=== PATIENT | male | born 1965 | race Caucasian/White ===

== ENCOUNTER 2022-11-27 09:14 | Inpatient (IN) | payer OTHER ==
[~2022-11-27] VITALS: Ht 185.4 cm; Wt 81.7 kg
--- NOTE | 2022-11-27 11:40 | PM&R Post Admission Assessment ---
PM&R Date of Visit: Nov 27, 2022 Time of Visit: 13:00 History of Present Illness Chief complaint: Critical illness myopathy HPI: This is a 57-year-old male who has a history of colon cancer who presents from [place] following a lengthy course which included ventilator wean and tracheotomy who presents to ARU to help with aggressive therapy to return back to baseline function. 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 He continues with J-tube feeding and drain in the left lower quadrant is in place. He does have a history of PTSD and severe anxiety and depression. Acute respiratory failure with ARDS required intubation and tracheotomy but the trach was decannulated on 11/25/2022 and currently on room air but does require 2 L at times. Speech therapy will work on returning back to oral nutrition While maintaining tube feedings to maintain nutrition. He did have suspected adrenal insufficiency and did require transfusions for severe acute blood loss anemia. His fiance is at the bedside. Past Zfvhjda-[id number]-Qfnyvv Hx Past Med/Social Hx: Reviewed Nursing Past Med/Soc Hx, Reviewed and Corrections made Patient Social History Marrital Status: cohabiting Employed/Student: retired Alcohol Use: Past History Smoking Status: Former Smoker Past Medical History Surgeries: Abdominal Cancer: Stomach, Colon What Type of Treatment Did You: Chemotherapy, Radiation, Surgical Intervention Psychosocial: Sleep Difficulties, Anxiety, PTSD, Depression PM&R Allergy/Meds/Data Review Allergies Coded Allergies: No Allergy Information Available (Unverified , 11/27/22) Home Medications Scheduled Ascorbate Calcium (Vitamin C), 500 MG BID, (Reported) Cetirizine HCl (Cetirizine HCl), 10 MG HS, (Reported) Chlorhexidine Gluconate (Peridex), 10 ML MM BID, (Reported) Enoxaparin Sodium (Enoxaparin Sodium), 40 MG SQ DAILY, (Reported) Ferrous Sulfate (Ferrous Sulfate), 300 MG BID WITH FOOD, (Reported) Folic Acid (Folic Acid), 1 MG DAILY, (Reported) Gabapentin (Neurontin), 300 MG Q12H, (Reported) Heparin Sodium,Porcine/Pf (Heparin Flush 10 Units/ml Syr), UNIT IV BID, (Reported) Lansoprazole (Lansoprazole), 30 MG DAILY, (Reported) Lidocaine (Salonpas), 1 EACH TP DAILY, (Reported) Loperamide HCl (Imodium A-D), 4 MG Q6H, (Reported) Lorazepam (Ativan), 0.5 MG PEG Q8H, (Reported) Magnesium Oxide (Magnesium Oxide), 400 MG BID, (Reported) Melatonin (Melatonin), 5 MG HS, (Reported) Potassium Bicarbonate/Cit AC (Effer-K 20 Meq Tablet Eff), 20 MEQ DAILY, (Reported) Propranolol HCl (Propranolol HCl), 20 MG Q12H, (Reported) Venlafaxine HCl (Venlafaxine HCl ER), 37.5 MG HS, (Reported) Scheduled PRN Acetaminophen (Tylenol Extra Strength), 1,000 MG Q8H PRN for PAIN-MILD (1-4) OR TEMPATURE, (Reported) Hydroxyzine HCl (Hydroxyzine HCl), 25 MG JT Q8H PRN for ANXIETY, (Reported) Ipratropium/Albuterol Sulfate (Iprat-Albut 0.5-3(2.5) mg/3 ml), 3 ML IH Q4H PRN for SHORTNESS OF BREATH, (Reported) Midodrine HCl (Midodrine HCl), 20 MG Q6H PRN for SBP<100, (Reported) Current Medications Current Medications Reviewed Review of Systems Constitutional: see HPI, dizziness, malaise, weakness EENTM: no symptoms reported Respiratory: dyspnea on exertion Cardiovascular: no symptoms reported Gastrointestinal: abdominal pain, loss of appetite Genitourinary: no symptoms reported Musculoskeletal: back pain, joint pain, muscle pain, muscle stiffness, muscle cramps Skin: no symptoms reported Psychiatric/Neurological: Anxiety, Depressed, Emotional Problems All Other Systems Reviewed Negative Unless Noted: Yes Physical Exam Physical Exam Vital Signs Capillary Refill : Height, Weight, BMI Height: '" Weight: lbs. oz. kg; BMI Method: General Appearance: WD/WN, Anxious, Chronically ill, Mild Distress, Thin Eyes: Bilateral Eye Normal Inspection, Bilateral Eye PERRL HEENT: PERRL/EOMI, Normal ENT Inspection, Pharynx Normal Neck: Full Range of Motion, Normal Inspection, Non Tender, Supple, Carotid Bruit Respiratory: Chest Non Tender, Lungs Clear, No Accessory Muscle Use, No Respiratory Distress, Decreased Breath Sounds Cardiovascular: No Edema, No Gallop, No JVD, No Murmur, Normal Peripheral Pulses, Tachycardia Gastrointestinal: Normal Bowel Sounds, No Organomegaly, No Pulsatile Mass, Non Tender, Soft Back: Normal Inspection, No CVA Tenderness, No Vertebral Tenderness Extremity: Normal Capillary Refill, Normal Inspection, Normal Range of Motion, Non Tender, No Calf Tenderness, No Pedal Edema Neurologic/Psychiatric: Alert, Oriented x3, 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 Norm as Tested, Abnormal Gait, Depressed Affect, Motor Weakness (Generalized 3/5) Skin: Normal Color, Warm/Dry Lymphatic: No Adenopathy PM&R Medical Assessment & Plan REHAB/MEDICAL ASSESSMENT AND PLAN: REHAB IMPAIRMENT GROUP: Neuromuscular disorder ETIOLOGIC DIAGNOSIS: Critical illness myopathy The comorbidities that impact the patients function and/or functional outcome by: decannulated trach, tube feedings, dysphagia, adrenal insufficiency, acute blood loss anemia, anxiety, and PTSD REHAB PLAN: The patient is being admitted to our comprehensive inpatient rehabilitation facility and can tolerate the intensity of service consisting of at least: 180 minutes of therapy a day, 5 out of 7 days a week Rehab treatment will consist of: PT and OT will focus on regaining function with use of assistive devices in order to increase stamina and ambulation with use of assistive devices to help increase ADLs independence The patient/family has a good understanding of our discharge process and will benefit from an interdisciplinary inpatient rehabilitation program. The patient has potential to make improvement and is in need of at least two of the following multidisciplinary therapies including but not limited to physical, occupational, speech, and prosthetics and orthotics. Additionally the patient will need services from respiratory, nutritional services, wound care, psychology, etc. (Customize this to each patient). Given the patients complex condition and risk of further medical complications, rehabilitation services cannot be safely or effectively provided at a lower level of care such as a [facility] facility. BARRIERS TO DISCHARGE: severe weakness ESTIMATED LOS: 14 days DISPOSITION: home RELEVANT CHANGES SINCE PREADMISSION SCREENING: I have compared the patients medical and functional status at the time of the preadmission screening and there are: no changes PROGNOSIS: fair REHABILITATION GOALS: 1. PT and OT will focus on regaining function with use of assistive devices in order to increase stamina and ambulation with use of assistive devices to help increase ADLs independence All the above goals were reviewed with the patient and he/she is in agreement. By signing this document, I acknowledge that I have personally performed a full physical examination on this patient within 24 hours of admission to this inpatient rehabilitation facility and have determined the patient to be able to tolerate the above course of treatment at an intensive level for a reasonable period of time. I will be completing a detailed individualized Plan of Care for this patient by day #4 of the patients stay based upon the Preadmission Screen, the Post-Admission Evaluation, and the therapy evaluations. Admission Dx/Comorbidities: (1) Critical illness myopathy ICD Codes: G72.81 - Critical illness myopathy Assessment/Plan Assessment and Plan Assess & Plan/Chief Complaint Assessment: Critical illness myopathy Recent ARDS Recent vent dependent Decannulated trach Former smoker Colon cancer Gastrectomy with J-tube placement Recent adrenal insufficiency Acute blood loss anemia requiring transfusions PTSD Anxiety Depression Hypokalemia Labile blood pressure Tachycardia Plan: Supportive care Monitor closely PT and OT Supportive care LIAM IQBAL DO Nov 27, 2022 11:40
[2022-11-27] MEDS ORDERED: ACETAMINOPHEN 325 MG TABLET PO PRN (11:45)
[2022-11-27] MEDS ORDERED: MELATONIN 3 MG TABLET PO PRN (11:45)
[2022-11-27] MEDS ORDERED: ALPRAZolam 0.25 MG TABLET PO PRN (11:45)
[2022-11-27] MEDS ORDERED: ONDANSETRON 4 MG ORAL DISSOLVE TABLET PO PRN (11:45)
[2022-11-27] MEDS ORDERED: Sodium Phosphate/Sodium Biphosphate ADULT enema PR PRN (11:45)
[2022-11-27] MEDS ORDERED: LACTULOSE SYRUP 10GM/15ML 30ML UDC PO PRN (11:45)
[2022-11-27] MEDS ORDERED: BISACODYL 10 MG SUPPOSITORY PR PRN (11:45)
[2022-11-27] MEDS ORDERED: LOPERAMIDE 2 MG CAPSULE PO PRN (11:45)
[2022-11-27] MEDS ORDERED: CALCIUM CARBONATE 500 MG CHEW TABLET PO PRN (11:45)
[2022-11-27] MEDS ORDERED: DOCUSATE SODIUM 100 MG CAPSULE PO PRN (11:45)
[2022-11-27] MEDS ORDERED: diphenhydrAMINE 25 MG TABLET PO PRN (11:45)
[2022-11-27] MEDS ORDERED: guaiFENesin/CODEINE 10ML UDC PO PRN (11:45)
[2022-11-27] MEDS ORDERED: ENOX40DI8 SQ (12:16)
[2022-11-27] MEDS ORDERED: POTA20TA28 (12:16)
[2022-11-27] MEDS ORDERED: HEPA10DI39 IV (12:16)
[2022-11-27] MEDS ORDERED: LANS30TA9 (12:16)
[2022-11-27] MEDS ORDERED: FOLI1TAB33 (12:16)
[2022-11-27] MEDS ORDERED: FERR220S8 (12:16)
[2022-11-27] MEDS ORDERED: MGX400T (12:16)
[2022-11-27] MEDS ORDERED: GABA300C (12:16)
[2022-11-27] MEDS ORDERED: MIDO10TA (12:16)
[2022-11-27] MEDS ORDERED: IPRA3AMP31 IH (12:16)
[2022-11-27] MEDS ORDERED: MELA5TAB14 (12:16)
[2022-11-27] MEDS ORDERED: CETI10TA17 (12:16)
[2022-11-27] MEDS ORDERED: LOPE-175 (12:16)
[2022-11-27] MEDS ORDERED: VENL37.57 (12:16)
[2022-11-27] MEDS ORDERED: ASCO-262 (12:16)
[2022-11-27] MEDS ORDERED: CHLO473M4 MM (12:16)
[2022-11-27] MEDS ORDERED: LORA-404 PEG (12:16)
[2022-11-27] MEDS ORDERED: HYDR-700 JT (12:16)
[2022-11-27] MEDS ORDERED: LIDO1ADH74 TP (12:16)
[2022-11-27] MEDS ORDERED: PROP20TA5 (12:16)
[2022-11-27] MEDS ORDERED: ACET-2267 (12:16)
--- OUTSIDE RECORDS SUMMARY | 2022-11-27 13:37 | XMS REPORT | Clinical Summary ---
Author Author [facility] Organization [facility] Address Unknown Phone Unavailable Care Team Providers Care Darkroom Technician Name Role Phone No Pcp, Na PCP Unavailable Kendrick Guzman MD [phone] Maryann White MD [phone] Source Comments Some departments are not documenting in the electronic medical record. If you do not see the information that you expected, contact Release of Information in the Health Information Management department at [phone] for further assistance in locating additional records.[facility] Allergies Active Allergy Reactions Criticality Noted Date Comments Atorvastatin MUSCLE PAIN,URTICARIA Medium 01/08/2021 Medications Medication Sig Dispensed Refills Start Date End Date Status lisinopriL (ZESTRIL) 10 mg tablet Take one tablet by mouth daily. 0 12/27/2021 Active cetirizine (ZYRTEC) 10 mg tablet Take one tablet by mouth every morning. 0 01/16/2022 Active gabapentin (NEURONTIN) 300 mg capsule Take two capsules by mouth three times daily. 0 01/21/[address] (PROTONIX) 40 mg tablet Take one tablet by mouth daily. 0 01/24/2022 Active venlafaxine XR (EFFEXOR XR) 150 mg capsule Take one capsule by mouth daily. 0 Active albuterol sulfate (PROAIR HFA) 90 mcg/actuation HFA aerosol inhaler Inhale one puff to two puffs by mouth into the lungs as Needed for Wheezing or Shortness of Breath. 0 Active ARIPiprazole (ABILIFY) 20 mg tablet Take one-half tablet by mouth daily. 0 05/02/2022 Active hydrOXYzine HCL (ATARAX) 25 mg tablet Take one tablet by mouth daily as needed. 0 07/29/2022 Active acetaminophen (TYLENOL EXTRA STRENGTH) 500 mg tablet two tablets by Per J Tube route every 6 hours as needed. Max of 4,000 mg of acetaminophen in 24 hours. 0 10/29/2022 Active artificial tears (PF) single dose ophthalmic solution Apply one drop to both eyes as Needed for Dry Eyes. 30 mL 0 10/29/2022 Active chlorhexidine gluconate (PERIDEX) 0.12 % mouthwash Take 15 mL by mouth twice daily. In mechanically ventilated patient, apply with swab to entire oral cavity and artificial airway. Discontinue when patient is no longer ventilated. 473 mL 0 10/29/2022 Active diphenoxylate-a tropine (LOMOTIL) 2.5-0.025 mg tablet two tablets by Per J Tube route every 6 hours. 0 10/29/2022 Active enoxaparin (LOVENOX) 40 mg injection syringe Inject 0.4 mL under the skin daily. 0 10/29/2022 Active lidocaine (LIDODERM) 5 % topical patch Apply one patch topically to affected area daily. Apply patch for 12 hours, then remove for 12 hours before repeating. 90 patch 0 10/30/2022 Active loperamide (IMODIUM) 1 mg/7.5 mL oral solution 30 mL by Per J Tube route every 6 hours. 240 mL 0 10/29/2022 Active LORazepam (ATIVAN) 0.5 mg tablet one tablet by Per J Tube route twice daily as needed. 0 10/29/2022 Active melatonin 5 mg tablet one tablet by Per J Tube route at bedtime daily. 90 tablet 0 10/29/2022 Active midodrine (PROAMATINE) 5 mg tablet three tablets by Per J Tube route every 8 hours. 270 tablet 0 10/29/2022 Active norepinephrine (LEVOPHED) 4 mg/250 mL (16 mcg/mL) soln IV drip (std conc) Administer 0-0.0522 mg/min through vein Continuous. Drip Parameters: Initial Rate: 0.01-0.05 mcg/kg/min Titrate to keep: MAP >= 65 Titrate by: 0.01-0.05 mcg/kg/min every 1 minute as needed to maintain desired clinical response. Std conc = 16 mcg/mL 0 10/29/2022 Active opium tincture 10 mg/mL (morphine) oral solution 1 mL by Per J Tube route every 6 hours. 0 10/29/2022 Active oxyCODONE (ROXICODONE) 1 mg/mL oral solution 5 mL by Per J Tube route every 3 hours as needed. 0 10/29/2022 Active QUEtiapine (SEROQUEL) 50 mg tablet Take one tablet by mouth twice daily. 180 tablet 0 10/29/2022 Active QUEtiapine (SEROQUEL) 100 mg tablet Take one tablet by mouth at bedtime daily. 180 tablet 0 10/29/2022 Active traZODone (DESYREL) 50 mg tablet Take one-half tablet by mouth three times daily. 90 tablet 0 10/29/2022 Active simethicone (MYLICON) 40 mg/0.6 mL drops 1.2 mL by Per J Tube route four times daily as needed. 0 10/29/2022 Active ondansetron HCL (PF) (ZOFRAN (PF)) 4 mg/2 mL injection solution Administer 2 mL through vein every 6 hours as needed. 2 mL 0 10/29/2022 Active apixaban (ELIQUIS) 5 mg tablet Take one tablet by mouth twice daily. 0 10/30/19 23 Discontinued dexmedeTOMIDine in 0.9 % NaCL (PRECEDEX) 400 mcg/100 mL (4 mcg/mL) IV drip Administer 19.42-29.13 mcg/hr through vein once for 1 dose. Instructions: -Initiate at 0.2 mcg/kg/hr and maintain for 30 minutes -Titrate to keep: RASS of 0 to -2 a.) Titrate infusion in increments of 0.1 mcg/kg/hr at 5 minute intervals until goal sedation level achieved or maintenance exceeds 1.0 mcg/kg/hr b.) If HR < 55 or SBP < 90 mmHg hold for 10 minutes then restart at dose reduced by 0.3 mcg/kg/hr c.) Notify physician for persistent hypotension (SBP < 90 mmHg) or bradycardia (HR < 55) over 15 minutes d.) For breakthrough agitation NOTIFY PHYSICIAN and consider bolus of 1 mcg/kg over 20 min if HR and BP are acceptable. e.) Notify physician if maintenance exceeds 1 mcg/kg/hr -Taper agent continuously to lowest effective dose to achieve desired level of sedation keeping patient calm and able to participate in care. Std conc= 4mcg/ml NOTE: For weight-based dosing, use patient dosing weight. Std conc = 4 mcg/mL 0 10/29/2022 10/30/19 micafungin (MYCAMINE) 100 mg in sodium chloride 0.9% (NS) 100 mL IVPBIndications :intra-abdomina l infection Administer one hundred mg through vein every 24 hours. 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, [address] [place] [address] William Montgomery MD Appointment 10/28/2022 6:35 AM CDT - 10/28/2022 11:59 PM CDT Hospital Encounter Vascular Access Team: [address], [address] [place] [address] William Montgomery MD Discharge Disposition: Home or Self Care 10/09/2022 2:05 PM CDT - 10/09/2022 11:59 PM CDT Hospital Encounter Vascular Access Team: [address], [address] [place] [address] William Montgomery MD Discharge Disposition: Home or Self Care 10/03/2022 1:01 PM CDT - 10/03/2022 11:59 PM CDT Hospital Encounter Imaging: [facility] [address] [facility]. [address] [place] [address] Discharge Disposition: Home or Self Care 10/01/2022 4:27 PM CDT Anesthesia Event Interventional Radiology: [address], [address] [place] [address] Edwin Deluna MD Rogers, Alicia, [facility] 09/30/2022 9:45 AM CDT - 09/30/2022 11:59 PM CDT Hospital Encounter Vascular Access Team: [address] [address], [address] [place] [address] William Montgomery MD Discharge Disposition: Home or Self Care 09/28/2022 12:37 PM CDT - 09/28/2022 11:59 PM CDT Hospital Encounter Vascular Access Team: [address] [address], [address] [place] [address] William Montgomery MD Discharge Disposition: Home or Self Care 09/24/2022 3:30 PM CDT - 09/24/2022 11:59 PM CDT Hospital Encounter Vascular Access Team: [address] [address], [address] [place] [address] William Montgomery MD Discharge Disposition: Home or Self Care 09/23/2022 7:35 PM CDT - 09/23/2022 11:59 PM CDT Hospital Encounter Vascular Access Team: [address] [address], [address] [place] [address] William Montgomery MD Discharge Disposition: Home or Self Care 09/23/2022 12:35 PM CDT - 09/23/2022 7:34 PM CDT Hospital Encounter Vascular Access Team: [address] [address], [address] [place] [address] William Montgomery MD Discharge Disposition: Home or Self Care 09/23/2022 6:30 AM CDT - 09/23/2022 12:34 PM CDT Hospital Encounter Vascular Access Team: [address], [address] [place] [address] William Montgomery MD Discharge Disposition: Home or Self Care 09/20/2022 9:48 AM CDT - 09/20/2022 11:38 AM CDT Surgery Operating Room: [address] [place] [address] Lit Blas MD TRACHEOSTOMY PLANNED 09/20/2022 9:46 AM CDT Anesthesia Event Operating Room: [place] [address] Zohaib Fuentes, Radha Lindquist, PAJovannaC 09/18/2022 6:53 AM CDT Anesthesia Event Intensive Care Unit BH28: [place] [address] Juve Manzo MD 09/16/2022 Telephone Otolaryngology: [facility], [address], [address] [place] [address] Ever Moreira, PETE Scheduling 09/13/2022 Telephone Otolaryngology: [facility], [address] [facility] [address], [address] [place] [address] Ever Moreira, PETE Scheduling 09/12/2022 9:05 PM CDT Anesthesia Event Intensive Care Unit BH28: [address] [address] Nikolay Spring MD 09/08/2022 10:00 PM CDT Anesthesia Event Intensive Care Unit BH28: [address] [address] Jose Roberto Peña MD 09/07/2022 12:00 PM CDT - 09/07/2022 11:59 PM CDT Hospital Encounter Vascular Access Team: [address], [address] [place] [address] William Montgomery MD Discharge Disposition: Home or Self Care 09/07/2022 3:35 AM CDT - 09/07/2022 11:59 AM CDT Hospital Encounter Vascular Access Team: [address] [place] [address], [address] [place] [address] William Montgomery MD Discharge Disposition: Home or Self Care 09/06/2022 8:28 PM CDT - 09/06/2022 11:59 PM CDT Hospital Encounter Vascular Access Team: [address] [place] [address], [address] [place] [phone] William Montgomery MD Discharge Disposition: Home or Self Care 09/02/2022 8:27 AM CDT Anesthesia Event Operating Room: [place] [address] Evelyne Xie MD Turek, Lisa J, PA-C 09/02/2022 8:00 AM CDT - 09/02/2022 12:50 PM CDT Surgery Operating Room: [place] [address] William Montgomery MD TOTAL GASTRECTOMY, TRISTAN-EN-Y GASTROJEJUNOSTOMY; JEJUNOSTOMY TUBE PLACEMENT. SIGMOID COLECTOMY 09/02/2022 7:58 AM CDT - 09/02/2022 11:59 PM CDT Hospital Encounter Vascular Access Team: [place] [address], [address] [place] [phone] William Montgomery MD Discharge Disposition: Home or Self Care 09/02/2022 6:25 AM CDT - 10/30/2022 12:26 PM CDT Hospital Encounter Intensive Care Unit 28: [address] [place] [address] William Montgomery MD Malignant neoplasm of esophagus (HCC) Discharge Disposition: Home or Self Care 08/27/2022 10:00 AM CDT PAC Office Visit Pre-anesthesia: [facility] [address] [facility], [address] [place] [phone] William Montgomery MD Preop examination (Primary Dx) from Last 3 Months Surgical History Surgery Date Site/Laterality Comments UPPER GASTROINTESTINAL ENDOSCOPY 04/24/2022 N/A ESOPHAGOGASTRODUODENOSCO PY WITH ENDOSCOPIC ULTRASOUND EXAMINATION - FLEXIBLE performed by Martin Aguayo MD at [facility] ENDO UPPER GASTROINTESTINAL ENDOSCOPY 04/24/2022 N/A ESOPHAGOGASTRODUODENOSCO PY WITH SPECIMEN COLLECTION BY BRUSHING/ WASHING performed by Martin Aguayo MD at [facility] ENDO COLONOSCOPY HX CHOLECYSTECTOMY ANKLE SURGERY Bilateral Fx Surgery HX JOINT REPLACEMENT 02/17/2015 - 02/17/2016 Right JEJUNOSTOMY 09/02/2022 Abdomen/N/A CATHETER JEJUNOSTOMY FOR ENTERAL ALIMENTATION performed by William Montgomery MD at [facility] OR COLECTOMY 09/02/2022 Abdomen/N/A COLECTOMY WITH ANASTOMOSIS - PARTIAL performed by William Montgomery MD at [facility] OR TRACHEOSTOMY 09/20/2022 Neck/N/A TRACHEOSTOMY PLANNED performed by Lit Blas MD at [facility] OR Medical History Medical History Date Comments PE (pulmonary thromboembolism) (HCC) 02/2022 HTN (hypertension) GERD (gastroesophageal reflux disease) Cancer of colon (HCC) Cancer of esophagus (HCC) Arthritis On supplemental oxygen therapy p rn History of blood transfusion 05/2022 per pt report Family History Medical History Relation Name Comments Stroke Father Arthritis-osteo Mother Arthritis-rheumatoid Mother Depression Mother Stroke Mother Relation Name Status Comments Father Mother Alive Social History Tobacco Use Types Packs/Day Years Used Date Smoking Tobacco: Never Smokeless Tobacco: Former Chew Quit: 06/2022 Alcohol Use Standard Drinks/Week Comments Not Currently 0 (1 standard drink = 0.6 oz pur e alcohol) Alcohol Use Answer Date Recorded Alcohol Use No Male: 9+ ounces (15+ Standard Drinks) per week T hreshold 0 Female: 4.8+ ounces (8+ Standard Drinks) per wee k Threshold Not on file Sex and Gender Information Value Date Recorded Sex Assigned at Male 03/28/2022 2:05 PM MANAGER UI Gender Identity Male 03/28/2022 2:05 PM MANAGER UI Sexual Orientation Not on file Obstetrics History Last Filed Vital Signs Vital Sign Reading Time Taken Comments Blood Pressure 117/82 10/30/2022 12:00 PM CDT Pulse 84 10/30/2022 12:00 PM CDT Temperature 37.1 C (98.7 F) 10/30/2022 8:00 AM CDT Respiratory Rate 16 07/31/2022 10:4 9 AM CDT Oxygen Saturation 98% 10/30/2022 12: 00 PM CDT Inhaled Oxygen Concentration - - Weight 96.6 kg (212 lb 15.4 oz) 023 5:00 AM CDT Height 182.9 cm (6') 10/14/2022 6:00 AM CDT Body Mass Index 28.88 10/14/2022 6:00 AM CDT Plan of Treatment Health Maintenance Due Date Last Done Comments PNEUMOCOCCAL VACCINE 0-64 YR S (1 - PCV) 1970 HIV SCREENING 08/30/1979 HEPATITIS C SCREENING 1982 PHYSICAL (COMPREHENSIVE) EXAM 1982 COLORECTAL CANCER SCREENING 2009 SHINGLES RECOMBINANT VACCINE (1 of 2) 2014 COVID-19 VACCINE (3 - Pfizer series) 02/06/2022 12/12/2021, 11/16/2021 DEPRESSION SCREENING 02/17/2022 INFLUENZA VACCINE (#1) 2022 , 11/12/2019, 01/20/2019, Additional history exists DTAP/TDAP VACCINES (2 - Td o r Tdap) 01/31/2025 01/31/2015 Goals Goal Patient Goal Type Associated Problems Recent Progress Patient-Stated? [facility] On [facility]( 023 10:31 AM CDT) Yes Kacie Aguilar, RN Note: Move around without getting an upset stomach Medical Devices Implanted Type Area Hand Rug Cleaner Device Identifier Shelf Expiration Date Model / Serial / Lot Port Port Left: Chest Procedures Procedure Name Priority Date/Time Associated Diagnosis Comments HC BLOOD GASES;(CALCULATED 02) Routine 10/30/2022 5:59 AM CDT HC BLOOD GASES;(CALCULATED 02) Routine 10/29/2022 3:19 AM CDT CONSULT VASCULAR ACCESS TEAM DAIANA 10/28/2022 6:01 AM CDT HC BASIC METABOLIC PANEL STAT 10/28/2022 3:55 AM CDT HC PHOSPHOROUS, SERUM Routine 10/28/2022 3:55 AM CDT HC MAGNESIUM Routine 10/28/2022 3:55 AM CDT HC CBC,AUTOMATED Routine 10/28/2022 3:5 5 AM CDT HC BLOOD GASES;(CALCULATED 02) Routine 10/28/2022 3:55 AM CDT HC BLOOD GASES;(CALCULATED 02) Routine 10/27/2022 4:00 AM CDT HC BASIC METABOLIC PANEL STAT 10/27/2022 3:58 AM CDT HC PHOSPHOROUS, SERUM Routine 10/27/2022 3:58 AM CDT HC MAGNESIUM Routine 10/27/2022 3:58 AM CDT HC CBC,AUTOMATED Routine 10/27/2022 3:5 8 AM CDT HC BLOOD GASES;(CALCULATED 02) Routine 10/26/2022 2:50 AM CDT HC BASIC METABOLIC PANEL STAT 10/26/2022 2:49 AM CDT HC PHOSPHOROUS, SERUM Routine 10/26/2022 2:49 AM CDT HC MAGNESIUM Routine 10/26/2022 2:49 AM CDT HC CBC,AUTOMATED Routine 10/26/2022 2:4 9 AM CDT HC BLOOD GASES;(CALCULATED 02) STAT 10/25/2022 4:39 PM CDT CHEST SINGLE VIEW STAT 10/25/2022 4: 42 AM CDT TYPE & CROSSMATCH Routine 10/25/2022 3: 19 AM CDT HC PHOSPHOROUS, SERUM Routine 10/25/2022 3:17 AM CDT HC MAGNESIUM Routine 10/25/2022 3:17 AM CDT HC COMPREHENSIVE METABOLIC PANEL Routine 10/25/2022 3:17 AM CDT HC CBC,AUTOMATED Routine 10/25/2022 3:1 7 AM CDT HC BLOOD GASES;(CALCULATED 02) Routine 10/25/2022 3:17 AM CDT HC PHOSPHOROUS, SERUM Routine 10/24/2022 5:05 AM CDT HC MAGNESIUM Routine 10/24/2022 5:05 AM CDT HC COMPREHENSIVE METABOLIC PANEL Routine 10/24/2022 5:05 AM CDT HC CBC,AUTOMATED Routine 10/24/2022 5:0 5 AM CDT HC BLOOD GASES;(CALCULATED 02) Routine 10/24/2022 5:05 AM CDT ECG 12-LEAD Routine 10/23/2022 7:13 PM CDT HC BLOOD GASES;(CALCULATED 02) STAT 10/23/2022 2:35 PM CDT CORTISOL 60 MINUTES POST Routine 10/23/2022 10:17 AM CDT CORTISOL 30 MINUTES POST Routine 10/23/2022 9:40 AM CDT HC ACTH STIM PANEL (CORTISOL X2) Routine 10/23/2022 8:09 AM CDT HC ACTH Routine 10/23/2022 8:09 AM CDT HC PHOSPHOROUS, SERUM Routine 10/23/2022 2:39 AM CDT HC MAGNESIUM Routine 10/23/2022 2:39 AM CDT HC COMPREHENSIVE METABOLIC PANEL Routine 10/23/2022 2:39 AM CDT HC CBC,AUTOMATED Routine 10/23/2022 2:3 9 AM CDT HC BLOOD GASES;(CALCULATED 02) Routine 10/23/2022 2:39 AM CDT HC BLOOD GASES;(CALCULATED 02) STAT 10/22/2022 2:28 PM CDT HC BLOOD GASES;(CALCULATED 02) STAT 10/22/2022 7:47 AM CDT HC BLOOD GASES;(CALCULATED 02) Routine 10/22/2022 2:33 AM CDT HC PHOSPHOROUS, SERUM Routine 10/22/2022 2:32 AM CDT HC MAGNESIUM Routine 10/22/2022 2:32 AM CDT HC COMPREHENSIVE METABOLIC PANEL Routine 10/22/2022 2:32 AM CDT HC CBC,AUTOMATED Routine 10/22/2022 2:3 2 AM CDT HC BLOOD GASES;(CALCULATED 02) STAT 10/21/2022 2:36 PM CDT HC CBC,AUTOMATED STAT 10/21/2022 2:3 2 PM CDT CHEST SINGLE VIEW STAT 10/21/2022 10: 36 AM CDT CHEST SINGLE VIEW Routine 10/21/2022 4: 17 AM CDT HC PHOSPHOROUS, SERUM Routine 10/21/2022 2:31 AM CDT HC MAGNESIUM Routine 10/21/2022 2:31 AM CDT HC COMPREHENSIVE METABOLIC PANEL Routine 10/21/2022 2:31 AM CDT HC CBC,AUTOMATED Routine 10/21/2022 2:3 1 AM CDT HC BLOOD GASES;(CALCULATED 02) Routine 10/21/2022 2:31 AM CDT CHEST SINGLE VIEW STAT 10/20/2022 3: 45 PM CDT HC BLOOD GASES;(CALCULATED 02) STAT 10/20/2022 3:24 PM CDT CULTURE-WOUND/TISSUE/ FLUID(AEROBIC ONLY)W/SENSITIVITY Routine 10/20/2022 1:54 PM CDT CULTURE-ANAEROBIC Routine 10/20/2022 1: 54 PM CDT GRAM STAIN Routine 10/20/2022 1:54 PM CDT CULTURE-FUNGAL,OTHER Routine 10/20/2022 1:[address] GUIDE ABSCESS DRAIN W CATH Routine 10/20/2022 1:[address] GUIDE ABSCESS DRAIN W CATH DAIANA 10/20/2022 1:46 PM CDT TEG WITH KAOLIN STAT 10/20/2022 8:50 AM CDT HC BLOOD GASES;(CALCULATED 02) Routine 10/20/2022 3:11 AM CDT HC PHOSPHOROUS, SERUM Routine 10/20/2022 3:08 AM CDT HC MAGNESIUM Routine 10/20/2022 3:08 AM CDT HC COMPREHENSIVE METABOLIC PANEL Routine 10/20/2022 3:08 AM CDT HC CBC,AUTOMATED Routine 10/20/2022 3:0 8 AM CDT HC BLOOD GASES;(CALCULATED 02) STAT 10/19/2022 8:50 PM CDT HC BLOOD GASES;(CALCULATED 02) STAT 10/19/2022 4:58 PM CDT HC HEMOGLOBIN STAT 10/19/2022 12:49 PM CDT HC BLOOD GASES;(CALCULATED 02) Routine 10/19/2022 12:49 PM CDT HC BLOOD GASES;(CALCULATED 02) STAT 10/19/2022 10:27 AM CDT HC BLOOD GASES;(CALCULATED 02) STAT 10/19/2022 8:45 AM CDT HC BLOOD GASES;(CALCULATED 02) Routine 10/19/2022 3:10 AM CDT HC PHOSPHOROUS, SERUM Routine 10/19/2022 3:03 AM CDT HC MAGNESIUM Routine 10/19/2022 3:03 AM CDT HC COMPREHENSIVE METABOLIC PANEL Routine 10/19/2022 3:03 AM CDT HC CBC,AUTOMATED Routine 10/19/2022 3:[address] CHEST W CONTRAST STAT 10/18/2022 4:[address] ABD/PELV W CONTRAST STAT 10/18/2022 4:37 PM CDT CHEST SINGLE VIEW STAT 10/18/2022 8: 48 AM CDT POC GLUCOSE 10/18/2022 6:21 AM CDT HC TRIGLYCERIDE Routine 10/18/2022 3:21 AM CDT HC PHOSPHOROUS, SERUM Routine 10/18/2022 3:21 AM CDT HC MAGNESIUM Routine 10/18/2022 3:21 AM CDT HC COMPREHENSIVE METABOLIC PANEL Routine 10/18/2022 3:21 AM CDT HC CBC,AUTOMATED Routine 10/18/2022 3:2 1 AM CDT HC BLOOD GASES;(CALCULATED 02) Routine 10/18/2022 3:21 AM CDT POC GLUCOSE 10/17/2022 10:50 PM CDT HC CBC,AUTOMATED STAT 10/17/2022 7:0 5 PM CDT POC GLUCOSE 10/17/2022 5:36 PM CDT CHEST SINGLE VIEW STAT 10/17/2022 3: 34 PM CDT POTASSIUM STAT 10/17/2022 1:17 PM CDT POC GLUCOSE 10/17/2022 12:32 PM CDT US DOPPLER VENOUS LEFT STAT 10/17/2022 12:29 PM CDT ECG 12-LEAD STAT 10/17/2022 8:58 AM CDT POC GLUCOSE 10/17/2022 6:37 AM CDT TRANSFUSE RBC'S Routine 10/17/2022 4:44 AM CDT HC PHOSPHOROUS, SERUM Routine 10/17/2022 3:35 AM CDT HC MAGNESIUM Routine 10/17/2022 3:35 AM CDT HC COMPREHENSIVE METABOLIC PANEL Routine 10/17/2022 3:35 AM CDT HC CBC,AUTOMATED Routine 10/17/2022 3:3 5 AM CDT HC BLOOD GASES;(CALCULATED 02) Routine 10/17/2022 3:30 AM CDT POC GLUCOSE 10/16/2022 9:40 PM CDT POC GLUCOSE 10/16/2022 4:35 PM CDT POTASSIUM STAT 10/16/2022 1:24 PM CDT POC GLUCOSE 10/16/2022 11:59 AM CDT POC GLUCOSE 10/16/2022 6:31 AM CDT HC TRIGLYCERIDE Routine 10/16/2022 3:13 AM CDT HC CBC,AUTOMATED Routine 10/16/2022 3:1 3 AM CDT HC COMPREHENSIVE METABOLIC PANEL Routine 10/16/2022 3:13 AM CDT HC MAGNESIUM Routine 10/16/2022 3:13 AM CDT HC PHOSPHOROUS, SERUM Routine 10/16/2022 3:13 AM CDT HC BLOOD GASES;(CALCULATED 02) Routine 10/16/2022 3:13 AM CDT POC GLUCOSE 10/15/2022 9:07 PM CDT POC GLUCOSE 10/15/2022 5:39 PM CDT HC CBC,AUTOMATED STAT 10/15/2022 1:4 8 PM CDT POC GLUCOSE 10/15/2022 11:04 AM CDT POC GLUCOSE 10/15/2022 6:26 AM CDT HC CBC,AUTOMATED Routine 10/15/2022 3:0 3 AM CDT HC COMPREHENSIVE METABOLIC PANEL Routine 10/15/2022 3:03 AM CDT HC MAGNESIUM Routine 10/15/2022 3:03 AM CDT HC PHOSPHOROUS, SERUM Routine 10/15/2022 3:03 AM CDT HC BLOOD GASES;(CALCULATED 02) Routine 10/15/2022 3:03 AM CDT POC GLUCOSE 10/14/2022 10:18 PM CDT TRANSFUSE RBC'S STAT 10/14/2022 5:39 PM CDT HC BLOOD GASES;(CALCULATED 02) STAT 10/14/2022 5:30 PM CDT POC GLUCOSE 10/14/2022 4:09 PM CDT HC ABO GROUP STAT 10/14/2022 4:05 PM CDT HC HIGH SENSITIVITY TROPONIN I RANDOM 10/14/2022 2:38 PM CDT HC CBC,AUTOMATED 10/14/2022 2:3 8 PM CDT HC CALCIUM IONIZED Add on 10/14/2022 2 :38 PM CDT HC LACTIC ACID(LACTATE) STAT 10/14/2022 2:38 PM CDT HC PHOSPHOROUS, SERUM STAT 10/14/2022 2:38 PM CDT HC MAGNESIUM STAT 10/14/2022 2:38 PM CDT BASIC METABOLIC PANEL STAT 10/14/2022 2:38 PM CDT HC BLOOD GASES;(CALCULATED 02) STAT 10/14/2022 2:38 PM CDT ECG 12-LEAD Routine 10/14/2022 2:28 PM CDT POC GLUCOSE 10/14/2022 12:05 PM CDT CHEST SINGLE VIEW STAT 10/14/2022 11: 35 AM CDT HC CBC,AUTOMATED Routine 10/14/2022 3:3 3 AM CDT HC COMPREHENSIVE METABOLIC PANEL Routine 10/14/2022 3:33 AM CDT HC MAGNESIUM Routine 10/14/2022 3:33 AM CDT HC PHOSPHOROUS, SERUM Routine 10/14/2022 3:33 AM CDT HC BLOOD GASES;(CALCULATED 02) Routine 10/14/2022 3:33 AM CDT POC GLUCOSE 10/13/2022 10:17 PM CDT POC GLUCOSE 10/13/2022 4:06 PM CDT HC BLOOD GASES;(CALCULATED 02) Routine 10/13/2022 4:00 PM CDT HC SODIUM;SERUM STAT 10/13/2022 4:00 PM CDT POC GLUCOSE 10/13/2022 11:07 AM CDT SODIUM STAT 10/13/2022 11:00 AM CDT CHEST SINGLE VIEW STAT 10/13/2022 9: 02 AM CDT POC GLUCOSE 10/13/2022 6:31 AM CDT HC PHOSPHOROUS, SERUM Routine 10/13/2022 3:42 AM CDT HC MAGNESIUM Routine 10/13/2022 3:42 AM CDT HC COMPREHENSIVE METABOLIC PANEL Routine 10/13/2022 3:42 AM CDT HC CBC,AUTOMATED Routine 10/13/2022 3:4 2 AM CDT HC BLOOD GASES;(CALCULATED 02) Routine 10/13/2022 3:42 AM CDT POC GLUCOSE 10/12/2022 9:51 PM CDT HC SODIUM;SERUM STAT 10/12/2022 9:50 PM CDT POC GLUCOSE 10/12/2022 4:10 PM CDT HC SODIUM;SERUM STAT 10/12/2022 4:10 PM CDT HC BLOOD GASES;(CALCULATED 02) Routine 10/12/2022 12:20 PM CDT POC GLUCOSE 10/12/2022 10:13 AM CDT SODIUM STAT 10/12/2022 10:12 AM CDT HC BLOOD GASES;(CALCULATED 02) Routine 10/12/2022 8:00 AM CDT POC GLUCOSE 10/12/2022 6:21 AM CDT POC GLUCOSE 10/12/2022 3:04 AM CDT HC BLOOD GASES;(CALCULATED 02) Routine 10/12/2022 3:03 AM CDT HC PHOSPHOROUS, SERUM Routine 10/12/2022 3:02 AM CDT HC MAGNESIUM Routine 10/12/2022 3:02 AM CDT HC COMPREHENSIVE METABOLIC PANEL Routine 10/12/2022 3:02 AM CDT HC CBC,AUTOMATED Routine 10/12/2022 3:0 2 AM CDT POC GLUCOSE 10/11/2022 9:30 PM CDT HC SODIUM;SERUM STAT 10/11/2022 9:29 PM CDT HC BLOOD GASES;(CALCULATED 02) STAT 10/11/2022 4:27 PM CDT POC GLUCOSE 10/11/2022 4:09 PM CDT HC COMPREHENSIVE METABOLIC PANEL STAT 10/11/2022 3:48 PM CDT POC GLUCOSE 10/11/2022 11:29 AM CDT HC SODIUM;SERUM STAT 10/11/2022 9:33 AM CDT POC GLUCOSE 10/11/2022 6:26 AM CDT POC GLUCOSE 10/11/2022 3:22 AM CDT HC PHOSPHOROUS, SERUM Routine 10/11/2022 3:17 AM CDT HC MAGNESIUM Routine 10/11/2022 3:17 AM CDT COMPREHENSIVE METABOLIC PANEL Routine 10/11/2022 3:17 AM CDT HC CBC,AUTOMATED Routine 10/11/2022 3:1 7 AM CDT HC BLOOD GASES;(CALCULATED 02) Routine 10/11/2022 3:17 AM CDT POC GLUCOSE 10/10/2022 9:58 PM CDT HC SODIUM;SERUM STAT 10/10/2022 9:57 PM CDT HC BLOOD GASES;(CALCULATED 02) Routine 10/10/2022 4:18 PM CDT POC GLUCOSE 10/10/2022 4:15 PM CDT HC SODIUM;SERUM STAT 10/10/2022 4:15 PM CDT HC C DIFFICILE BY PCR Routine 10/10/2022 12:54 PM CDT POC GLUCOSE 10/10/2022 11:22 AM CDT SODIUM STAT 10/10/2022 10:22 AM CDT POC GLUCOSE 10/10/2022 5:44 AM CDT HC PHOSPHOROUS, SERUM Routine 10/10/2022 3:47 AM CDT HC MAGNESIUM Routine 10/10/2022 3:47 AM CDT HC COMPREHENSIVE METABOLIC PANEL Routine 10/10/2022 3:47 AM CDT HC CBC,AUTOMATED Routine 10/10/2022 3:4 7 AM CDT HC BLOOD GASES;(CALCULATED 02) Routine 10/10/2022 3:47 AM CDT HC BASIC METABOLIC PANEL STAT 10/09/2022 10:10 PM CDT POC GLUCOSE 10/09/2022 10:09 PM CDT POC GLUCOSE 10/09/2022 5:44 PM CDT SODIUM STAT 10/09/2022 4:08 PM CDT CULTURE-BLOOD W/SENSITIVITY Routine 10/09/2022 2:47 PM CDT CULTURE-BLOOD W/SENSITIVITY Routine 10/09/2022 2:42 PM CDT CONSULT VASCULAR ACCESS TEAM Routine 10/09/2022 2:00 PM CDT URINALYSIS MICROSCOPIC REFLEX TO CULTURE Routine 10/09/2022 1:50 PM CDT HC URINALYSIS UAR Routine 10/09/2022 1: 50 PM CDT HC PHOSPHOROUS, SERUM STAT 10/09/2022 1:50 PM CDT HC SODIUM;SERUM 59 STAT 10/09/2022 1 :50 PM CDT POC GLUCOSE 10/09/2022 11:09 AM CDT SODIUM STAT 10/09/2022 10:04 AM CDT POC GLUCOSE 10/09/2022 6:03 AM CDT HC PHOSPHOROUS, SERUM Routine 10/09/2022 12:55 AM CDT HC MAGNESIUM Routine 10/09/2022 12:55 AM CDT HC COMPREHENSIVE METABOLIC PANEL Routine 10/09/2022 12:55 AM CDT HC CBC,AUTOMATED Routine 10/09/2022 12:5 5 AM CDT HC BLOOD GASES;(CALCULATED 02) Routine 10/09/2022 12:55 AM CDT POC GLUCOSE 10/08/2022 9:57 PM CDT HC SODIUM;SERUM STAT 10/08/2022 9:57 PM CDT POC GLUCOSE 10/08/2022 5:10 PM CDT HC SODIUM;SERUM STAT 10/08/2022 3:40 PM CDT TRANSFUSE RBC'S STAT 10/08/2022 1:19 PM CDT HC CBC,AUTOMATED STAT 10/08/2022 12:2 8 PM CDT POC GLUCOSE 10/08/2022 11:23 AM CDT HC COMPREHENSIVE METABOLIC PANEL STAT 10/08/2022 10:34 AM CDT POC GLUCOSE 10/08/2022 6:48 AM CDT TEG WITH KAOLIN Routine 10/08/2022 5:45 AM CDT HC ABO GROUP Routine 10/08/2022 2:01 AM CDT HC PHOSPHOROUS, SERUM Routine 10/08/2022 2:01 AM CDT HC MAGNESIUM Routine 10/08/2022 2:01 AM CDT COMPREHENSIVE METABOLIC PANEL Routine 10/08/2022 2:01 AM CDT HC CBC,AUTOMATED Routine 10/08/2022 2:0 1 AM CDT HC TRIGLYCERIDE Routine 10/08/2022 2:01 AM CDT HC BLOOD GASES;(CALCULATED 02) Routine 10/08/2022 2:01 AM CDT HC SODIUM;SERUM STAT 10/07/2022 10:06 PM CDT POC GLUCOSE 10/07/2022 10:05 PM CDT POC GLUCOSE 10/07/2022 5:47 PM CDT HC SODIUM;SERUM STAT 10/07/2022 4:31 PM CDT ECG 12-LEAD Routine 10/07/2022 4:21 PM CDT HC BLOOD GASES;(CALCULATED 02) STAT 10/07/2022 2:38 PM CDT POC GLUCOSE 10/07/2022 11:19 AM CDT SODIUM STAT 10/07/2022 10:48 AM CDT POC GLUCOSE 10/07/2022 6:26 AM CDT HC BLOOD GASES;(CALCULATED 02) Routine 10/07/2022 3:54 AM CDT HC PHOSPHOROUS, SERUM Routine 10/07/2022 3:51 AM CDT HC MAGNESIUM Routine 10/07/2022 3:51 AM CDT HC COMPREHENSIVE METABOLIC PANEL Routine 10/07/2022 3:51 AM CDT HC CBC,AUTOMATED Routine 10/07/2022 3:5 1 AM CDT HC TRIGLYCERIDE Routine 10/07/2022 3:[address] HEAD WO CONTRAST STAT 10/07/2022 3:00 AM CDT POC GLUCOSE 10/06/2022 10:55 PM CDT HC SODIUM;SERUM STAT 10/06/2022 10:54 PM CDT HC LACTIC ACID(LACTATE) STAT 10/06/2022 7:35 PM CDT HC PHOSPHOROUS, SERUM STAT 10/06/2022 7:35 PM CDT HC MAGNESIUM STAT 10/06/2022 7:35 PM CDT BASIC METABOLIC PANEL STAT 10/06/2022 7:35 PM CDT HC CBC,AUTOMATED STAT 10/06/2022 7:3 5 PM CDT HC BLOOD GASES;(CALCULATED 02) Routine 10/06/2022 7:35 PM CDT POC GLUCOSE 10/06/2022 4:10 PM CDT HC SODIUM;SERUM 59 STAT 10/06/2022 4 :07 PM CDT POC GLUCOSE 10/06/2022 10:19 AM CDT SODIUM STAT 10/06/2022 10:13 AM CDT POC GLUCOSE 10/06/2022 6:15 AM CDT HC PHOSPHOROUS, SERUM Routine 10/06/2022 2:56 AM CDT HC MAGNESIUM Routine 10/06/2022 2:56 AM CDT HC COMPREHENSIVE METABOLIC PANEL Routine 10/06/2022 2:56 AM CDT HC CBC,AUTOMATED Routine 10/06/2022 2:5 6 AM CDT HC TRIGLYCERIDE Routine 10/06/2022 2:56 AM CDT HC BLOOD GASES;(CALCULATED 02) Routine 10/06/2022 2:56 AM CDT HC SODIUM;SERUM STAT 10/05/2022 10:09 PM CDT POC GLUCOSE 10/05/2022 9:19 PM CDT CHEST SINGLE VIEW STAT 10/05/2022 8: 23 PM CDT POC GLUCOSE 10/05/2022 5:25 PM CDT CHEM 7 ADD ON Add on 10/05/2022 5:19 PM CDT HC SODIUM;SERUM STAT 10/05/2022 5:19 PM CDT HC BLOOD GASES;(CALCULATED 02) STAT 10/05/2022 1:18 PM CDT SODIUM STAT 10/05/2022 1:18 PM CDT POC GLUCOSE 10/05/2022 11:05 AM CDT POC GLUCOSE 10/05/2022 6:06 AM CDT HC PHOSPHOROUS, SERUM Routine 10/05/2022 3:09 AM CDT HC MAGNESIUM Routine 10/05/2022 3:09 AM CDT HC COMPREHENSIVE METABOLIC PANEL Routine 10/05/2022 3:09 AM CDT HC CBC,AUTOMATED Routine 10/05/2022 3:0 9 AM CDT HC TRIGLYCERIDE Routine 10/05/2022 3:09 AM CDT HC BLOOD GASES;(CALCULATED 02) Routine 10/05/2022 3:09 AM CDT HC SODIUM;SERUM STAT 10/04/2022 10:02 PM CDT POC GLUCOSE 10/04/2022 9:37 PM CDT POC GLUCOSE 10/04/2022 5:22 PM CDT HC BLOOD GASES;(CALCULATED 02) STAT 10/04/2022 4:36 PM CDT HC SODIUM;SERUM STAT 10/04/2022 4:36 PM CDT HC BLOOD GASES;(CALCULATED 02) STAT 10/04/2022 12:53 PM CDT HC COMPREHENSIVE METABOLIC PANEL STAT 10/04/2022 12:53 PM CDT POC GLUCOSE 10/04/2022 11:35 AM CDT POC GLUCOSE 10/04/2022 7:01 AM CDT HC BLOOD GASES;(CALCULATED 02) Routine 10/04/2022 6:07 AM CDT HC BLOOD GASES;(CALCULATED 02) STAT 10/04/2022 4:58 AM CDT CHEST SINGLE VIEW STAT 10/04/2022 3: 57 AM CDT HC PHOSPHOROUS, SERUM Routine 10/04/2022 3:14 AM CDT HC MAGNESIUM Routine 10/04/2022 3:14 AM CDT COMPREHENSIVE METABOLIC PANEL Routine 10/04/2022 3:14 AM CDT HC CBC,AUTOMATED Routine 10/04/2022 3:1 4 AM CDT HC BLOOD GASES;(CALCULATED 02) Routine 10/04/2022 3:08 AM CDT HC BLOOD GASES;(CALCULATED 02) Routine 10/03/2022 11:12 PM CDT HC SODIUM;SERUM STAT 10/03/2022 10:20 PM CDT POC GLUCOSE 10/03/2022 9:15 PM CDT HC BLOOD GASES;(CALCULATED 02) Routine 10/03/2022 9:15 PM CDT POC GLUCOSE 10/03/2022 4:40 PM CDT SODIUM STAT 10/03/2022 3:18 PM CDT HC SODIUM;SERUM 59 STAT 10/03/2022 3 :18 PM CDT HC PHOSPHOROUS, SERUM STAT 10/03/2022 3:18 PM CDT POC SICU US ECHO 2D LTD W/O CONTRAST Routine 10/03/2022 1:46 PM CDT POC GLUCOSE 10/03/2022 12:12 PM CDT SODIUM STAT 10/03/2022 9:19 AM CDT HC BLOOD GASES;(CALCULATED 02) STAT 10/03/2022 6:57 AM CDT POC GLUCOSE 10/03/2022 6:04 AM CDT HC PHOSPHOROUS, SERUM Routine 10/03/2022 4:19 AM CDT HC MAGNESIUM Routine 10/03/2022 4:19 AM CDT HC COMPREHENSIVE METABOLIC PANEL Routine 10/03/2022 4:19 AM CDT HC CBC,AUTOMATED Routine 10/03/2022 4:1 9 AM CDT HC BLOOD GASES;(CALCULATED 02) Routine 10/03/2022 4:19 AM CDT POC GLUCOSE 10/02/2022 10:14 PM CDT HC SODIUM;SERUM STAT 10/02/2022 10:13 PM CDT HC BLOOD GASES;(CALCULATED 02) STAT 10/02/2022 10:06 PM CDT HC BLOOD GASES;(CALCULATED 02) STAT 10/02/2022 4:57 PM CDT POC GLUCOSE 10/02/2022 4:28 PM CDT HC BLOOD GASES;(CALCULATED 02) STAT 10/02/2022 3:01 PM CDT HC SODIUM;SERUM STAT 10/02/2022 2:25 PM CDT POC GLUCOSE 10/02/2022 10:11 AM CDT SODIUM STAT 10/02/2022 10:08 AM CDT POC GLUCOSE 10/02/2022 6:04 AM CDT HC BLOOD GASES;(CALCULATED 02) Routine 10/02/2022 4:31 AM CDT CHEST SINGLE VIEW STAT 10/02/2022 3: 47 AM CDT POC GLUCOSE 10/02/2022 3:04 AM CDT HC PHOSPHOROUS, SERUM Routine 10/02/2022 3:01 AM CDT HC MAGNESIUM Routine 10/02/2022 3:01 AM CDT HC COMPREHENSIVE METABOLIC PANEL Routine 10/02/2022 3:01 AM CDT HC CBC,AUTOMATED Routine 10/02/2022 3:0 1 AM CDT HC BLOOD GASES;(CALCULATED 02) Routine 10/02/2022 3:01 AM CDT POC GLUCOSE 10/01/2022 10:24 PM CDT IR ABDOMINAL DRAIN UPSIZE Routine 10/01/2022 5:07 PM CDT HC ANTIMICROBIAL YEAST VENUS PANEL 10/01/2022 4:54 PM CDT CULTURE-FUNGAL,OTHER Routine 10/01/2022 4:54 PM CDT GRAM STAIN Routine 10/01/2022 4:54 PM CDT CULTURE-ANAEROBIC Routine 10/01/2022 4: 54 PM CDT CULTURE-WOUND/TISSUE/ FLUID(AEROBIC ONLY)W/SENSITIVITY Routine 10/01/2022 4:54 PM CDT POC GLUCOSE 10/01/2022 4:10 PM CDT HC SODIUM;SERUM STAT 10/01/2022 4:07 PM CDT URINALYSIS MICROSCOPIC REFLEX TO CULTURE Routine 10/01/2022 3:06 PM CDT HC URINALYSIS UAR Routine 10/01/2022 3: 06 PM CDT POC GLUCOSE 10/01/2022 11:54 AM CDT HC BLOOD GASES;(CALCULATED 02) STAT 10/01/2022 9:36 AM CDT SODIUM STAT 10/01/2022 9:36 AM CDT ECG 12-LEAD STAT 10/01/2022 7:01 AM CDT POC GLUCOSE 10/01/2022 6:26 AM CDT HC PHOSPHOROUS, SERUM Routine 10/01/2022 3:11 AM CDT HC MAGNESIUM Routine 10/01/2022 3:11 AM CDT HC COMPREHENSIVE METABOLIC PANEL Routine 10/01/2022 3:11 AM CDT HC CBC,AUTOMATED Routine 10/01/2022 3:1 1 AM CDT HC BLOOD GASES;(CALCULATED 02) Routine 10/01/2022 3:11 AM CDT POC GLUCOSE 09/30/2022 9:10 PM CDT HC SODIUM;SERUM STAT 09/30/2022 9:10 PM CDT HC SODIUM;SERUM STAT 09/30/2022 4:00 PM CDT POC GLUCOSE 09/30/2022 3:58 PM CDT GRAM STAIN 09/30/2022 2:44 PM CDT CULTURE-RESP,LOWER W/SENSITIVITY Routine 09/30/2022 2:44 PM CDT POC GLUCOSE 09/30/2022 11:14 AM CDT CONSULT VASCULAR ACCESS TEAM Routine 09/30/2022 9:30 AM CDT SODIUM STAT 09/30/2022 8:54 AM CDT POC GLUCOSE 09/30/2022 8:51 AM CDT POC GLUCOSE 09/30/2022 3:12 AM CDT HC BLOOD GASES;(CALCULATED 02) Routine 09/30/2022 3:12 AM CDT HC PHOSPHOROUS, SERUM Routine 09/30/2022 3:10 AM CDT HC MAGNESIUM Routine 09/30/2022 3:10 AM CDT HC COMPREHENSIVE METABOLIC PANEL Routine 09/30/2022 3:10 AM CDT HC CBC,AUTOMATED Routine 09/30/2022 3:1 0 AM CDT POC GLUCOSE 09/29/2022 11:54 PM CDT POC GLUCOSE 09/29/2022 10:58 PM CDT HC BLOOD GASES;(CALCULATED 02) Routine 09/29/2022 10:18 PM CDT HC SODIUM;SERUM STAT 09/29/2022 10:18 PM CDT POC GLUCOSE 09/29/2022 9:02 PM CDT POC GLUCOSE 09/29/2022 6:40 PM CDT HC BLOOD GASES;(CALCULATED 02) STAT 09/29/2022 6:39 PM CDT POC GLUCOSE 09/29/2022 5:13 PM CDT POC GLUCOSE 09/29/2022 3:03 PM CDT HC BLOOD GASES;(CALCULATED 02) STAT 09/29/2022 2:52 PM CDT HC SODIUM;SERUM STAT 09/29/2022 2:52 PM CDT POC GLUCOSE 09/29/2022 12:51 PM CDT HC BLOOD GASES;(CALCULATED 02) STAT 09/29/2022 12:[address] CHEST W CONTRAST Routine 09/29/2022 1 2:[address] ABD/PELV W CONTRAST Routine 09/29/2022 12:[address] HEAD WO CONTRAST Routine 09/29/2022 1 1:52 AM CDT POC GLUCOSE 09/29/2022 11:12 AM CDT HC SODIUM;SERUM STAT 09/29/2022 9:45 AM CDT POC GLUCOSE 09/29/2022 9:39 AM CDT SODIUM STAT 09/29/2022 6:40 AM CDT POC GLUCOSE 09/29/2022 6:10 AM CDT POC GLUCOSE 09/29/2022 5:21 AM CDT POC GLUCOSE 09/29/2022 4:00 AM CDT HC PHOSPHOROUS, SERUM Routine 09/29/2022 3:54 AM CDT HC MAGNESIUM Routine 09/29/2022 3:54 AM CDT HC COMPREHENSIVE METABOLIC PANEL Routine 09/29/2022 3:54 AM CDT HC CBC,AUTOMATED Routine 09/29/2022 3:5 4 AM CDT HC BLOOD GASES;(CALCULATED 02) Routine 09/29/2022 3:54 AM CDT POC GLUCOSE 09/29/2022 3:02 AM CDT POC GLUCOSE 09/29/2022 2:16 AM CDT POC GLUCOSE 09/29/2022 1:23 AM CDT POC GLUCOSE 09/29/2022 12:05 AM CDT POC GLUCOSE 09/28/2022 11:13 PM CDT HC BLOOD GASES;(CALCULATED 02) STAT 09/28/2022 10:33 PM CDT POC GLUCOSE 09/28/2022 10:16 PM CDT POC GLUCOSE 09/28/2022 8:43 PM CDT POC GLUCOSE 09/28/2022 6:54 PM CDT POC GLUCOSE 09/28/2022 6:13 PM CDT POC GLUCOSE 09/28/2022 5:10 PM CDT POC GLUCOSE 09/28/2022 4:08 PM CDT POC GLUCOSE 09/28/2022 3:05 PM CDT CULTURE-BLOOD W/SENSITIVITY STAT 09/28/2022 1:01 PM CDT POC GLUCOSE 09/28/2022 12:53 PM CDT CHEST SINGLE VIEW STAT 09/28/2022 12: 42 PM CDT CONSULT VASCULAR ACCESS TEAM STAT 09/28/2022 12:35 PM CDT CULTURE-BLOOD W/SENSITIVITY STAT 09/28/2022 12:27 PM CDT POC GLUCOSE 09/28/2022 12:04 PM CDT POC GLUCOSE 09/28/2022 10:56 AM CDT POC GLUCOSE 09/28/2022 10:08 AM CDT POC GLUCOSE 09/28/2022 9:24 AM CDT POC GLUCOSE 09/28/2022 7:57 AM CDT POC GLUCOSE 09/28/2022 7:19 AM CDT POC GLUCOSE 09/28/2022 6:23 AM CDT POC GLUCOSE 09/28/2022 5:12 AM CDT HC BLOOD GASES;(CALCULATED 02) Routine 09/28/2022 3:04 AM CDT POC GLUCOSE 09/28/2022 3:03 AM CDT HC COMPREHENSIVE METABOLIC PANEL Routine 09/28/2022 3:00 AM CDT HC MAGNESIUM Routine 09/28/2022 3:00 AM CDT HC PHOSPHOROUS, SERUM Routine 09/28/2022 3:00 AM CDT HC CBC,AUTOMATED Routine 09/28/2022 3:0 0 AM CDT POC GLUCOSE 09/28/2022 1:05 AM CDT POC GLUCOSE 09/27/2022 11:07 PM CDT POC GLUCOSE 09/27/2022 10:09 PM CDT POC GLUCOSE 09/27/2022 9:06 PM CDT POC GLUCOSE 09/27/2022 8:03 PM CDT POC GLUCOSE 09/27/2022 6:54 PM CDT HC CBC,AUTOMATED STAT 09/27/2022 6:4 7 PM CDT POC GLUCOSE 09/27/2022 6:28 PM CDT POC GLUCOSE 09/27/2022 5:37 PM CDT GUIDANCE INTRO LONG GI TUBE STAT 09/27/2022 5:28 PM CDT POC GLUCOSE 09/27/2022 4:04 PM CDT POC GLUCOSE 09/27/2022 3:04 PM CDT POC GLUCOSE 09/27/2022 3:02 PM CDT TRANSFUSE RBC'S Routine 09/27/2022 2:09 PM CDT POC GLUCOSE 09/27/2022 2:00 PM CDT POC GLUCOSE 09/27/2022 1:06 PM CDT POC GLUCOSE 09/27/2022 12:07 PM CDT HC CBC,AUTOMATED STAT 09/27/2022 12:0 5 PM CDT POC GLUCOSE 09/27/2022 11:12 AM CDT POC GLUCOSE 09/27/2022 10:07 AM CDT 2D + DOPPLER ECHO W/ CONTRAST DAIANA 09/27/2022 9:15 AM CDT POC GLUCOSE 09/27/2022 9:13 AM CDT POC GLUCOSE 09/27/2022 8:15 AM CDT POC GLUCOSE 09/27/2022 8:03 AM CDT TRANSFUSE RBC'S Routine 09/27/2022 7:52 AM CDT POC GLUCOSE 09/27/2022 6:54 AM CDT HC ABO GROUP Specimen in Lab 09/27/2022 6:25 AM CDT POC GLUCOSE 09/27/2022 5:07 AM CDT HC TRIGLYCERIDE Routine 09/27/2022 3:10 AM CDT HC MAGNESIUM (MGCT) Routine 09/27/2022 3:10 AM CDT HC PHOSPHOROUS, SERUM (PO4CT) Routine 09/27/2022 3:10 AM CDT HC COMPREHENSIVE METABOLIC PANEL Routine 09/27/2022 3:10 AM CDT HC CBC,AUTOMATED Routine 09/27/2022 3:1 0 AM CDT HC BLOOD GASES;(CALCULATED 02) Routine 09/27/2022 3:10 AM CDT POC GLUCOSE 09/27/2022 3:09 AM CDT POC GLUCOSE 09/27/2022 1:17 AM CDT POC GLUCOSE 09/26/2022 11:03 PM CDT POC GLUCOSE 09/26/2022 10:12 PM CDT POC GLUCOSE 09/26/2022 9:18 PM CDT POC GLUCOSE 09/26/2022 8:20 PM CDT POC GLUCOSE 09/26/2022 6:10 PM CDT HC RVP PANEL NASAL SINGLE RVPN Routine 09/26/2022 5:20 PM CDT POC GLUCOSE 09/26/2022 5:16 PM CDT POC GLUCOSE 09/26/2022 4:08 PM CDT HC BLOOD GASES;(CALCULATED 02) STAT 09/26/2022 3:09 PM CDT POC GLUCOSE 09/26/2022 3:07 PM CDT POC GLUCOSE 09/26/2022 2:02 PM CDT POC GLUCOSE 09/26/2022 1:04 PM CDT HC CELL BLOCK-CYTOLOGY Routine 09/26/2022 12:31 PM CDT HC C DIFFICILE BY PCR Routine 09/26/2022 12:30 PM CDT POC GLUCOSE 09/26/2022 12:11 PM CDT CYTOLOGY SPECIMEN LABEL Routine 09/26/2022 12:[address] ABD/PELV WO CONTRAST STAT 09/26/2022 11:17 AM CDT CHEST SINGLE VIEW STAT 09/26/2022 10: 44 AM CDT POC GLUCOSE 09/26/2022 10:05 AM CDT HC BLOOD GASES;(CALCULATED 02) STAT 09/26/2022 10:00 AM CDT POC GLUCOSE 09/26/2022 8:09 AM CDT POC GLUCOSE 09/26/2022 6:55 AM CDT POC GLUCOSE 09/26/2022 5:54 AM CDT POC GLUCOSE 09/26/2022 5:08 AM CDT HC COMPREHENSIVE METABOLIC PANEL Routine 09/26/2022 4:45 AM CDT HC MAGNESIUM Routine 09/26/2022 4:45 AM CDT HC PHOSPHOROUS, SERUM Routine 09/26/2022 4:45 AM CDT HC CBC,AUTOMATED Routine 09/26/2022 4:4 5 AM CDT POC GLUCOSE 09/26/2022 4:13 AM CDT POC GLUCOSE 09/26/2022 3:01 AM CDT POC GLUCOSE 09/26/2022 2:06 AM CDT POC GLUCOSE 09/26/2022 12:01 AM CDT HC BLOOD GASES;(CALCULATED 02) Routine 09/25/2022 11:58 PM CDT POC GLUCOSE 09/25/2022 10:58 PM CDT POC GLUCOSE 09/25/2022 8:58 PM CDT POC GLUCOSE 09/25/2022 7:56 PM CDT POC GLUCOSE 09/25/2022 6:56 PM CDT HC BLOOD GASES;(CALCULATED 02) STAT 09/25/2022 6:55 PM CDT POC GLUCOSE 09/25/2022 6:03 PM CDT POC GLUCOSE 09/25/2022 4:08 PM CDT POC GLUCOSE 09/25/2022 2:06 PM CDT POC GLUCOSE 09/25/2022 12:06 PM CDT POC GLUCOSE 09/25/2022 11:02 AM CDT POC GLUCOSE 09/25/2022 10:04 AM CDT HC HIGH SENSITIVITY TROPONIN I RANDOM STAT 09/25/2022 10:02 AM CDT POC GLUCOSE 09/25/2022 9:04 AM CDT HC BLOOD GASES;(CALCULATED 02) STAT 09/25/2022 8:42 AM CDT HC VANCOMYCIN 2HR POST DOSE Routine 09/25/2022 8:42 AM CDT POC GLUCOSE 09/25/2022 8:02 AM CDT CHEST SINGLE VIEW STAT 09/25/2022 7: 51 AM CDT POC GLUCOSE 09/25/2022 6:55 AM CDT POC GLUCOSE 09/25/2022 6:09 AM CDT HC HIGH SENSITIVITY TROPONIN I RANDOM STAT 09/25/2022 6:08 AM CDT HC BLOOD GASES;(CALCULATED 02) STAT 09/25/2022 4:58 AM CDT POC GLUCOSE 09/25/2022 4:57 AM CDT POC GLUCOSE 09/25/2022 4:02 AM CDT HC HIGH SENSITIVITY TROPONIN I RANDOM STAT 09/25/2022 2:49 AM CDT HC VANCOMYCIN-TROUGH Routine 09/25/2022 2:49 AM CDT HC BASIC METABOLIC PANEL Routine 09/25/2022 2:49 AM CDT HC PHOSPHOROUS, SERUM Routine 09/25/2022 2:49 AM CDT HC MAGNESIUM Routine 09/25/2022 2:49 AM CDT HC CBC,AUTOMATED Routine 09/25/2022 2:4 9 AM CDT HC BLOOD GASES;(CALCULATED 02) Routine 09/25/2022 2:49 AM CDT POC GLUCOSE 09/25/2022 1:56 AM CDT HC HIGH SENSITIVITY TROPONIN I RANDOM STAT 09/25/2022 12:47 AM CDT ECG 12-LEAD STAT 09/25/2022 12:14 AM CDT POC GLUCOSE 09/24/2022 11:58 PM CDT POC GLUCOSE 09/24/2022 10:05 PM CDT POC GLUCOSE 09/24/2022 8:04 PM CDT POC GLUCOSE 09/24/2022 7:28 PM CDT POC GLUCOSE 09/24/2022 6:12 PM CDT HC LIPASE-FLUID STAT 09/24/2022 4:50 PM CDT HC AMYLASE-FLUID STAT 09/24/2022 4:5 0 PM CDT HC TRIGLYCERIDE-FLUID STAT 09/24/2022 4:50 PM CDT HC BLOOD GASES;(CALCULATED 02) STAT 09/24/2022 4:49 PM CDT POC GLUCOSE 09/24/2022 4:45 PM CDT CONSULT VASCULAR ACCESS TEAM STAT 09/24/2022 3:21 PM CDT HC CBC,AUTOMATED STAT 09/24/2022 2:4 2 PM CDT POC GLUCOSE 09/24/2022 2:02 PM CDT POC GLUCOSE 09/24/2022 12:05 PM CDT IR ABDOMINAL DRAIN PLACEMENT Routine 09/24/2022 11:50 AM CDT HC ANTIMICROBIAL YEAST VENUS PANEL 09/24/2022 11:34 AM CDT CULTURE-FUNGAL,OTHER Add on 09/24/2022 11:34 AM CDT CULTURE-WOUND/TISSUE/ FLUID(AEROBIC ONLY)W/SENSITIVITY STAT 09/24/2022 11:34 AM CDT CULTURE-ANAEROBIC STAT 09/24/2022 11: 34 AM CDT GRAM STAIN STAT 09/24/2022 11:34 AM CDT POC GLUCOSE 09/24/2022 10:56 AM CDT POC GLUCOSE 09/24/2022 10:13 AM CDT POC GLUCOSE 09/24/2022 9:06 AM CDT POC GLUCOSE 09/24/2022 8:16 AM CDT POC GLUCOSE 09/24/2022 6:47 AM CDT POC GLUCOSE 09/24/2022 5:58 AM CDT POC GLUCOSE 09/24/2022 5:00 AM CDT HC BLOOD GASES;(CALCULATED 02) Routine 09/24/2022 3:57 AM CDT POC GLUCOSE 09/24/2022 3:56 AM CDT HC BASIC METABOLIC PANEL Routine 09/24/2022 3:00 AM CDT HC PHOSPHOROUS, SERUM Routine 09/24/2022 3:00 AM CDT HC MAGNESIUM Routine 09/24/2022 3:00 AM CDT HC CBC,AUTOMATED Routine 09/24/2022 3:0 0 AM CDT HC BLOOD GASES;(CALCULATED 02) Routine 09/24/2022 2:59 AM CDT POC GLUCOSE 09/24/2022 2:58 AM CDT POC GLUCOSE 09/24/2022 1:55 AM CDT POC GLUCOSE 09/24/2022 1:00 AM CDT POC GLUCOSE 09/24/2022 12:01 AM CDT POC GLUCOSE 09/23/2022 10:58 PM CDT POC GLUCOSE 09/23/2022 9:44 PM CDT POC GLUCOSE 09/23/2022 8:52 PM CDT POC GLUCOSE 09/23/2022 7:54 PM CDT TRANSFUSE RBC'S STAT 09/23/2022 7:40 PM CDT CONSULT VASCULAR ACCESS TEAM STAT 09/23/2022 7:27 PM CDT POC GLUCOSE 09/23/2022 6:54 PM CDT HC LACTIC ACID(LACTATE) STAT 09/23/2022 6:08 PM CDT HC ABO GROUP STAT 09/23/2022 6:06 PM CDT POC GLUCOSE 09/23/2022 5:31 PM CDT HC LIPASE STAT 09/23/2022 5:21 PM CDT COMPREHENSIVE METABOLIC PANEL STAT 09/23/2022 5:21 PM CDT HC BLOOD GASES;(CALCULATED 02) STAT 09/23/2022 5:21 PM CDT HC CBC,AUTOMATED STAT 09/23/2022 5:2 1 PM CDT POC GLUCOSE 09/23/2022 4:01 PM CDT POC GLUCOSE 09/23/2022 1:51 PM CDT GRAM STAIN 09/23/2022 1:45 PM CDT GRAM STAIN Routine 09/23/2022 1:45 PM CDT CULTURE-RESP,LOWER W/SENSITIVITY Routine 09/23/2022 1:45 PM CDT CULTURE-RESP,LOWER W/SENSITIVITY Routine 09/23/2022 1:[address] ABD/PELV W CONTRAST STAT 09/23/2022 1:[address] CHEST W CONTRAST STAT 09/23/2022 1:30 PM CDT CULTURE-BLOOD W/SENSITIVITY STAT 09/23/2022 12:56 PM CDT CULTURE-BLOOD W/SENSITIVITY STAT 09/23/2022 12:51 PM CDT CONSULT VASCULAR ACCESS TEAM Routine 09/23/2022 12:31 PM CDT POC GLUCOSE 09/23/2022 12:04 PM CDT POC GLUCOSE 09/23/2022 10:19 AM CDT POC GLUCOSE 09/23/2022 9:05 AM CDT POC GLUCOSE 09/23/2022 6:01 AM CDT CHEST SINGLE VIEW STAT 09/23/2022 5: 59 AM CDT POC GLUCOSE 09/23/2022 3:50 AM CDT HC PHOSPHOROUS, SERUM Routine 09/23/2022 3:02 AM CDT HC MAGNESIUM Routine 09/23/2022 3:02 AM CDT HC CBC,AUTOMATED Routine 09/23/2022 3:0 2 AM CDT HC COMPREHENSIVE METABOLIC PANEL Routine 09/23/2022 3:02 AM CDT HC BLOOD GASES;(CALCULATED 02) Routine 09/23/2022 3:02 AM CDT POC GLUCOSE 09/23/2022 3:01 AM CDT POC GLUCOSE 09/23/2022 2:06 AM CDT CONSULT VASCULAR ACCESS TEAM Routine 09/23/2022 1:16 AM CDT POC GLUCOSE 09/23/2022 12:43 AM CDT POC GLUCOSE 09/23/2022 12:01 AM CDT POC GLUCOSE 09/22/2022 10:48 PM CDT POC GLUCOSE 09/22/2022 10:01 PM CDT POC GLUCOSE 09/22/2022 8:48 PM CDT POC GLUCOSE 09/22/2022 8:03 PM CDT POC GLUCOSE 09/22/2022 7:19 PM CDT ABDOMEN 1 VIEW STAT 09/22/2022 7:11 PM CDT POC GLUCOSE 09/22/2022 4:56 PM CDT POC GLUCOSE 09/22/2022 4:01 PM CDT POC GLUCOSE 09/22/2022 3:17 PM CDT POC GLUCOSE 09/22/2022 1:06 PM CDT POC GLUCOSE 09/22/2022 12:22 PM CDT POC GLUCOSE 09/22/2022 10:27 AM CDT POC GLUCOSE 09/22/2022 6:49 AM CDT POC GLUCOSE 09/22/2022 4:56 AM CDT HC BASIC METABOLIC PANEL Routine 09/22/2022 3:01 AM CDT HC PHOSPHOROUS, SERUM Routine 09/22/2022 3:01 AM CDT HC MAGNESIUM Routine 09/22/2022 3:01 AM CDT HC CBC,AUTOMATED Routine 09/22/2022 3:0 1 AM CDT POC GLUCOSE 09/22/2022 3:00 AM CDT HC BLOOD GASES;(CALCULATED 02) Routine 09/22/2022 2:59 AM CDT POC GLUCOSE 09/22/2022 12:53 AM CDT POC GLUCOSE 09/21/2022 10:53 PM CDT POC GLUCOSE 09/21/2022 9:50 PM CDT POC GLUCOSE 09/21/2022 8:56 PM CDT POC GLUCOSE 09/21/2022 7:54 PM CDT POC GLUCOSE 09/21/2022 5:58 PM CDT POC GLUCOSE 09/21/2022 4:59 PM CDT POC GLUCOSE 09/21/2022 3:59 PM CDT POC GLUCOSE 09/21/2022 2:53 PM CDT POC GLUCOSE 09/21/2022 1:56 PM CDT POC GLUCOSE 09/21/2022 12:11 PM CDT POC GLUCOSE 09/21/2022 10:04 AM CDT POC GLUCOSE 09/21/2022 9:05 AM CDT POC GLUCOSE 09/21/2022 8:02 AM CDT POC GLUCOSE 09/21/2022 6:55 AM CDT POC GLUCOSE 09/21/2022 5:56 AM CDT POC GLUCOSE 09/21/2022 4:58 AM CDT POC GLUCOSE 09/21/2022 4:01 AM CDT HC BLOOD GASES;(CALCULATED 02) Routine 09/21/2022 2:54 AM CDT POC GLUCOSE 09/21/2022 2:52 AM CDT HC BASIC METABOLIC PANEL Routine 09/21/2022 2:51 AM CDT HC PHOSPHOROUS, SERUM Routine 09/21/2022 2:51 AM CDT HC MAGNESIUM Routine 09/21/2022 2:51 AM CDT HC CBC,AUTOMATED Routine 09/21/2022 2:5 1 AM CDT POC GLUCOSE 09/21/2022 1:58 AM CDT POC GLUCOSE 09/21/2022 12:47 AM CDT POC GLUCOSE 09/20/2022 11:51 PM CDT POC GLUCOSE 09/20/2022 10:50 PM CDT POC GLUCOSE 09/20/2022 9:46 PM CDT POC GLUCOSE 09/20/2022 8:58 PM CDT POC GLUCOSE 09/20/2022 7:49 PM CDT POC GLUCOSE 09/20/2022 7:21 PM CDT POC GLUCOSE 09/20/2022 4:10 PM CDT POC GLUCOSE 09/20/2022 3:03 PM CDT POC GLUCOSE 09/20/2022 2:10 PM CDT POC GLUCOSE 09/20/2022 1:12 PM CDT POC GLUCOSE 09/20/2022 11:20 AM CDT TRACHEOSTOMY PLANNED 09/20/2022 9:45 AM CDT Aspiration pneumonia due to gastric secretions, unspecified laterality, unspecified part of lung (HCC) Acute respiratory failure with hypoxia (HCC) POC GLUCOSE 09/20/2022 9:08 AM CDT POC GLUCOSE 09/20/2022 8:02 AM CDT POC GLUCOSE 09/20/2022 6:53 AM CDT POC GLUCOSE 09/20/2022 6:14 AM CDT POC GLUCOSE 09/20/2022 5:01 AM CDT HC PHOSPHOROUS, SERUM Routine 09/20/2022 4:02 AM CDT HC MAGNESIUM Routine 09/20/2022 4:02 AM CDT HC CBC,AUTOMATED Routine 09/20/2022 4:0 2 AM CDT HC BASIC METABOLIC PANEL Routine 09/20/2022 4:02 AM CDT HC BLOOD GASES;(CALCULATED 02) Routine 09/20/2022 4:02 AM CDT POC GLUCOSE 09/20/2022 4:00 AM CDT POC GLUCOSE 09/20/2022 2:09 AM CDT HC LMW HEPARIN ASSAY Routine 09/20/2022 1:06 AM CDT POC GLUCOSE 09/20/2022 12:03 AM CDT POC GLUCOSE 09/19/2022 9:57 PM CDT POC GLUCOSE 09/19/2022 8:00 PM CDT POC GLUCOSE 09/19/2022 6:52 PM CDT POC GLUCOSE 09/19/2022 6:05 PM CDT POC GLUCOSE 09/19/2022 4:53 PM CDT POC GLUCOSE 09/19/2022 3:59 PM CDT POC GLUCOSE 09/19/2022 3:01 PM CDT POC GLUCOSE 09/19/2022 12:58 PM CDT POC GLUCOSE 09/19/2022 11:59 AM CDT POC GLUCOSE 09/19/2022 11:00 AM CDT POC GLUCOSE 09/19/2022 10:02 AM CDT POC GLUCOSE 09/19/2022 8:07 AM CDT POC GLUCOSE 09/19/2022 6:07 AM CDT POC GLUCOSE 09/19/2022 4:00 AM CDT POC GLUCOSE 09/19/2022 3:04 AM CDT HC BASIC METABOLIC PANEL Routine 09/19/2022 3:00 AM CDT HC PHOSPHOROUS, SERUM Routine 09/19/2022 3:00 AM CDT HC MAGNESIUM Routine 09/19/2022 3:00 AM CDT HC CBC,AUTOMATED Routine 09/19/2022 3:0 0 AM CDT HC BLOOD GASES;(CALCULATED 02) Routine 09/19/2022 3:00 AM CDT POC GLUCOSE 09/19/2022 2:06 AM CDT POC GLUCOSE 09/19/2022 12:57 AM CDT POC GLUCOSE 09/19/2022 12:05 AM CDT POC GLUCOSE 09/18/2022 11:04 PM CDT POC GLUCOSE 09/18/2022 10:03 PM CDT POC GLUCOSE 09/18/2022 8:04 PM CDT POC GLUCOSE 09/18/2022 6:52 PM CDT POC GLUCOSE 09/18/2022 6:04 PM CDT POC GLUCOSE 09/18/2022 5:07 PM CDT POC GLUCOSE 09/18/2022 4:01 PM CDT POC GLUCOSE 09/18/2022 1:59 PM CDT POC GLUCOSE 09/18/2022 12:20 PM CDT POC GLUCOSE 09/18/2022 11:03 AM CDT CHEST SINGLE VIEW STAT 09/18/2022 10: 37 AM CDT POC GLUCOSE 09/18/2022 10:08 AM CDT HC BLOOD GASES;(CALCULATED 02) STAT 09/18/2022 10:01 AM CDT POC GLUCOSE 09/18/2022 9:00 AM CDT HC BLOOD GASES;(CALCULATED 02) STAT 09/18/2022 8:15 AM CDT POC GLUCOSE 09/18/2022 8:14 AM CDT POC GLUCOSE 09/18/2022 7:01 AM CDT HC BLOOD GASES;(CALCULATED 02) STAT 09/18/2022 6:34 AM CDT CHEST SINGLE VIEW STAT 09/18/2022 6: 06 AM CDT POC GLUCOSE 09/18/2022 6:05 AM CDT CHEST SINGLE VIEW STAT 09/18/2022 5: 51 AM CDT ANESTHESIA AIRWAY INSERTION Routine 09/18/2022 5:40 AM CDT HC BLOOD GASES;(CALCULATED 02) STAT 09/18/2022 5:01 AM CDT POC GLUCOSE 09/18/2022 4:01 AM CDT HC BASIC METABOLIC PANEL Routine 09/18/2022 2:49 AM CDT HC PHOSPHOROUS, SERUM Routine 09/18/2022 2:49 AM CDT HC MAGNESIUM Routine 09/18/2022 2:49 AM CDT HC CBC,AUTOMATED Routine 09/18/2022 2:4 9 AM CDT HC BLOOD GASES;(CALCULATED 02) Routine 09/18/2022 2:49 AM CDT POC GLUCOSE 09/18/2022 2:08 AM CDT POC GLUCOSE 09/18/2022 12:14 AM CDT POC GLUCOSE 09/17/2022 9:49 PM CDT POC GLUCOSE 09/17/2022 8:07 PM CDT HC BLOOD GASES;(CALCULATED 02) Routine 09/17/2022 7:42 PM CDT POC GLUCOSE 09/17/2022 6:22 PM CDT POC GLUCOSE 09/17/2022 4:06 PM CDT POC GLUCOSE 09/17/2022 2:10 PM CDT POC GLUCOSE 09/17/2022 1:06 PM CDT POC GLUCOSE 09/17/2022 12:03 PM CDT POC GLUCOSE 09/17/2022 10:01 AM CDT POC GLUCOSE 09/17/2022 8:02 AM CDT POC GLUCOSE 09/17/2022 6:57 AM CDT POC GLUCOSE 09/17/2022 6:02 AM CDT POC GLUCOSE 09/17/2022 5:02 AM CDT POC GLUCOSE 09/17/2022 4:06 AM CDT POC GLUCOSE 09/17/2022 2:59 AM CDT HC TRIGLYCERIDE Routine 09/17/2022 2:19 AM CDT HC COMPREHENSIVE METABOLIC PANEL Routine 09/17/2022 2:19 AM CDT HC PHOSPHOROUS, SERUM Routine 09/17/2022 2:19 AM CDT HC MAGNESIUM Routine 09/17/2022 2:19 AM CDT HC CBC,AUTOMATED Routine 09/17/2022 2:1 9 AM CDT HC BLOOD GASES;(CALCULATED 02) Routine 09/17/2022 2:18 AM CDT POC GLUCOSE 09/17/2022 1:58 AM CDT POC GLUCOSE 09/17/2022 1:02 AM CDT POC GLUCOSE 09/16/2022 11:57 PM CDT POC GLUCOSE 09/16/2022 10:49 PM CDT POC GLUCOSE 09/16/2022 9:58 PM CDT POC GLUCOSE 09/16/2022 8:52 PM CDT POC GLUCOSE 09/16/2022 8:23 PM CDT POC GLUCOSE 09/16/2022 5:57 PM CDT POC GLUCOSE 09/16/2022 4:14 PM CDT POC GLUCOSE 09/16/2022 2:07 PM CDT POC GLUCOSE 09/16/2022 12:52 PM CDT POC GLUCOSE 09/16/2022 11:28 AM CDT POC GLUCOSE 09/16/2022 10:11 AM CDT POC GLUCOSE 09/16/2022 8:29 AM CDT POC GLUCOSE 09/16/2022 6:01 AM CDT POC GLUCOSE 09/16/2022 4:17 AM CDT HC PHOSPHOROUS, SERUM Routine 09/16/2022 3:29 AM CDT HC MAGNESIUM Routine 09/16/2022 3:29 AM CDT HC CBC,AUTOMATED Routine 09/16/2022 3:2 9 AM CDT HC BASIC METABOLIC PANEL Routine 09/16/2022 3:29 AM CDT HC BLOOD GASES;(CALCULATED 02) Routine 09/16/2022 3:29 AM CDT POC GLUCOSE 09/16/2022 2:16 AM CDT POC GLUCOSE 09/16/2022 12:01 AM CDT POC GLUCOSE 09/15/2022 10:27 PM CDT HC BLOOD GASES;(CALCULATED 02) Routine 09/15/2022 9:26 PM CDT POC GLUCOSE 09/15/2022 8:37 PM CDT POC GLUCOSE 09/15/2022 6:01 PM CDT POC GLUCOSE 09/15/2022 4:32 PM CDT POC GLUCOSE 09/15/2022 3:09 PM CDT POC GLUCOSE 09/15/2022 1:16 PM CDT POC GLUCOSE 09/15/2022 11:39 AM CDT POC GLUCOSE 09/15/2022 10:43 AM CDT POC GLUCOSE 09/15/2022 9:17 AM CDT POC GLUCOSE 09/15/2022 8:46 AM CDT POC GLUCOSE 09/15/2022 6:36 AM CDT POC GLUCOSE 09/15/2022 4:03 AM CDT HC PHOSPHOROUS, SERUM Routine 09/15/2022 3:15 AM CDT HC MAGNESIUM Routine 09/15/2022 3:15 AM CDT HC CBC,AUTOMATED Routine 09/15/2022 3:1 5 AM CDT HC BASIC METABOLIC PANEL Routine 09/15/2022 3:15 AM CDT HC BLOOD GASES;(CALCULATED 02) Routine 09/15/2022 3:15 AM CDT POC GLUCOSE 09/15/2022 1:50 AM CDT POC GLUCOSE 09/15/2022 12:43 AM CDT POC GLUCOSE 09/14/2022 11:45 PM CDT CHEST SINGLE VIEW STAT 09/14/2022 11: 30 PM CDT HC SODIUM, POC 09/14/2022 10:44 PM CDT HC POTASSIUM, POC 09/14/2022 10: 44 PM CDT HC HEMATOCRIT POC 09/14/2022 10: 44 PM CDT HC BLOOD GAS, POC 09/14/2022 10: 44 PM CDT POC GLUCOSE 09/14/2022 10:33 PM CDT POC GLUCOSE 09/14/2022 9:25 PM CDT POC GLUCOSE 09/14/2022 8:38 PM CDT POC GLUCOSE 09/14/2022 7:17 PM CDT POC GLUCOSE 09/14/2022 6:15 PM CDT POC GLUCOSE 09/14/2022 4:52 PM CDT POC GLUCOSE 09/14/2022 3:59 PM CDT POC GLUCOSE 09/14/2022 3:02 PM CDT ECG 12-LEAD STAT 09/14/2022 2:24 PM CDT POC GLUCOSE 09/14/2022 2:18 PM CDT POC GLUCOSE 09/14/2022 12:55 PM CDT HC PHOSPHOROUS, SERUM STAT 09/14/2022 12:55 PM CDT POC GLUCOSE 09/14/2022 11:56 AM CDT POC GLUCOSE 09/14/2022 11:12 AM CDT POC GLUCOSE 09/14/2022 10:24 AM CDT POC GLUCOSE 09/14/2022 6:16 AM CDT HC PHOSPHOROUS, SERUM Routine 09/14/2022 4:38 AM CDT HC MAGNESIUM Routine 09/14/2022 4:38 AM CDT HC CBC,AUTOMATED Routine 09/14/2022 4:3 8 AM CDT HC BASIC METABOLIC PANEL Routine 09/14/2022 4:38 AM CDT HC BLOOD GASES;(CALCULATED 02) Routine 09/14/2022 4:38 AM CDT POC GLUCOSE 09/13/2022 10:09 PM CDT CHEST SINGLE VIEW STAT 09/13/2022 9: 59 PM CDT GRAM STAIN Routine 09/13/2022 2:27 PM CDT GRAM STAIN 09/13/2022 2:27 PM CDT CULTURE-RESP,LOWER W/SENSITIVITY Routine 09/13/2022 2:27 PM CDT CULTURE-RESP,LOWER W/SENSITIVITY Routine 09/13/2022 2:27 PM CDT LINE PLCMT 1V CXR STAT 09/13/2022 8: 38 AM CDT HC PHOSPHOROUS, SERUM Routine 09/13/2022 3:15 AM CDT HC MAGNESIUM Routine 09/13/2022 3:15 AM CDT HC CBC,AUTOMATED Routine 09/13/2022 3:1 5 AM CDT HC BASIC METABOLIC PANEL Routine 09/13/2022 3:15 AM CDT HC BLOOD GASES;(CALCULATED 02) Routine 09/13/2022 3:15 AM CDT CULTURE-BLOOD W/SENSITIVITY STAT 09/13/2022 2:39 AM CDT CULTURE-BLOOD W/SENSITIVITY STAT 09/13/2022 2:26 AM CDT HC BLOOD GASES;(CALCULATED 02) STAT 09/12/2022 10:06 PM CDT HC BASIC METABOLIC PANEL STAT 09/12/2022 10:04 PM CDT HC CBC,AUTOMATED STAT 09/12/2022 10:[address] HEAD WO CONTRAST STAT 09/12/2022 9:30 PM CDT CHEST SINGLE VIEW STAT 09/12/2022 9: 04 PM CDT ANESTHESIA AIRWAY INSERTION Routine 09/12/2022 8:49 PM CDT HC BLOOD GASES;(CALCULATED 02) Routine 09/12/2022 7:36 PM CDT HC BLOOD GASES;(CALCULATED 02) Routine 09/12/2022 4:47 PM CDT HC BLOOD GASES;(CALCULATED 02) Routine 09/12/2022 3:32 PM CDT HC BLOOD GASES;(CALCULATED 02) Routine 09/12/2022 11:10 AM CDT HC PHOSPHOROUS, SERUM Specimen in Lab 09/12/2022 3:01 AM CDT HC MAGNESIUM Specimen in Lab 09/12/2022 3:01 AM CDT HC BLOOD GASES;(CALCULATED 02) Routine 09/12/2022 3:01 AM CDT HC TRIGLYCERIDE Routine 09/12/2022 3:01 AM CDT HC COMPREHENSIVE METABOLIC PANEL (CH12CT) Routine 09/12/2022 3:01 AM CDT HC CBC,AUTOMATED Routine 09/12/2022 3:0 1 AM CDT HC BLOOD GASES;(CALCULATED 02) STAT 09/11/2022 12:56 PM CDT CHEST SINGLE VIEW STAT 09/11/2022 11: 12 AM CDT HC PHOSPHOROUS, SERUM Routine 09/11/2022 3:07 AM CDT HC MAGNESIUM Routine 09/11/2022 3:07 AM CDT HC CBC,AUTOMATED Routine 09/11/2022 3:0 7 AM CDT HC BASIC METABOLIC PANEL Routine 09/11/2022 3:07 AM CDT HC BLOOD GASES;(CALCULATED 02) STAT 09/11/2022 3:06 AM CDT HC TRIGLYCERIDE Routine 09/11/2022 12:24 AM CDT CHEST SINGLE VIEW STAT 09/10/2022 9: 10 AM CDT HC BLOOD GASES;(CALCULATED 02) STAT 09/10/2022 3:01 AM CDT HC TRIGLYCERIDE Routine 09/10/2022 3:00 AM CDT HC PHOSPHOROUS, SERUM Routine 09/10/2022 3:00 AM CDT HC MAGNESIUM Routine 09/10/2022 3:00 AM CDT HC CBC,AUTOMATED Routine 09/10/2022 3:0 0 AM CDT HC BASIC METABOLIC PANEL Routine 09/10/2022 3:00 AM CDT FEEDING TUBE CHECK (ABD/CHEST LMTD) STAT 09/09/2022 2:[address] ABD/PELV W CONTRAST Routine 09/09/2022 1:[address] CHEST W CONTRAST Routine 09/09/2022 1:48 PM CDT FEEDING TUBE PLCMNT (ABD/CHEST LMTD) STAT 09/09/2022 12:57 PM CDT HC BASIC METABOLIC PANEL Routine 09/09/2022 3:09 AM CDT HC CBC,AUTOMATED Routine 09/09/2022 3:0 9 AM CDT HC MAGNESIUM Routine 09/09/2022 3:09 AM CDT HC PHOSPHOROUS, SERUM Routine 09/09/2022 3:09 AM CDT HC BLOOD GASES;(CALCULATED 02) STAT 09/09/2022 3:08 AM CDT HC BLOOD GASES;(CALCULATED 02) STAT 09/08/2022 3:03 AM CDT HC BASIC METABOLIC PANEL Routine 09/08/2022 3:03 AM CDT HC CBC,AUTOMATED Routine 09/08/2022 3:0 3 AM CDT HC MAGNESIUM Routine 09/08/2022 3:03 AM CDT HC PHOSPHOROUS, SERUM Routine 09/08/2022 3:03 AM CDT HC MRSA PNEUMONIA SCREEN STAT 09/07/2022 10:32 PM CDT CULTURE-BLOOD W/SENSITIVITY STAT 09/07/2022 10:25 PM CDT TRANSFUSE RBC'S STAT 09/07/2022 9:10 PM CDT HC ABO GROUP STAT 09/07/2022 8:14 PM CDT HC LACTIC ACID(LACTATE) STAT 09/07/2022 7:25 PM CDT HC BASIC METABOLIC PANEL STAT 09/07/2022 7:25 PM CDT HC CBC,AUTOMATED STAT 09/07/2022 7:2 5 PM CDT HC BLOOD GASES;(CALCULATED 02) STAT 09/07/2022 7:23 PM CDT CULTURE-BLOOD W/SENSITIVITY STAT 09/07/2022 7:23 PM CDT FEEDING TUBE PLCMNT (ABD/CHEST LMTD) STAT 09/07/2022 5:[address] ABD/PELV W CONTRAST STAT 09/07/2022 2:45 PM CDT CTA CHEST PULM EMBOLISM W/CONT STAT 09/07/2022 2:45 PM CDT HC BLOOD GASES;(CALCULATED 02) STAT 09/07/2022 1:53 PM CDT GRAM STAIN 09/07/2022 1:32 PM CDT GRAM STAIN 09/07/2022 1:32 PM CDT CULTURE-RESP,LOWER W/SENSITIVITY Routine 09/07/2022 1:32 PM CDT CULTURE-RESP,LOWER W/SENSITIVITY Routine 09/07/2022 1:32 PM CDT CHEST SINGLE VIEW STAT 09/07/2022 11: 55 AM CDT CONSULT VASCULAR ACCESS TEAM Routine 09/07/2022 11:54 AM CDT ANESTHESIA AIRWAY INSERTION Routine 09/07/2022 11:30 AM CDT HC LACTIC ACID(LACTATE) STAT 09/07/2022 8:40 AM CDT HC BLOOD GASES;(CALCULATED 02) STAT 09/07/2022 6:48 AM CDT ECG 12-LEAD STAT 09/07/2022 3:40 AM CDT CONSULT VASCULAR ACCESS TEAM Routine 09/07/2022 3:21 AM CDT HC SODIUM, POC 09/07/2022 2:56 AM CDT HC POTASSIUM, POC 09/07/2022 2: 56 AM CDT HC HEMATOCRIT POC 09/07/2022 2: 56 AM CDT HC BLOOD GAS, POC 09/07/2022 2: 56 AM CDT HC BASIC METABOLIC PANEL Routine 09/07/2022 2:40 AM CDT HC CBC,AUTOMATED Routine 09/07/2022 2:4 0 AM CDT HC MAGNESIUM Routine 09/07/2022 2:40 AM CDT HC PHOSPHOROUS, SERUM Routine 09/07/2022 2:40 AM CDT ABDOMEN 1 VIEW STAT 09/06/2022 8:41 PM CDT CHEST SINGLE VIEW STAT 09/06/2022 8: 40 PM CDT HC CALCIUM IONIZED STAT 09/06/2022 8 :20 PM CDT HC BLOOD GASES;(CALCULATED 02) STAT 09/06/2022 8:20 PM CDT HC PHOSPHOROUS, SERUM STAT 09/06/2022 8:15 PM CDT HC MAGNESIUM STAT 09/06/2022 8:15 PM CDT HC CBC,AUTOMATED STAT 09/06/2022 8:1 5 PM CDT COMPREHENSIVE METABOLIC PANEL STAT 09/06/2022 8:15 PM CDT HC LACTIC ACID(LACTATE) STAT 09/06/2022 8:15 PM CDT ECG 12-LEAD STAT 09/06/2022 8:10 PM CDT CONSULT VASCULAR ACCESS TEAM STAT 09/06/2022 7:59 PM CDT HC PHOSPHOROUS, SERUM Routine 09/06/2022 2:51 AM CDT HC MAGNESIUM Routine 09/06/2022 2:51 AM CDT HC COMPREHENSIVE METABOLIC PANEL Routine 09/06/2022 2:51 AM CDT HC CBC,AUTOMATED Routine 09/06/2022 2:5 1 AM CDT CHEST SINGLE VIEW STAT 09/05/2022 6: 06 PM CDT HC HIGH SENSITIVITY TROPONIN I RANDOM STAT 09/05/2022 5:56 PM CDT HC LACTIC ACID(LACTATE) STAT 09/05/2022 5:51 PM CDT HC PHOSPHOROUS, SERUM STAT 09/05/2022 5:51 PM CDT HC MAGNESIUM STAT 09/05/2022 5:51 PM CDT HC CBC,AUTOMATED STAT 09/05/2022 5:5 1 PM CDT COMPREHENSIVE METABOLIC PANEL STAT 09/05/2022 5:51 PM CDT ECG 12-LEAD STAT 09/05/2022 5:50 PM CDT POC GLUCOSE 09/05/2022 4:22 PM CDT HC PHOSPHOROUS, SERUM Routine 09/05/2022 3:54 AM CDT HC MAGNESIUM Routine 09/05/2022 3:54 AM CDT HC COMPREHENSIVE METABOLIC PANEL Routine 09/05/2022 3:54 AM CDT HC CBC,AUTOMATED Routine 09/05/2022 3:5 4 AM CDT HC CBC,AUTOMATED STAT 09/04/2022 8:0 0 PM CDT TRANSFUSE RBC'S Routine 09/04/2022 5:35 PM CDT HC CBC,AUTOMATED STAT 09/04/2022 3:3 6 PM CDT HC PHOSPHOROUS, SERUM Routine 09/04/2022 4:00 AM CDT HC MAGNESIUM Routine 09/04/2022 4:00 AM CDT HC BASIC METABOLIC PANEL Routine 09/04/2022 4:00 AM CDT HC CBC,AUTOMATED Routine 09/04/2022 4:0 0 AM CDT CHEST SINGLE VIEW STAT 09/03/2022 5: 47 PM CDT HC CBC,AUTOMATED Routine 09/03/2022 3:3 6 AM CDT HC BASIC METABOLIC PANEL Routine 09/03/2022 3:36 AM CDT HC HEMOGLOBIN (BG) Add on 09/02/2022 8 :25 PM CDT HC CALCIUM IONIZED STAT 09/02/2022 8 :25 PM CDT HC BLOOD GASES;(CALCULATED 02) STAT 09/02/2022 8:25 PM CDT POC GLUCOSE 09/02/2022 7:21 PM CDT POC GLUCOSE 09/02/2022 5:16 PM CDT HC POTASSIUM, BG STAT 09/02/2022 4:0 0 PM CDT HC SODIUM,BG STAT 09/02/2022 4:00 PM CDT HC CALCIUM IONIZED STAT 09/02/2022 4 :00 PM CDT HC GLUCOSE,BG STAT 09/02/2022 4:00 PM CDT HC BLOOD GASES;(CALCULATED 02) STAT 09/02/2022 4:00 PM CDT HC HEMOGLOBIN (BG) STAT 09/02/2022 4 :00 PM CDT HC POTASSIUM, BG STAT 09/02/2022 3:0 0 PM CDT HC SODIUM,BG STAT 09/02/2022 3:00 PM CDT HC CALCIUM IONIZED STAT 09/02/2022 3 :00 PM CDT HC GLUCOSE,BG STAT 09/02/2022 3:00 PM CDT HC BLOOD GASES;(CALCULATED 02) STAT 09/02/2022 3:00 PM CDT HC HEMOGLOBIN (BG) STAT 09/02/2022 3 :00 PM CDT HC SODIUM,BG Routine 09/02/2022 2:00 PM CDT HC POTASSIUM, BG Routine 09/02/2022 2:0 0 PM CDT HC LACTIC ACID - BG SYRINGE Routine 09/02/2022 2:00 PM CDT HC CALCIUM IONIZED Routine 09/02/2022 2 :00 PM CDT HC HEMOGLOBIN (BG) Routine 09/02/2022 2 :00 PM CDT HC GLUCOSE,BG Routine 09/02/2022 2:00 PM CDT HC BLOOD GASES;(CALCULATED 02) STAT 09/02/2022 2:00 PM CDT HC POTASSIUM, BG STAT 09/02/2022 1:0 0 PM CDT HC SODIUM,BG STAT 09/02/2022 1:00 PM CDT HC CALCIUM IONIZED STAT 09/02/2022 1 :00 PM CDT HC GLUCOSE,BG STAT 09/02/2022 1:00 PM CDT HC BLOOD GASES;(CALCULATED 02) STAT 09/02/2022 1:00 PM CDT HC HEMOGLOBIN (BG) STAT 09/02/2022 1 :00 PM CDT HC HEMOGLOBIN (BG) STAT 09/02/2022 12 :08 PM CDT HC BLOOD GASES;(CALCULATED 02) STAT 09/02/2022 12:08 PM CDT TRANSFUSE RBC'S Routine 09/02/2022 11:14 AM CDT HC MICROSATELLITE INSTABILITY PCR 09/02/2022 11:12 AM CDT NOTES 09/02/2022 11:12 AM CDT HC POTASSIUM, BG STAT 09/02/2022 11:0 5 AM CDT HC SODIUM,BG STAT 09/02/2022 11:05 AM CDT HC CALCIUM IONIZED STAT 09/02/2022 11 :05 AM CDT HC GLUCOSE,BG STAT 09/02/2022 11:05 AM CDT HC HEMOGLOBIN (BG) STAT 09/02/2022 11 :05 AM CDT HC BLOOD GASES;(CALCULATED 02) Routine 09/02/2022 11:05 AM CDT HC FROZEN SECTION #1 Routine 09/02/2022 9:43 AM CDT Malignant neoplasm of esophagus, unspecified location (HCC) Malignant neoplasm of colon, unspecified part of colon (HCC) TRANSFUSE RBC'S Routine 09/02/2022 9:41 AM CDT ANESTHESIA ARTERIAL LINE INSERTION Routine 09/02/2022 9:35 AM CDT HC POTASSIUM, BG STAT 09/02/2022 9:0 0 AM CDT HC SODIUM,BG STAT 09/02/2022 9:00 AM CDT HC CALCIUM IONIZED STAT 09/02/2022 9 :00 AM CDT HC GLUCOSE,BG STAT 09/02/2022 9:00 AM CDT HC BLOOD GASES;(CALCULATED 02) STAT 09/02/2022 9:00 AM CDT HC HEMOGLOBIN (BG) STAT 09/02/2022 9 :00 AM CDT COLECTOMY WITH ANASTOMOSIS - PARTIAL 09/02/2022 8:25 AM CDT Malignant neoplasm of esophagus, unspecified location (HCC) Malignant neoplasm of colon, unspecified part of colon (HCC) Special Needs 7/6 PER CASE MSG- Please move case to 09/02/2022. - 1005 TUBE/ NEEDLE CATHETER JEJUNOSTOMY FOR ENTERAL ALIMENTATION 09/02/2022 8:25 AM CDT Malignant neoplasm of esophagus, unspecified location (HCC) Malignant neoplasm of colon, unspecified part of colon (HCC) Special Needs 7/6 PER CASE MSG- Please move case to 09/02/2022. - 1005 GASTRECTOMY TOTAL WITH TRISTAN-EN-Y RECONSTRUCTION 09/02/2022 8:25 AM CDT Malignant neoplasm of esophagus, unspecified location (HCC) Malignant neoplasm of colon, unspecified part of colon (HCC) Special Needs 7/ PER CASE MSG- Please move case to 09/02/2022. - 1005 ANESTHESIA EPIDURAL BLOCK Routine 09/02/2022 8:15 AM CDT HC BLOOD TYPING, ABO CONFIRM 91 STAT 09/02/2022 8:08 AM CDT HC ABO GROUP STAT 09/02/2022 7:54 AM CDT Preop examination CONSULT VASCULAR ACCESS TEAM Routine 09/02/2022 7:10 AM CDT TELEMETRY STRIPS-SCAN 09/02/2022 12:00 AM CDT TELEMETRY STRIPS-SCAN 09/02/2022 12:00 AM CDT TELEMETRY STRIPS-SCAN 09/02/2022 12:00 AM CDT TELEMETRY STRIPS-SCAN 09/02/2022 12:00 AM CDT TELEMETRY STRIPS-SCAN 09/02/2022 12:00 AM CDT TELEMETRY STRIPS-SCAN 09/02/2022 12:00 AM CDT TELEMETRY STRIPS-SCAN 09/02/2022 12:00 AM CDT TELEMETRY STRIPS-SCAN 09/02/2022 12:00 AM CDT TELEMETRY STRIPS-SCAN 09/02/2022 12:00 AM CDT TELEMETRY STRIPS-SCAN 09/02/2022 12:00 AM CDT TELEMETRY STRIPS-SCAN 09/02/2022 12:00 AM CDT TELEMETRY STRIPS-SCAN 09/02/2022 12:00 AM CDT TELEMETRY STRIPS-SCAN 09/02/2022 12:00 AM CDT from Last 3 Months Results * (ABNORMAL) BLOOD GASES, ARTERIAL (10/30/2022 5:59 AM CDT) Only the most recent of123 resultswithin the time period is included. pH-Arterial 7.41 7.35 - 7.45 10/30/2022 6:06 AM CDT [facility] pCO2-Arterial 60(H) 35 - 45 MMHG 10/30/2022 6:06 AM CDT [facility] pO2-Arterial 93 80 - 100 MMHG 10/30/2022 6:06 AM CDT [facility] Base Excess-Arteria l 11.4 MMOL/L 10/30/2022 6:06 AM CDT [facility] O2 Sat-Arterial 97.8 95 - 99 % 10/30/2022 6:06 AM CDT [facility] Bicarbonate-AR T-Miguel 35.2(H) 21 - 28 MMOL/L 10/30/2022 6:06 AM CDT [facility] BLOOD / Unknown 10/30/2022 5:59 AM CDT 10/30/2022 6:01 AM CDT William Montgomery MD OTHER LABORATOR Y [facility] [address] [place] [address], * (ABNORMAL) CBC (10/28/2022 3:55 AM CDT) Only the most recent of72 resultswithin the time period is included. White Blood Cells 11.6(H) 4.5 - 11.0 K/UL 10/28/2022 4:16 AM CDT [facility] RBC 2.90(L) 4.4 - 5.5 M/UL 10/28/2022 4:16 AM CDT [facility] Hemoglobin 8.2(L) 13.5 - 16.5 GM/DL 10/28/2022 4:16 AM CDT [facility] Hematocrit 25.3(L) 40 - 50 % 10/28/2022 4:16 AM CDT [facility] MCV 87.1 80 - 100 FL 10/28/2022 4:16 AM CDT [facility] MCH 28.2 26 - 34 PG 10/28/2022 4:16 AM CDT [facility] MCHC 32.4 32.0 - 36.0 G/DL 10/28/2022 4:16 AM CDT [facility] RDW 19.0(H) 11 - 15 % 10/28/2022 4:16 AM CDT [facility] Platelet Count 320 150 - 400 K/UL 10/28/2022 4:16 AM CDT [facility] MPV 6.5(L) 7 - 11 FL 10/28/2022 4:16 AM CDT [facility] BLOOD / Unknown 10/28/2022 3:55 AM CDT 10/28/2022 4:02 AM CDT Adriana Vela ELECTRIC POWER LINE EXAMINER-EHS MANAGER LABORATORY ORDER DARCY [facility] AND LAB MEDICINE [address] [place] [address], * (ABNORMAL) PHOSPHORUS (10/28/2022 3:55 AM CDT) Only the most recent of61 resultswithin the time period is included. Phosphorus 5.3(H) 2.0 - 4.5 MG/DL 10/28/2022 4:39 AM CDT [facility] BLOOD / Unknown 10/28/2022 3:55 AM CDT 10/28/2022 4:02 AM CDT Adriana M Dane ELECTRIC POWER LINE EXAMINER-EHS MANAGER LABORATORY ORDER DARCY Performing Organization Address City/[facility]/ZIP Co de Phone Number [facility] DE[facility] PATH AND LAB MEDICINE [address] [place] [address], * (ABNORMAL) MAGNESIUM (10/28/2022 3:55 AM CDT) Only the most recent of58 resultswithin the time period is included. Magnesium 1.5(L) 1.6 - 2.6 mg/dL 10/28/2022 4:39 AM CDT [facility] DEPT PATH AND LAB MEDICINE BLOOD / Unknown 10/28/2022 3:55 AM CDT 10/28/2022 4:02 AM CDT Adriana Vela ELECTRIC POWER LINE EXAMINER-EHS MANAGER LABORATORY ORDER DARCY Performing Organization Address [facility] Co de Phone Number [facility] DEPT PATH AND LAB MEDICINE [address] [place] [address], * (ABNORMAL) BASIC METABOLIC PANEL (10/28/2022 3:55 AM CDT) Only the most recent of31 resultswithin the time period is included. Sodium 141 137 - 147 MMOL/L 10/28/2022 4:39 AM CDT [facility] DEPT PATH AND LAB MEDICINE Potassium 3.8 3.5 - 5.1 MMOL/L 10/28/2022 4:39 AM CDT [facility] DEPT PATH AND LAB MEDICINE Chloride 99 98 - 110 MMOL/L 10/28/2022 4:39 AM CDT [facility] DEPT PATH AND LAB MEDICINE CO2 33(H) 21 - 30 MMOL/L 10/28/2022 4:39 AM CDT [facility] DE[facility] PATH AND LAB MEDICINE Anion Gap 9 3 - 12 10/28/2022 4:39 AM CDT [facility] DE[facility] PATH AND LAB MEDICINE Glucose 132(H) 70 - 100 MG/DL 10/28/2022 4:39 AM CDT [facility] DE[facility] PATH AND LAB MEDICINE Blood Urea Nitrogen 18 7 - 25 MG/DL 10/28/2022 4:39 AM CDT [facility] DEPT PATH AND LAB MEDICINE Creatinine 0.35(L) 0.4 - 1.24 MG/DL 10/28/2022 4:39 AM CDT [facility] DEPT PATH AND LAB MEDICINE Calcium 8.4(L) 8.5 - 10.6 MG/DL 10/28/2022 4:39 AM CDT [facility] DEPT PATH AND LAB MEDICINE eGFR >60 >60 mL/min 10/28/2022 4:39 AM CDT [facility] DEPT PATH AND LAB MEDICINE Comment:eGFR calculated usin g the CKD-EPIcr_R equation BLOOD / Unknown 10/28/2022 3:55 AM CDT 10/28/2022 4:02 AM CDT Adriana Vela ELECTRIC POWER LINE EXAMINER-EHS MANAGER LABORATORY ORDER DARCY [facility] PATH AND LAB MEDICINE [address] [place] [address], [place] * CHEST SINGLE VIEW (10/25/2022 4:42 AM CDT) Only the most recent of27 resultswithin the time period is included. Anatomical Region Laterality Modality CHEST Computed Radiogr aphy 10/25/2022 8:0 9 AM CDT Impressions 10/25/2022 9:30 AM CDT Similar basal predominant lung opacities. Stable bilateral pleural effusions. Removed left pleural drain with no pneumothorax. By my electronic signature, I attest that I have personally reviewed the images for this examination and formulated the interpretations and opinions expressed in this report Finalized by Kandy Hearn M.D. on 10/25/2022 9:30 AM. Dictated by Sai Schaefer MD on 10/25/2022 8:09 AM. Narrative 10/25/2022 9:30 AM CDT CHEST SINGLE VIEW INDICATION: Severe hypoxia. COMPARISON STUDY: Chest radiograph 10/21/2022. FINDINGS: Support Devices: Tracheostomy tube, left subclavian chest port and left IJ central venous catheter in stable position. Removal of left pigtail pleural drainage catheter. Left upper quadrant drain is either removed or not included in the [id number]. Heart and Mediastinum: Cardiomediastinal silhouette is stable. Lungs and Pleura: Similar basal predominant heterogeneous pulmonary opacities. Stable bilateral pleural effusions. No pneumothorax. Procedure Note Kandy Hearn MD - 10/25/2022 CHEST SINGLE VIEW INDICATION: Severe hypoxia. COMPARISON STUDY: Chest radiograph 10/21/2022. FINDINGS: Support Devices: Tracheostomy tube, left subclavian chest port and left IJcentral venous catheter in stable position. Removal of left pigtailpleural drainage catheter. Left upper quadrant drain is either removed ornot included in the [id number]. Heart and Mediastinum: Cardiomediastinal silhouette is stable. Lungs and Pleura: Similar basal predominant heterogeneous pulmonaryopacities. Stable bilateral pleural effusions. No pneumothorax. IMPRESSION Similar basal predominant lung opacities. Stable bilateral pleuraleffusions. Removed left pleural drain with no pneumothorax. By my electronic signature, I attest that I have personally reviewed theimages for this examination and formulated the interpretations andopinions expressed in this report Finalized by Kandy Hearn M.D. on 10/25/2022 9:30 AM. Dictated bySai Schaefer MD on 10/25/2022 8:09 AM. William Montgomery MD DIAGNOSTIC IMAG ING ORDERABLES * TYPE & CROSSMATCH (10/25/2022 3:19 AM CDT) Only the most recent of7 resultswithin the time period is included. Units Ordered 0 10/25/2022 3:28 AM CDT [facility] DEPT PATH AND LAB MEDICINE Crossmatch Expires 10/28/2022 ,2359 10/25/2022 4:11 AM CDT [facility] DE[facility] PATH AND LAB MEDIC[facility] Record Check FOUND 10/25/2022 3:28 AM CDT [facility] PATH [facility] LAB MEDIC[facility] ABO/RH(D) B NEG 10/25/2022 4:11 AM CDT [facility] PATH [facility] LAB MEDIC[facility] Antibody Screen NEG 4:11 AM CDT [facility] PATH [facility] LAB MEDIC[facility] BLOOD / Unknown 10/25/2022 3:19 AM CDT 10/25/2022 3:28 AM CDT Kendrick Casillas MD BLOOD BANK ORDERA BLES [facility] Organization Address City/State/ZIP Co de Phone Number [facility] DEPT PATH AND LAB MEDICINE [address] [place] [address], * (ABNORMAL) COMPREHENSIVE METABOLIC PANEL (10/25/2022 3:17 AM CDT) Only the most recent of34 resultswithin the time period is included. Sodium 144 137 - 147 MMOL/L 10/25/2022 4:02 AM CDT [facility] PATH [facility] LAB MEDIC[facility] Potassium 3.2(L) 3.5 - 5.1 MMOL/L 10/25/2022 4:02 AM CDT [facility] DEPT PATH AND LAB MEDICINE Chloride 99 98 - 110 MMOL/L 10/25/2022 4:02 AM CDT [facility] DEPT PATH AND LAB MEDICINE Glucose 120(H) 70 - 100 MG/DL 10/25/2022 4:02 AM CDT [facility] DEPT PATH AND LAB MEDICINE Blood Urea Nitrogen 12 7 - 25 MG/DL 10/25/2022 4:02 AM CDT [facility] DEPT PATH AND LAB MEDICINE Creatinine 0.40 0.4 - 1.24 MG/DL 10/25/2022 4:02 AM CDT [facility] DEPT PATH AND LAB MEDICINE Calcium 8.5 8.5 - 10.6 MG/DL 10/25/2022 4:02 AM CDT [facility] PATH AND LAB MEDICINE Total Protein 7.3 6.0 - 8.0 G/DL 10/25/2022 4:02 AM CDT [facility] LAB [facility]IC[facility] Total Bilirubin 0.4 0.3 - 1.2 MG/DL 10/25/2022 4:02 AM CDT [facility] PATH [facility] LAB MEDIC[facility] Albumin 2.7(L) 3.5 - 5.0 G/DL 10/25/2022 4:02 AM CDT [facility] Alk Phosphatase 108 25 - 110 U/L 10/25/2022 4:02 AM CDT [facility] PATH [facility] LAB MEDIC[facility] AST (SGOT) 17 7 - 40 U/L 10/25/2022 4:02 AM CDT [facility] DEPT PATH AND LAB MEDICINE CO2 36(H) 21 - 30 MMOL/L 10/25/2022 4:02 AM CDT [facility] DEPT PATH AND LAB MEDICINE ALT (SGPT) 11 7 - 56 U/L 10/25/2022 4:02 AM CDT [facility] LAB MEDIC[facility] Anion Gap 9 3 - 12 10/25/2022 4:02 AM CDT [facility]IC[facility] eGFR >60 >60 mL/min 10/25/2022 4:02 AM CDT [facility] MEDIC[facility] Comment:eGFR calculated liam patel the CKD-EPIcr_R equation BLOOD / Unknown 10/25/2022 3:17 AM CDT 10/25/2022 3:24 AM CDT William Montgomery MD LABORATORY ORDE GIORGIO [facility] Organization Address City/State/ZIP Co de Phone Number [facility] PATH AND LAB MEDICINE [address] [place] [address], * ECG 12-LEAD (10/23/2022 7:13 PM CDT) VENTRICULAR RATE 87 BPM GE MUSE P-R INTERVAL 152 ms GE MUSE QRS DURATION 94 ms GE MUSE Q-T INTERVAL 378 ms GE MUSE QTC CALCULATION (BAZETT) 454 ms GE MUSE P AXIS 34 degrees GE MUSE R AXIS 53 degrees GE MUSE T AXIS 21 degrees GE MUSE 10/23/2022 7:1 3 PM CDT 10/23/2022 7:18 PM CDT Impressions GE MUSE - 10/23/2022 7:18 PM CDT Normal sinus rhythm Normal ECG When compared with ECG of 17-OCT-2022 08:58, No significant change was found Confirmed by Sai Rodriguez ([id number]) on 10/23/2022 7:18:53 PM Narrative Procedure Note Sai Rodriguez, DO - 10/23/2022 IMPRESSION Normal sinus rhythm Normal ECG When compared with ECG of 17-OCT-2022 08:58, No significant change was found Confirmed by Sai Rodriguez ([id number]) on 10/23/2022 7:18:53 PM Elijah Covington MD ECG ORDERABLES Performing Organization Address [facility] Co de Phone Number MUSE * CORTISOL 60 MINUTES POST (10/23/2022 10:17 AM CDT) Cortisol 60 Min 24.4 ug/dL 3 12:40 PM CDT [facility] BLOOD / Unknown 10/23/2022 1 0:17 AM CDT 10/23/2022 10:32 AM CDT William Montgomery MD OTHER LABORATOR Y Performing Organization Address [facility] de Phone Number [facility] PATH [facility] LAB MEDICINE [address] [place] [address], * CORTISOL 30 MINUTES POST (10/23/2022 9:40 AM CDT) Cortisol 30 Min 20.4 ug/dL 3 12:24 PM CDT [facility] DE[facility] PATH AND LAB MEDICINE BLOOD / Unknown 10/23/2022 9:40 AM CDT 10/23/2022 9:45 AM CDT William Montgomery MD OTHER LABORATOR Y Performing Organization Address [facility] de Phone Number [facility] PATH [facility] LAB MEDICINE [address] [place] [address], [place] * CORTISOL BASELINE (10/23/2022 8:09 AM CDT) Cortisol Baseline 6.6 ug/dL 10/23/2022 9:23 AM CDT [facility] PATH AND LAB MEDICINE BLOOD / Unknown 10/23/2022 8:09 AM CDT 10/23/2022 8:22 AM CDT William Montgomery MD OTHER LABORATOR Y Performing Organization Address City/[facility]/ZIP Co de Phone Number [facility] PATH AND LAB MEDICINE [address] [place] [address], [place] * (ABNORMAL) ACTH (10/23/2022 8:09 AM CDT) Adrenocorticotropic Hormone 3(L) 7 - 63 pg/mL 10/23/2022 9:57 AM CDT [facility] MEDIC[facility] BLOOD / Unknown 10/23/2022 8:09 AM CDT 10/23/2022 8:15 AM CDT William Montgomery MD LABORATORY ORDE RABLES Performing Organization Address City/[facility]/ZIP Co de Phone Number [facility] PATH AND LAB MEDICINE [address] [place] [address], [place] * (ABNORMAL) CULTURE-FUNGAL,OTHER (10/20/2022 1:54 PM CDT) Only the most recent of3 resultswithin the time period is included. Battery Name [facility]US [facility] Report Status FINAL 11/20/2022 [facility] Specimen Description FLUID ABDOMEN DRAIN [facility] MED[facility] Special Requests No special requests 10/20/2022 12:35 PM CDT [facility] MEDIC[facility] Culture Four colonies JESSIE DUBLINIENSIS (A) 11/20/2022 3:28 PM CDT [facility] Fluid ABDOMEN / Unknown 10/20/2022 1:54 PM CDT 10/20/2022 2:45 PM CDT Comment:DRAIN William Montgomery MD MICROBIOLOGY OR DERABLES [facility] MED[facility] [address] [place] [address], [place] * GRAM STAIN (10/20/2022 1:54 PM CDT) Only the most recent of10 resultswithin the time period is included. Battery Name GRAM STAIN [facility] Report Status FINAL 10/20/2022 [facility] DEPT PATH AND LAB MEDICINE Specimen Description FLUID ABDOMEN DRAIN [facility] LAB MEDICINE Special Requests No special requests 10/20/2022 12:35 PM CDT [facility] MEDIC[facility] Gram Stain NO NEUTROPHILS SEEN 10/20/2022 7:51 PM CDT [facility] PATH AND LAB MEDICINE Gram Stain NO ORGANISMS SEEN 10/20/2022 7:51 PM CDT [facility] PATH [facility] LAB MEDICINE Fluid ABDOMEN / Unknown 10/20/2022 1:54 PM CDT 10/20/2022 2:45 PM CDT Comment:DRAIN William Montgomery MD MICROBIOLOGY OR DERABLES [facility] MED[facility] [address] [place] [address], * (ABNORMAL) CULTURE-WOUND/TISSUE/FLUID(AEROBIC ONLY)W/SENSITIVITY (10/20/2022 1:54 PM CDT) Only the most recent of3 resultswithin the time period is included. Battery Name ROUTINE CULTURE T [facility] DEPT PATH AND LAB MEDICINE Report Status FINAL 10/24/2022 [facility] MEDIC[facility] Specimen Description FLUID ABDOMEN DRAIN [facility] MEDICINE Special Requests No special requests 10/20/2022 12:35 PM CDT [facility] MEDIC[facility] Direct Gram Stain NO NEUTROPHILS SEEN 10/20/2022 7:51 PM CDT [facility] PATH [facility] LAB MEDIC[facility] Direct Gram Stain NO ORGANISMS SEEN 10/20/2022 7:51 PM CDT [facility] PATH [facility] LAB MEDICINE Culture Four colonies JESSIE DUBLINIENSIS (A) 10/24/2022 12:46 PM CDT [facility] Fluid ABDOMEN / Unknown 10/20/2022 1:54 PM CDT 10/20/2022 2:45 PM CDT Comment:DRAIN William Montgomery MD MICROBIOLOGY OR DERABLES Performing Organization Address [facility] Co de Phone Number [facility] PATH AND LAB MEDICINE [address] [place] [address], * CULTURE-ANAEROBIC (10/20/2022 1:54 PM CDT) Only the most recent of3 resultswithin the time period is included. Battery Name ANAEROBE CULTURE [facility] DEPT PATH AND LAB MEDICINE Report Status FINAL 10/25/2022 [facility] Specimen Description FLUID ABDOMEN DRAIN [facility] PATH AND LAB MEDICINE Special Requests No special requests 10/20/2022 12:35 PM CDT [facility] Culture NO ANAEROBES ISOLATED 10/25/2022 10:57 AM CDT [facility] PATH [facility] LAB MEDICINE Fluid ABDOMEN / Unknown 10/20/2022 1:54 PM CDT 10/20/2022 2:45 PM CDT Comment:DRAIN William Montgomery MD MICROBIOLOGY OR DERABLES Performing Organization Address [facility] Co de Phone Number [facility] PATH [facility] LAB MEDICINE [address] [place] [address], [place] * CT GUIDE ABSCESS DRAIN W CATH (10/20/2022 1:46 PM CDT) Only the most recent of2 resultswithin the time period is included. Anatomical Region Laterality Modality CHEST/AB/PEL Computed Tomogra phy 10/20/2022 5:4 9 PM CDT Impressions 10/21/2022 6:[address]-guided 10-Micronesian Pigtail drain placement into left upper abdominal abscess. Approved by Jose Zuluaga M.D. on 10/20/2022 5:50 PM IGareth M.D., the attending radiologist, was present for the procedure, personally reviewed the images, and formulated the interpretations and opinions expressed in this report. @TT By my electronic signature, I attest that I have personally reviewed the images for this examination and formulated the interpretations and opinions expressed in this report Finalized by Gareth Spring M.D. on 10/21/2022 6:53 PM. Dictated by Jose Zuluaga M.D. on 10/20/2022 5:49 PM. Narrative 10/21/2022 6:[address]-GUIDED ABSCESS DRAIN PLACEMENT CLINICAL HISTORY: Left upper quadrant abdominal abscess. SEDATION: Gareth Spring M.D. was personally responsible for the administration of moderate sedation services during the procedure performed and I confirm requirements described in CPT section on moderate sedation were followed, including the use of an independent trained observer who had no other duties during the procedure. Medications used for sedation are noted above. The total sedation time was 30 minutes. MARKETING INSTRUCTOR: Blanca Austin MD TECHNIQUE AND FINDINGS: The procedures and interpretation described herein were directly supervised and/or personally performed by Gareth Spring M.D.. A brief history and physical was obtained, and appropriate imaging was reviewed. An explanation of the procedure including risks, benefits, and alternatives was provided, and informed written consent was obtained. The patient was placed on the CT table in the supine position, and the left upper abdomen was prepped and draped in the usual sterile fashion. Limited scans through the upper abdomen were done to identify the left upper abdominal fluid collection. The skin and subcutaneous tissues were then infiltrated with 2% lidocaine for local anesthesia. Position of the lesion was confirmed by CT measurements. Under direct CT guidance, an 18-gauge needle guide was advanced into the fluid collection and purulent fluid was aspirated. A 0.035 Amplatz wire was advanced into the fluid collection and the needle was removed. A 10-Micronesian pigtail catheter was then advanced into the fluid collection and connected to a J-VAC system. Hemostasis was achieved with manual compression, the pigtail drain was sutured into place and an occlusive, sterile bandage was applied. A limited post-procedure CT scan demonstrated no immediate complications. The patient tolerated the procedure well and left the department in stable condition. Procedure Note Gareth Spring MD - 10/22/2022 CT-GUIDED ABSCESS DRAIN PLACEMENT CLINICAL HISTORY: Left upper quadrant abdominal abscess. SEDATION: Gareth Spring M.D. was personally responsible for the administration ofmoderate sedation services during the procedure performed and I confirmrequirements described in CPT section on moderate sedation were followed,including the use of an independent trained observer who had no otherduties during the procedure. Medications used for sedation are notedabove. The total sedation time was 30 minutes. MARKETING INSTRUCTOR: Blanca Austin MD TECHNIQUE AND FINDINGS: The procedures and interpretation described herein were directlysupervised and/or personally performed by Gareth Spring M.D.. A brief history and physical was obtained, and appropriate imaging wasreviewed. An explanation of the procedure including risks, benefits, andalternatives was provided, and informed written consent was obtained. Thepatient was placed on the CT table in the supine position, and the leftupper abdomen was prepped and draped in the usual sterile fashion. Limitedscans through the upper abdomen were done to identify the left upperabdominal fluid collection. The skin and subcutaneous tissues were theninfiltrated with 2% lidocaine for local anesthesia. Position of the lesion was confirmed by CT measurements. Under direct CTguidance, an 18-gauge needle guide was advanced into the fluid collectionand purulent fluid was aspirated. A 0.035 Amplatz wire was advanced intothe fluid collection and the needle was removed. A 10-Micronesian pigtailcatheter was then advanced into the fluid collection and connected to aJ-VAC system. Hemostasis was achieved with manual compression, the pigtaildrain was sutured into place and an occlusive, sterile bandage wasapplied. A limited post-procedure CT scan demonstrated no immediatecomplications. The patient tolerated the procedure well and left thedepartment in stable condition. IMPRESSION Successful CT-guided 10-Micronesian Pigtail drain placement into left upperabdominal abscess. Approved by Jose Zuluaga M.D. on 10/20/2022 5:50 PM IGareth M.D., the attending radiologist, was present for theprocedure, personally reviewed the images, and formulated theinterpretations and opinions expressed in this report. @TT By my electronic signature, I attest that I have personally reviewed theimages for this examination and formulated the interpretations andopinions expressed in this report Finalized by Gareth Spring M.D. on 10/21/2022 6:53 PM. Dictated byJose Zuluaga M.D. on 10/20/2022 5:49 PM. William Montgomery MD CT ORDERABLES * TEG WITH KAOLIN (10/20/2022 8:50 AM CDT) Only the most recent of2 resultswithin the time period is included. MA Kaolin 78.6 >49.9 MM 10/20/2022 10:15 AM CDT [facility] LAB MEDIC[facility] R Kaolin 5.1 <9.1 MIN 10/20/2022 10:15 AM CDT [facility] LAB MEDIC[facility] RK Kaolin 6.1 <12.1 MIN 10/20/2022 10:15 AM CDT [facility] MEDIC[facility] K Kaolin 1.0 <3.1 MIN 10/20/2022 10:15 AM CDT [facility] MEDIC[facility] Angle Kaolin 76.6 >54.9 DEG 10/20/2022 10:15 AM CDT [facility] MEDIC[facility] Lysis30 0.0 <8.1 % 10/20/2022 10:15 AM CDT [facility] PATH [facility] LAB MEDIC[facility] BLOOD / Unknown 10/20/2022 8:50 AM CDT 10/20/2022 9:01 AM CDT William Montgomery MD OTHER LABORATOR Y [facility] DEPT PATH AND LAB MEDICINE [address] [place] [address], * (ABNORMAL) HEMOGLOBIN & HEMATOCRIT (10/19/2022 12:49 PM CDT) Hemoglobin 7.8(L) 13.5 - 16.5 GM/DL 10/19/2022 1:03 PM CDT [facility] Hematocrit 24.4(L) 40 - 50 % 10/19/2022 1:03 PM CDT [facility] DE[facility] PATH [facility] LAB MEDIC[facility] BLOOD / Unknown 10/19/2022 1 2:49 PM CDT 10/19/2022 12:53 PM CDT William Montgomery MD LABORATORY ORDE GIORGIO [facility] DE[facility] PATH AND LAB MEDICINE [address] [place] [address], * CT ABD/PELV W CONTRAST (10/18/2022 4:37 PM CDT) Only the most recent of5 resultswithin the time period is included. Anatomical Region Laterality Modality CHEST/AB/PEL Computed Tomogra phy 10/18/2022 4:3 8 PM CDT Impressions 10/18/2022 5:00 PM CDT CHEST: 1. Status post gastrectomy and esophagojejunostomy without anastomotic site leak. 2. Progression of the bilateral pulmonary opacities most suggestive of pneumonia. ABDOMEN AND PELVIS: Persistent findings of peritonitis with development of organized abscesses within the left upper quadrant and right paracolic gutter. Finalized by Sancho Smith D.O. on 10/18/2022 5:00 PM. Dictated by Sancho Smith D.O. on 10/18/2022 4:38 PM. Narrative 10/18/2022 5:[address] scan of the chest, abdomen, pelvis CLINICAL HISTORY: Evaluate for esophageal-jejunal leak TECHNIQUE: Multiple contiguous axial images were obtained through the chest, abdomen, and pelvis after the IV administration of Omnipaque 350 contrast material. Image postprocessing coronal and sagittal reconstructions were obtained from the source axial data. COMPARISON: Prior CT scan of the chest, abdomen, and pelvis September 29, 2022 FINDINGS: CHEST: Partial withdrawal of the gastric tube with its tip terminating in the lower esophagus. Otherwise, the Indwelling medical devices remain in similar position. Heart size normal. The mildly patulous esophagus is partially distended with the administered oral contrast material. No contrast extravasation. Mild mediastinal lymphadenopathy which is likely reactive in nature. There has been progression of diffuse bilateral predominantly groundglass pulmonary opacities. There has been increase in size of the now moderate left and mild right pleural effusion. Dependent atelectasis within both lower lobes. There is no pneumothorax. ABDOMEN AND PELVIS: Stable, small hypodensity within segment 7 of the liver. Small infarct/contusion redemonstrated along the posterior margin of the spleen. The pancreas is atrophic. Adrenal glands and kidneys unremarkable. Indwelling percutaneous jejunostomy tube and Martinez catheter. Interval removal of the percutaneous drainage catheter from the right hemiabdomen and placement of a new percutaneous drainage catheter in the left lower quadrant of the abdomen. There is no bowel obstruction or pneumoperitoneum. Persistent findings of peritonitis with development of organized abscesses within the left upper quadrant, as demonstrated in image 7/41, and right paracolic gutter, as demonstrated in image 7/88. The larger abscess in the left upper quadrant measures 7.0 x 10.7 cm. Prior gastrectomy with esophagojejunostomy. Contrast material opacifies the distal esophagus, esophagojejunostomy site, and proximal small bowel loops without contrast extravasation. Moderate body wall edema. No destructive osseous lesion. Procedure Note Sancho Smith, DO - 10/18/2022 CT scan of the chest, abdomen, pelvis CLINICAL HISTORY: Evaluate for esophageal-jejunal leak TECHNIQUE: Multiple contiguous axial images were obtained through thechest, abdomen, and pelvis after the IV administration of Omnipaque 350contrast material. Image postprocessing coronal and sagittalreconstructions were obtained from the source axial data. COMPARISON: Prior CT scan of the chest, abdomen, and pelvis September FINDINGS: CHEST: Partial withdrawal of the gastric tube with its tip terminating in thelower esophagus. Otherwise, the Indwelling medical devices remain insimilar position. Heart size normal. The mildly patulous esophagus ispartially distended with the administered oral contrast material. Nocontrast extravasation. Mild mediastinal lymphadenopathy which is likelyreactive in nature. There has been progression of diffuse bilateral predominantly groundglasspulmonary opacities. There has been increase in size of the now moderateleft and mild right pleural effusion. Dependent atelectasis within bothlower lobes. There is no pneumothorax. ABDOMEN AND PELVIS: Stable, small hypodensity within segment 7 of the liver. Smallinfarct/contusion redemonstrated along the posterior margin of the spleen.The pancreas is atrophic. Adrenal glands and kidneys unremarkable.Indwelling percutaneous jejunostomy tube and Martinez catheter. Intervalremoval of the percutaneous drainage catheter from the right hemiabdomenand placement of a new percutaneous drainage catheter in the left lowerquadrant of the abdomen. There is no bowel obstruction orpneumoperitoneum. Persistent findings of peritonitis with development oforganized abscesses within the left upper quadrant, as demonstrated inimage 7/41, and right paracolic gutter, as demonstrated in image 7/88. Thelarger abscess in the left upper quadrant measures 7.0 x 10.7 cm. Priorgastrectomy with esophagojejunostomy. Contrast material opacifies thedistal esophagus, esophagojejunostomy site, and proximal small bowel loopswithout contrast extravasation. Moderate body wall edema. No destructiveosseous lesion. IMPRESSION CHEST: 1. Status post gastrectomy and esophagojejunostomy without anastomoticsite leak. 2. Progression of the bilateral pulmonary opacities most suggestive ofpneumonia. ABDOMEN AND PELVIS: Persistent findings of peritonitis with development of organized abscesseswithin the left upper quadrant and right paracolic gutter. Finalized by Sancho Smith D.O. on 10/18/2022 5:00 PM. Dictated by Sonja Reeves on 10/18/2022 4:38 PM. William Montgomery MD CT ORDERABLES * CT CHEST W CONTRAST (10/18/2022 4:37 PM CDT) Only the most recent of4 resultswithin the time period is included. Anatomical Region Laterality Modality CHEST Computed Tomogra phy 10/18/2022 4:3 8 PM CDT Impressions 10/18/2022 5:00 PM CDT CHEST: 1. Status post gastrectomy and esophagojejunostomy without anastomotic site leak. 2. Progression of the bilateral pulmonary opacities most suggestive of pneumonia. ABDOMEN AND PELVIS: Persistent findings of peritonitis with development of organized abscesses within the left upper quadrant and right paracolic gutter. Finalized by Sancho Smith D.O. on 10/18/2022 5:00 PM. Dictated by Sancho Smith D.O. on 10/18/2022 4:38 PM. Narrative 10/18/2022 5:[address] scan of the chest, abdomen, pelvis CLINICAL HISTORY: Evaluate for esophageal-jejunal leak TECHNIQUE: Multiple contiguous axial images were obtained through the chest, abdomen, and pelvis after the IV administration of Omnipaque 350 contrast material. Image postprocessing coronal and sagittal reconstructions were obtained from the source axial data. COMPARISON: Prior CT scan of the chest, abdomen, and pelvis September 29, 2022 FINDINGS: CHEST: Partial withdrawal of the gastric tube with its tip terminating in the lower esophagus. Otherwise, the Indwelling medical devices remain in similar position. Heart size normal. The mildly patulous esophagus is partially distended with the administered oral contrast material. No contrast extravasation. Mild mediastinal lymphadenopathy which is likely reactive in nature. There has been progression of diffuse bilateral predominantly groundglass pulmonary opacities. There has been increase in size of the now moderate left and mild right pleural effusion. Dependent atelectasis within both lower lobes. There is no pneumothorax. ABDOMEN AND PELVIS: Stable, small hypodensity within segment 7 of the liver. Small infarct/contusion redemonstrated along the posterior margin of the spleen. The pancreas is atrophic. Adrenal glands and kidneys unremarkable. Indwelling percutaneous jejunostomy tube and Martinez catheter. Interval removal of the percutaneous drainage catheter from the right hemiabdomen and placement of a new percutaneous drainage catheter in the left lower quadrant of the abdomen. There is no bowel obstruction or pneumoperitoneum. Persistent findings of peritonitis with development of organized abscesses within the left upper quadrant, as demonstrated in image 7/41, and right paracolic gutter, as demonstrated in image 7/88. The larger abscess in the left upper quadrant measures 7.0 x 10.7 cm. Prior gastrectomy with esophagojejunostomy. Contrast material opacifies the distal esophagus, esophagojejunostomy site, and proximal small bowel loops without contrast extravasation. Moderate body wall edema. No destructive osseous lesion. Procedure Note Sancho Smith, DO - 10/18/2022 CT scan of the chest, abdomen, pelvis CLINICAL HISTORY: Evaluate for esophageal-jejunal leak TECHNIQUE: Multiple contiguous axial images were obtained through thechest, abdomen, and pelvis after the IV administration of Omnipaque 350contrast material. Image postprocessing coronal and sagittalreconstructions were obtained from the source axial data. COMPARISON: Prior CT scan of the chest, abdomen, and pelvis September FINDINGS: CHEST: Partial withdrawal of the gastric tube with its tip terminating in thelower esophagus. Otherwise, the Indwelling medical devices remain insimilar position. Heart size normal. The mildly patulous esophagus ispartially distended with the administered oral contrast material. Nocontrast extravasation. Mild mediastinal lymphadenopathy which is likelyreactive in nature. There has been progression of diffuse bilateral predominantly groundglasspulmonary opacities. There has been increase in size of the now moderateleft and mild right pleural effusion. Dependent atelectasis within bothlower lobes. There is no pneumothorax. ABDOMEN AND PELVIS: Stable, small hypodensity within segment 7 of the liver. Smallinfarct/contusion redemonstrated along the posterior margin of the spleen.The pancreas is atrophic. Adrenal glands and kidneys unremarkable.Indwelling percutaneous jejunostomy tube and Martinez catheter. Intervalremoval of the percutaneous drainage catheter from the right hemiabdomenand placement of a new percutaneous drainage catheter in the left lowerquadrant of the abdomen. There is no bowel obstruction orpneumoperitoneum. Persistent findings of peritonitis with development oforganized abscesses within the left upper quadrant, as demonstrated inimage 7/41, and right paracolic gutter, as demonstrated in image /88. Thelarger abscess in the left upper quadrant measures 7.0 x 10.7 cm. Priorgastrectomy with esophagojejunostomy. Contrast material opacifies thedistal esophagus, esophagojejunostomy site, and proximal small bowel loopswithout contrast extravasation. Moderate body wall edema. No destructiveosseous lesion. IMPRESSION CHEST: 1. Status post gastrectomy and esophagojejunostomy without anastomoticsite leak. 2. Progression of the bilateral pulmonary opacities most suggestive ofpneumonia. ABDOMEN AND PELVIS: Persistent findings of peritonitis with development of organized abscesseswithin the left upper quadrant and right paracolic gutter. Finalized by Sancho Smith D.O. on 10/18/2022 5:00 PM. Dictated by Sonja Reeves on 10/18/2022 4:38 PM. William Montgomery MD CT ORDERABLES * (ABNORMAL) POC GLUCOSE (10/18/2022 6:21 AM CDT) Only the most recent of362 resultswithin the time period is included. Glucose, POC 133(H) 70 - 100 MG/DL 10/18/2022 6:22 AM CDT [facility] DEPT PATH AND LAB MEDICINE POC 10/18/2022 6:2 1 AM CDT 10/18/2022 6:22 AM CDT William Montgomery MD OTHER LABORATOR Y Performing Organization Address [facility] Co de Phone Number [facility] PATH AND LAB MEDICINE POC [address] [place] [address] * TRIGLYCERIDE (10/18/2022 3:21 AM CDT) Only the most recent of11 resultswithin the time period is included. Triglycerides 135 <150 MG/DL 10/18/2022 4:08 AM CDT [facility] PATH AND LAB MEDICINE BLOOD / Unknown 10/18/2022 3:21 AM CDT 10/18/2022 3:35 AM CDT Maureen Koenig MD LABORATORY ORDERABLE S Performing Organization Address [facility] Co de Phone Number [facility] PATH AND LAB MEDICINE [address] [place] [address], [place] * POTASSIUM (10/17/2022 1:17 PM CDT) Only the most recent of2 resultswithin the time period is included. Potassium 3.7 3.5 - 5.1 MMOL/L 10/17/2022 2:10 PM CDT [facility] PATH AND LAB MEDICINE BLOOD / Unknown 10/17/2022 1:17 PM CDT 10/17/2022 1:22 PM CDT William Montgomery MD LABORATORY ORDE RABLES Performing Organization Address [facility] Co de Phone Number [facility] PATH AND LAB MEDICINE [address] [place] [address], [place] * US DOPPLER VENOUS LEFT (10/17/2022 12:29 PM CDT) Anatomical Region Laterality Modality VASCULAR Left Ultrasound Left 10/17/2022 12:3 7 PM CDT Impressions 10/17/2022 12:38 PM CDT No femoral/popliteal deep venous thrombosis in the left lower extremity. Visualized portions of the deep calf veins are patent. Finalized by Mikaela Villafuerte M.D. on 10/17/2022 12:38 PM. Dictated by Mikaela Villafuerte M.D. on 10/17/2022 12:37 PM. Narrative 10/17/2022 12:38 PM CDT LEFT LOWER EXTREMITY VENOUS DOPPLER ULTRASOUND CLINICAL INDICATION: Male, 57 years old. Left lower extremity swelling. TECHNIQUE: Multiple grayscale, color Doppler and spectral Doppler ultrasound images were obtained of the left lower extremity for evaluation of the peripheral veins. COMPARISON: None FINDINGS: The left common femoral, upper saphenous, deep femoral, femoral, and popliteal veins are patent and fully compressible without focal narrowing. Visualized portions of the posterior tibial and peroneal veins are patent. No soft tissue mass or fluid collection is identified within visualized portions of the leg. Procedure Note Mikaela Villafuerte MD - 10/17/2022 LEFT LOWER EXTREMITY VENOUS DOPPLER ULTRASOUND CLINICAL INDICATION: Male, 57 years old. Left lower extremity swelling. TECHNIQUE: Multiple grayscale, color Doppler and spectral Dopplerultrasound images were obtained of the left lower extremity for evaluationof the peripheral veins. COMPARISON: None FINDINGS: The left common femoral, upper saphenous, deep femoral, femoral, andpopliteal veins are patent and fully compressible without focal narrowing.Visualized portions of the posterior tibial and peroneal veins arepatent. No soft tissue mass or fluid collection is identified within visualizedportions of the leg. IMPRESSION No femoral/popliteal deep venous thrombosis in the left lower extremity.Visualized portions of the deep calf veins are patent. Finalized by Mikaela Villafuerte M.D. on 10/17/2022 12:38 PM. Dictated byMikaela Villafuerte M.D. on 10/17/2022 12:37 PM. William Montgomery MD ORDERABLES * ECG 12-LEAD (10/17/2022 8:58 AM CDT) VENTRICULAR RATE 100 BPM GE MUSE P-R INTERVAL 148 ms GE MUSE QRS DURATION 84 ms GE MUSE Q-T INTERVAL 372 ms GE MUSE QTC CALCULATION (BAZETT) 479 ms GE MUSE P AXIS 32 degrees GE MUSE R AXIS 59 degrees GE MUSE T AXIS 24 degrees GE MUSE 10/17/2022 8:5 8 AM CDT 10/17/2022 8:30 PM CDT Impressions GE MUSE - 10/17/2022 8:30 PM CDT Normal sinus rhythm Possible Left atrial enlargement Borderline ECG Confirmed by Elisabet Richey ([id number]) on 10/17/2022 8:30:17 PM Narrative Procedure Note Elisabet Richey MD - 10/17/2022 IMPRESSION Normal sinus rhythm Possible Left atrial enlargement Borderline ECG Confirmed by Elisabet Richey ([id number]) on 10/17/2022 8:30:17 PM Jasiel Chu ELECTRIC POWER LINE EXAMINER-EHS MANAGER ECG ORDERABLES Performing Organization Address City/[facility]/ZIP Co de Phone Number GE MUSE * TRANSFUSE RBC'S (10/17/2022 7:26 AM CDT) Only the most recent of10 resultswithin the time period is included. BLOOD / Unknown William Montgomery MD BLOOD BANK STEVEN ALVARES Performing Organization Address City/[facility]/ZIP Co de Phone Number [facility] DEPT PATH AND LAB MEDICINE [address] [place] [address], * HIGH SENSITIVITY TROPONIN I, RANDOM (10/14/2022 2:38 PM CDT) Only the most recent of6 resultswithin the time period is included. hs Troponin I, Random 13 <20 ng/L 10/14/2022 3:56 PM CDT [facility] DEPT PATH AND LAB MEDICINE 10/14/2022 2:3 8 PM CDT 10/14/2022 2:44 PM CDT Adriana Vela ELECTRIC POWER LINE EXAMINER-EHS MANAGER LABORATORY ORDER DARCY Performing Organization Address City/[facility] Co de Phone Number [facility] [address] [place] [address], * LACTIC ACID(LACTATE) (10/14/2022 2:38 PM CDT) Only the most recent of7 resultswithin the time period is included. Lactic Acid 1.1 0.5 - 2.0 MMOL/L 10/14/2022 3:53 PM CDT [facility] PATH AND LAB MEDICINE BLOOD / Unknown 10/14/2022 2:38 PM CDT 10/14/2022 2:44 PM CDT Adriana SALDANAEHS MANAGER LABORATORY ORDER DARCY Performing Organization Address [facility] Co de Phone Number [facility] PATH AND LAB MEDICINE [address] [place] [address], * IONIZED CALCIUM (10/14/2022 2:38 PM CDT) Only the most recent of2 resultswithin the time period is included. Ionized Calcium 1.16 1.0 - 1.3 MMOL/L 10/14/2022 2:56 PM CDT [facility] PATH AND LAB MEDICINE 10/14/2022 2:3 8 PM CDT 10/14/2022 2:46 PM CDT Adriana Vela APRN-EHS MANAGER LABORATORY ORDER DARCY Performing Organization Address [facility] Co de Phone Number [facility] PATH AND LAB MEDICINE [address] [place] [address], * ECG 12-LEAD (10/14/2022 2:28 PM CDT) VENTRICULAR RATE 146 BPM GE MUSE P-R INTERVAL 118 ms GE MUSE QRS DURATION 70 ms GE MUSE Q-T INTERVAL 278 ms GE MUSE QTC CALCULATION (BAZETT) 433 ms GE MUSE P AXIS 22 degrees GE MUSE R AXIS 45 degrees GE MUSE T AXIS 6 degrees GE MUSE 10/14/2022 2:2 8 PM CDT 10/14/2022 6:44 PM CDT Impressions GE MUSE - 10/14/2022 6:44 PM CDT Sinus tachycardia Nonspecific ST and T wave abnormality Abnormal ECG Confirmed by Elisabet Richey ([id number]) on 10/14/2022 6:44:52 PM Narrative Procedure Note Elisabet Richey MD - 10/14/2022 IMPRESSION Sinus tachycardia Nonspecific ST and T wave abnormality Abnormal ECG Confirmed by Elisabet Richey ([id number]) on 10/14/2022 6:44:52 PM William Montgomery MD ECG ORDERABLES Performing Organization Address [facility]/ZIP Co de Phone Number GE MUSE * SODIUM (10/13/2022 4:00 PM CDT) Only the most recent of43 resultswithin the time period is included. Sodium 144 137 - 147 MMOL/L 10/13/2022 4:57 PM CDT [facility] DEPT PATH AND LAB MEDICINE BLOOD / Unknown 10/13/2022 4:00 PM CDT 10/13/2022 4:13 PM CDT Lit Blas MD LABORATORY ORDERABL ES Performing Organization Address [facility] Co de Phone Number [facility] DEPT PATH AND LAB MEDICINE [address] [place] [address], * C DIFFICILE BY PCR (10/10/2022 12:54 PM CDT) Only the most recent of2 resultswithin the time period is included. C. difficile Toxin B PCR Negative: Repeat testing within 7 days of a negative result will not be performed. Testing after 7 days may be performed if clinically indicated. 10/10/2022 4:51 PM CDT [facility] DEPT PATH AND LAB MEDICINE Feces FECES / Unknown 10/10/2022 1 2:54 PM CDT 10/10/2022 2:29 PM CDT William Montgomery MD MICROBIOLOGY OR DERABLES Performing Organization Address [facility] Co de Phone Number [facility] DEPT PATH AND LAB MEDICINE [address] [place] [address], [place] * CULTURE-BLOOD W/SENSITIVITY (10/09/2022 2:47 PM CDT) Only the most recent of10 resultswithin the time period is included. Battery Name BLOOD CULTURE [facility] DEPT PATH AND LAB MEDICINE Report Status FINAL 10/15/2022 [facility] PATH AND LAB MEDICINE Specimen Description BLOOD ARM, LEFT ANTECUBITAL [facility] DEPT PATH AND LAB MEDICINE Special Requests No special requests 10/09/2022 12:17 PM CDT [facility] DEPT PATH AND LAB MEDICINE Culture NO GROWTH 5 DAYS 10/15/2022 6:32 AM CDT [facility] DEPT PATH AND LAB MEDICINE Blood LEFT UPPER ARM STRUCTURE / Unknown 10/09/2022 2:47 PM CDT 10/09/2022 3:46 PM CDT Comment:ANTECUBITAL William Montgomery MD MICROBIOLOGY OR DERABLES Performing Organization Address City/State/[facility] Co de Phone Number [facility] PATH AND LAB MEDICINE [address] [place] [address], * (ABNORMAL) URINALYSIS MICROSCOPIC REFLEX TO CULTURE (10/09/2022 1:50 PM CDT) Only the most recent of2 resultswithin the time period is included. WBCs,UA 0-2 0 - 2 /HPF 10/09/2022 2:38 PM CDT [facility] DEPT PATH AND LAB MEDICINE RBCs,UA 0-2 0 - 3 /HPF 10/09/2022 2:38 PM CDT [facility] DEPT PATH AND LAB MEDICINE Comment,UA Criteria for reflex to culture are WBC>10, Positive Nitrite, and/or >=+1 leukocytes. If quantity is not sufficient, an addendum will follow. 10/09/2022 2:38 PM CDT [facility] DEPT PATH AND LAB MEDICINE MucousUA TRACE 10/09/2022 2:38 PM CDT [facility] DEPT PATH AND LAB MEDICINE Bacteria,UA FEW(A) NEG-NEG 10/09/2022 2:38 PM CDT [facility] DEPT PATH AND LAB MEDICINE Squamous Epithelial Cells 0-2 0 - 5 10/09/2022 2:38 PM CDT [facility] DEPT PATH AND LAB MEDICINE Hyaline Cast 2-5 10/09/2022 2:38 PM CDT [facility] DEPT PATH AND LAB MEDICINE URINE SPECIMEN / Unknown 10/09/2022 1:50 PM CDT 10/09/2022 1:57 PM CDT William Montgomery MD URINE ORDERABLE S [facility] DEPT PATH AND LAB MEDICINE [address] [place] [address], [place] * (ABNORMAL) URINALYSIS DIPSTICK REFLEX TO CULTURE (10/09/2022 1:50 PM CDT) Only the most recent of2 resultswithin the time period is included. Color,UA YELLOW 10/09/2022 2:38 PM CDT [facility] DEPT PATH AND LAB MEDICINE Turbidity,UA CLEAR CLEAR-AMALIA R 10/09/2022 2:38 PM CDT [facility] DEPT PATH AND LAB MEDICINE Specific Brohard-Urine 1.020 1.005 - 1.030 10/09/2022 2:38 PM CDT [facility] DEPT PATH AND LAB MEDICINE Comment:NOTE NEW REFERENCE R MCKINLEY pH,UA 6.0 5.0 - 8.0 10/09/2022 2:38 PM CDT [facility] DEPT PATH AND LAB MEDICINE Protein,UA 2+(A) NEG-NEG 10/09/2022 2:38 PM CDT [facility] DEPT PATH AND LAB MEDICINE Glucose,UA NEG NEG-NEG 10/09/2022 2:38 PM CDT [facility] DEPT PATH AND LAB MEDICINE Ketones,UA NEG NEG-NEG 10/09/2022 2:38 PM CDT [facility] DEPT PATH AND LAB MEDICINE Bilirubin,UA NEG NEG-NEG 10/09/2022 2:38 PM CDT [facility] DEPT PATH AND LAB MEDICINE Blood,UA NEG NEG-NEG 10/09/2022 2:38 PM CDT [facility] DEPT PATH AND LAB MEDICINE Urobilinogen,U A NORMAL NORM-CHUCK L 10/09/2022 2:38 PM CDT [facility] DEPT PATH AND LAB MEDICINE Nitrite,UA NEG NEG-NEG 10/09/2022 2:38 PM CDT [facility] PATH AND LAB MEDICINE Leukocytes,UA NEG NEG-NEG 10/09/2022 2:38 PM CDT [facility] PATH AND LAB MEDICINE Urine Ascorbic Acid, UA NEG NEG-NEG 10/09/2022 2:38 PM CDT [facility] PATH AND LAB MEDICINE URINE SPECIMEN / Unknown 10/09/2022 1:50 PM CDT 10/09/2022 1:57 PM CDT William Montgomery MD URINE ORDERABLE S Performing Organization Address City/[facility]/ZIP Co de Phone Number [facility] PATH AND LAB MEDICINE [address] [place] [address], * ECG 12-LEAD (10/07/2022 4:21 PM CDT) VENTRICULAR RATE 99 BPM GE MUSE P-R INTERVAL 130 ms GE MUSE QRS DURATION 80 ms GE MUSE Q-T INTERVAL 306 ms GE MUSE QTC CALCULATION (BAZETT) 392 ms GE MUSE P AXIS 22 degrees GE MUSE R AXIS 37 degrees GE MUSE T AXIS 57 degrees GE MUSE 10/07/2022 4:2 1 PM CDT 10/17/2022 8:30 PM CDT Impressions GE MUSE - 10/17/2022 8:30 PM CDT Normal sinus rhythm with sinus arrhythmia Nonspecific T wave abnormality Abnormal ECG Confirmed by Elisabet Richey ([id number]) on 10/17/2022 8:30:07 PM Narrative Procedure Note Elisabet Richey MD - 10/17/2022 IMPRESSION Normal sinus rhythm with sinus arrhythmia Nonspecific T wave abnormality Abnormal ECG Confirmed by Elisabet Richey ([id number]) on 10/17/2022 8:30:07 PM William Montgomery MD ECG ORDERABLES GE MUSE * CT HEAD WO CONTRAST (10/07/2022 3:00 AM CDT) Only the most recent of3 resultswithin the time period is included. Anatomical Region Laterality Modality Head Computed Tomogra phy 10/07/2022 3:1 1 AM CDT Impressions 10/07/2022 3:15 AM CDT 1. No acute intracranial hemorrhage or mass effect. 2. Persistent right middle ear and mastoid effusions. Previously described mild asymmetric soft tissue prominence of the right nasopharynx is poorly evaluated on this exam. 3. Improved opacification of the left sphenoid sinus with scattered mild polypoid mucosal thickening. Finalized by Marko Agarwal M.D. on 10/07/2022 3:15 AM. Dictated by Marko Agarwal M.D. on 10/07/2022 3:11 AM. Narrative 10/07/2022 3:15 AM CDT EXAM: CT HEAD HISTORY: 57-year-old male. Decreased neuro exam. TECHNIQUE: Multiple contiguous axial images were obtained of the brain without intravenous contrast. COMPARISON: 09/29/2022. FINDINGS: Examination is mildly degraded by motion The ventricles and subarachnoid spaces are normal in size and configuration. There is no midline shift or mass effect. The aparicio white matter interfaces are maintained. The basal cisterns are patent. There is no evidence of acute intracranial hemorrhage or extra-axial fluid collection. Indwelling nasoenteric tube with nasopharyngeal secretions and motion artifact, which obscures and limits evaluation of previously described asymmetric right nasopharyngeal soft tissue thickening. Persistent fluid opacification of the right mastoid air cells and middle ear cavity. Small left mastoid effusion. Improved opacification of the left sphenoid sinus. Mild additional scattered polypoid paranasal sinus mucosal thickening. The calvarium is intact. Procedure Note Marko Agarwal MD - 10/07/2022 EXAM: CT HEAD HISTORY: 57-year-old male. Decreased neuro exam. TECHNIQUE: Multiple contiguous axial images were obtained of the brainwithout intravenous contrast. COMPARISON: 09/29/2022. FINDINGS: Examination is mildly degraded by motion The ventricles and subarachnoidspaces are normal in size and configuration. There is no midline shift ormass effect. The aparicio white matter interfaces are maintained. The basalcisterns are patent. There is no evidence of acute intracranial hemorrhageor extra-axial fluid collection. Indwelling nasoenteric tube with nasopharyngeal secretions and motionartifact, which obscures and limits evaluation of previously describedasymmetric right nasopharyngeal soft tissue thickening. Persistent fluidopacification of the right mastoid air cells and middle ear cavity. Smallleft mastoid effusion. Improved opacification of the left sphenoid sinus.Mild additional scattered polypoid paranasal sinus mucosal thickening. Thecalvarium is intact. IMPRESSION 1. No acute intracranial hemorrhage or mass effect. 2. Persistent right middle ear and mastoid effusions. Previouslydescribed mild asymmetric soft tissue prominence of the right nasopharynxis poorly evaluated on this exam. 3. Improved opacification of the left sphenoid sinus with scattered mildpolypoid mucosal thickening. Finalized by Marko Agarwal M.D. on 10/07/2022 3:15 AM. Dictated byMarko Agarwal M.D. on 10/07/2022 3:11 AM. William Montgomery MD CT ORDERABLES * (ABNORMAL) CHEM 7 ADD ON (10/05/2022 5:19 PM CDT) Total Protein 6.2 6.0 - 8.0 G/DL 10/05/2022 10:24 PM CDT [facility] DEPT PATH AND LAB MEDICINE Total Bilirubin 0.5 0.3 - 1.2 MG/DL 10/05/2022 10:24 PM CDT [facility] DEPT PATH AND LAB MEDICINE Albumin 2.4(L) 3.5 - 5.0 G/DL 10/05/2022 10:24 PM CDT [facility] DEPT PATH AND LAB MEDICINE Alk Phosphatase 128(H) 25 - 110 U/L 10/05/2022 10:24 PM CDT [facility] DEPT PATH AND LAB MEDICINE AST (SGOT) 17 7 - 40 U/L 10/05/2022 10:24 PM CDT [facility] DEPT PATH AND LAB MEDICINE ALT (SGPT) 16 7 - 56 U/L 10/05/2022 10:24 PM CDT [facility] DEPT PATH AND LAB MEDICINE 10/05/2022 5:1 9 PM CDT 10/05/2022 5:28 PM CDT Kamilah Sanchez MD [facility] Organization Address City/State/ZIP Co de Phone Number [facility] DEPT PATH AND LAB MEDICINE [address] [place] [address], [place] * POC SICU US ECHO 2D LTD W/O CONTRAST (10/03/2022 1:46 PM CDT) Anatomical Region Laterality Modality CHEST/VASC Ultrasound 10/03/2022 1:3 9 PM CDT Impressions 10/05/2022 6:03 PM CDT Surgical Clinical Reviewer: Kendrick Casillas Attending: Kendrick Casillas ED-Cardiac Clinical Indication(s) for Exam: Shock Views: Parasternal Long [place]: Adequate Apical Four-Chamber: Adequate Subxiphoid IVC: Adequate Findings: Global Left Ventricular Function: Normal Pericardial Effusion: None Evidence of tamponade: None Right Ventricular Size: Normal IVC: <50% Collapse Interpretation: Global Left Ventricular Function: Normal Pericardial Effusion: No sonographic evidence of significant pericardial effusion IVC: Distended IVC with LESS than 50% collpase with respiration (Estimated CVP 10-15) Physician Approval: I personally obtained and interpreted the ultrasound images AND/OR I reviewed the images and edited the resident's interpretation:: Radha Casillas Electronically signed by Kendrick Casillas on Friday, October 05, 2022 at 6:03 PM Narrative Procedure Note Kendrick Casillas MD - 10/05/2022 IMPRESSION Surgical Clinical Reviewer: Kendrick Casillas Attending: Kendrick Casillas ED-Cardiac Clinical Indication(s) for Exam: Shock Views: Parasternal Long [place]: Adequate Apical Four-Chamber: Adequate Subxiphoid IVC: Adequate Findings: Global Left Ventricular Function: Normal Pericardial Effusion: None Evidence of tamponade: None Right Ventricular Size: Normal IVC: <50% Collapse Interpretation: Global Left Ventricular Function: Normal Pericardial Effusion: No sonographic evidence of significantpericardial effusion IVC: Distended IVC with LESS than 50% collpase with respiration(Estimated CVP 10-15) Physician Approval: I personally obtained and interpreted the ultrasound images AND/SUSANA reviewed the images and edited the resident's interpretation:: Berhane Casillas Electronically signed by Kendrick Casillas on October 05t 6:03 PM Kendrick Casillas MD RADIOLOGY [facility] * IR ABDOMINAL DRAIN UPSIZE (10/01/2022 5:07 PM CDT) Anatomical Region Laterality Modality X-Ray Angiograph y 10/02/2022 6:4 8 AM CDT Impressions 10/02/2022 8:06 AM CDT 1. Uneventful image-guided exchange and reposition with upsize of 14 Micronesian right upper quadrant percutaneous drainage catheter. 2. Successful ultrasound-guided drain placement in left lower quadrant fluid collection. Approved by Bossman Wood MD on 10/02/2022 6:50 AM I, Gareth Spring M.D., the attending radiologist, was present for the procedure, personally reviewed the images, and formulated the interpretations and opinions expressed in this report. @TT By my electronic signature, I attest that I have personally reviewed the images for this examination and formulated the interpretations and opinions expressed in this report Finalized by Gareth Spring M.D. on 10/02/2022 8:06 AM. Dictated by Bossman Wood MD on 10/02/2022 6:48 AM. Narrative 10/02/2022 8:06 AM CDT 1. ABSCESSOGRAM THROUGH EXISTING DRAINAGE CATHETER 2. IMAGE GUIDED PERCUTANEOUS DRAIN EXCHANGE AND REPOSITION WITH UPSIZE 3. ULTRASOUND-GUIDED DRAIN PLACEMENT INDICATION: Multiple abdominal fluid collections with concern for peritonitis. MARKETING INSTRUCTOR: Bossman Wood M.D., Gareth Spring M.D. MEDICATIONS: Subcutaneous lidocaine, IV fentanyl and Versed CATHETER: 14 Micronesian right upper quadrant All purpose drainage catheter. 12 Micronesian left lower quadrant all-purpose catheter. CONTRAST: 10 mL nonionic TECHNIQUE: The risks, benefits and alternatives to the procedure and sedation were explained, and written informed consent obtained. The right upper quadrant and left lower quadrant was prepped and draped in the usual sterile fashion. 2% Lidocaine was injected in the subcutaneous and deep soft tissues around the existing drain. Injection of contrast into the existing right upper quadrant drain was performed with multiple spot fluoroscopic images obtained. The existing drain was cut, the string was captured, and an Amplatz superstiff wire was advanced through the drainage catheter. The drain was repositioned and exchanged for a new 14 Micronesian all purpose drainage catheter which was advanced over the wire and positioned under fluoroscopic guidance. The cope loop was formed and locked. Final contrast injection through the drain demonstrated adequate position. The drain was sutured in place using 2-0 Ethilon, and a sterile dressing was applied. Next, using ultrasound guidance, the left lower quadrant fluid collection was visualized. The subcutaneous tissues and skin was anesthetized with 1% lidocaine. An 18-gauge Seldinger needle was then advanced into the fluid collection. Thin yellow fluid was aspirated. A 035 Amplatz wire was advanced. The needle was removed and a 12 Micronesian pigtail drain was placed over the wire. The wire was removed. Thin yellow fluid was aspirated. Ultrasound image confirmed placement and was sent to PACS. The patient tolerated the procedure well and was discharged from the angiography suite in satisfactory condition. Dr. Wood was personally responsible for the administration of moderate sedation services during the procedure performed and confirmed requirements described in CPT section on moderate sedation were followed, including the use of an independent trained observer who had no other duties during the procedure. The drug(s) utilized were Fentanyl and Versed (see nursing log for details). FINDINGS: 1. After injection of contrast into the existing right upper quadrant percutaneous drain, the abscessogram demonstrates persistent filling of abscess cavity in the right upper quadrant, greatest along the liver. 2. After drainage catheter exchange, upsizing, and repositioning, the drain is appropriately positioned in the central portion of the fluid collection with cope loop formed and locked. 3. Left lower quadrant fluid collection. 4. Successful ultrasound-guided drain placement in left lower quadrant fluid collection. Procedure Note Gareth Spring MD - 10/02/2022 1. ABSCESSOGRAM THROUGH EXISTING DRAINAGE CATHETER 2. IMAGE GUIDED PERCUTANEOUS DRAIN EXCHANGE AND REPOSITION WITH UPSIZE 3. ULTRASOUND-GUIDED DRAIN PLACEMENT INDICATION: Multiple abdominal fluid collections with concern forperitonitis. MARKETING INSTRUCTOR: Bossman Wood M.D., Gareth Spring M.D. MEDICATIONS: Subcutaneous lidocaine, IV fentanyl and Versed CATHETER: 14 Micronesian right upper quadrant All purpose drainage catheter. 12French left lower quadrant all-purpose catheter. CONTRAST: 10 mL nonionic TECHNIQUE: The risks, benefits and alternatives to the procedure and sedation wereexplained, and written informed consent obtained. The right upper quadrant and left lower quadrant was prepped and draped inthe usual sterile fashion. 2% Lidocaine was injected in the subcutaneousand deep soft tissues around the existing drain. Injection of contrast into the existing right upper quadrant drain wasperformed with multiple spot fluoroscopic images obtained. The existingdrain was cut, the string was captured, and an Amplatz superstiff wire wasadvanced through the drainage catheter. The drain was repositioned andexchanged for a new 14 Micronesian all purpose drainage catheter which wasadvanced over the wire and positioned under fluoroscopic guidance. Thecope loop was formed and locked. Final contrast injection through thedrain demonstrated adequate position. The drain was sutured in place using2-0 Ethilon, and a sterile dressing was applied. Next, using ultrasound guidance, the left lower quadrant fluid collectionwas visualized. The subcutaneous tissues and skin was anesthetized with 1%lidocaine. An 18-gauge Seldinger needle was then advanced into the fluidcollection. Thin yellow fluid was aspirated. A 035 Amplatz wire wasadvanced. The needle was removed and a 12 Micronesian pigtail drain was placedover the wire. The wire was removed. Thin yellow fluid was aspirated.Ultrasound image confirmed placement and was sent to PACS. The patient tolerated the procedure well and was discharged from theangiography suite in satisfactory condition. Dr. Wood was personally responsible for the administration ofmoderate sedation services during the procedure performed and confirmedrequirements described in CPT section on moderate sedation were followed,including the use of an independent trained observer who had no otherduties during the procedure. The drug(s) utilized were Fentanyl andVersed (see nursing log for details). FINDINGS: 1. After injection of contrast into the existing right upper quadrantpercutaneous drain, the abscessogram demonstrates persistent filling ofabscess cavity in the right upper quadrant, greatest along the liver. 2. After drainage catheter exchange, upsizing, and repositioning, thedrain is appropriately positioned in the central portion of the fluidcollection with cope loop formed and locked. 3. Left lower quadrant fluid collection. 4. Successful ultrasound-guided drain placement in left lower quadrantfluid collection. IMPRESSION 1. Uneventful image-guided exchange and reposition with upsize of 14French right upper quadrant percutaneous drainage catheter. 2. Successful ultrasound-guided drain placement in left lower quadrantfluid collection. Approved by Bossman Wood MD on 10/02/2022 6:50 AM I, Gareth Spring M.D., the attending radiologist, was present for theprocedure, personally reviewed the images, and formulated theinterpretations and opinions expressed in this report. @TT By my electronic signature, I attest that I have personally reviewed theimages for this examination and formulated the interpretations andopinions expressed in this report Finalized by Gareth Spring M.D. on 10/02/2022 8:06 AM. Dictated by MD Jeffrey on 10/02/2022 6:48 AM. William Montgomery MD IR ORDERABLES * ANTIMICROBIAL YEAST VENUS PANEL (10/01/2022 4:54 PM CDT) Only the most recent of2 resultswithin the time period is included. Antimicrobial Yeast Venus Panel FINAL 10/14/2022 1220 SOURCE: ABDOMEN, Fluid abdomen, left, Jessie dubliniensis SUSCEPTIBILITY PANEL, YEAST FINAL JESSIE DUBLINIENSIS Organism identified by client. There are no established interpretive guidelines for agents reported without interpretations. ---- Organism JESSIE DUBLINIENSIS Antibiotic NESTOR (mcg/mL) Interpretation ---- Anidulafungin 0.12 Amphotericin B 0.25 Caspofungin 0.12 Fluconazole 0.25 5-flucytosine 0.12 Itraconazole 0.06 Micafungin 0.03 Posaconazole 0.03 Voriconazole 0.015 Anidulafungin: This NESTOR is consistent with the Epidemiological Cutoff Value (ECV) observed in isolates WITHOUT acquired resistance; however, correlation with treatment outcome is unknown. Amphotericin B: This NESTOR is consistent with the Epidemiological Cutoff Value (ECV) observed in isolates WITHOUT acquired resistance; however, correlation with treatment outcome is unknown. Fluconazole: This NESTOR is consistent with the Epidemiological Cutoff Value (ECV) observed in isolates WITHOUT acquired resistance; however, correlation with treatment outcome is unknown. 5-flucytosine: Flucytosine should not be used as monotherapy due to the potential of existing or emerging resistance. Itraconazole: This NESTOR is consistent with the Epidemiological Cutoff Value (ECV) observed in isolates WITHOUT acquired resistance; however, correlation with treatment outcome is unknown. Micafungin: This NESTOR is consistent with the Epidemiological Cutoff Value (ECV) observed in isolates WITHOUT acquired resistance; however, correlation with treatment outcome is unknown. Posaconazole: This NESTOR is consistent with the Epidemiological Cutoff Value (ECV) observed in isolates WITHOUT acquired resistance; however, correlation with treatment outcome is unknown. ------ S=SUSCEPTIBLE I=INTERMEDIATE R=RESISTANT NS=NONSUSCEPTIBLE SDD=SUSCEPTIBLE DOSE DEPENDENT ------ [facility], [facility], [address] [place] [address] 10/14/2022 12:23 PM CDT [facility] DEPT PATH AND LAB MEDICINE 10/01/2022 4:5 4 PM CDT 10/11/2022 1:36 PM CDT William Montgomery MD MICROBIOLOGY OR DERABLES [facility] DEPT PATH AND LAB MEDICINE [address] [place] [address], * ECG 12-LEAD (10/01/2022 7:01 AM CDT) VENTRICULAR RATE 79 BPM GE MUSE P-R INTERVAL 116 ms GE MUSE QRS DURATION 76 ms GE MUSE Q-T INTERVAL 336 ms GE MUSE QTC CALCULATION (BAZETT) 385 ms GE MUSE P AXIS 31 degrees GE MUSE R AXIS 61 degrees GE MUSE T AXIS 43 degrees GE MUSE 10/01/2022 7:0 1 AM CDT 10/01/2022 8:48 AM CDT Impressions GE MUSE - 10/01/2022 8:48 AM CDT Sinus rhythm with premature supraventricular complexes Otherwise normal ECG When compared with ECG of 25-SEP-2022 00:14, premature supraventricular complexes are now present Vent. rate has decreased BY [address] no longer depressed in Anterolateral leads Nonspecific T wave abnormality, improved in Inferior leads Nonspecific T wave abnormality no longer evident in Lateral leads Confirmed by Analia Zhao ([id number]) on 10/01/2022 8:48:08 AM Narrative Procedure Note Analia Zhao MD - 10/01/2022 IMPRESSION Sinus rhythm with premature supraventricular complexes Otherwise normal ECG When compared with ECG of 25-SEP-2022 00:14, premature supraventricular complexes are now present Vent. rate has decreased BY [address] no longer depressed in Anterolateral leads Nonspecific T wave abnormality, improved in Inferior leads Nonspecific T wave abnormality no longer evident in Lateral leads Confirmed by Analia Zhao ([id number]) on 10/01/2022 8:48:08 AM William Montgomery MD ECG ORDERABLES GE MUSE * (ABNORMAL) CULTURE-RESP,LOWER W/SENSITIVITY (09/30/2022 2:44 PM CDT) Only the most recent of7 resultswithin the time period is included. Battery Name LOWER RESP CULTURE [facility] DEPT PATH AND LAB MEDICINE Report Status FINAL 10/07/2022 [facility] DEPT PATH AND LAB MEDICINE Specimen Description TRACHEAL ASPIRATE LUNG [facility] DEPT PATH AND LAB MEDICINE Special Requests No special requests 09/30/2022 3:52 PM CDT [facility] PATH AND LAB MEDICINE Direct Gram Stain 10-25/LPF NEUTROPHILS 09/30/2022 5:29 PM CDT [facility] DEPT PATH AND LAB MEDICINE Direct Gram Stain LESS THAN 10/LPF SQUAMOUS EPITHELIAL CELLS 09/30/2022 5:29 PM CDT [facility] PATH AND LAB MEDICINE Direct Gram Stain NO ORGANISMS SEEN 09/30/2022 5:29 PM CDT [facility] DEPT PATH AND LAB MEDICINE Culture Light growth KLEBSIELLA (formerly Enterobacter) AEROGENES, CARBAPENEM RESISTANT (A) 10/07/2022 12:23 PM CDT [facility] DEPT PATH AND LAB MEDICINE Comment:Notified Claudia Ross RN at 0618 on 10.04.22 by RR Tracheal aspirate LUNG STRUCTURE / Unknown 09/30/2022 2:44 PM CDT 09/30/2022 3:52 PM CDT Narrative Organism Antibiotic Method Susceptibility Klebsiella (formerly enterobacter) aerogenes, carbapenem resistant Amikacin NESTOR (MCG/ML), INTERPRETATION, PHX <=8: Susceptible Klebsiella (formerly enterobacter) aerogenes, carbapenem resistant Ampicillin/Sulbactam NESTOR (MCG/ML), INTERPRETATION, PHX >16/8: Resistant Klebsiella (formerly enterobacter) aerogenes, carbapenem resistant Ampicillin NESTOR (MCG/ML), INTERPRETATION, PHX >16: Resistant Klebsiella (formerly enterobacter) aerogenes, carbapenem resistant Cefepime NESTOR (MCG/ML), INTERPRETATION, PHX 8: Susceptible, Dose Dependent Klebsiella (formerly enterobacter) aerogenes, carbapenem resistant Ceftriaxone NESTOR (MCG/ML), INTERPRETATION, PHX >32: Resistant Klebsiella (formerly enterobacter) aerogenes, carbapenem resistant Gentamicin NESTOR (MCG/ML), INTERPRETATION, PHX <=2: Susceptible Klebsiella (formerly enterobacter) aerogenes, carbapenem resistant Levofloxacin NESTOR (MCG/ML), INTERPRETATION, PHX <=0.5: Susceptible Klebsiella (formerly enterobacter) aerogenes, carbapenem resistant Piperacil/Tazobactam NESTOR (MCG/ML), INTERPRETATION, PHX >64/4: Resistant Klebsiella (formerly enterobacter) aerogenes, carbapenem resistant Trimethsulfa NESTOR (MCG/ML), INTERPRETATION, PHX <=0.5/9.5: Susceptible Klebsiella (formerly enterobacter) aerogenes, carbapenem resistant Ertapenem NESTOR (MCG/ML), INTERPRETATION, PHX >1: Resistant Klebsiella (formerly enterobacter) aerogenes, carbapenem resistant Meropenem NESTOR (MCG/ML), INTERPRETATION, PHX 4: Resistant Klebsiella (formerly enterobacter) aerogenes, carbapenem resistant Ceftazidime/Avibactam (Avycaz) INTERPRETATION, HEREDIA KIRAN Susceptible Nikko Rodas MD MICROBIOLOGY ORDERAB LES [facility] DEPT PATH AND LAB MEDICINE [address] [place] [address], * GUIDANCE INTRO LONG GI TUBE (09/27/2022 5:28 PM CDT) Anatomical Region Laterality Modality Abdomen Radio Fluoroscop y 09/30/2022 4:5 9 PM CDT Narrative 09/30/2022 5:04 PM CDT GUIDANCE INTRO LONG GI TUBE CLINICAL HISTORY: High suspicion for EJ leak. No leak seen on CT with PO contrast however pt growing yeast in abdomen, please place nasogastric tube. An attempt was made to place a nasogastric tube. Upon placing the tube in the nasopharynx the patient began to decompensate. Examination was terminated due to patient safety concern. Approved by Lilian Garcia M.D. on 09/30/2022 5:01 PM By my electronic signature, I attest that I have personally reviewed the images for this examination and formulated the interpretations and opinions expressed in this report Finalized by Omar Pillai MD on 09/30/2022 5:04 PM. Dictated by Lilian Garcia M.D. on 09/30/2022 4:59 PM. Procedure Note Omar Pillai MD - 09/30/2022 GUIDANCE INTRO LONG GI TUBE CLINICAL HISTORY: High suspicion for EJ leak. No leak seen on CT with POcontrast however pt growing yeast in abdomen, please place nasogastrictube. An attempt was made to place a nasogastric tube. Upon placing the tube inthe nasopharynx the patient began to decompensate. Examination wasterminated due to patient safety concern. Approved by Lilian Garcia M.D. on 09/30/2022 5:01 PM By my electronic signature, I attest that I have personally reviewed theimages for this examination and formulated the interpretations andopinions expressed in this report Finalized by Omar Pillai MD on 09/30/2022 5:04 PM. Dictated by Blanca Love on 09/30/2022 4:59 PM. William Montgomery MD FLUOROSCOPY ORD ERABLES * 2D + DOPPLER ECHO W/ CONTRAST (09/27/2022 9:15 AM CDT) Left Ventricle Diastolic Volume 118.00 62 - 150 mL OTHER OUTSIDE LAB Left Ventricle Systolic Volume 34.00 21 - 61 mL OTHER OUTSIDE LAB IVS 1.00 0.6 - 1.0 cm OTHER OUTSIDE LAB LVIDD 4.60 4.2 - 5.8 cm OTHER OUTSIDE LAB LVIDS 2.60 2.5 - 4.0 cm OTHER OUTSIDE LAB LVOT diameter 1.80 cm OTHER OUTSIDE LAB PW 1.10 0.6 - 1.0 cm OTHER OUTSIDE LAB TDI lateral e' 0.19 m/s OTHER OUTSIDE LAB TDI Medial e' 0.17 m/s OTHER OUTSIDE LAB LA volume 47.30 18 - 58 mL OTHER OUTSIDE LAB LA size 3.90 3.0 - 4.0 cm OTHER OUTSIDE LAB AV peak velocity 1.90 m/s OTHER OUTSIDE LAB Sinus 3.40 2.8 - 4.0 cm OTHER OUTSIDE LAB E wave decelartion time 79.00 ms OTHER OUTSIDE LAB MV Peak A David 0.88 m/s OTHER OUTSIDE LAB MV Peak E David PW 0.85 m/s OTHER OUTSIDE LAB Proximal aorta 3.00 2.6 - 3.8 cm OTHER OUTSIDE LAB Right Heart Systolic Mmode TAPSE 2.07 >1.7 cm OTHER OUTSIDE LAB Right Ventricular Mid Diameter 2.50 1.9 - 3.5 cm OTHER OUTSIDE LAB Right Ventricular Basal Diameter 3.40 2.5 - 4.1 cm OTHER OUTSIDE LAB Right Atrial Area 11.20 <18 cm2 OTHER OUTSIDE LAB Right Heart Systolic TDI S' 0.23 m/s OTHER OUTSID E LAB BSA 2.3 m2 OTHER OUTS MIKE LAB FS 43.48 28 - 44 % OTHER OUTS [facility] LAB Teichholtz 73.91 % OTHER OUT SIDE LAB LV mass 170 88 - 224 g OTHER OUTSIDE LAB RWT 0.48 <=0.42 OTHER OUTS [facility] LAB E/A ratio 0.97 OTHER OUTS [facility] LAB LVOT area 2.54 cm2 OTHER OUTS MIKE LAB Lateral E/E' ratio 4.47 OTHER OUTSIDE LAB Left Atrium Index 20.57 16 - 34 mL/m2 OTHER OUTSIDE LAB Cardiology Ultrasound Machine [employer] Epiq OTHER OUTSIDE LAB Left Ventricle Mass Index 74 49 - 115 g/m2 OTHER OUTSIDE LAB Left Ventricle Diastolic Volume Index 51 34 - 74 mL/m2 OTHER OUTSIDE LAB Left Ventricle Systolic Volume Index 15 11 - 31 mL/m2 OTHER OUTSIDE LAB Medial E/E' ratio 5.00 OTHER OUTSIDE LAB SIBLEY'S BIPLANE EF 71 % OTHER OUTSIDE LAB Anatomical Region Laterality Modality Ultrasound Narrative 09/27/2022 9:29 AM CDT Technically challenging study due to tachycardia (patient with heart rate between 125 to 130 bpm during study.) Normal left ventricular size with mildly increased left ventricular wall thickness and concentric remodeling. Hyperdynamic left ventricular systolic function with an estimated ejection fraction of 70-75 %. Normal left ventricular diastolic function. Normal right ventricular size and hyperdynamic right ventricular systolic function. Normal biatrial size. No hemodynamically significant valvular abnormalities. The aortic root and ascending aorta are normal in size. No pericardial effusion. No prior studies available for comparison. Please see full report below. Left Ventricle The left ventricular size is normal. Wall thickness is increased. Concentric remodeling. The left ventricular systolic function is hyperdynamic. The ejection fraction by Sibley's biplane method is 71%. Normal left ventricular diastolic function. Normal left atrial pressure. Right Ventricle The right ventricular size is normal. The right ventricular systolic function is hyperdynamic. The pulmonary artery pressure could not be estimated due to inadequate tricuspid regurgitation signal. Left Atrium Normal size. Right Atrium Normal size. IVC/SVC Mechanically ventilated; right atrial pressure could not be estimated. Mitral Valve Normal valve structure. No stenosis. No regurgitation. Tricuspid Valve Normal valve structure. No stenosis. Trace regurgitation. Aortic Valve Normal valve structure. No stenosis. No regurgitation. Pericardium No pericardial effusion. Pulmonary The pulmonic valve was not seen well but no Doppler evidence of stenosis. No regurgitation. Aorta The aortic root and ascending aorta are normal in size. Wall Scoring Resting Score Index: 1.000 Percent Normal: 0.0% The left ventricular wall motion is globally hyperkinetic. Jasiel Hernandeznkson ELECTRIC POWER LINE EXAMINER-EHS MANAGER ECHO ORDERABLE S * PHOSPHORUS CELLULAR THERAPEUTICS (09/27/2022 3:10 AM CDT) Phosphorus 2.4 2.0 - 4.5 MG/DL 09/27/2022 4:04 AM CDT [facility] BLOOD / Unknown 09/27/2022 3:10 AM CDT 09/27/2022 3:20 AM CDT William Montgomery MD LABORATORY ORDE SUSIECASA [facility] PATH AND LAB MEDICINE [address] [place] [address], * MAGNESIUM CELLULAR THERAPEUTICS (09/27/2022 3:10 AM CDT) Magnesium 2.0 1.6 - 2.6 mg/dL 09/27/2022 4:04 AM CDT [facility] PATH AND LAB MEDICINE BLOOD / Unknown 09/27/2022 3:10 AM CDT 09/27/2022 3:20 AM CDT William Montgomery MD LABORATORY ORDE GIORGIO [facility] PATH AND LAB MEDICINE [address] [place] [address], * RVP VIRAL PANEL PCR (09/26/2022 5:20 PM CDT) Specimen Source Resp Panel FLOCKED SWAB NASAL Use of this test on specimens other than nasopharyngeal swabs has not been cleared by the [place] Food and Drug Administration. The performance characteristics were determined by the [facility]. 09/26/2022 7:02 PM CDT [facility] DEPT PATH AND LAB MEDICINE Adenovirus NOT DETECTED DN-NOT DETECTED 09/26/2022 7:02 PM CDT [facility] PATH AND LAB MEDICINE Coronavirus 229E NOT DETECTED DN-NOT DETECTED 09/26/2022 7:02 PM CDT [facility] DEPT PATH AND LAB MEDICINE Coronavirus HKU1 NOT DETECTED DN-NOT DETECTED 09/26/2022 7:02 PM CDT [facility] PATH AND LAB MEDICINE Coronavirus NL63 NOT DETECTED DN-NOT DETECTED 09/26/2022 7:02 PM CDT [facility] PATH AND LAB MEDICINE Coronavirus OC43 NOT DETECTED DN-NOT DETECTED 09/26/2022 7:02 PM CDT [facility] PATH AND LAB MEDICINE SARS-CoV-2 NOT DETECTED DN-NOT DETECTED 09/26/2022 7:02 PM CDT [facility] PATH AND LAB MEDICINE Human Metapneumovirus NOT DETECTED DN-NOT DETECTED 09/26/2022 7:02 PM CDT [facility] PATH AND LAB MEDICINE Human Rhinovirus/ENTERO VIRUS NOT DETECTED DN-NOT DETECTED 09/26/2022 7:02 PM CDT [facility] PATH AND LAB MEDICINE Influenza A H1N1 2009 NOT DETECTED DN-NOT DETECTED 09/26/2022 7:02 PM CDT [facility] PATH AND LAB MEDICINE Influenza A H1 NOT DETECTED DN-NOT DETECTED 09/26/2022 7:02 PM CDT [facility] PATH [facility] LAB MEDICINE Influenza A H3 NOT DETECTED DN-NOT DETECTED 09/26/2022 7:02 PM CDT [facility] LAB MEDICINE Influenza B NOT DETECTED DN-NOT DETECTED 09/26/2022 7:02 PM CDT [facility] LAB MEDICINE Parainfluenza virus 1 NOT DETECTED DN-NOT DETECTED 09/26/2022 7:02 PM CDT [facility] LAB MEDICINE Parainfluenza virus 2 NOT DETECTED DN-NOT DETECTED 09/26/2022 7:02 PM CDT [facility] PATH [facility] LAB MEDICINE Parainfluenza virus 3 NOT DETECTED DN-NOT DETECTED 09/26/2022 7:02 PM CDT [facility] PATH [facility] LAB MEDICINE Parainfluenza virus 4 NOT DETECTED DN-NOT DETECTED 09/26/2022 7:02 PM CDT [facility] PATH [facility] LAB MEDICINE RSV NOT DETECTED DN-NOT DETECTED 09/26/2022 7:02 PM CDT [facility] PATH [facility] LAB MEDICINE Bordetella parapertussis NOT DETECTED DN-NOT DETECTED 09/26/2022 7:02 PM CDT [facility] DEPT PATH AND LAB MEDICINE Bordetella pertussis NOT DETECTED DN-NOT DETECTED 09/26/2022 7:02 PM CDT [facility] DEPT PATH AND LAB MEDICINE Chlamydia pneumoniae NOT DETECTED DN-NOT DETECTED 09/26/2022 7:02 PM CDT [facility] DEPT PATH AND LAB MEDICINE Mycoplasma pneumoniae NOT DETECTED DN-NOT DETECTED 09/26/2022 7:02 PM CDT [facility] DEPT PATH AND LAB MEDICINE NASOPHARYNGEAL SWAB / Unknown 09/26/2022 5:20 PM CDT 09/26/2022 5:24 PM CDT Jasiel Chu ELECTRIC POWER LINE EXAMINER-EHS MANAGER FLUID ORDERABL ES [facility] PATH AND LAB MEDICINE [address] [place] [address], * CYTOLOGY FLUIDS (09/26/2022 12:31 PM CDT) Cytology [facility] [email or web address] Department of Pathology and Laboratory Medicine [address] [place] [address] Surgical Pathology Office: [phone] CYTOLOGY REPORT NAME: LUISANA VELÁZQUEZ CYTOLOGY #: [id number] MR #: [id number] ALT ID #: BILLING #: [id number] LOCATION: [facility] DATE OF PROCEDURE: 09/26/2022 AGE: 57 SEX: M DATE RECEIVED: 09/26/2022 : 1965 TIME RECEIVED: 13:35 PHYSICIAN: IVAN KEYES DATE OF REPORT: 09/30/2022 COPY TO: WILLIAM MONTGOMERY MD DATE OF PRINTIN09/30/2022 Material Received: A: Abdominal Fluid History: 57-year-old male with a history of adenocarcinoma of the gastroesophageal junction. Gross Description: (1 ThinPrep, 1 DQ direct smear, 1 cell block) 50mls cloudy orange fluid The cell block specimen is removed from the patient at 1231 on 09/26/22, placed in formalin at 1630 on 09/26/22 and not removed from formalin until 23:40 the same day. ###################### ###################### ###################### ###### Final Diagnosis: A. Abdominal Fluid: Marked acute inflammation. Negative for malignant cells. Comment: A cell block is prepared and examined microscopically. Immunohistochemical stains are performed. Calretinin and WT-1 highlight the mesothelial cells. MOC-31 and BerEP4 are negative. Attestation: By this signature, I attest that I have personally formulated the final interpretation expressed in this report and that the above diagnosis is based upon my examination of the slides and/or other material indicated in this report. +++Electronically Signed Out By+++ wl/09/30/2022 Interpreted by: MD ABRAHAM Mensah [facility] 2 If immunohistochemical stains and/or in situ hybridization are cited in this report, the performance characteristics were determined by the Department of Pathology and Laboratory Medicine of the [facility] ([facility]) in compliance with CLIA'88 regulations. Some of these tests rely on the use of "analyte specific reagents" and are subject to specific labeling requirements by the FDA. The stains are performed on formalin-fixed, paraffin-embedded tissue, unless otherwise stated. Known positive and negative control tissues demonstrate appropriate staining. Results should be interpreted with caution given the likelihood of false negativity on decalcified specimens. This testing was developed by the Department of Pathology and Laboratory Medicine of the [facility]. It has not been cleared or approved by the FDA. The FDA has determined that such clearance or approval is not necessary. Technical component performed by the [facility] at [address] [place] [address]. CLIA # [id number]. Professional component performed by [facility] ([facility]) at [address] [place] [address]. CLIA # [id number]. 09/30/2022 12:00 AM T [facility] DEPT PATH AND LAB MEDICINE ASCITIC FLUID / Unknown 09/26/2022 12:31 PM CDT 09/26/2022 1:35 PM CDT William Montgomery MD PATHOLOGY/CYTOL OGY ORDERABLES [facility] DE[facility] PATH AND LAB MEDICINE [address] [place] [address], [place] * CYTOLOGY SPECIMEN LABEL (09/26/2022 12:00 PM CDT) Other (Specify) 09/26/2022 1 2:00 PM CDT 09/26/2022 12:34 PM CDT William Montgomery MD PATHOLOGY/CYTOL OGY ORDERABLES [facility] LAB RESULTS * CT ABD/PELV WO CONTRAST (09/26/2022 11:17 AM CDT) Anatomical Region Laterality Modality CHEST/AB/PEL Computed Tomogra phy 09/26/2022 11:2 5 AM CDT Impressions 09/26/2022 11:42 AM CDT 1. No definite extraluminal bowel contrast to suggest a bowel leak. 2. Persistent loculated and partially loculated peritoneal fluid that has decreased in the right abdomen following placement of the pigtail drain. Areas of layering high density persist that again most likely represents hemoperitoneum. 3. Further increase in pulmonary opacities in the visualized lung bases that likely represents pneumonia. Finalized by Yahir Watts M.D. on 09/26/2022 11:42 AM. Dictated by Yahir Watts M.D. on 09/26/2022 11:25 AM. Narrative 09/26/2022 11:[address] ABDOMEN AND PELVIS Clinical Indication: Workup for anastomotic leak. Technique: Multiple contiguous axial CT images were obtained through the abdomen and pelvis without IV contrast. Post processing coronal and sagittal reconstruction images were made from the axial images. IV contrast: None. Bowel contrast: Yes, via NG tube and rectal tube Comparison: Several prior exams, including the most recent CT September 23, 2022 FINDINGS: Limited evaluation without the use of IV contrast which includes the viscera and vasculature. Lower Thorax: Severe heterogeneous groundglass and alveolar opacities in the visualized lung bases have overall increased, most notably in the right lower lobe. Small left pleural effusion has mildly increased in size. Minimal right pleural effusion is unchanged. Liver and Biliary system: Unchanged small hypodense lesion medially within hepatic segment 7 that again likely represents a hemangioma. Prior cholecystectomy. Spleen: Unchanged size of the spleen. Areas of splenic infarct are poorly visualized, though grossly unchanged. Adrenal Glands and Kidneys: Normal adrenal glands. No hydronephrosis. Pancreas and Retroperitoneum: Moderate diffuse atrophy and fatty infiltration of the pancreas. Few pancreatic parenchymal calcifications are present related to prior inflammation. No retroperitoneal lymphadenopathy Aorta and Major Vessels: Normal caliber abdominal aorta. Mild calcific atherosclerosis. Right femoral artery catheter remains in place. Bowel, Mesentery, and Peritoneal space: Prior total gastrectomy with an esophagoenterostomy. Tip of the nasogastric tube terminates proximally within the anastomosed small bowel. Percutaneous jejunostomy tube remains in place. Small bowel anastomosis in the left mid abdomen. Rectal tube now in place. Prior mid rectal anastomosis. There is hypodensity bowel contrast now present throughout the near entirety of the large and small bowel with no definite extraluminal contrast is visualized. Redemonstration of a moderate amount of loculated and partially loculated peritoneal fluid that has not significantly changed except in the lateral right abdomen where there has been placement of a percutaneous drain. There also continues to be some layering areas of higher density fluid dependently, such as within the left lower quadrant that has not significantly changed (series 2 image 159). Diffuse mesenteric edema is unchanged. No pneumoperitoneum. Pelvis: Urinary bladder is nondistended about a Martinez catheter. Abdominal Wall and Osseous Structures: Moderate body wall edema is unchanged. Anterior abdominal wall laparotomy felipe. Mild thoracolumbar spondylosis. Procedure Note Yahir Watts MD - 09/26/2022 CT ABDOMEN AND PELVIS Clinical Indication: Workup for anastomotic leak. Technique: Multiple contiguous axial CT images were obtained through theabdomen and pelvis without IV contrast. Post processing coronal andsagittal reconstruction images were made from the axial images. IV contrast: None. Bowel contrast: Yes, via NG tube and rectal tube Comparison: Several prior exams, including the most recent CT September FINDINGS: Limited evaluation without the use of IV contrast which includes theviscera and vasculature. Lower Thorax: Severe heterogeneous groundglass and alveolar opacities inthe visualized lung bases have overall increased, most notably in theright lower lobe. Small left pleural effusion has mildly increased insize. Minimal right pleural effusion is unchanged. Liver and Biliary system: Unchanged small hypodense lesion medially withinhepatic segment 7 that again likely represents a hemangioma. Priorcholecystectomy. Spleen: Unchanged size of the spleen. Areas of splenic infarct are poorlyvisualized, though grossly unchanged. Adrenal Glands and Kidneys: Normal adrenal glands. No hydronephrosis. Pancreas and Retroperitoneum: Moderate diffuse atrophy and fattyinfiltration of the pancreas. Few pancreatic parenchymal calcificationsare present related to prior inflammation. No retroperitoneallymphadenopathy Aorta and Major Vessels: Normal caliber abdominal aorta. Mild calcificatherosclerosis. Right femoral artery catheter remains in place. Bowel, Mesentery, and Peritoneal space: Prior total gastrectomy with anesophagoenterostomy. Tip of the nasogastric tube terminates proximallywithin the anastomosed small bowel. Percutaneous jejunostomy tube remainsin place. Small bowel anastomosis in the left mid abdomen. Rectal tube nowin place. Prior mid rectal anastomosis. There is hypodensity bowelcontrast now present throughout the near entirety of the large and smallbowel with no definite extraluminal contrast is visualized.Redemonstration of a moderate amount of loculated and partially loculatedperitoneal fluid that has not significantly changed except in the lateralright abdomen where there has been placement of a percutaneous drain.There also continues to be some layering areas of higher density fluiddependently, such as within the left lower quadrant that has notsignificantly changed (series 2 image 159). Diffuse mesenteric edema isunchanged. No pneumoperitoneum. Pelvis: Urinary bladder is nondistended about a Martinez catheter. Abdominal Wall and Osseous Structures: Moderate body wall edema isunchanged. Anterior abdominal wall laparotomy felipe. Mild thoracolumbarspondylosis. IMPRESSION 1. No definite extraluminal bowel contrast to suggest a bowel leak. 2. Persistent loculated and partially loculated peritoneal fluid that hasdecreased in the right abdomen following placement of the pigtail drain.Areas of layering high density persist that again most likely representshemoperitoneum. 3. Further increase in pulmonary opacities in the visualized lung basesthat likely represents pneumonia. Finalized by Yahir Watts M.D. on 09/26/2022 11:42 AM. Dictated by Yahir Watts M.D. on 09/26/2022 11:25 AM. William Montgomery MD CT ORDERABLES * VANCOMYCIN 2HR POST DOSE (09/25/2022 8:42 AM CDT) Vancomycin 2HR POST Dose 19.6 ug/mL 09/25/2022 9:34 AM CDT [facility] DEPT PATH AND LAB MEDICINE BLOOD / Unknown 09/25/2022 8:42 AM CDT 09/25/2022 8:56 AM CDT Pharmacy Provider OTHER LABORATORY Performing Organization Address City/[facility] Co de Phone Number [facility] PATH AND LAB MEDICINE [address] * VANCOMYCIN TROUGH (09/25/2022 2:49 AM CDT) Vancomycin Trough 15.7 10.0 - 20.0 MCG/ML 09/25/2022 3:33 AM CDT [facility]OD / Unknown 09/25/2022 2:49 AM CDT 09/25/2022 3:06 AM CDT Pharmacy Provider OTHER LABORATORY Performing Organization Address City/[facility] Co de Phone Number [facility] PATH [facility] LAB MEDICINE [address] * ECG 12-LEAD (09/25/2022 12:14 AM CDT) VENTRICULAR RATE 142 BPM GE MUSE P-R INTERVAL 132 ms GE MUSE QRS DURATION 74 ms GE MUSE Q-T INTERVAL 264 ms GE MUSE QTC CALCULATION (BAZETT) 406 ms GE MUSE P AXIS 23 degrees GE MUSE R AXIS 70 degrees GE MUSE T AXIS 236 degrees GE MUSE 09/25/2022 12:1 4 AM CDT 09/27/2022 10:31 AM CDT Impressions GE MUSE - 09/27/2022 10:31 AM CDT Sinus tachycardia Nonspecific ST and T wave abnormality Abnormal ECG When compared with ECG of 14-SEP-2022 14:24, Vent. rate has increased BY [address] now depressed in Lateral leads Nonspecific T wave abnormality now evident in Lateral leads Confirmed by Bismark Wilder ([id number]) on 09/27/2022 10:31:33 AM Narrative Procedure Note Bismark Wilder MD - 09/27/2022 IMPRESSION Sinus tachycardia Nonspecific ST and T wave abnormality Abnormal ECG When compared with ECG of 14-SEP-2022 14:24, Vent. rate has increased BY [address] now depressed in Lateral leads Nonspecific T wave abnormality now evident in Lateral leads Confirmed by Bismark Wilder ([id number]) on 09/27/2022 10:31:33 AM Jeaneth Daily MD ECG ORDERABLES GE MUSE * DRAIN FLUID LIPASE (09/24/2022 4:50 PM CDT) Drain Fluid Lipase <3 U/L 09/24/2022 6:53 PM CDT [facility] DEPT PATH AND LAB MEDICINE Comment:Pancreatic lipase >2 times the serum lipase value suggest pancreatic origin DRAINAGE FLUID SPECIMEN / Unknown 09/24/2022 4:50 PM CDT 09/24/2022 6:09 PM CDT William Montgomery MD FLUID ORDERABLE S [facility] DEPT PATH AND LAB MEDICINE [address] [place] [address], * DRAIN FLUID TRIGLYCERIDES (09/24/2022 4:50 PM CDT) Drain Fluid Triglycerides 27 mg/dL 09/24/2022 6:53 PM CDT [facility] DEPT PATH AND LAB MEDICINE Comment:Chyle leakage sugges adelaida by triglycerides >110 mg/dL BODY FLUID SPECIMEN / Unknown 09/24/2022 4:50 PM CDT 09/24/2022 6:09 PM CDT William Montgomery MD FLUID ORDERABLE S Performing Organization Address [facility] Co de Phone Number [facility] PATH AND LAB MEDICINE [address] [place] [address], [place] * DRAIN FLUID AMYLASE (09/24/2022 4:50 PM CDT) Drain Fluid Amylase 23 U/L 09/24/2022 6:53 PM CDT [facility] PATH AND LAB MEDICINE Comment:Pancreatic fistula d efinition includes amylase 3 times higher than plasma BODY FLUID SPECIMEN / Unknown 09/24/2022 4:50 PM CDT 09/24/2022 6:09 PM CDT William Montgomery MD FLUID ORDERABLE S Performing Organization Address [facility] de Phone Number [facility] PATH AND LAB MEDICINE [address] [place] [address], [place] * IR ABDOMINAL DRAIN PLACEMENT (09/24/2022 11:50 AM CDT) Anatomical Region Laterality Modality Ultrasound 09/26/2022 7:5 3 AM CDT Impressions 09/26/2022 7:54 AM CDT Successful ultrasound-guided abdominal fluid drain placement as detailed above. IRalf M.D., the attending radiologist, was present for the procedure, personally reviewed the images, and formulated the interpretations and opinions expressed in this report. @TT Finalized by RALF SAMAYOA on 09/26/2022 7:54 AM. Dictated by RALF SAMAYOA on 09/26/2022 7:53 AM. Narrative 09/26/2022 7:54 AM CDT Procedures: 1. Ultrasound-guided abdominal drain placement HISTORY: Abdominal fluid collection TECHNIQUE: After explaining the procedure, risks, benefits and alternatives informed consent was obtained. The patient was prepped and draped usual sterile fashion. Maximum sterile techniques were taken. Ultrasound image of the abdominal fluid was obtained and documented in PACS. Local anesthesia was achieved using 1% lidocaine solution. A small dermatotomy was made for sonographic guidance and 18-gauge Seldinger needle was advanced in the abdominal fluid. Over an Amplatz wire a 12 Micronesian drain was successfully deployed. The patient tolerated the procedure and left department stable condition. FINDINGS: Large amount of abdominal fluid and serous yellow aspirate. Procedure Note Ralf Samayoa MD - 09/26/2022 Procedures: 1. Ultrasound-guided abdominal drain placement HISTORY: Abdominal fluid collection TECHNIQUE: After explaining the procedure, risks, benefits and alternatives informedconsent was obtained. The patient was prepped and draped usual sterilefashion. Maximum sterile techniques were taken. Ultrasound image of theabdominal fluid was obtained and documented in PACS. Local anesthesia wasachieved using 1% lidocaine solution. A small dermatotomy was made forsonographic guidance and 18-gauge Seldinger needle was advanced in theabdominal fluid. Over an Amplatz wire a 12 Micronesian drain was successfullydeployed. The patient tolerated the procedure and left department stablecondition. FINDINGS: Large amount of abdominal fluid and serous yellow aspirate. IMPRESSION Successful ultrasound-guided abdominal fluid drain placement as detailedabove. IRalf M.D., the attending radiologist, was present for theprocedure, personally reviewed the images, and formulated theinterpretations and opinions expressed in this report. @TT Finalized by RALF SAMAYOA on 09/26/2022 7:54 AM. Dictated by RALF SAMAYOA on09/26/2022 7:53 AM. William Montgomery MD IR ORDERABLES * (ABNORMAL) LIPASE (09/23/2022 5:21 PM CDT) Lipase 7(L) 11 - 82 U/L 09/23/2022 6:03 PM CDT [facility] DEPT PATH AND LAB MEDICINE BLOOD / Unknown 09/23/2022 5:21 PM CDT 09/23/2022 5:27 PM CDT William Montgomery MD LABORATORY FRESNOJose Angel [facility] [address] [place] [address], [place] * ABDOMEN 1 VIEW (09/22/2022 7:11 PM CDT) Only the most recent of2 resultswithin the time period is included. Anatomical Region Laterality Modality ABD/PELVIS Computed Radiogr aphy 09/23/2022 8:4 3 AM CDT Impressions 09/23/2022 8:48 AM CDT Findings/impression: Indwelling gastric tube with its tip overlying the gastroesophageal junction. There has been development of moderate, diffuse gaseous distention of the bowel loops most suggestive of an ileus. Lower midline skin felipe overlying the pelvis. Indwelling enterostomy catheter overlying the left lower quadrant. Finalized by Sancho Smith D.O. on 09/23/2022 8:48 AM. Dictated by Sancho Smith D.O. on 09/23/2022 8:43 AM. Narrative 09/23/2022 8:48 AM CDT Supine abdomen CLINICAL HISTORY: Emesis COMPARISON: Prior abdominal radiograph September 09, 2022 Procedure Note Sancho Smith DO - 09/23/2022 Supine abdomen CLINICAL HISTORY: Emesis COMPARISON: Prior abdominal radiograph September 09, 2022 IMPRESSION Findings/impression: Indwelling gastric tube with its tip overlying the gastroesophagealjunction. There has been development of moderate, diffuse gaseousdistention of the bowel loops most suggestive of an ileus. Lower midlineskin felipe overlying the pelvis. Indwelling enterostomy catheteroverlying the left lower quadrant. Finalized by Sancho Smith D.O. on 09/23/2022 8:48 AM. Dictated by Sonja Reeves on 09/23/2022 8:43 AM. William Montgomery MD DIAGNOSTIC IMAG ING ORDERABLES * HEPARIN, LOW MOLECULAR WEIGHT (09/20/2022 1:06 AM CDT) Heparin-Low Molecular Weight 0.65 IU/mL 09/20/2022 1:37 AM CDT [facility] PATH AND LAB MEDICINE Comment: LMWH REFERENCE RANGES Twice daily dosin.6-1.0 IU/mL (peak level, drawn 4 hours after dose) Once daily dosin.0-2.0 IU/mL (peak level, drawn 4 hours after dose) BLOOD / Unknown 09/20/2022 1:06 AM CDT 09/20/2022 1:09 AM CDT Jasiel Chu ELECTRIC POWER LINE EXAMINER-E[employer] MANAGER LABORATORY ORD ERABLES [facility] DEPT PATH AND LAB MEDICINE [address] [place] [address], [place] * ANESTHESIA ETT (09/18/2022 5:40 AM CDT) Narrative Zohaib Fuentes DO - 09/18/2022 5:40 AM CDT Zohaib Fuentes DO 09/18/2022 7:07 AM Procedure: Airway Placement AIRWAY INSERTION Date/Time: 09/18/2022 5:40 AM Patient location: ICU Urgency: emergent Difficult Airway: No The procedure was performed in an emergent situation. Verbal consent obtained. Written consent not obtained. Consent given by patient. Risks and benefits discussed: no Patient identity confirmation: verbally with patient, arm band, provided demographic data and hospital-assigned identification number Timeout performed Airway Procedure Indication(s) for airway management: hypoxemia and respiratory distress rapid sequence induction Level of sedation achieved:slightly aware of self/surroundings, usually somnolent, arouses easily with stimuli Preoxygenated: yes Patient position: supine. Neck stabilization: no in-line stabilization Mask difficulty assessment: 0 - not attempted Procedure Medications Airway Anesthesia: propofol (DIPRIVAN) 10 mg/mL injection - Intravenous 100 mg - 09/18/2022 5:40:00 AM Muscle Relaxants: rocuronium injection - Intravenous 70 mg - 09/18/2022 5:40:00 AM Procedure Outcome Final airway type: endotracheal airway Endotracheal airway: ETT ETT size (mm): 7.5; Technique used for successful ETT placement: video laryngoscopy Laryngoscope/Videolaryngoscope blade size: 3 Number of attempts at approach: 1 Complications Cardiovascular: Pulmonary: Procedure:airway not difficult,,,, Medication: Additional notes: ATTESTATION I was present during the entire procedure performed by a resident. Staff name: Zohaib Fuentes DO Date: 09/18/2022 Performed by: Juve Manzo MD Authorized by: Zohaib Fuentes DO Refer to nursing documentation for vitals/monitoring data Zohaib Fuentes DO ANESTHESIA ORDERABLE S * (ABNORMAL) POC BLOOD GAS ARTERIAL (09/14/2022 10:44 PM CDT) Only the most recent of2 resultswithin the time period is included. PH-ART-POC 7.38 7.35 - 7.45 09/14/2022 10:50 PM CDT [facility] DE[facility] PATH AND LAB MEDICINE POC NTZ3-ODH-QFQ 49(H) 35 - 45 MMHG 09/14/2022 10:50 PM CDT [facility] DE[facility] PATH AND LAB MEDICINE POC PO2-ART-POC 57(L) 80 - 100 MMHG 09/14/2022 10:50 PM CDT [facility] DE[facility] PATH AND LAB MEDICINE POC Base Ex-ART-POC 3.0 MMOL/L 09/14/2022 10:50 PM CDT [facility] DE[facility] PATH AND LAB MEDICINE POC O2 Sat-ART-POC 88.0(L) 95 - 99 % 09/14/2022 10:50 PM CDT [facility] DE[facility] PATH AND LAB MEDICINE POC Bicarbonate-AR T-POC 28.5(H) 21 - 28 MMOL/L 09/14/2022 10:50 PM CDT [facility] DE[facility] PATH AND LAB MEDICINE POC 09/14/2022 10:4 4 PM CDT 09/14/2022 10:50 PM CDT William Montgomery MD OTHER LABORATOR Y [facility] DEPT PATH AND LAB MEDICINE POC [address] [place] [address] * POC SODIUM (09/14/2022 10:44 PM CDT) Only the most recent of2 resultswithin the time period is included. Sodium-POC 144 137 - 147 MMOL/L 09/14/2022 10:50 PM CDT [facility] DE[facility] PATH AND LAB MEDICINE POC 09/14/2022 10:4 4 PM CDT 09/14/2022 10:50 PM CDT William Montgomery MD OTHER LABORATOR Y Performing Organization Address City/[facility]/ZIP Co de Phone Number [facility] PATH AND LAB MEDICINE POC [address] [place] [address] * POC POTASSIUM (09/14/2022 10:44 PM CDT) Only the most recent of2 resultswithin the time period is included. Potassium-POC 3.6 3.5 - 5.1 MMOL/L 09/14/2022 10:50 PM CDT [facility] PATH AND LAB MEDICINE POC 09/14/2022 10:4 4 PM CDT 09/14/2022 10:50 PM CDT William Montgomery MD OTHER LABORATOR Y Performing Organization Address [facility] de Phone Number [facility] PATH AND LAB MEDICINE POC [address] [place] [address] * (ABNORMAL) POC HEMATOCRIT (09/14/2022 10:44 PM CDT) Only the most recent of2 resultswithin the time period is included. Hemoglobin POC 8.2(L) 13.5 - 16.5 GM/DL 09/14/2022 10:50 PM CDT [facility] PATH AND LAB MEDICINE POC Hematocrit POC 24.0(L) 40 - 50 % 09/14/2022 10:50 PM CDT [facility] PATH AND LAB MEDICINE POC 09/14/2022 10:4 4 PM CDT 09/14/2022 10:50 PM CDT William Montgomery MD OTHER LABORATOR Y Performing Organization Address [facility] Co de Phone Number [facility] PATH AND LAB MEDICINE POC [address] [place] [address] * ECG 12-LEAD (09/14/2022 2:24 PM CDT) VENTRICULAR RATE 69 BPM GE MUSE P-R INTERVAL 140 ms GE MUSE QRS DURATION 86 ms GE MUSE Q-T INTERVAL 410 ms GE MUSE QTC CALCULATION (BAZETT) 439 ms GE MUSE P AXIS 27 degrees GE MUSE R AXIS 52 degrees GE MUSE T AXIS 26 degrees GE MUSE 09/14/2022 2:2 4 PM CDT 09/14/2022 5:12 PM CDT Impressions GE MUSE - 09/14/2022 5:12 PM CDT Normal sinus rhythm Normal ECG When compared with ECG of 07-SEP-2022 03:40, Vent. rate has decreased BY 49 BPM Confirmed by Rasta White ([id number]) on 09/14/2022 5:12:26 PM Narrative Procedure Note Rasta White MD - 09/14/2022 IMPRESSION Normal sinus rhythm Normal ECG When compared with ECG of 07-SEP-2022 03:40, Vent. rate has decreased BY 49 BPM Confirmed by Rasta White ([id number]) on 09/14/2022 5:12:26 PM Jeaneth Daily MD ECG ORDERABLES GE MUSE * LINE PLCWA 1V CXR (09/13/2022 8:38 AM CDT) Anatomical Region Laterality Modality CHEST Computed Radiogr aphy 09/13/2022 8:4 1 AM CDT Impressions 09/13/2022 8:43 AM CDT 1. Support devices as above. No pneumothorax. 2. Increasing diffuse bilateral heterogeneous opacities probably diffuse alveolar damage, multifocal pneumonia and/or edema. Finalized by Kendrick Staley M.D. on 09/13/2022 8:43 AM. Dictated by Kendrick Staley M.D. on 09/13/2022 8:41 AM. Narrative 09/13/2022 8:43 AM CDT LINE PLCMT 1V CXR INDICATION: central line COMPARISON STUDY: September 12, 2022. FINDINGS: Support Devices: Left internal jugular central venous catheter tip projects over the upper SVC. Gastric tube just enters the stomach with proximal sidehole in the region of the distal esophagus. Remaining support devices are stable. Lungs/Pleura: Decreased lung volume. Increasing diffuse bilateral opacities. Stable pleural spaces without pneumothorax. Heart and Mediastinum: The cardiomediastinal silhouette is stable. Procedure Note Kendrick Staley MD - 09/13/2022 LINE PLCMT 1V CXR INDICATION: central line COMPARISON STUDY: September 12, 2022. FINDINGS: Support Devices: Left internal jugular central venous catheter tipprojects over the upper SVC. Gastric tube just enters the stomach withproximal sidehole in the region of the distal esophagus. Remaining supportdevices are stable. Lungs/Pleura: Decreased lung volume. Increasing diffuse bilateralopacities. Stable pleural spaces without pneumothorax. Heart and Mediastinum: The cardiomediastinal silhouette is stable. IMPRESSION 1. Support devices as above. No pneumothorax. 2. Increasing diffuse bilateral heterogeneous opacities probably diffusealveolar damage, multifocal pneumonia and/or edema. Finalized by Kendrick Staley M.D. on 09/13/2022 8:43 AM. Dictated byKendrick Staley M.D. on 09/13/2022 8:41 AM. William Montgomery MD DIAGNOSTIC IMAG ING ORDERABLES * ANESTHESIA ETT (09/12/2022 8:49 PM CDT) Narrative Leatha Pierson DO - 09/12/2022 8:49 PM CDT Leatha Pierson DO 09/12/2022 9:30 PM Procedure: Airway Placement AIRWAY INSERTION Date/Time: 09/12/2022 8:49 PM Patient location: ICU Urgency: urgent Difficult Airway: No no emergent situation. Verbal consent obtained. Consent given by: relative - obtained by SICU team. Patient identity confirmation: provided demographic data and hospital-assigned identification number Timeout performed Airway Procedure Indication(s) for airway management: VACUUM DRIER TENDER depression rapid sequence induction Level of sedation achieved: Unconscious, no arousal with painful stimuli Preoxygenated: yes Patient position: sniffing Neck stabilization: no in-line stabilization Mask difficulty assessment: 0 - not attempted Procedure Medications Airway Anesthesia: propofol (DIPRIVAN) 10 mg/mL injection - Intravenous 50 mg - 09/12/2022 8:49:00 PM Muscle Relaxants: rocuronium injection - Intravenous 100 mg - 09/12/2022 8:49:00 PM Procedure Outcome Final airway type: endotracheal airway Endotracheal airway: ETT ETT size (mm): 8.0; Technique used for successful ETT placement: video laryngoscopy Devices/methods used in placement: intubating stylet Insertion site: oral Blade type: Abercrombie Scope; Laryngoscope/Videolaryngoscope blade size: 3 Cormack-Lehane classification: grade I - full view of glottis Number of attempts at approach: 1 Placement verified by auscultation and capnometry Complications Cardiovascular: Pulmonary: Procedure:airway not difficult, Medication: Additional notes: ATTESTATION I was present during the entire procedure performed by a resident. Staff name: Leatha Pierson DO Date: 09/12/2022 Patient had b/l wheezes on anterior lung euceda with auscultation. Given recruitment breaths with ambu bag after intubation with improvement in SpO2. Increased PEEP on ventilator and ordered a breathing treatment. Given 400 mcg total of phenylephrine to treat hypotension with induction medications. Performed by: Nikolay Spring MD Authorized by: Leatha Pierson DO Refer to nursing documentation for vitals/monitoring data Leatha Pierson DO ANESTHESIA ORDERABL ES * (ABNORMAL) COMPREHENSIVE METABOLIC PANEL CELLULAR Chevia (09/12/2022 3:01 AM CDT) Sodium 142 137 - 147 MMOL/L 09/12/2022 3:44 AM CDT [facility] PATH [facility] LAB MEDIC[facility] Potassium 3.6 3.5 - 5.1 MMOL/L 09/12/2022 3:44 AM CDT [facility] Chloride 107 98 - 110 MMOL/L 09/12/2022 3:44 AM CDT [facility] Glucose 167(H) 70 - 100 MG/DL 09/12/2022 3:44 AM CDT [facility] DE[facility] PATH [facility] LAB MEDIC[facility] Blood Urea Nitrogen 13 7 - 25 MG/DL 09/12/2022 3:44 AM CDT [facility] Creatinine 1.18 0.4 - 1.24 MG/DL 09/12/2022 3:44 AM CDT [facility] DEPT PATH AND LAB MEDICINE Calcium 7.3(L) 8.5 - 10.6 MG/DL 09/12/2022 3:44 AM CDT [facility] Total Protein 5.1(L) 6.0 - 8.0 G/DL 09/12/2022 3:44 AM CDT [facility] DE[facility] PATH AND LAB MEDICINE Total Bilirubin 2.5(H) 0.3 - 1.2 MG/DL 09/12/2022 3:44 AM CDT [facility] DE[facility] PATH AND LAB MEDICINE Albumin 2.2(L) 3.5 - 5.0 G/DL 09/12/2022 3:44 AM CDT [facility] DE[facility] PATH AND LAB MEDICINE Alk Phosphatase 88 25 - 110 U/L 09/12/2022 3:44 AM CDT [facility] DE[facility] PATH AND LAB MEDICINE AST (SGOT) 30 7 - 40 U/L 09/12/2022 3:44 AM CDT [facility] DE[facility] PATH AND LAB MEDICINE CO2 24 21 - 30 MMOL/L 09/12/2022 3:44 AM CDT [facility] DE[facility] PATH AND LAB MEDICINE ALT (SGPT) 23 7 - 56 U/L 09/12/2022 3:44 AM CDT [facility] Anion Gap 11 3 - 12 09/12/2022 3:44 AM CDT [facility] eGFR >60 >60 mL/min 09/12/2022 3:44 AM CDT [facility] Comment:eGFR calculated liam patel the CKD-EPIcr_R equation BLOOD / Unknown 09/12/2022 3:01 AM CDT 09/12/2022 3:06 AM CDT William Montgomery MD LABORATORY ORDE GIORGIO [facility] Organization Address City/State/ZIP Co de Phone Number [facility] [address] [place] [address], [place] * FEEDING TUBE CHECK (ABD/CHEST LMTD) (09/09/2022 2:30 PM CDT) Anatomical Region Laterality Modality CHEST, Abdomen Computed Radiogr aphy 09/09/2022 2:4 0 PM CDT Impressions 09/09/2022 3:11 PM CDT FINDINGS/IMPRESSION: A single portable AP semierect radiograph of the lower thorax and upper abdomen was obtained. There has been interval advancement of the indwelling gastric tube. The distal tip projects in the region of the esophagojejunostomy junction with sidehole projecting in the region of the distal esophagus. Nonobstructive bowel gas pattern. Bilateral patchy opacities within the visualized lower thorax. By my electronic signature, I attest that I have personally reviewed the images for this examination and formulated the interpretations and opinions expressed in this report Finalized by Sancho Smith D.O. on 09/09/2022 3:11 PM. Dictated by Tamara Rod MD on 09/09/2022 2:40 PM. Narrative 09/09/2022 3:11 PM CDT EXAM: FEEDING TUBE CHECK (ABD/CHEST LMTD) CLINICAL INDICATION: 57 years old. replacing NG. COMPARISON: Same day abdominal x-ray. Procedure Note Sancho Smith DO - 09/09/2022 EXAM: FEEDING TUBE CHECK (ABD/CHEST LMTD) CLINICAL INDICATION: 57 years old. replacing NG. COMPARISON: Same day abdominal x-ray. IMPRESSION FINDINGS/IMPRESSION: A single portable AP semierect radiograph of the lower thorax and upperabdomen was obtained. There has been interval advancement of the indwelling gastric tube. Thedistal tip projects in the region of the esophagojejunostomy junction withsidehole projecting in the region of the distal esophagus. Nonobstructive bowel gas pattern. Bilateral patchy opacities within the visualized lower thorax. By my electronic signature, I attest that I have personally reviewed theimages for this examination and formulated the interpretations andopinions expressed in this report Finalized by Sancho Smith D.O. on 09/09/2022 3:11 PM. Dictated by MD Danna on 09/09/2022 2:40 PM. William Montgomery MD DIAGNOSTIC IMAG ING ORDERABLES * FEEDING TUBE PLCMNT (ABD/CHEST LMTD) (09/09/2022 12:57 PM CDT) Only the most recent of2 resultswithin the time period is included. Anatomical Region Laterality Modality CHEST, Abdomen Computed Radiogr aphy 09/09/2022 1:0 0 PM CDT Impressions 09/09/2022 3:12 PM CDT FINDINGS/IMPRESSION: A single portable upright frontal radiograph of the chest and upper abdomen was obtained. Indwelling nasogastric tube with tip projecting above the sera. Recommend advancing for more optimal positioning. Scattered bowel gas within the visualized loops of bowel. The visualized upper abdomen demonstrates surgical drain and overlying felipe. Bilateral patchy opacities of the lungs. Left-sided chest port in stable position. Findings were discussed with Dr. Grady by Tamara Rod MD via Voalte at 2:05 PM on 09/09/2022. By my electronic signature, I attest that I have personally reviewed the images for this examination and formulated the interpretations and opinions expressed in this report Finalized by Sancho Smith D.O. on 09/09/2022 3:12 PM. Dictated by Tamara Rod MD on 09/09/2022 1:00 PM. Narrative 09/09/2022 3:12 PM CDT EXAM: FEEDING TUBE PLCMNT (ABD/CHEST LMTD) CLINICAL INDICATION: 57 years old. NG placement. Status post total gastrectomy with esophagojejunostomy. COMPARISON: CT chest, abdomen, and pelvis on 09/07/2021.. Procedure Note Sancho Smith, - 09/09/2022 EXAM: FEEDING TUBE PLCMNT (ABD/CHEST LMTD) CLINICAL INDICATION: 57 years old. NG placement. Status post totalgastrectomy with esophagojejunostomy. COMPARISON: CT chest, abdomen, and pelvis on 09/07/2021.. IMPRESSION FINDINGS/IMPRESSION: A single portable upright frontal radiograph of the chest and upperabdomen was obtained. Indwelling nasogastric tube with tip projecting above the sera.Recommend advancing for more optimal positioning. Scattered bowel gaswithin the visualized loops of bowel. The visualized upper abdomendemonstrates surgical drain and overlying felipe. Bilateral patchy opacities of the lungs. Left-sided chest port in stableposition. Findings were discussed with Dr. Grady by Tamara Rod MD via Voalteat 2:05 PM on 09/09/2022. By my electronic signature, I attest that I have personally reviewed theimages for this examination and formulated the interpretations andopinions expressed in this report Finalized by Sancho Smith D.O. on 09/09/2022 3:12 PM. Dictated by MD Danna on 09/09/2022 1:00 PM. William Montgomery MD DIAGNOSTIC IMAG ING ORDERABLES * MRSA PNEUMONIA SCREEN (09/07/2022 10:32 PM CDT) MRSA Pneumonia PCR NOT DETECTED The negative predictive value of this assay for MRSA pneumonia is high. Discontinuation of anti-MRSA pneumonia therapy is recommended in patients without additional clinical features that warrant MRSA therapy. Contact infectious Diseases or Antimicrobial Stewardship with questions. 09/08/2022 1:37 AM CDT [facility] PATH [facility] LAB MEDIC[facility] [employer] SWAB OF INTERNAL NOSE / Unknown 09/07/2022 10:32 PM CDT 09/07/2022 11:24 PM CDT William Montgomery MD MICROBIOLOGY OR DERABLES Performing Organization Address City/State/[facility] Co de Phone Number [facility]IC[facility] [address] [place] [address], * CTA CHEST PULM EMBOLISM W/CONT (09/07/2022 2:45 PM CDT) Anatomical Region Laterality Modality CHEST Computed Tomogra phy 09/07/2022 2:4 5 PM CDT Impressions 09/07/2022 2:58 PM CDT CHEST: 1. No evidence of acute pulmonary embolism or right heart failure. Linear web in a right lower lobe segmental pulmonary artery, which may represent sequelae of chronic thromboembolic disease. 2. Patchy consolidation and nodular opacities throughout both lungs, which may represent multifocal aspiration or infectious pneumonia. 3. Moderate left pleural effusion with adjacent compressive atelectasis. 4. Interval distal esophagectomy with esophagojejunostomy. Distended fluid- filled upstream esophagus, which places the patient risk of aspiration. ABDOMEN AND PELVIS: 1. Interval total gastrectomy with Tristan-en-Y esophagojejunostomy and low anterior resection. 2. Indwelling jejunostomy tube with mildly dilated loops of small and large bowel with air-fluid levels, likely ileus. 3. Small volume ascites with indwelling pelvic surgical drain. No free air or drainable fluid collection to suggest leak. However, evaluation is slightly limited in the absence of oral contrast. 4. Development of multiple small splenic infarcts. Finalized by Eneida Dale M.D. on 09/07/2022 2:58 PM. Dictated by Eneida Dale M.D. on 09/07/2022 2:45 PM. 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 Known pulmonary emboli. Technique: Multiple contiguous axial images were obtained through the chest, abdomen and pelvis following the administration of IV contrast material. CTA chest performed using a pulmonary embolism protocol. Portal venous phase images of the abdomen and pelvis obtained. Post processing coronal and sagittal reconstruction images were made from the axial images. IV contrast: Yes Bowel contrast: None Comparison: Outside CT chest 08/05/2022, outside CT abdomen pelvis 07/04/2022. CHEST FINDINGS: Lower Neck: Unremarkable Axilla, Mediastinum and Kenisha: No thoracic lymphadenopathy. Interval distal esophagectomy with esophagojejunostomy. Fluid-filled dilatation of the thoracic esophagus. A mediastinal drain overlies the right lung base. Heart and Great Vessels: Heart size is normal without pericardial effusion. A left chest port terminates at the cavoatrial junction. Unchanged linear web in a right lower lobe segmental pulmonary artery. No new pulmonary arterial filling defect. The main pulmonary artery is normal in caliber. The RV to LV ratio is less than 1. Airway, Lungs and Pleura: Indwelling endotracheal tube, which terminates above the sera. Patchy consolidation and nodular opacities throughout both lungs, greatest in the right lower lobe. Moderate left pleural effusion with adjacent compressive atelectasis. Chest Wall and Osseous Structures: Healed left anterior second rib fracture. Mild thoracic spondylosis. ABDOMEN AND PELVIS FINDINGS: Liver and Biliary system: Normal sized liver with mild hepatic steatosis. Small low-density right hepatic lesion, too small to characterize (series 2 image 150). The major portal veins are patent. Cholecystectomy. Spleen: Normal size spleen. Development of wedge-shaped areas of hypoenhancement. Adrenal Glands and Kidneys: Unremarkable adrenal glands. No hydronephrosis. Pancreas and Retroperitoneum: Diffuse fatty atrophy of the pancreas. No retroperitoneal lymphadenopathy. Aorta and Major Vessels: Normal caliber abdominal aorta and iliac arteries with moderate calcific atherosclerotic plaque. Bowel, Mesentery and Peritoneal space: Interval total gastrectomy with Tristan-en-Y esophagojejunostomy. Small bowel anastomosis in the midabdomen. Interval low anterior resection. Indwelling jejunostomy tube in the left hemiabdomen. Mild dilatation of loops of small large bowel with air-fluid levels. There is stasis of contents in loops of small bowel adjacent to the jejunostomy tube. Trace ascites. No pneumoperitoneum. A right percutaneous surgical drain terminates in the pelvis. Pelvis: The bladder is decompressed by Martinez catheter. Mild prostatomegaly. Mild presacral edema. No pelvic lymphadenopathy. Abdominal wall and Osseous Structures: Mild body wall edema. Midline skin felipe. Small fat-containing inguinal hernias. Lumbar spondylosis. Procedure Note Eneida Dale MD - 09/07/2022 CT CHEST, ABDOMEN AND PELVIS Clinical Indication: Esophageal and sigmoid cancer post totalgastrectomy, Tristan-en-Y esophagojejunostomy, and low anterior resection.Known pulmonary emboli. Technique: Multiple contiguous axial images were obtained through thechest, abdomen and pelvis following the administration of IV contrastmaterial. CTA chest performed using a pulmonary embolism protocol. Portalvenous phase images of the abdomen and pelvis obtained. Post processingcoronal and sagittal reconstruction images were made from the axialimages. IV contrast: Yes Bowel contrast: None Comparison: Outside CT chest 08/05/2022, outside CT abdomen pelvis07/04/2022. CHEST FINDINGS: Lower Neck: Unremarkable Axilla, Mediastinum and Kenisha: No thoracic lymphadenopathy. Interval distalesophagectomy with esophagojejunostomy. Fluid-filled dilatation of thethoracic esophagus. A mediastinal drain overlies the right lung base. Heart and Great Vessels: Heart size is normal without pericardialeffusion. A left chest port terminates at the cavoatrial junction.Unchanged linear web in a right lower lobe segmental pulmonary artery. Nonew pulmonary arterial filling defect. The main pulmonary artery is normalin caliber. The RV to LV ratio is less than 1. Airway, Lungs and Pleura: Indwelling endotracheal tube, which terminatesabove the sera. Patchy consolidation and nodular opacities throughoutboth lungs, greatest in the right lower lobe. Moderate left pleuraleffusion with adjacent compressive atelectasis. Chest Wall and Osseous Structures: Healed left anterior second ribfracture. Mild thoracic spondylosis. ABDOMEN AND PELVIS FINDINGS: Liver and Biliary system: Normal sized liver with mild hepatic steatosis.Small low-density right hepatic lesion, too small to characterize (series2 image 150). The major portal veins are patent. Cholecystectomy. Spleen: Normal size spleen. Development of wedge-shaped areas ofhypoenhancement. Adrenal Glands and Kidneys: Unremarkable adrenal glands. Nohydronephrosis. Pancreas and Retroperitoneum: Diffuse fatty atrophy of the pancreas. Noretroperitoneal lymphadenopathy. Aorta and Major Vessels: Normal caliber abdominal aorta and iliac arterieswith moderate calcific atherosclerotic plaque. Bowel, Mesentery and Peritoneal space: Interval total gastrectomy [id number] esophagojejunostomy. Small bowel anastomosis in the midabdomen.Interval low anterior resection. Indwelling jejunostomy tube in the lefthemiabdomen. Mild dilatation of loops of small large bowel with air-fluidlevels. There is stasis of contents in loops of small bowel adjacent tothe jejunostomy tube. Trace ascites. No pneumoperitoneum. A rightpercutaneous surgical drain terminates in the pelvis. Pelvis: The bladder is decompressed by Martinez catheter. Mildprostatomegaly. Mild presacral edema. No pelvic lymphadenopathy. Abdominal wall and Osseous Structures: Mild body wall edema. Midline skinstaples. Small fat-containing inguinal hernias. Lumbar spondylosis. IMPRESSION CHEST: 1. No evidence of acute pulmonary embolism or right heart failure. Linearweb in a right lower lobe segmental pulmonary artery, which may representsequelae of chronic thromboembolic disease. 2. Patchy consolidation and nodular opacities throughout both lungs,which may represent multifocal aspiration or infectious pneumonia. 3. Moderate left pleural effusion with adjacent compressiveatelectasis. 4. Interval distal esophagectomy with esophagojejunostomy. Distendedfluid- filled upstream esophagus, which places the patient risk ofaspiration. ABDOMEN AND PELVIS: 1. Interval total gastrectomy with Tristan-en-Y esophagojejunostomy and lowanterior resection. 2. Indwelling jejunostomy tube with mildly dilated loops of small andlarge bowel with air-fluid levels, likely ileus. 3. Small volume ascites with indwelling pelvic surgical drain. No freeair or drainable fluid collection to suggest leak. However, evaluation isslightly limited in the absence of oral contrast. 4. Development of multiple small splenic infarcts. Finalized by Eneida Dale M.D. on 09/07/2022 2:58 PM. Dictated byEneida Dale M.D. on 09/07/2022 2:45 PM. William Montgomery MD CT ORDERABLES * ANESTHESIA ETT (09/07/2022 11:30 AM CDT) Narrative Isaak Garcia MD - 09/07/2022 11:30 AM CDT Jose Roberto Peña MD 09/07/2022 1:03 PM Procedure: Airway Placement AIRWAY INSERTION Date/Time: 09/07/2022 11:30 AM Patient location: ICU Urgency: urgent Difficult Airway: No Pre-Intubation Evaluation Neck ROM: full Mouth opening: good The procedure was performed in an emergent situation. Verbal consent obtained. Written consent not obtained. Consent given by patient. Risks and benefits discussed: no Patient identity confirmation: verbally with patient Airway Procedure Indication(s) for airway management: respiratory distress rapid sequence induction Level of sedation achieved: Unconscious, no arousal with painful stimuli Preoxygenated: yes Patient position: sniffing Mask difficulty assessment: 0 - not attempted Procedure Medications Airway Anesthesia: propofol (DIPRIVAN) 10 mg/mL injection, 130 mg Muscle Relaxants: succinylcholine (ANECTINE) injection, 80 mg Procedure Outcome Final airway type: endotracheal airway Endotracheal airway: ETT ETT size (mm): 8.5; Technique used for successful ETT placement: direct laryngoscopy Devices/methods used in placement: intubating stylet Insertion site: oral Blade type: Oxana; Laryngoscope/Videolaryngoscope blade size: 4 Cormack-Lehane classification: grade I - full view of glottis Measured from: gums (23cm) Number of attempts at approach: 1 Placement verified by auscultation and capnometry Complications Cardiovascular: Pulmonary: Procedure:airway not difficult, Medication: Performed by: Jose Roberto Peña MD Authorized by: Isaak Garcia MD Refer to nursing documentation for vitals/monitoring data Isaak Garcia MD ANESTHESIA ORDERABLE S * ECG 12-LEAD (09/07/2022 3:40 AM CDT) VENTRICULAR RATE 118 BPM GE MUSE P-R INTERVAL 130 ms GE MUSE QRS DURATION 82 ms GE MUSE Q-T INTERVAL 336 ms GE MUSE QTC CALCULATION (BAZETT) 470 ms GE MUSE P AXIS 25 degrees GE MUSE R AXIS 44 degrees GE MUSE T AXIS 4 degrees GE MUSE 09/07/2022 3:4 0 AM CDT 09/07/2022 7:08 PM CDT Impressions GE MUSE - 09/07/2022 7:08 PM CDT Sinus tachycardia Otherwise normal ECG When compared with ECG of 06-SEP-2022 20:10, (Unconfirmed) Nonspecific T wave abnormality, improved in Lateral leads Confirmed by Alexandro Hightower ([id number]) on 09/07/2022 7:08:07 PM Narrative Procedure Note Alexandro Hightower MD - 09/07/2022 IMPRESSION Sinus tachycardia Otherwise normal ECG When compared with ECG of 06-SEP-2022 20:10, (Unconfirmed) Nonspecific T wave abnormality, improved in Lateral leads Confirmed by Alexandro Hightower ([id number]) on 09/07/2022 7:08:07 PM Jeaneth Daily MD ECG ORDERABLES GE MUSE * ECG 12-LEAD (09/06/2022 8:10 PM CDT) VENTRICULAR RATE 145 BPM GE MUSE P-R INTERVAL 140 ms GE MUSE QRS DURATION 78 ms GE MUSE Q-T INTERVAL 270 ms GE MUSE QTC CALCULATION (BAZETT) 419 ms GE MUSE P AXIS 19 degrees GE MUSE R AXIS 22 degrees GE MUSE T AXIS 267 degrees GE MUSE 09/06/2022 8:1 0 PM CDT 09/07/2022 7:13 PM CDT Impressions GE MUSE - 09/07/2022 7:14 PM CDT Sinus tachycardia Possible Left atrial enlargement T wave abnormality, consider inferior ischemia Abnormal ECG When compared with ECG of 05-SEP-2022 17:50, Questionable change in QRS axis Nonspecific T wave abnormality, worse in Lateral leads Confirmed by Alexandro Hightower ([id number]) on 09/07/2022 7:13:56 PM Narrative Procedure Note Alexandro Hightower MD - 09/07/2022 IMPRESSION Sinus tachycardia Possible Left atrial enlargement T wave abnormality, consider inferior ischemia Abnormal ECG When compared with ECG of 05-SEP-2022 17:50, Questionable change in QRS axis Nonspecific T wave abnormality, worse in Lateral leads Confirmed by Alexandro Hightower ([id number]) on 09/07/2022 7:13:56 PM William Montgomery MD ECG ORDERABLES GE MUSE * ECG 12-LEAD (09/05/2022 5:50 PM CDT) VENTRICULAR RATE 135 BPM GE MUSE P-R INTERVAL 138 ms GE MUSE QRS DURATION 78 ms GE MUSE Q-T INTERVAL 282 ms GE MUSE QTC CALCULATION (BAZETT) 423 ms GE MUSE P AXIS 49 degrees GE MUSE R AXIS 94 degrees GE MUSE T AXIS -33 degrees GE MUSE 09/05/2022 5:5 0 PM CDT 09/05/2022 6:25 PM CDT Impressions GE MUSE - 09/05/2022 6:25 PM CDT Sinus tachycardia Rightward axis ST & T wave abnormality, consider inferior ischemia Abnormal ECG Confirmed by Doc Cohn ([id number]) on 09/05/2022 6:25:05 PM Narrative Procedure Note Doc Cohn MD - 09/05/2022 IMPRESSION Sinus tachycardia Rightward axis ST & T wave abnormality, consider inferior ischemia Abnormal ECG Confirmed by Doc Cohn ([id number]) on 09/05/2022 6:25:05 PM William Montgomery MD ECG ORDERABLES Performing Organization Address [facility] Co de Phone Number MUSE * IONIZED CALCIUM,BG (09/02/2022 8:25 PM CDT) Only the most recent of7 resultswithin the time period is included. Ionized Calcium 1.13 1.0 - 1.3 MMOL/L 09/02/2022 8:49 PM CDT [facility] BLOOD / Unknown 09/02/2022 8:25 PM CDT 09/02/2022 8:30 PM CDT Ezekiel Dickerson MD OTHER LABORATORY Performing Organization Address [facility] Co de Phone Number [facility] [address] [place] [address], * (ABNORMAL) HEMOGLOBIN & HEMATOCRIT, BG (09/02/2022 8:25 PM CDT) Only the most recent of8 resultswithin the time period is included. Hemoglobin BG 9.4(L) 13.5 - 16.5 GM/DL 09/02/2022 8:49 PM CDT [facility] Hematocrit BG 29.0(L) 40 - 50 % 09/02/2022 8:49 PM CDT [facility] DE[facility] PATH AND LAB MEDICINE 09/02/2022 8:2 5 PM CDT 09/02/2022 8:30 PM CDT Ezekiel Dickerson MD OTHER LABORATORY Performing Organization Address City/[facility] Co de Phone Number [facility] [address] [place] [address], * (ABNORMAL) GLUCOSE,BG (09/02/2022 4:00 PM CDT) Only the most recent of6 resultswithin the time period is included. Glucose 266(H) 70 - 100 MG/DL 09/02/2022 4:22 PM CDT [facility] BLOOD / Unknown 09/02/2022 4:00 PM CDT 09/02/2022 4:14 PM CDT Claudia Cervantes MD OTHER LABORATORY Performing Organization Address City/[facility]/ZIP Co de Phone Number [facility] PATH [facility] MEDIC[facility] [address] [place] [address], [place] * (ABNORMAL) SODIUM,BG (09/02/2022 4:00 PM CDT) Only the most recent of6 resultswithin the time period is included. Sodium 135(L) 137 - 147 MMOL/L 09/02/2022 4:22 PM CDT [facility] BLOOD / Unknown 09/02/2022 4:00 PM CDT 09/02/2022 4:14 PM CDT Claudia Cervantes MD OTHER LABORATORY Performing Organization Address [facility] de Phone Number [facility] [address] [place] [address], [place] * POTASSIUM, BG (09/02/2022 4:00 PM CDT) Only the most recent of6 resultswithin the time period is included. Potassium 4.2 3.5 - 5.1 MMOL/L 09/02/2022 4:22 PM CDT [facility] BLOOD / Unknown 09/02/2022 4:00 PM CDT 09/02/2022 4:14 PM CDT Claudia Cervantes MD OTHER LABORATORY Performing Organization Address [facility]/ZIP Co de Phone Number [facility] [address] [place] [address], [place] * LACTIC ACID (BG - RAPID LACTATE) (09/02/2022 2:00 PM CDT) Lactic Acid,BG 1.5 0.5 - 2.0 MMOL/L 09/02/2022 2:15 PM CDT [facility] MEDIC[facility] BLOOD / Unknown 09/02/2022 2:00 PM CDT 09/02/2022 2:12 PM CDT Simón Garcia CRNA OTHER LABORATORY [facility] PATH [facility] MEDIC[facility] [address] [place] [address], * MICROSATELLITE INSTABILITY BY PCR (09/02/2022 11:12 AM CDT) Pathologist [facility] MICROSATELLITE INSTABILITY BY PCR Report Available in Epic 09/13/2022 3:43 PM CDT REFERENCE LAB 09/02/2022 11:1 2 AM CDT 09/09/2022 3:14 PM CDT Hattie Vides MD MOLECULAR ORDERABLES REFERENCE LAB See results for address. * NOTES (09/02/2022 11:12 AM CDT) Specimen Notes [id number] slides sent to [facility] for testing 09 09 2209/09/2022 3:15 PM CDT REFERENCE LAB 09/02/2022 11:1 2 AM CDT 09/09/2022 3:14 PM CDT Hattie Vides MD OTHER LABORATORY REFERENCE LAB See results for address. * SURGICAL PATHOLOGY (09/02/2022 9:43 AM CDT) PATHOLOGY REPORT [facility] [email or web address] Department of Pathology and Laboratory Medicine [address] [place] [address] Surgical Pathology Office: [phone] SURGICAL PATHOLOGY REPORT NAME: LUISANA VELÁZQUEZ SURG PATH #: [id number] MR #: [id number] SPECIMEN CLASS: [facility] BILLING #: [id number] ALT ID #: LOCATION: [facility] DATE OF PROCEDURE: 09/02/2022 AGE: 57 SEX: M DATE RECEIVED: 09/02/2022 : 1965 TIME RECEIVED: 11:12 PHYSICIAN: WILLIAM MONTGOMERY MD DATE OF REPORT: 09/06/2022 COPY TO: WILLIAM MONTGOMERY MD DATE OF PRINTIN09/17/2022 Procedures/Addenda Addendum Date Ordered: 09/13/2022 Status: Signed Out Date Complete: 09/13/2022 By: Hattie Vides MD Date Reported: 09/17/2022 Addendum Diagnosis The diagnosis remains unchanged Addendum Comment At the request of Dr. Hattie Vides, the specimen is evaluated for testing of MSI mutation. Tissue sections from block G5 were submitted to [facility] for analysis, and the results are listed below. (Please refer to O2 for a scanned image of the original report). Test Performed MSI Analysis Specimen Type FFPE (70% tumor cellularity) Analytical Results The specimen tested SONIDO (no alterations in microsatellite markers). Interpretation MSI (Microsatellite instability) was not detected with this assay. Our validation results indicate a detectable level of 16.7% tumor tissue DNA in a normal tissue DNA background. A negative result does not rule out the presence of mutated markers not detectable by this technology. The result should be interpreted only in the context of total clinical information. Therapeutic action should not be taken based solely on this result. Testing Performed By: [facility], Department of Pathology and Laboratory Medicine, [facility]; [address] [facility], [address]; [address] [facility]; [place] [address] ; File Keeper: Elijah Mckeon, PhD Vice President Quality: Qamar Rinaldi, PhD Hattie Vides MD ####################### ####################### ####################### ### Final Diagnosis: A. 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 See checklist #1. Lymph nodes (27): Metastatic adenocarcinoma involving one of twenty-seven lymph nodes (1/27) One lymph node with acellular mucin pools but no viable tumor cells. B. Esophagus, "additional proximal margin", excision: Positive for adenocarcinoma. C. Soft tissue, "preperitoneal fat and falciform ligament", excision: There is no evidence of malignancy. D. Lymph node (1), "GE junction lymph nodes", resection: There is no evidence of malignancy in one lymph node. (0/1) E. Soft tissue, "distal para-esophageal lymph nodes", resection: Soft tissue involved by poorly differentiated adenocarcinoma. No lymph node tissue present. F. Small bowel, "additional segment small intestine", excision: Unremarkable small bowel tissue. There is no evidence of malignancy. G. Colon and lymph nodes (12), sigmoid colon and rectum, sigmoid colectomy: Colon: Invasive moderately differentiated colonic adenocarcinoma. See checklist #2. Lymph nodes (12): There is no evidence of malignancy. (0/12) H. Colon, "distal donut", excision: Unremarkable colonic tissue. There is no evidence of malignancy. I. Esophagus, "final proximal esophageal margins", excision: Focal acellular mucin. No viable tumor cells present. Comment: On block A11 immunostains show the tumor cells are negative for p40 and synaptophysin, and mucicarmine is positive for intracellular mucin; these findings support the diagnosis of poorly differentiated adenocarcinoma. On block A6 immunostain pancytokeratin highlights tumor cells involving the adventitia. On block A39 and I1 immunostain pancytokeratin is negative in the areas of mucin pools. On block A33 immunostain pancytokeratin is positive in the tumor cells. A. Checklist #1: Gastroesophageal junction adenocarcinoma CASE SUMMARY: (ESOPHAGUS) Standard(s): AJCC-UICC 8 CAP Version: Esophagus 4.2.0.1 SPECIMEN Procedure ___ Esophagogastrectomy with partial duodenum and omentum resection TUMOR Tumor Site(select all that apply) ___ Esophagogastric junction (EGJ): Relationship of Tumor to Esophagogastric Junction ___ Tumor midpoint is 2 cm or less into the proximal stomach or cardia and tumor involves the esophagogastric junction# Distance of Tumor Center from Esophagogastric Junction ___ Specify in Centimeters (cm): 0.7 cm Histologic Type ___ Adenocarcinoma Histologic Grade# ___ G3, poorly differentiated, undifferentiated Tumor Size ___ Greatest dimension in Centimeters (cm): scattered residual tumor foci and acellular mucin present in a 5.4 cm tumor bed Tumor Extent ___ Invades adventitia Treatment Effect ___ Present, with residual cancer showing evident tumor regression, but more than single cells or rare small groups of cancer cells (partial response, score 2) Lymphovascular Invasion ___ Not identified +Perineural Invasion ___ Not identified MARGINS Margin Status for Invasive Carcinoma ___ All margins negative for invasive carcinoma +Closest Margin(s) to Invasive Carcinoma(select all that apply) ___ Proximal: Final proximal margin (part I) has acellular mucin but no viable tumor cells Margin Status for Dysplasia and Intestinal Metaplasia(select all that apply) ___ All margins negative for dysplasia REGIONAL LYMPH NODES Regional Lymph Node Status ___ Regional lymph nodes present ___ Tumor present in regional lymph node(s) Number of Lymph Nodes with Tumor ___ Exact number (specify): 1 Number of Lymph Nodes Examined ___ Exact number (specify): 28 DISTANT METASTASIS Distant Site(s) Involved, if applicable(select all that apply) ___ Not applicable PATHOLOGIC STAGE CLASSIFICATION (pTNM, AJCC 8th Edition) Reporting of pT, pN, and (when applicable) pM categories is based on information available to the pathologist at the time the report is issued. As per the AJCC (Chapter 1, 8th Ed.) it is the managing physician's responsibility to establish the final pathologic stage based upon all pertinent information, including but potentially not limited to this pathology report. TNM Descriptors(select all that apply) ___ y (post-treatment) pT Category ___ pT3: Tumor invades adventitia pN Category ___ pN1: Metastasis in one or two regional lymph nodes pM Category (required only if confirmed pathologically) ___ Not applicable - pM cannot be determined from the submitted specimen(s) COMMENTS Block for biomarker testing: GE junction tumor: A11 Part G-Checklist #2 CASE SUMMARY: (COLON AND RECTUM: Resection, Including Transanal Disk Excision of Rectal Neoplasms) CAP Version: Colon and Rectum Resection 4.2.0.2 Standard(s): AJCC-UICC 8 SPECIMEN Procedure ___ Sigmoid colectomy Macroscopic Evaluation of Mesorectum (required for rectal cancers) ___ Complete TUMOR Tumor Site (select all that apply) ___ Sigmoid colon: Histologic Type ___ Adenocarcinoma Histologic Grade ___ G2, moderately differentiated Tumor Size ___ Greatest dimension in Centimeters (cm): 3.6 cm +Additional Dimension in Centimeters (cm): 3.5 x 1.1 cm Multiple Primary Sites (e.g., hepatic flexure and transverse colon) ___ Not applicable (no additional primary site(s) present) Tumor Extent ___ Invades into muscularis propria Macroscopic Tumor Perforation ___ Not identified Lymphovascular Invasion(select all that apply) ___ Not identified Perineural Invasion ___ Not identified Treatment Effect ___ No known presurgical therapy MARGINS Margin Status for Invasive Carcinoma ___ All margins negative for invasive carcinoma +Closest Margin(s) to Invasive Carcinoma(select all that apply) ___ Radial (circumferential) or mesenteric: 1.9cm Margin Status for Non-Invasive Tumor(select all that apply) ___ All margins negative for high-grade dysplasia / intramucosal carcinoma and low-grade dysplasia REGIONAL LYMPH NODES Regional Lymph Node Status ___ Regional lymph nodes present ___ All regional lymph nodes negative for tumor Number of Lymph Nodes with Tumor ___ Exact number (specify): 0 Number of Lymph Nodes Examined ___ Exact number (specify): 12 Tumor Deposits ___ Not identified DISTANT METASTASIS Distant Site(s) Involved, if applicable(select all that apply) ___ Not applicable PATHOLOGIC STAGE CLASSIFICATION (pTNM, AJCC 8th Edition) Reporting of pT, pN, and (when applicable) pM categories is based on information available to the pathologist at the time the report is issued. As per the AJCC (Chapter 1, 8th Ed.) it is the managing physician's responsibility to establish the final pathologic stage based upon all pertinent information, including but potentially not limited to this pathology report. TNM Descriptors(select all that apply) ___ Not applicable: pT Category ___ pT2: Tumor invades the muscularis propria pN Category ___ pN0: No regional lymph node metastasis pM Category (required only if confirmed pathologically) ___ Not applicable - pM cannot be determined from the submitted specimen(s) ADDITIONAL FINDINGS +Additional Findings(select all that apply) ___ None identified SPECIAL STUDIES For reporting molecular testing and immunohistochemistry for mismatch repair proteins, and for other cancer biomarker testing results, the [facility] Colorectal Biomarker Template should be used. Pending biomarker studies should be listed in the Comments section of this report. Block tested: G5 i. Immunohistochemistry (IHC) Testing for Mismatch Repair (MMR) Proteins MLH1 Intact nuclear expression MSH2 Intact nuclear expression MSH6 Intact nuclear expression PMS2 Intact nuclear expression Background nonneoplastic tissue/internal control with intact nuclear expression: yes IHC Interpretation No loss of nuclear expression of MMR proteins: low probability of microsatellite instability-high (MSI-H)# #There are exceptions to the above IHC interpretations. These results should not be considered in isolation, and clinical correlation with genetic counseling is recommended to assess the need for germline testing. Microsatellite Instability Testing by PCR has also been ordered and will be reported separately in O2. Block for Biomarker Testing: Colon tumor: G5 Pursuant to the Edge Setter Program at the [facility] Pathology Department, selected slides from this case have been concurrently reviewed by the following pathologist: Dr. Lela Thakkar, who agrees with the final diagnosis. Attestation: By this signature, I attest that I have personally formulated the final interpretation expressed in this report and that the above diagnosis is based upon my examination of the slides and/or other material indicated in this report. 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 Fixative: Fresh Labeled: "Stomach, greater omentum, D1, partial D2 lymph nodes, distal esophagus and partial duodenum" Specimen received: Esophagogastrectomy with partial duodenum and omentum Esophagus measurements: 2.8 cm in length with a diameter ranging from 1.8 cm to 2.0 cm Stomach measurement: Greater curvature: 27.9 cm Lesser curvature: 14.8 cm Tumor bed measurement: 5.4 cm from proximal to distal x 3.1 cm in other dimension x 0.7 cm from mucosa to deep Tumor bed appearance: Ill-defined ulceration, hemorrhagic Tumor bed maximum longitudinal dimension: 5.4 cm Tumor bed measurement at its maximum depth: 0.7 cm Tumor bed from proximal resection margin: 1.6 cm Tumor bed from distal resection margin: 12.7 cm Distance of tumor bed center from esophagogastric junction: 0.7 cm distal to junction Tumor bed from omental radial resection margin: 1.8 cm Tumor bed invasion: Grossly the tumor extends to the esophageal adventitia. Rugal folds: Grossly unremarkable Thickness of the gastric wall: from 0.3-0.4 cm Uninvolved esophageal mucosa: White-marsh thickened Uninvolved gastric mucosa: Marsh-pink with normal gastric folding Lymph nodes: 26 lymph node candidates ranging from 0.1 x 0.1 x 0.1 cm to 1.2 x 0.7 x 0.5 cm. There is an irregular area of yellow chalky discoloration adjacent to proximal esophagus margin. The adventitial surface of the specimen is inked blue. The omental radial resection margin is inked black. The omentum is serially sectioned to reveal diffuse areas of hemorrhage. Tissue submitted to Biospecimen Repository Core Facility: No Gross photographs of the specimen are taken on Macropath CA #1 and a mapping diagram corresponding to the cassette summary is available. Lure Maker sections of the specimen are submitted as follows: [id number] esophageal resection margin, en face A2 gastric resection margin A3-A7 first row of tumor bed submitted from lesser curvature/greater curvature and proximal/distal (mass to adjacent esophageal mucosa) A8-A14 next consecutive row of tumor bed submitted from lesser curvature/greater curvature and proximal/distal ( (mass at deepest point of gross invasion in A10-A13) A15-A21 next consecutive row of tumor bed submitted from lesser curvature/greater curvature and proximal/distal ( (mass to adjacent gastric mucosa) A22-A25 last consecutive row of tumor bed submitted from lesser curvature/greater curvature and proximal/distal ( (mass to adjacent gastric mucosa) A26-A27 bisected omental radial resection margin, en face A28 quality control representative uninvolved gastric mucosa A29 quality control representative uninvolved duodenal mucosa A30 irregular area of yellow chalky discoloration adjacent to proximal esophagus margin and entirely A31-A32 quality control representative sections of omentum to include areas of hemorrhage A33 one lymph node serially sectioned A34 Four intact lymph nodes A35 six intact lymph nodes A36 five intact lymph nodes A37 two intact lymph nodes A38 three bisected lymph nodes, one inked green, one inked blue, one inked black A39 three bisected lymph nodes, one inked green, one inked blue, one inked black A40 bisected lymph nodes, one inked green, one inked black A41 one lymph node bisected A42 one lymph node serially sections (ccw) B. Received fresh labeled "additional proximal margin" is a 4.1 x 1.2 x 0.8 cm specimen consisting of pink-marsh soft tissue and containing a staple line with black suture designated additional proximal margin. On the opposing end of the specimen is a 2.6 cm staple line. The orientation of the specimen was confirmed verbally with the surgeon. The staple lines are removed. . The specimen is submitted entirely as follows: B1FS additional proximal margin, en face B2 remainder of specimen (ccw) C. Received in formalin labeled with the patient's name and "preperitoneal fat and falciform ligament" is a 12.1 x 7.5 x 1.1 cm piece of marsh-pink to yellow soft tissue. The specimen is serially sectioned to reveal homogenous marsh-yellow cut surfaces and adipose tissue. Lure Maker sections of the specimen are submitted in C1-C4. (mdl) D. Received in formalin labeled with the patient's name and "GE junction lymph nodes" is a 3.5 x 1.6 x 0.7 cm aggregate of yellow-marsh tissue palpated to reveal zero possible lymph nodes. The specimen is submitted entirely in cassette D1. (md) E. Received in formalin labeled with the patient's name and "distal paraesophageal lymph nodes" is a 4.5 x 2.1 x 0.7 cm aggregate of yellow-marsh tissue palpated to reveal one possible lymph node. Lure Maker sections are submitted as follows: E1 one possible lymph node, bisected E2-E3 remainder of soft tissue with possible lymph nodes (mdl) F. Received: In formalin Labeled: "Additional segment small intestine" Measurements: 8.5 x 4.6 x 3.1 cm Serosa: Marsh-pink and smooth with two staple lines, staple one measures 4.2 cm in length, staple two measures 3.7 cm in length Mucosa: Marsh-pink and rugated Tissue submitted to Biospecimen Repository Core Facility: No Lure Maker sections are submitted as follows: F1-F2 staple line one margin F3-F4 staple line two margin F5 quality control representative sections of small bowel (gurmeet) G. Fixative: Formalin Labeled: "Sigmoid colon and rectum" Measurements: 16.1 x 7.5 x 3.1 cm Serosa: Marsh-pink and smooth Tumor: 3.6 x 3.5 x 1.1 cm Tumor location: Sigmoid; 10.1 cm distal margin 3.2 cm from proximal margin Tumor appearance: Exophytic Tumor from proximal margin: 3.2 cm Tumor from distal margin: 10.1 cm Tumor invasion: Superficial Tumor from serosa: 0.2 cm Tumor from circumferential/mesente ela margin: 1.9 cm Gross perforation of colon by tumor (probe patent defect): No Mesorectal envelope: complete Uninvolved mucosa: Marsh-pink and rugated Lymph nodes: ranging from 0.1 cm to 0.2 cm The serosal surface is inked blue, the circumferential/mesente ela margin is inked black. Tissue submitted to Biospecimen Repository Core Facility: no Lure Maker sections of the specimen are submitted as follows: G1 distal margin G2 proximal margin G3 tumor to adjacent mucosa G4 tumor at area of deepest invasion G5 circumferential/mesente ela margin to tumor G6-G14 possible lymph nodes (mdl/eef) H. Received in formalin Labeled: "Distal donut" Specimen received: unoriented annular portion of bowel Measurements: 0.8 cm in length, 1.5 cm in diameter External surface: Marsh-pink and ragged Mucosa: Marsh-brown and unremarkable. No lesions or abnormalities are grossly appreciated. The specimen is sectioned and submitted entirely in H1-H3. (gurmeet) I. Received in formalin Labeled: "Final proximal esophageal margins" Specimen received: unoriented annular portion of bowel Measurements: 0.7 cm in length, 1.3 cm in diameter External surface: Marsh-pink and ragged Mucosa: Marsh-brown and unremarkable. No lesions or abnormalities are grossly appreciated. The specimen is sectioned and submitted entirely in I1 and I2. (gurmeet) 09/02/2022 Intraoperative Consultation: [id number], proximal margin, "stomach, greater omentum, D1 and partial D2 lymph nodes, distal esophagus and partial duodenum", resection: Proximal/esophageal margin positive for adenocarcinoma. B1FS, proximal margin, "additional proximal margins, stitch romero new proximal margin", biopsy: Positive for adenocarcinoma. Judi Dye MD If immunohistochemical stains and/or in situ hybridization are cited in this report, the performance characteristics were determined by the Department of Pathology and Laboratory Medicine of the [facility] ([facility]) in compliance with CLIA'88 regulations. Some of these tests rely on the use of "analyte specific reagents" and are subject to specific labeling requirements by the FDA. The stains are performed on formalin-fixed, paraffin-embedded tissue, unless otherwise stated. Known positive and negative control tissues demonstrate appropriate staining. Results should be interpreted with caution given the likelihood of false negativity on decalcified specimens. This testing was developed by the Department of Pathology and Laboratory Medicine of the [facility]. It has not been cleared or approved by the FDA. The FDA has determined that such clearance or approval is not necessary. 09/17/2022 12:00 AM CDT [facility] DEPT PATH AND LAB MEDICINE Tissue ABDOMEN / Unknown 09/02/2022 9:43 AM CDT Tissue specimen (specimen) ABDOMEN / Unknown 09/02/2022 10:34 AM CDT Tissue specimen (specimen) ABDOMEN / Unknown 09/02/2022 10:48 AM CDT Tissue specimen (specimen) ABDOMEN / Unknown 09/02/2022 10:53 AM CDT Tissue specimen (specimen) ABDOMEN / Unknown 09/02/2022 11:02 AM CDT Tissue specimen (specimen) ABDOMEN / Unknown 09/02/2022 12:00 PM CDT Tissue specimen (specimen) ABDOMEN / Unknown 09/02/2022 12:06 PM CDT Tissue specimen (specimen) ABDOMEN / Unknown 09/02/2022 2:00 PM CDT Tissue specimen (specimen) RECTUM STRUCTURE / Unknown 09/02/2022 3:06 PM CDT Tissue specimen (specimen) ABDOMEN / Unknown 09/02/2022 3:06 PM CDT William Montgomery MD PATHOLOGY/CYTOL OGY ORDERABLES [facility] DEPT PATH AND LAB MEDICINE [address] [place] [address], * ANESTHESIA ARTERIAL LINE INSERTION (09/02/2022 9:35 AM CDT) Narrative Evelyne Xie MD - 09/02/2022 9:35 AM CDT Evelyne Xie MD 09/02/2022 9:42 AM Anesthesia Procedure: Arterial Line Placement A-LINE INSERTION Date/Time: 09/02/2022 9:35 AM Patient location: OR Indications: hemodynamic monitoring Preprocedure checklist performed: 2 patient identifiers, risks & benefits discussed, patient evaluated, timeout performed, consent obtained, patient being monitored and sterile drape Sterile technique: - Proper hand washing - Cap, mask - Sterile gloves - Skin prep for antisepsis Arterial Line Procedure Patient sedated: yes (see MAR) Sedation type: general; Artery prepped with chlorhexidine; skin prep agent completely dried prior to procedure. Location: radial artery Laterality: left Technique: palpation Needle gauge: 20 G Number of attempts: 2 Procedure Outcome Catheter secured with adhesive dressing applied Events: no complications noted during insertion and skin intact, warm, and dry Observation: pt tolerated well Additional notes: 2nd arterial line started 2/2 1st art line very positional. ATTESTATION I personally performed the procedure myself on 09/02/2022 Staff name: Evelyne Xie MD Date: 09/02/2022 Performed by: Evelyne Xie MD Authorized by: Evelyne Xie MD Evelyne Xie MD ANESTHESIA ORDERABLE S * ANESTHESIA EPIDURAL BLOCK (09/02/2022 8:15 AM CDT) Narrative Laura Desai MD - 09/02/2022 8:15 AM CDT Sammie Mon MD 09/02/2022 8:25 AM Anesthesia Procedure: Epidural Block EPIDURAL BLOCK Date/Time: 09/02/2022 8:15 AM Patient location: pre-op Reason for block: post-op pain management Preprocedure checklist performed: 2 patient identifiers, risks & benefits discussed, patient evaluated, timeout performed, consent obtained, patient being monitored, existing labs reviewed, no anticoagulant within risk period and sterile drape Sterile technique: - Proper hand washing - Cap, mask - Sterile gloves - Skin prep for antisepsis Epidural Procedure Patient position: sitting Prep: ChloraPrep Monitoring: BP, EKG and continuous pulse ox Approach: right paramedian Location: thoracic Level/Interspace: T7-8 Injection technique: ZAKIYA saline Procedures: landmark technique Number of attempts: 1 Needle/epidural catheter: Needle type: Tuohy Needle gauge: 17 G Needle length: 3.5 in Needle insertion depth: 8 cm Catheter type: wire reinforced and multi orifice Catheter size: 19 G Catheter at skin depth: 13 cm Procedure Outcome Events: negative test dose, no paresthesia and negative aspiration test Patient tolerance of procedure: patient tolerated the procedure well with no immediate complications} Procedure Medications Sedation: midazolam (VERSED) 1 mg/mL injection - Intravenous 2 mg - 09/02/2022 8:15:00 AM Local Anesthesia: lidocaine PF 1% (10 mg/mL) injection - Injection 3 mL - 09/02/2022 8:15:00 AM Test Dose: lidocaine 1.5% /EPINEPHrine 1:200,000 epidural test dose (5 mL amp) - SEE ADMIN INSTRUCTIONS 3 mL - 09/02/2022 8:15:00 AM Refer to nursing documentation for vitals and monitoring data during procedure. Performed by: Sammie Mon MD Authorized by: Laura Desai MD Laura Desai MD ANESTHESIA ORDERABLE S * BLOOD TYPE CONFIRMATION - ORDER ONLY IF REQUESTED BY LAB (09/02/2022 8:08 AM CDT) ABO/RH(D) B NEG 09/02/2022 8:30 AM CDT [facility] DEPT PATH AND LAB MEDICINE BLOOD / Unknown 09/02/2022 8:08 AM CDT 09/02/2022 8:16 AM CDT William Montgomery MD BLOOD BANK [facility] PATH AND LAB MEDICINE [address] [place] [address], * TELEMETRY STRIPS-SCAN (09/02/2022 12:00 AM CDT) Narrative 09/02/2022 12:00 AM CDT Ordered by an unspecified provider. Scanned Document PROCEDURE DUMMY ORDE RS * TELEMETRY STRIPS-SCAN (09/02/2022 12:00 AM CDT) Narrative 09/02/2022 12:00 AM CDT Ordered by an unspecified provider. Scanned Document PROCEDURE DUMMY ORDE RS * TELEMETRY STRIPS-SCAN (09/02/2022 12:00 AM CDT) Narrative 09/02/2022 12:00 AM CDT Ordered by an unspecified provider. Scanned Document PROCEDURE DUMMY ORDE RS * TELEMETRY STRIPS-SCAN (09/02/2022 12:00 AM CDT) Narrative 09/02/2022 12:00 AM CDT Ordered by an unspecified provider. Scanned Document PROCEDURE DUMMY ORDE RS * TELEMETRY STRIPS-SCAN (09/02/2022 12:00 AM CDT) Narrative 09/02/2022 12:00 AM CDT Ordered by an unspecified provider. Scanned Document PROCEDURE DUMMY ORDE RS * TELEMETRY STRIPS-SCAN (09/02/2022 12:00 AM CDT) Narrative 09/02/2022 12:00 AM CDT Ordered by an unspecified provider. Scanned Document PROCEDURE DUMMY ORDE RS * TELEMETRY STRIPS-SCAN (09/02/2022 12:00 AM CDT) Narrative 09/02/2022 12:00 AM CDT Ordered by an unspecified provider. Scanned Document PROCEDURE DUMMY ORDE RS * TELEMETRY STRIPS-SCAN (09/02/2022 12:00 AM CDT) Narrative 09/02/2022 12:00 AM CDT Ordered by an unspecified provider. Scanned Document PROCEDURE DUMMY ORDE RS * TELEMETRY STRIPS-SCAN (09/02/2022 12:00 AM CDT) Narrative 09/02/2022 12:00 AM CDT Ordered by an unspecified provider. Scanned Document PROCEDURE DUMMY ORDE RS * TELEMETRY STRIPS-SCAN (09/02/2022 12:00 AM CDT) Narrative 09/02/2022 12:00 AM CDT Ordered by an unspecified provider. Scanned Document PROCEDURE DUMMY ORDE RS * TELEMETRY STRIPS-SCAN (09/02/2022 12:00 AM CDT) Narrative 09/02/2022 12:00 AM CDT Ordered by an unspecified provider. Scanned Document PROCEDURE DUMMY ORDE RS * TELEMETRY STRIPS-SCAN (09/02/2022 12:00 AM CDT) Narrative 09/02/2022 12:00 AM CDT Ordered by an unspecified provider. Scanned Document PROCEDURE DUMMY ORDE RS * TELEMETRY STRIPS-SCAN (09/02/2022 12:00 AM CDT) Narrative 09/02/2022 12:00 AM CDT Ordered by an unspecified provider. Scanned Document PROCEDURE DUMMY ORDE RS from Last 3 Months Additional Health Concerns Infection Onset Date Last Indicated CRE 09/30/2022 09/30/2022 Advance Directives Latest Code Status on File Code Status Date Activated Date Inactivated Comments Full Code 10/14/2022 2:43 PM 10/30/2022 2:32 PM Question Answer Comments Provider has discussed Code Status w/Patient or Family? Yes Code Status History Code Status Date Activated Date Inactivated Comments DNAR-Full Intervention 10/04/2022 6:24 PM 10/14/2022 2 :43 PM Continue current level of support with pressors and ventilator. If patient has cardiac arrest will not perform CPR or shocks. Discussed with patient's significant other - Antonia, by telephone. Question Answer Comments Provider has discussed Code Status w/Patient or Family? Yes Does the patient want any intervention for a pre-arrest emergency which would necessitate transfer to an ICU setting? Yes Respiratory emergency: does the patient want to have intubation with mechanical ventilation? Yes Symptomatic/hypotensive dysrhythmia with a pulse: does the patient want cardioversion? No Hypotension: does the patient want the use of vasopressors if needed for blood pressure? Yes Respiratory emergency: does the patient want to have a trial of non-invasive positive pressure ventilation (NIPPV/BiPAP)? Not discussed DNAR-Full Intervention 10/04/2022 6:14 PM 10/04/2022 6 :24 PM Continue current level of support with pressors and ventilator. If patient has cardiac arrest will not perform CPR or shocks. Discussed with patient's significant other - Antonia, by telephone. Question Answer Comments Provider has discussed Code Status w/Patient or Family? Yes Does the patient want any intervention for a pre-arrest emergency which would necessitate transfer to an ICU setting? No Full Code 09/02/2022 9:53 PM 10/04/2022 6:14 PM Question Answer Comments Provider has discussed Code Status w/Patient or Family? No, more discussion needed Care Teams Darkroom Technician Relationship Specialty Start Date End Date No Pcp, Na PCP - General 03/28/22 Kendrick Guzman MD [address] [facility] [place] [address] PCP - Oncology Radiation Oncology 05/13/22 Maryann White MD [address] [place] [address] REFERRING Hematology, Internal Medicine 04/11/22
--- OUTSIDE RECORDS SUMMARY | 2022-11-27 13:38 | XMS REPORT | Encounter Summary ---
Author Author [facility] Organization [facility] Address Unknown Phone Unavailable Care Team Providers Care Road Design Engineer Name Role Phone No Pcp, Na PCP Unavailable Kendrick Guzman MD [phone] Maryann White MD [phone] Reason for Visit * Auth/Cert (Routine) Specialty Diagnoses / Procedures Referred By Contac t Referred To Contact Diagnoses Malignant neoplasm of esophagus, unspecified location (HCC) Malignant neoplasm of colon, unspecified part of colon (HCC) Esophageal cancer (HCC) Malignant neoplasm of esophagus, unspecified location (HCC) [C15.9] Malignant neoplasm of colon, unspecified part of colon (HCC) [C18.9] Procedures VT GSTRCT TOT W/TRISTAN-EN-Y RCNSTJ VT TUBE/NEEDLE CATH JEJUNOSTOMY ANY METHOD VT COLECTOMY PARTIAL W/ANASTOMOSIS VT COLOSTOMY/SKIN LEVEL CECOSTOMY TOTAL GASTRECTOMY, TRISTAN-EN-Y GASTROJEJUNOSTOMY; JEJUNOSTOMY TUBE PLACEMENT. SIGMOID COLECTOMY; POSSIBLE OSTOMY; TUBE/ NEEDLE CATHETER JEJUNOSTOMY FOR ENTERAL ALIMENTATION COLECTOMY WITH ANASTOMOSIS - PARTIAL COLOSTOMY/ SKIN LEVEL CECOSTOMY Referral ID Status Reason Start Date Expiration Date Visits Re quested Visits Authorized [id number] 1 1 Encounter Details Date Type Department Care Team Description 10/09/2022 2:05 PM CDT - 10/09/2022 11:59 PM CDT Hospital Encounter Vascular Access Team: [facility] [address] [facility] [address], [address] [place] [address] Braxton Ferreira MD [address] [place] [address] Discharge Disposition: Home or Self Care Social History Tobacco Use Types Packs/Day Years [...] Sex Assigned at Male 03/28/2022 2:05 PM INJECTION MOLDER Gender Identity Male 03/28/2022 2:05 PM INJECTION MOLDER Sexual Orientation Not on file documented as of this encounter Functional Status Functional Status Response Date of Assess ment Does the patient have a hearing impairment: No 09/03/2022 Does the patient have a visual impairment: Yes 07/31/2022 documented as of this encounter Medications at Time of Discharge Medication Sig Dispensed Refills Start Date End Date acetaminophen (TYLENOL EXTRA STRENGTH) 500 mg tablet two tablets by Per J Tube route every 6 hours as needed. Max of 4,000 mg of acetaminophen in 24 hours. 0 10/29/2022 albuterol sulfate (PROAIR HFA) 90 mcg/actuation HFA aerosol inhaler Inhale one puff to two puffs by mouth into the lungs as Needed for Wheezing or Shortness of Breath. 0 ARIPiprazole (ABILIFY) 20 mg tablet Take one-half tablet by mouth daily. 0 05/02/2022 artificial tears (PF) single dose ophthalmic solution Apply one drop to both eyes as Needed for Dry Eyes. 30 mL 0 10/29/2022 cetirizine (ZYRTEC) 10 mg tablet Take one tablet by mouth every morning. 0 01/16/2022 chlorhexidine gluconate (PERIDEX) 0.12 % mouthwash Take 15 mL by mouth twice daily. In mechanically ventilated patient, apply with swab to entire oral cavity and artificial airway. Discontinue when patient is no longer ventilated. 473 mL 0 10/29/2022 diphenoxylate-atropi ne (LOMOTIL) 2.5-0.025 mg tablet two tablets by Per J Tube route every 6 hours. 0 10/29/2022 enoxaparin (LOVENOX) 40 mg injection syringe Inject 0.4 mL under the skin daily. 0 10/29/2022 gabapentin (NEURONTIN) 300 mg capsule Take two capsules by mouth three times daily. 0 01/21/2022 hydrOXYzine HCL (ATARAX) 25 mg tablet Take one tablet by mouth daily as needed. 0 07/29/2022 lidocaine (LIDODERM) 5 % topical patch Apply one patch topically to affected area daily. Apply patch for 12 hours, then remove for 12 hours before repeating. 90 patch 0 10/30/2022 lisinopriL (ZESTRIL) 10 mg tablet Take one tablet by mouth daily. 0 12/27/2021 loperamide (IMODIUM) 1 mg/7.5 mL oral solution 30 mL by Per J Tube route every 6 hours. 240 mL 0 10/29/2022 LORazepam (ATIVAN) 0.5 mg tablet one tablet by Per J Tube route twice daily as needed. 0 10/29/2022 melatonin 5 mg tablet one tablet by Per J Tube route at bedtime daily. 90 tablet 0 10/29/2022 midodrine (PROAMATINE) 5 mg tablet three tablets by Per J Tube route every 8 hours. 270 tablet 0 10/29/2022 norepinephrine (LEVOPHED) 4 mg/250 mL (16 mcg/mL) soln IV drip (std conc) Administer 0-0.0522 mg/min through vein Continuous. Drip Parameters: Initial Rate: 0.01-0.05 mcg/kg/min Titrate to keep: MAP >= 65 Titrate by: 0.01-0.05 mcg/kg/min every 1 minute as needed to maintain desired clinical response. Std conc = 16 mcg/mL 0 10/29/2022 ondansetron HCL (PF) (ZOFRAN (PF)) 4 mg/2 mL injection solution Administer 2 mL through vein every 6 hours as needed. 2 mL 0 10/29/2022 opium tincture 10 mg/mL (morphine) oral solution 1 mL by Per J Tube route every 6 hours. 0 10/29/2022 oxyCODONE (ROXICODONE) 1 mg/mL oral solution 5 mL by Per J Tube route every 3 hours as needed. 0 10/29/[address] (PROTONIX) 40 mg tablet Take one tablet by mouth daily. 0 01/24/2022 QUEtiapine (SEROQUEL) 100 mg tablet Take one tablet by mouth at bedtime daily. 180 tablet 0 10/29/2022 QUEtiapine (SEROQUEL) 50 mg tablet Take one tablet by mouth twice daily. 180 tablet 0 10/29/2022 simethicone (MYLICON) 40 mg/0.6 mL drops 1.2 mL by Per J Tube route four times daily as needed. 0 10/29/2022 traZODone (DESYREL) 50 mg tablet Take one-half tablet by mouth three times daily. 90 tablet 0 10/29/2022 venlafaxine XR (EFFEXOR XR) 150 mg capsule Take one capsule by mouth daily. 0 apixaban (ELIQUIS) 5 mg tablet Take one tablet by mouth twice daily. 0 10/29/2022 dexmedeTOMIDine in 0.9 % NaCL (PRECEDEX) 400 [...] Std conc = 4 mcg/mL 0 10/29/2022 10/29/2022 micafungin (MYCAMINE) 100 mg in sodium chloride 0.9% (NS) 100 mL IVPBIndications:intr a-abdominal infection Administer one hundred mg through vein every 24 hours. Indications: intra-abdominal infection 0 10/29/2022 10/30/2022 documented as of this encounter Discharge Disposition Disposition Code Departure Means Destination Home or Self Correction documented in this encounter Plan of Treatment Not on file documented as of this encounter Goals Goal Patient Goal Type Associated Problems Recent Progress Patient-Stated? Author [facility] On track( 023 10:31 AM CDT) Yes Kacie Aguilar, PETE Note: Move around without getting an upset stomach documented as of this encounter Procedures Procedure Name Priority Date/Time Associated Diagnosis Comments CONSULT VASCULAR ACCESS TEAM Routine 10/09/2022 2:00 PM CDT documented in this encounter Visit Diagnoses Not on filedocumented in this encounter Orders Procedures Count Last Ordered Date First Orde red Date CONSULT VASCULAR ACCESS TEAM 1 10/09/2022 documented in this encounter Additional Health Concerns Infection Onset Date Last Indicated Resolved Time CRE 09/30/2022 09/30/2022 Assessment Noted Time A fall risk assessment has been complete d for the patient 10/09/2022 8:00 PM CDT documented as of this encounter Care Teams Road Design Engineer Relationship Specialty Start Date End Date No Pcp, Na PCP - General 03/28/22 Kendrick Guzman MD [address] [place] [address] PCP - Oncology Radiation Oncology 05/13/22 Maryann White MD [address] [place] [address] REFERRING MD Hematology, Internal Medicine 04/11/22 documented as of this encounter
--- OUTSIDE RECORDS SUMMARY | 2022-11-27 13:38 | XMS REPORT | Encounter Summary ---
Author Author [facility] Organization [facility] Address Unknown Phone Unavailable Care Team Providers Care Fish Smoker Name Role Phone No Pcp, Na PCP Unavailable Kendrick Guzman MD [phone] Maryann White MD [phone] Reason for Visit * Auth/Cert (Routine) Specialty Diagnoses / Procedures Referred By Contac t Referred To Contact Diagnoses Malignant neoplasm of esophagus, unspecified location (HCC) Malignant neoplasm of colon, unspecified part of colon (HCC) Esophageal cancer (HCC) Malignant neoplasm of esophagus, unspecified location (HCC) [C15.9] Malignant neoplasm of colon, unspecified part of colon (HCC) [C18.9] Procedures OR GSTRCT TOT W/TRISTAN-EN-Y RCNSTJ OR TUBE/NEEDLE CATH JEJUNOSTOMY ANY METHOD OR COLECTOMY PARTIAL W/ANASTOMOSIS OR COLOSTOMY/SKIN LEVEL CECOSTOMY TOTAL GASTRECTOMY, TRISTAN-EN-Y GASTROJEJUNOSTOMY; JEJUNOSTOMY TUBE PLACEMENT. SIGMOID COLECTOMY; POSSIBLE OSTOMY; TUBE/ NEEDLE CATHETER JEJUNOSTOMY FOR ENTERAL ALIMENTATION COLECTOMY WITH ANASTOMOSIS - PARTIAL COLOSTOMY/ SKIN LEVEL CECOSTOMY Referral ID Status Reason Start Date Expiration Date Visits Re quested Visits Authorized [id number] 1 1 Encounter Details Date Type Department Care Team Description 09/28/2022 12:37 PM CDT - 09/28/2022 11:59 PM CDT Hospital Encounter Vascular Access Team: [facility] [address] [facility] [address], [address] [place] [address] Braxton Ferreira MD [address] [place] [address] Discharge Disposition: Home or Self Care Social [...] Sex Assigned at Male 03/28/2022 2:05 PM BUILDING SERVICES ENGINEER Gender Identity Male 03/28/2022 2:05 PM BUILDING SERVICES ENGINEER Sexual Orientation Not on file documented as [...] Code Departure Means Destination Home or Self Alf documented in this encounter Plan of Treatment Not on file documented as of this encounter Goals Goal Patient Goal Type Associated Problems Recent Progress Patient-Stated? Author [facility] On track( 023 10:31 AM CDT) Yes Kacie Aguilar, PETE Note: Move around without getting an upset stomach documented as of this encounter Procedures Procedure Name Priority Date/Time Associated Diagnosis Comments CONSULT VASCULAR ACCESS TEAM STAT 09/28/2022 12:35 PM CDT documented in this encounter Visit Diagnoses Not on filedocumented in this encounter Orders Procedures Count Last Ordered Date First Orde red Date CONSULT VASCULAR ACCESS TEAM 1 09/28/2022 documented in this encounter Additional Health Concerns Assessment Noted Time A fall risk assessment has been complete d for the patient 09/28/2022 8:00 PM CDT documented as of this encounter Care Teams Fish Smoker Relationship Specialty Start Date End Date No Pcp, Na PCP - General 03/28/22 Kendrick Guzman MD [address] [facility] [place] [address] PCP - Oncology Radiation Oncology 05/13/22 Maryann White MD [address] [place] [address] REFERRING Hematology, Internal Medicine 04/11/22 documented as of this encounter
--- OUTSIDE RECORDS SUMMARY | 2022-11-27 13:38 | XMS REPORT | Encounter Summary ---
Author Author [facility] Organization [facility] Address Unknown Phone Unavailable Care Team Providers Care Hand Buffing Wheel Former Name Role Phone No Pcp, Na PCP Unavailable Kendrick Guzman MD [phone] Maryann White MD [phone] Reason for Visit * Auth/Cert (Routine) Specialty Diagnoses / Procedures Referred By Contac t Referred To Contact Diagnoses Malignant neoplasm of esophagus, unspecified location (HCC) Malignant neoplasm of colon, unspecified part of colon (HCC) Esophageal cancer (HCC) Malignant neoplasm of esophagus, unspecified location (HCC) [C15.9] Malignant neoplasm of colon, unspecified part of colon (HCC) [C18.9] Procedures IN GSTRCT TOT W/TRISTAN-EN-Y RCNSTJ IN TUBE/NEEDLE CATH JEJUNOSTOMY ANY METHOD IN COLECTOMY PARTIAL W/ANASTOMOSIS IN COLOSTOMY/SKIN LEVEL CECOSTOMY TOTAL GASTRECTOMY, TRISTAN-EN-Y GASTROJEJUNOSTOMY; JEJUNOSTOMY TUBE PLACEMENT. SIGMOID COLECTOMY; POSSIBLE OSTOMY; TUBE/ NEEDLE CATHETER JEJUNOSTOMY FOR ENTERAL ALIMENTATION COLECTOMY WITH ANASTOMOSIS - PARTIAL COLOSTOMY/ SKIN LEVEL CECOSTOMY Referral ID Status Reason Start Date Expiration Date Visits Re quested Visits Authorized [id number] 1 1 Encounter Details Date Type Department Care Team Description 09/23/2022 7:35 PM CDT - 09/23/2022 11:59 PM CDT Hospital Encounter Vascular Access Team: [facility] [address] [facility] [address], [address] [place] [address] Braxton Ferreira MD [address] [place] [address] Discharge Disposition: Home or Self Care Social [...] Sex Assigned at Male 03/28/2022 2:05 PM COTTON PICKING MACHINE OPERATOR Gender Identity Male 03/28/2022 2:05 PM COTTON PICKING MACHINE OPERATOR Sexual Orientation Not on file documented as [...] Code Departure Means Destination Home or Self Residential documented in this encounter Plan of Treatment Not on file documented as of this encounter Goals Goal Patient Goal Type Associated Problems Recent Progress Patient-Stated? Author [facility] On track( 023 10:31 AM CDT) Yes Kacie Aguilar, PETE Note: Move around without getting an upset stomach documented as of this encounter Procedures Procedure Name Priority Date/Time Associated Diagnosis Comments CONSULT VASCULAR ACCESS TEAM STAT 09/23/2022 7:27 PM CDT documented in this encounter Visit Diagnoses Not on filedocumented in this encounter Orders Procedures Count Last Ordered Date First Orde red Date CONSULT VASCULAR ACCESS TEAM 1 09/23/2022 documented in this encounter Additional Health Concerns Assessment Noted Time A fall risk assessment has been complete d for the patient 09/23/2022 8:00 PM CDT documented as of this encounter Care Teams Hand Buffing Wheel Former Relationship Specialty Start Date End Date No Pcp, Na PCP - General 03/28/22 Kendrick Guzman MD [address] [facility] [place] [address] PCP - Oncology Radiation Oncology 05/13/22 Maryann White MD [address] [place] [address] REFERRING Hematology, Internal Medicine 04/11/22 documented as of this encounter
--- OUTSIDE RECORDS SUMMARY | 2022-11-27 13:38 | XMS REPORT | Encounter Summary ---
Author Author [facility] Organization [facility] Address Unknown Phone Unavailable Care Team Providers Care Design Inserter Name Role Phone No Pcp, Na PCP Unavailable Kendrick Guzman MD [phone] Maryann White MD [phone] Reason for Visit * Auth/Cert (Routine) Specialty Diagnoses / Procedures Referred By Contac t Referred To Contact Diagnoses Malignant neoplasm of esophagus, unspecified location (HCC) Malignant neoplasm of colon, unspecified part of colon (HCC) Esophageal cancer (HCC) Malignant neoplasm of esophagus, unspecified location (HCC) [C15.9] Malignant neoplasm of colon, unspecified part of colon (HCC) [C18.9] Procedures SC GSTRCT TOT W/TRISTAN-EN-Y RCNSTJ SC TUBE/NEEDLE CATH JEJUNOSTOMY ANY METHOD SC COLECTOMY PARTIAL W/ANASTOMOSIS SC COLOSTOMY/SKIN LEVEL CECOSTOMY TOTAL GASTRECTOMY, TRISTAN-EN-Y GASTROJEJUNOSTOMY; JEJUNOSTOMY TUBE PLACEMENT. SIGMOID COLECTOMY; POSSIBLE OSTOMY; TUBE/ NEEDLE CATHETER JEJUNOSTOMY FOR ENTERAL ALIMENTATION COLECTOMY WITH ANASTOMOSIS - PARTIAL COLOSTOMY/ SKIN LEVEL CECOSTOMY Referral ID Status Reason Start Date Expiration Date Visits Re quested Visits Authorized [id number] 1 1 Encounter Details Date Type Department Care Team Description 10/28/2022 6:35 AM CDT - 10/28/2022 11:59 PM CDT Hospital Encounter Vascular Access Team: [facility] [address] [facility] [address], [address] [place] [phone] Braxton Ferreira MD [address] [place] [address] Discharge Disposition: Home or Self Care Social [...] Sex Assigned at Male 03/28/2022 2:05 PM RIGGING ENGINEER Gender Identity Male 03/28/2022 2:05 PM RIGGING ENGINEER Sexual Orientation Not on file documented [...] Code Departure Means Destination Home or Self Snf documented in this encounter Plan of Treatment Not on file documented as of this encounter Goals Goal Patient Goal Type Associated Problems Recent Progress Patient-Stated? Author [facility] On track( 023 10:31 AM CDT) Yes Kacie Aguilar, PETE Note: Move around without getting an upset stomach documented as of this encounter Procedures Procedure Name Priority Date/Time Associated Diagnosis Comments CONSULT VASCULAR ACCESS TEAM DAIANA 10/28/2022 6:01 AM CDT documented in this encounter Visit Diagnoses Not on filedocumented in this encounter Orders Procedures Count Last Ordered Date First Orde red Date CONSULT VASCULAR ACCESS TEAM 1 10/28/2022 documented in this encounter Additional Health Concerns Infection Onset Date Last Indicated Resolved Time CRE 09/30/2022 09/30/2022 Assessment Noted Time A fall risk assessment has been complete d for the patient 10/28/2022 8:00 PM CDT documented as of this encounter Care Teams Design Inserter Relationship Specialty Start Date End Date No Pcp, Na PCP - General 03/28/22 Kendrick Guzman MD [address] [facility] [place] [address] PCP - Oncology Radiation Oncology 05/13/22 Maryann White MD [address] [place] [address] REFERRING MD Hematology, Internal Medicine 04/11/22 documented as of this encounter
--- OUTSIDE RECORDS SUMMARY | 2022-11-27 13:38 | XMS REPORT | Encounter Summary ---
Author Author [facility] Organization [facility] Address Unknown Phone Unavailable Care Team Providers Care Manager Customer Name Role Phone No Pcp, Na PCP Unavailable Kendrick Guzman MD [phone] Maryann White MD [phone] Reason for Visit * Reason Onset Date Comments Appointment 11/08/2022 Encounter Details Date Type Department Care Team Description 11/08/2022 Telephone Oncology: [facility] [address] [facility] [place], [place] [phone] Braxton Ferreira MD [address] [place] [address] Appointment Social History Tobacco Use Types Packs/Day Years [...] Sex Assigned at Male 03/28/2022 2:05 PM ENTERPRISE PROJECT MANAGER Gender Identity Male 03/28/2022 2:05 PM ENTERPRISE PROJECT MANAGER Sexual Orientation Not on file documented as of this encounter Functional Status Functional Status Response Date of Assess ment Does the patient have a hearing impairment: No 09/03/2022 Does the patient have a visual impairment: Yes 07/31/2022 documented as of this encounter Miscellaneous Notes * Telephone Encounter - Richelle Bautista - 11/08/2022 10:32 AM CDT I was unable to leave a VM about his appt on 11/13, sent a [employer] message. documented in this encounter Plan of Treatment Not on file documented as of this encounter Goals Goal Patient Goal Type Associated Problems Recent Progress Patient-Stated? Author [facility] On track( 023 10:31 AM CDT) Yes Kacie Aguilar, PETE Note: Move around without getting an upset stomach documented as of this encounter Visit Diagnoses Not on filedocumented in this encounter Additional Health Concerns Infection Onset Date Last Indicated Resolved Time CRE 09/30/2022 09/30/2022 Assessment Noted Time A fall risk assessment has been complete d for the patient 10/30/2022 8:00 AM CDT documented as of this encounter Care Teams Manager Customer Relationship Specialty Start Date End Date No Pcp, Na PCP - General 03/28/22 Kendrick Guzman MD [address] [facility] [place] [address] PCP - Oncology Radiation Oncology 05/13/22 Maryann White MD [address] [employer] [place], [place] [id number] REFERRING MD Hematology, Internal Medicine 04/11/22 documented as of this encounter
--- OUTSIDE RECORDS SUMMARY | 2022-11-27 13:38 | XMS REPORT | Encounter Summary ---
Author Author [facility] Organization [facility] Address Unknown Phone Unavailable Care Team Providers Care Electric Blanket Packer Name Role Phone No Pcp, Na PCP Unavailable Kendrick Guzman MD [phone] Maryann White MD [phone] Reason for Visit * Auth/Cert (Routine) Specialty Diagnoses / Procedures Referred By Contac t Referred To Contact Diagnoses Malignant neoplasm of esophagus, unspecified location (HCC) Malignant neoplasm of colon, unspecified part of colon (HCC) Esophageal cancer (HCC) Malignant neoplasm of esophagus, unspecified location (HCC) [C15.9] Malignant neoplasm of colon, unspecified part of colon (HCC) [C18.9] Procedures NE GSTRCT TOT W/TRISTAN-EN-Y RCNSTJ NE TUBE/NEEDLE CATH JEJUNOSTOMY ANY METHOD NE COLECTOMY PARTIAL W/ANASTOMOSIS NE COLOSTOMY/SKIN LEVEL CECOSTOMY TOTAL GASTRECTOMY, TRISTAN-EN-Y GASTROJEJUNOSTOMY; JEJUNOSTOMY TUBE PLACEMENT. SIGMOID COLECTOMY; POSSIBLE OSTOMY; TUBE/ NEEDLE CATHETER JEJUNOSTOMY FOR ENTERAL ALIMENTATION COLECTOMY WITH ANASTOMOSIS - PARTIAL COLOSTOMY/ SKIN LEVEL CECOSTOMY Referral ID Status Reason Start Date Expiration Date Visits Re quested Visits Authorized [id number] 1 1 Encounter Details Date Type Department Care Team Description 09/24/2022 3:30 PM CDT - 09/24/2022 11:59 PM CDT Hospital Encounter Vascular Access Team: [facility] [address] [facility] [address], [address] [place] [address] Braxton Ferreira MD [address] [place] [address] Discharge Disposition: Home or Self Care Social [...] Sex Assigned at Male 03/28/2022 2:05 PM INDEPENDENT SALES REPRESENTATIVE Gender Identity Male 03/28/2022 2:05 PM INDEPENDENT SALES REPRESENTATIVE Sexual Orientation Not on file documented as [...] Code Departure Means Destination Home or Self Skilled Nursing documented in this encounter Plan of Treatment Not on file documented as of this encounter Goals Goal Patient Goal Type Associated Problems Recent Progress Patient-Stated? Author [facility] On track( 023 10:31 AM CDT) Yes Kacie Aguilar, PETE Note: Move around without getting an upset stomach documented as of this encounter Procedures Procedure Name Priority Date/Time Associated Diagnosis Comments CONSULT VASCULAR ACCESS TEAM STAT 09/24/2022 3:21 PM CDT documented in this encounter Visit Diagnoses Not on filedocumented in this encounter Orders Procedures Count Last Ordered Date First Orde red Date CONSULT VASCULAR ACCESS TEAM 1 09/24/2022 documented in this encounter Additional Health Concerns Assessment Noted Time A fall risk assessment has been complete d for the patient 09/24/2022 8:00 PM CDT documented as of this encounter Care Teams Electric Blanket Packer Relationship Specialty Start Date End Date No Pcp, Na PCP - General 03/28/22 Kendrick Gumzan MD [address] [facility] [place] [address] PCP - Oncology Radiation Oncology 05/13/22 Maryann White MD [address] [place] [address] REFERRING Hematology, Internal Medicine 04/11/22 documented as of this encounter
--- OUTSIDE RECORDS SUMMARY | 2022-11-27 13:38 | XMS REPORT | Encounter Summary ---
Author Author [facility] Organization [facility] Address Unknown Phone Unavailable Care Team Providers Care Shoe Coverer Name Role Phone No Pcp, Na PCP Unavailable Kendrick Guzman MD [phone] Maryann White MD [phone] Encounter Details Date Type Department Care Team Description 10/03/2022 1:01 PM CDT - 10/03/2022 11:59 PM CDT Hospital Encounter Imaging: [facility] [address] [facility] [place] [phone] Discharge Disposition: Home or Self Care Social [...] Sex Assigned at Male 03/28/2022 2:05 PM TABLE TOP TILE SETTER Gender Identity Male 03/28/2022 2:05 PM TABLE TOP TILE SETTER Sexual Orientation Not on file documented as [...] Code Departure Means Destination Home or Self Senior Care documented in this encounter Plan of Treatment Not on file documented as of this encounter Goals Goal Patient Goal Type Associated Problems Recent Progress Patient-Stated? Author [facility] On track( 023 10:31 AM CDT) Yes Kacie Aguilar, RN Note: Move around without getting an upset stomach documented as of this encounter Procedures Procedure Name Priority Date/Time Associated Diagnosis Comments POC SICU US ECHO 2D LTD W/O CONTRAST Routine 10/03/2022 1:46 PM CDT documented in this encounter Results * POC SICU US ECHO 2D LTD W/O CONTRAST (10/03/2022 1:46 PM CDT) Anatomical Region Laterality Modality CHEST/VASC Ultrasound 10/03/2022 1:3 9 PM CDT Impressions 10/05/2022 6:03 PM CDT Director Digital Analytics: Kendrick Casillas Attending: Kendrick Casillas ED-Cardiac Clinical Indication(s) for Exam: Shock Views: Parasternal [place]: Adequate Apical Four-Chamber: Adequate Subxiphoid IVC: Adequate [...] Casillas Electronically signed by Kendrick Casillas on Wednesday, October 05, 2022 at 6:03 PM Narrative Procedure Note Kendrick Casillas MD - 10/05/2022 IMPRESSION Director Digital Analytics: Kendrick Casillas Attending: Kendrick Casillas ED-Cardiac Clinical Indication(s) for Exam: Shock Views: Parasternal [place]: Adequate Apical Four-Chamber: Adequate Subxiphoid IVC: Adequate [...] Casillas MD [facility] documented in this encounter Visit Diagnoses Not on filedocumented in this encounter Additional Health Concerns Assessment Noted Time A fall risk assessment has been complete d for the patient 10/03/2022 8:00 PM CDT documented as of this encounter Care Teams Shoe Coverer Relationship Specialty Start Date End Date No Pcp, Na PCP - General 03/28/22 Kendrick Guzman MD [address] [place] [address] PCP - Oncology Radiation Oncology 05/13/22 Maryann White MD [address] [place] [address] REFERRING Hematology, Internal Medicine 04/11/22 documented as of this encounter
--- OUTSIDE RECORDS SUMMARY | 2022-11-27 13:38 | XMS REPORT | Encounter Summary ---
Author Author [facility] Organization [facility] Address Unknown Phone Unavailable Care Team Providers Care Welder Fitter Apprentice Name Role Phone No Pcp, Na PCP Unavailable Kendrick Guzman MD [phone] Maryann White MD [phone] Reason for Visit * Auth/Cert (Routine) Specialty Diagnoses / Procedures Referred By Contac t Referred To Contact Diagnoses Malignant neoplasm of esophagus, unspecified location (HCC) Malignant neoplasm of colon, unspecified part of colon (HCC) Esophageal cancer (HCC) Malignant neoplasm of esophagus, unspecified location (HCC) [C15.9] Malignant neoplasm of colon, unspecified part of colon (HCC) [C18.9] Procedures FL GSTRCT TOT W/TRISTAN-EN-Y RCNSTJ FL TUBE/NEEDLE CATH JEJUNOSTOMY ANY METHOD FL COLECTOMY PARTIAL W/ANASTOMOSIS FL COLOSTOMY/SKIN LEVEL CECOSTOMY TOTAL GASTRECTOMY, TRISTAN-EN-Y GASTROJEJUNOSTOMY; JEJUNOSTOMY TUBE PLACEMENT. SIGMOID COLECTOMY; POSSIBLE OSTOMY; TUBE/ NEEDLE CATHETER JEJUNOSTOMY FOR ENTERAL ALIMENTATION COLECTOMY WITH ANASTOMOSIS - PARTIAL COLOSTOMY/ SKIN LEVEL CECOSTOMY Referral ID Status Reason Start Date Expiration Date Visits Re quested Visits Authorized [id number] 1 1 Encounter Details Date Type Department Care Team Description 09/30/2022 9:45 AM CDT - 09/30/2022 11:59 PM CDT Hospital Encounter Vascular Access Team: [facility] [address] [facility] [address], [address] [place] [address] Braxton Ferreira MD [address] [place] [address] Discharge Disposition: Home or Self Care Social [...] Sex Assigned at Male 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 Author [facility] On track( 023 10:31 AM CDT) Yes Kacie Aguilar, PETE Note: Move around without getting an upset stomach documented as of this encounter Procedures Procedure Name Priority Date/Time Associated Diagnosis Comments CONSULT VASCULAR ACCESS TEAM Routine 09/30/2022 9:30 AM CDT documented in this encounter Visit Diagnoses Not on filedocumented in this encounter Orders Procedures Count Last Ordered Date First Orde red Date CONSULT VASCULAR ACCESS TEAM 1 09/30/2022 documented in this encounter Additional Health Concerns Assessment Noted Time A fall risk assessment has been complete d for the patient 09/30/2022 8:00 PM CDT documented as of this encounter Care Teams Welder Fitter Apprentice Relationship Specialty Start Date End Date No Pcp, Na PCP - General 03/28/22 Kendrick Guzman MD [address] [facility] [place] [address] PCP - Oncology Radiation Oncology 05/13/22 Maryann White MD [address] [place] [address] REFERRING Hematology, Internal Medicine 04/11/22 documented as of this encounter
--- OUTSIDE RECORDS SUMMARY | 2022-11-27 13:38 | XMS REPORT | Encounter Summary ---
Author Author [facility] Organization [facility] Address Unknown Phone Unavailable Care Team Providers Care Retail Parts Professional Name Role Phone No Pcp, Na PCP Unavailable Kendrick Guzman MD [phone] Maryann White MD [phone] Reason for Visit * Auth/Cert (Routine) Specialty Diagnoses / Procedures Referred By Contjada t Referred To Contact Diagnoses Malignant neoplasm of esophagus, unspecified location (HCC) Malignant neoplasm of colon, unspecified part of colon (HCC) Esophageal cancer (HCC) Malignant neoplasm of esophagus, unspecified location (HCC) [C15.9] Malignant neoplasm of colon, unspecified part of colon (HCC) [C18.9] Procedures RI GSTRCT TOT W/TRISTAN-EN-Y RCNSTJ RI TUBE/NEEDLE CATH JEJUNOSTOMY ANY METHOD RI COLECTOMY PARTIAL W/ANASTOMOSIS RI COLOSTOMY/SKIN LEVEL CECOSTOMY TOTAL GASTRECTOMY, TRISTAN-EN-Y GASTROJEJUNOSTOMY; JEJUNOSTOMY TUBE PLACEMENT. SIGMOID COLECTOMY; POSSIBLE OSTOMY; TUBE/ NEEDLE CATHETER JEJUNOSTOMY FOR ENTERAL ALIMENTATION COLECTOMY WITH ANASTOMOSIS - PARTIAL COLOSTOMY/ SKIN LEVEL CECOSTOMY Referral ID Status Reason Start Date Expiration Date Visits Re quested Visits Authorized [id number] 1 1 Encounter Details Date Type Department Care Team Description 09/23/2022 6:30 AM CDT - 09/23/2022 12:34 PM CDT Hospital Encounter Vascular Access Team: [facility] [address] [facility] [address], [address] [place] [phone] Braxton Ferreira MD [address] [place] [address] Discharge Disposition: Home or Self Care Social [...] Sex Assigned at Male 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 Author [facility] On track( 023 10:31 AM CDT) Yes Kacie Aguilar, PETE Note: Move around without getting an upset stomach documented as of this encounter Procedures Procedure Name Priority Date/Time Associated Diagnosis Comments CONSULT VASCULAR ACCESS TEAM Routine 09/23/2022 1:16 AM CDT documented in this encounter Visit Diagnoses Not on filedocumented in this encounter Orders Procedures Count Last Ordered Date First Orde red Date CONSULT VASCULAR ACCESS TEAM 1 09/23/2022 documented in this encounter Additional Health Concerns Assessment Noted Time A fall risk assessment has been complete d for the patient 09/23/2022 8:00 PM CDT documented as of this encounter Care Teams Retail Parts Professional Relationship Specialty Start Date End Date No Pcp, Na PCP - General 03/28/22 Kendrick Guzman MD [address] [facility] [place] [address] PCP - Oncology Radiation Oncology 05/13/22 Maryann White MD [address] [place] [address] REFERRING Hematology, Internal Medicine 04/11/22 documented as of this encounter
--- OUTSIDE RECORDS SUMMARY | 2022-11-27 13:38 | XMS REPORT | Encounter Summary ---
Author Author [facility] Organization [facility] Address Unknown Phone Unavailable Care Team Providers Care Application Analyst Name Role Phone No Pcp, Na PCP Unavailable Kendrick Guzman MD [phone] Maryann White MD [phone] Reason for Visit * Auth/Cert (Routine) Specialty Diagnoses / Procedures Referred By Contac t Referred To Contact Diagnoses Malignant neoplasm of esophagus, unspecified location (HCC) Malignant neoplasm of colon, unspecified part of colon (HCC) Esophageal cancer (HCC) Malignant neoplasm of esophagus, unspecified location (HCC) [C15.9] Malignant neoplasm of colon, unspecified part of colon (HCC) [C18.9] Procedures ID GSTRCT TOT W/TRISTAN-EN-Y RCNSTJ ID TUBE/NEEDLE CATH JEJUNOSTOMY ANY METHOD ID COLECTOMY PARTIAL W/ANASTOMOSIS ID COLOSTOMY/SKIN LEVEL CECOSTOMY TOTAL GASTRECTOMY, TRISTAN-EN-Y GASTROJEJUNOSTOMY; JEJUNOSTOMY TUBE PLACEMENT. SIGMOID COLECTOMY; POSSIBLE OSTOMY; TUBE/ NEEDLE CATHETER JEJUNOSTOMY FOR ENTERAL ALIMENTATION COLECTOMY WITH ANASTOMOSIS - PARTIAL COLOSTOMY/ SKIN LEVEL CECOSTOMY Referral ID Status Reason Start Date Expiration Date Visits Re quested Visits Authorized [id number] 1 1 Encounter Details Date Type Department Care Team Description 10/01/2022 4:27 PM CDT Anesthesia Event Interventional Radiology: [facility] [address] [facility] [address], [id number] [place] [phone] Edwin Deluna MD [address] [place] [address] Jelly Rizvi SRNA Anesthesia Record Procedure Summary Procedure Name Responsible Anesthesiologist Anesthesia Start Time Anesthesia Stop Time IR ABDOMINAL DRAIN BRIGETTEIZE Edwin Deluna MD 10/01/22 1627 10/01/22 1717 Events Date Time Event Comment 10/01/2022 1023 1606 AN Equip Check 1627 Anes Start Patient transpo rted to IR from 2805. On monitors, VSS (see emar for gtts). RT at bedside throughout transport, managing ventilator. 1630 An Start Data 1630 In Room 1631 Start Supplemental O2 Patien t placed on Anesthesia ventilator at this time (see airway note) 1635 Anesthesia Ready 1648 Proc Start 1707 Transport Patient transpo rted to 2805. On monitors, VSS (gtts titrated). RT at bedside, managing ventilator. 1715 an stop data 1717 An Stop I completed my SBAR handoff to the receiving nurse. Meds * Agents Name O2 N2O Inspired N2O Sevoflurane Inspired Sevoflurane * Blood No blood administrations on file. Lines, Drains, and Airways Type Details Placement Removal Jejunostomy Tube 09/02/22; 1558; Abdomen, Left Lower Lateral; 16FR (16 Fr red rubber catheter) 09/02/22 1558 by Nnamdi Noel, PEET CVC Triple Lumen 09/13/22; 0800; ICU; Correct Patient, Correct Patient Position, Correct Procedure, Correct Equipment / Implants Available; Hand Hygiene, Cap , Mask, Eye Protection, Sterile Gown, Sterile Gloves, Full Body Sterile Drape; Internal Jugular, Left; Sutured, Chlorhexadine (CHG) impregnated sponge; X-ray 09/13/22 0800 by Jocelyne Nettles, project geophysicist Drain 10/01/22; 1659; Clos ed suction (e.g. JOSETTE, Hemovac, Accordion); Left, Lower; Abdomen; 12 FR; #1 10/01/22 1659 by Shivani Skaggs RN Wounds (Read Only) 09/02/22; 0934; Surgical incision; Medial, Lower; Abdomen; 10/13/22; 0737 09/02/22 0934 by Nnamdi Noel, PETE 10/13/22 0737 by Keaton Wright, PETE Nasogastric Tube 09/07/22; 1722; Righ t nostril; 16 FR; X-ray; 44 cm (Inserted by ); 10/18/22; 1800 09/07/22 1722 by Nupur Matos RN 10/18/22 1800 by Clinton Childs RN Arterial Line 09/18/22; 1030; Femoral, Right; No; Malfunction/replacement ; Yes; 10/17/22; 1930 09/18/22 1030 by Florence Copeland RN 10/17/22 1930 by Racquel Pepper RN Tracheostomy Tube (Read Only) 09/20/22; 1045; 8.0; Cuffed, Shiley; 10/18/22; 0745 09/20/22 1045 by Jayla Huertas RN 10/18/22 0745 by Clinton Childs, project geophysicist Drain 09/24/22; 1133; Clos ed suction (e.g. JOSETTE, Hemovac, Accordion); Right; Abdomen; 12 FR; 10/01/22; 1652 09/24/22 1133 by Yudith Horton RN 10/01/22 1652 by Shivani Skaggs, PETE Peripheral IV 09/24/22; 1545; L; Anterior; Forearm; 20 G; Ultrasound, Inserted by Vascular Access Team; One; 1.75 inches; Symptomatic (phlebitis, pain, leaking, swelling, infiltration); 10/09/22; 0916 09/24/22 1545 by Sharri Tafoya RN 10/09/22 0916 by Calli Rabago Indwelling Urinary Catheter 10/01/22; 1515; Unit (Comment); Urine cx's ordered by ID.; 16 FR; Regular (Two-way); 10/09/22; 1300 10/01/22 1515 by Carolyn Melendrez RN 10/09/22 1300 by Calli Rabago Surgical Drain 10/01/22; 1651; Clos ed suction (e.g. 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 Sex: male Procedure Information Anesthesia Start Date/Time: 10/01/22 1627 Scheduled providers: Shivani Skaggs RN; Antonia Roberson RT(R)(),LRT; Ralf Rothman MD; Edwin Deluna MD Procedure: IR ABDOMINAL DRAIN UPSIZE Location: Interventional Radiology: [facility] Post-Anesthesia Vitals ABP: 141/71 (10/01 1714) Vitals Value Taken Time BP Temp Pulse Respirations SpO2 O2 Device ABP 141/71 10/01/22 1715 ART BP Post Anesthesia Evaluation Note Evaluation location: ICU Patient participation: patient intubated, unable to assess; expectation of recovery by ICU physician Level of consciousness: intubated & sedated Ventilator settings Mode: PC FIO2: 100 Tidal Volume: 450 Vent rate: 22 PEEP: 8 Pain score: Pain scale: GORDO. Pain management: Pain control: GORDO. Hydration: normovolemia Temperature: 36.0C - 38.4C Airway patency: adequate Perioperative Events Post-op nausea and vomiting: PONV status: GORDO. Postoperative Status Cardiovascular status: hemodynamically stable Respiratory status: supplemental oxygen (via trach) Follow-up needed: none ICU Information VasoactiveDrips:norepinephrine infusion and vasopressin Blood Products Given-no Staff involved in transport include: resp therapy, ASSEMBLY LINE MACHINE OPERATOR, SRNA and OR nurse Perioperative Events There were no known notable events for this encounter. Associated attestation - Edwin Deluna MD - 10/01/2022 5:51 PM CDT ATTESTATION Post-Anesthesia Evaluation and ICU Transfer Note Attestation: I evaluated the patient and the indicated post-anesthesia care is discharge and transfer to the ICU physician-lead team. Staff name: Edwin Deluna MD Date: 10/01/2022 * Anesthesia Preprocedure Evaluation - Nnamdi Oliver MD - 10/01/2022 9:46 AM CDT Anesthesia Pre-Procedure Evaluation Name: Abe Kilgore : 1965 Age: 57 y.o. Sex: male Procedure Info: Procedure Information Date/Time: 10/01/22 1030 Scheduled providers: Nnamdi Oliver MD; William Patel RT(Chandra)(CV),LRT; Chepe Franklin MD; Laurence Mckeon RN Procedure: IR ABDOMINAL DRAIN UPSIZE Location: Interventional Radiology: [facility] Physical Assessment Vital Signs (last filed in past 24 hours): ABP: 176/80 (10/01 904) Temp: 37.4 C (99.3 F) (10/02 799) Pulse: 87 (10/01 899) Respirations: 23 PER MINUTE (10/01 899) SpO2: 88 % (10/01 899) O2 Percent: 60 % (10/01 699) O2 Device: Other (Comment) (10/01 699) Weight: 102.7 kg (226 lb 6.6 oz) (10/02 399) There were no vitals filed for this visit. Patient History Allergies Allergen Reactions Atorvastatin MUSCLE PAIN and URTICARIA Current Medications Medication Directions albuterol sulfate (PROAIR HFA) 90 mcg/actuation HFA aerosol inhaler Inhale one puff to two puffs bymouth into the lungs as Needed for Wheezing or Shortness of Breath. apixaban (ELIQUIS) 5 mg tablet Take one tablet by mouth twice daily. ARIPiprazole (ABILIFY) 20 mg tablet Take one-half tablet by mouth daily. cetirizine (ZYRTEC) 10 mg tablet Take one tablet by mouth every morning. gabapentin (NEURONTIN) 300 mg capsule Take two capsules by mouth three times daily. hydrOXYzine HCL (ATARAX) 25 mg tablet Take one tablet by mouth daily as needed. lisinopriL (ZESTRIL) 10 mg tablet Take one tablet by mouth daily. pantoprazole DR (PROTONIX) 40 mg tablet Take one tablet by mouth daily. venlafaxine XR (EFFEXOR XR) 150 mg capsule Take one capsule by mouth daily. Review of Systems/Medical History Patient summary reviewed Nursing notes reviewed Pertinent labs reviewed PONV Screening: Non-smoker No history of anesthetic complications No family history of anesthetic complications Airway - negative No history of head/neck radiation Pulmonary Not a current smoker marijuana Asthma (infrequent use of albuterol inhaler) well controlled Hx pulmonary embolus (02/2022- on eliquis) Shortness of breath ( with oxygen desaturation, improves with oxygen use) Home oxygen use ( 4-5 L prn for oxygen desaturation at 78-79%, wears 1-2 times a day typically withexertion, at rest oxygen is typically 85-90%) Patient hospitalized about 3 week ago for SOB and oxygen desaturation patient reports was started on antibiotics for cellulitis and prescribed oxygen PRN. Patient reports that he was told that his esophageal cancer and stomach cancer restricting his lungs. - Previously been extubated but reports dyspnea. Recently re-intubated 2/2 hypoxic respiratory failure. Cardiovascular Recent diagnostic studies: ECG and echocardiogram Exercise tolerance: >4 METS Beta Rosalind therapy: No Beta blockers within 24 hours: n/a Hypertension (well controlled per patient), well controlled Dysrhythmias (Frequent Episodes of Bradycardia, Cardiology consulted believe to be vasovagal tone causing the arrythmias) DVT (02/2022) Hyperlipidemia Dyspnea on exertion No syncope ( lgithheaded with chemotx intermittently, controlled with moving slow with position changes) #Vasovagal heart block - Several captured events of heart block on telemetry with no atrial activity during intense coughing/tracheal suction. Responded to atropine. -EKG shows normal conduction/intervals 09/27/2022 TTE ? Technically challenging study due to tachycardia (patient with heart rate between 125 to 130 bpm during study.) ? Normal left ventricular size with mildly increased left ventricular wall thickness and concentricremodeling. Hyperdynamic left ventricular systolic function with an estimated ejection fraction of70-75 %. Normal left ventricular diastolic function. ? Normal right ventricular size and hyperdynamic right ventricular systolic function. ? Normal biatrial size. ? No hemodynamically significant valvular abnormalities. ? The aortic root and ascending aorta are normal in size. ? No pericardial effusion. ? No prior studies available for comparison. Please see full report below. Levo gtt for persistent hypotension for septic shock GI/Hepatic/Renal GERD, well controlled No liver disease: No renal disease: Electrolyte problem (Hypernatremia, 150s) Esophageal/gastric ca, s/p gastrectomy Neuro/Psych Substance use ( edible medical marijuana for pain, hx of methamphetamine use- none recent, hx of alcohol abuse- sober since 2017), alcohol, marijuana and methamphetamines Neuropathy (bilateral LE) Psychiatric history Depression Bipolar disorder Musculoskeletal Back pain ( low back pain) Arthritis: osteo Endocrine/Other Anemia ( Hgb 10.4) History of blood transfusion (05/2022, no reaction) 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 Neurological Findings: Sedated Constitutional findings: No acute distress Well-developed Well-nourished Diagnostic Tests Hematology: Lab Results Component Value Date HGB 7.4 10/01/2022 HCT 23.6 10/01/2022 PLTCT 389 10/01/2022 WBC 18.8 10/01/2022 MCV 89.8 10/01/2022 MCH 28.1 10/01/2022 MCHC 31.3 10/01/2022 MPV 7.3 10/01/2022 RDW 19.3 10/01/2022 General Chemistry: Lab Results Component Value Date NA 153 10/01/2022 K 3.5 10/01/2022 CL 110 10/01/2022 CO2 36 10/01/2022 GAP 7 10/01/2022 BUN 51 10/01/2022 CR 0.88 10/01/2022 GLU 151 10/01/2022 CA 7.7 10/01/2022 ALBUMIN 2.5 10/01/2022 LACTIC 0.8 09/23/2022 OBSCA 1.07 09/06/2022 MG 2.2 10/01/2022 TOTBILI 0.6 10/01/2022 PO4 2.8 10/01/2022 Coagulation: No results found for: PT, PTT, INR PAC RISK ASSESSMENTS: *Bains Activity Status Index (DASI): 50.2 , Calculated METS: 8.91 (score < 25 correlates with increased risk for , CT, and moderate to severe complications, max score 57) *STOP-BANG Score: 4 (total 5-8 high risk for CRIS, 3-4 with HCO3 >28 also high risk. CRIS associated with greater thantwice the odds for respiratory failure, cardiac events, ICU admission, and difficult intubation) Addendum (LT): Discharge Summary from 08/08/22 at [facility]- Patient presenting with SOB, mechanical compression related to constipation, cancer and progression of large hiatal hernia deemed cause of SOB and oxygen desaturation. Symptoms improved with bowel regimen and HFNC. Stable on 3-4 L nasal cannula upon discharge. Anesthesia Plan ASA score: 4 Plan: MAC Induction method: intravenous NPO status: acceptable Informed Consent Anesthetic plan and risks discussed with spouse and patient. Use of blood products discussed with spouse and patient Blood Consent: consented Plan discussed with: anesthesiologist, ASSEMBLY LINE MACHINE OPERATOR and SRNA. Comments: (Abe Kilgore is a 57 y.o. male with 57M PE on Eliquis (4L) w/ GEJ adenocarcinoma and sigmoid adenocarcinoma s/p total gastrectomy, RNY with EJ, D1/2 lymphadenectomy LAR, J tube (09/02/2022).) PAC Plan Alerts documented in this encounter Plan of Treatment Not on file documented as of this encounter Goals Goal Patient Goal Type Associated Problems Recent Progress Patient-Stated? Author [facility] On track( 023 10:31 AM CDT) Yes Kacie Aguilar RN Note: Move around without getting an upset stomach documented as of this encounter Visit Diagnoses Not on filedocumented in this encounter Administered Medications Inactive Administered Medications Medication Order MAR Action Action Date Dose Rate Site Diet Critical Care Enteral Feeding Volume Based Infusion CONTINUOUS, Starting on Fri09/30/22 at 1015, Until Fri10/09/22 at 1654, Please see DIET CRITICAL CARE TABLE REFERENCE (below DIET section) for 4 hr and 24 hr goal calculations. Volume based feeding is restricted to the ICU. At 0800 daily return the rate to Infusion Goal Rate. Then, every 4hrs readjust rate to achieve the 24hr goal as follows: Step 1: 24 hr. volume goal - volume delivered since 0801 = X volume left to be infused Step 2: X volume left to be infused / remaining hours in day until next 0800= Y Step 3: Y = new hourly rate for next 4 hours (Minimum rate = infusion goal rate, Maximum = 120 ml/hr.) May administer TF to patients on vasopressors as follows: Norepinephrine Vasopressin = 0.3 mcg/kg/min off = 0.2 mcg/kg/min = 2.4 units/hr Contact provider BEFORE stopping enteral nutrition if pressor requirement exceeds the above parameters for re-evaluation of enteral nutrition. If pressors are within that range and increasing please contact provider for instructions. Dose/Rate Change 10/09/2022 4:11 PM CDT 63 mL/hr documented in this encounter Additional Health Concerns Assessment Noted Time A fall risk assessment has been complete d for the patient 10/01/2022 8:00 PM CDT documented as of this encounter Care Teams Application Analyst Relationship Specialty Start Date End Date No Pcp, Na PCP - General 03/28/22 Kendrick Guzman MD [address] [facility] [place] [address] PCP - Oncology Radiation Oncology 05/13/22 Maryann White MD [address] [place] [address] REFERRING Hematology, Internal Medicine 04/11/22 documented as of this encounter
--- OUTSIDE RECORDS SUMMARY | 2022-11-27 13:39 | XMS REPORT | Encounter Summary ---
Author Author [facility] Organization [facility] Address Unknown Phone Unavailable Care Team Providers Care Tier Truck Driver Name Role Phone No Pcp, Na PCP Unavailable Kendrick Guzman MD [phone] Maryann White MD [phone] Reason for Visit * Auth/Cert (Routine) Specialty Diagnoses / Procedures Referred By Carmen shay Referred To Contact Diagnoses Malignant neoplasm of esophagus, unspecified location (HCC) Malignant neoplasm of colon, unspecified part of colon (HCC) Esophageal cancer (HCC) Malignant neoplasm of esophagus, unspecified location (HCC) [C15.9] Malignant neoplasm of colon, unspecified part of colon (HCC) [C18.9] Procedures OH GSTRCT TOT W/TRISTAN-EN-Y RCNSTJ OH TUBE/NEEDLE CATH JEJUNOSTOMY ANY METHOD OH COLECTOMY PARTIAL W/ANASTOMOSIS OH COLOSTOMY/SKIN LEVEL CECOSTOMY TOTAL GASTRECTOMY, TRISTAN-EN-Y GASTROJEJUNOSTOMY; JEJUNOSTOMY TUBE PLACEMENT. SIGMOID COLECTOMY; POSSIBLE OSTOMY; TUBE/ NEEDLE CATHETER JEJUNOSTOMY FOR ENTERAL ALIMENTATION COLECTOMY WITH ANASTOMOSIS - PARTIAL COLOSTOMY/ SKIN LEVEL CECOSTOMY Referral ID Status Reason Start Date Expiration Date Visits Re quested Visits Authorized [id number] 1 1 Encounter Details Date Type Department Care Team Description 09/08/2022 10:00 PM CDT Anesthesia Event Intensive Care Unit 28: [facility] [address] [facility] [address] [place] [phone] Jose Roberto Peña MD [address] [place], [place] [phone] Anesthesia Record Procedure Summary Procedure Name Responsible Anesthesiologist Anesthesia Start Time Anesthesia Stop Time ANESTHESIA AIRWAY INSERTION Events No events on file. Meds * Agents No agents on file. * Blood No blood administrations on file. Lines, Drains, and Airways Type Details Placement Removal Jejunostomy Tube 09/02/22; 1558; Abdo men, Left Lower Lateral; 16FR (16 Fr red rubber catheter) 09/02/22 1558 by Nnamdi Noel, RN CVC Triple Lumen 09/13/22; 0800; ICU; Correct Patient, Correct Patient Position, Correct Procedure, Correct Equipment / Implants Available; Hand Hygiene, Cap , Mask, Eye Protection, Sterile Gown, Sterile Gloves, Full Body Sterile Drape; Internal Jugular, Left; Sutured, Chlorhexadine (CHG) impregnated sponge; X-ray 09/13/22 0800 by Jocelyne Nettles, escort patients Drain 10/01/22; 1659; Clos ed suction (e.g. JOSETTE, Hemovac, Accordion); Left, Lower; Abdomen; 12 FR; #1 10/01/22 1659 by Shivani Skaggs, PETE Tracheostomy Tube (Read Only) 10/18/22; 0745; 7.0 (XLT); Julissa, Cuffed 10/18/22 0745 by Clinton Childs, PETE ETT 09/07/22; 1130 (crea adelaida via procedure documentation); Direct laryngoscopy; Single-Lumen; ETT Size: 8.5mm; Mac; Blade Size: 4; 1-Full view of the glottis; 1 insertion attempt; Auscultation, ETCO2 Detector; 09/17/22; 1640 09/07/22 1130 by Jose Roberto Peña MD 09/17/22 1640 by Calista Simms, RT documented in this encounter Social History Tobacco [...] Sex Assigned at Male 03/28/2022 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 Gender Identity Male 03/28/2022 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 Sexual Orientation Not on file documented as of this encounter Functional Status Functional Status Response Date of Assess ment Does the patient have a hearing impairment: No 09/03/2022 Does the patient have a visual impairment: Yes 07/31/2022 documented as of this encounter OR Notes * Anesthesia Procedure Notes - Joes Roberto Peña MD - 09/07/2022 12:59 PM CDTAssociated Order(s): AIRWAY INSERTION Procedure: Airway Placement AIRWAY INSERTION Date/Time: 09/07/2022 [...] Refer to nursing documentation for vitals/monitoring data Associated attestation - Isaak Garcia MD - 09/07/2022 1:33 PM CDT I was present during the entire procedure performed by a resident. documented in this encounter Plan of Treatment Not on file documented as of this encounter Goals Goal Patient Goal Type Associated Problems Recent Progress Patient-Stated? Author [facility] On track( 023 10:31 AM CDT) Yes Kacie Aguilar, RN Note: Move around without getting an upset stomach documented as of this encounter Procedures Procedure Name Priority Date/Time Associated Diagnosis Comments ANESTHESIA AIRWAY INSERTION Routine 09/07/2022 11:30 AM CDT documented in this encounter Results * ANESTHESIA ETT (09/07/2022 11:30 AM CDT) [...] data Isaak Garcia MD ANESTHESIA ORDERABLE S documented in this encounter Visit Diagnoses Not on filedocumented in this encounter Administered Medications Inactive Administered Medications Medication Order MAR Action Action Date Dose Rate Site propofol (DIPRIVAN) injection Intravenous, Starting on 09/07/22 at 1130, Until 09/07/22 at 1130, Anesthesia Intra-op Given 09/07/2022 11:30 AM CDT 130 mg succinylcholine (ANECTINE) injection Intravenous, Starting on 09/07/22 at 1130, Until 09/07/22 at 1130, Anesthesia Intra-op Given 09/07/2022 11:30 AM CDT 80 mg documented in this encounter Additional Health Concerns Assessment Noted Time A fall risk assessment has been complete d for the patient 09/07/2022 8:00 PM CDT documented as of this encounter Care Teams Tier Truck Driver Relationship Specialty Start Date End Date No Pcp, Na PCP - General 03/28/22 Kendrick Guzman MD [address] [facility] [place] [address] PCP - Oncology Radiation Oncology 05/13/22 Maryann White MD [address] [employer] [employer] [place], [place] [id number] REFERRING Hematology, Internal Medicine 04/11/22 documented as of this encounter
--- OUTSIDE RECORDS SUMMARY | 2022-11-27 13:39 | XMS REPORT | Encounter Summary ---
Author Author [facility] Organization [facility] Address Unknown Phone Unavailable Care Team Providers Care Spot Sprayer Name Role Phone No Pcp, Na PCP Unavailable Kendrick Guzman MD [phone] Maryann White MD [phone] Reason for Visit * Auth/Cert (Routine) Specialty Diagnoses / Procedures Referred By Contac t Referred To Contact Diagnoses Malignant neoplasm of esophagus, unspecified location (HCC) Malignant neoplasm of colon, unspecified part of colon (HCC) Esophageal cancer (HCC) Malignant neoplasm of esophagus, unspecified location (HCC) [C15.9] Malignant neoplasm of colon, unspecified part of colon (HCC) [C18.9] Procedures TN GSTRCT TOT W/TRISTAN-EN-Y RCNSTJ TN TUBE/NEEDLE CATH JEJUNOSTOMY ANY METHOD TN COLECTOMY PARTIAL W/ANASTOMOSIS TN COLOSTOMY/SKIN LEVEL CECOSTOMY TOTAL GASTRECTOMY, TRISTAN-EN-Y GASTROJEJUNOSTOMY; JEJUNOSTOMY TUBE PLACEMENT. SIGMOID COLECTOMY; POSSIBLE OSTOMY; TUBE/ NEEDLE CATHETER JEJUNOSTOMY FOR ENTERAL ALIMENTATION COLECTOMY WITH ANASTOMOSIS - PARTIAL COLOSTOMY/ SKIN LEVEL CECOSTOMY Referral ID Status Reason Start Date Expiration Date Visits Re quested Visits Authorized [id number] 1 1 Encounter Details Date Type Department Care Team Description 09/02/2022 7:58 AM CDT - 09/02/2022 11:59 PM CDT Hospital Encounter Vascular Access Team: 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 Gender Identity Male 03/28/2022 2:05 PM MANAGER DEVELOPMENTAL Sexual Orientation Not on file documented as of this encounter Functional Status Functional Status Response Date of Assess ment Does the patient have a hearing impairment: No 07/31/2022 Does the patient have a visual impairment: [...] Code Departure Means Destination Home or Self Assisted documented in this encounter Plan of Treatment Not on file documented as of this encounter Procedures Procedure Name Priority Date/Time Associated Diagnosis Comments CONSULT VASCULAR ACCESS TEAM Routine 09/02/2022 7:10 AM CDT documented in this encounter Visit Diagnoses Not on filedocumented in this encounter Orders Procedures Count Last Ordered Date First Orde red Date CONSULT VASCULAR ACCESS TEAM 1 09/02/2022 documented in this encounter Additional Health Concerns Assessment Noted Time A fall risk assessment has been complete d for the patient 09/02/2022 9:47 PM CDT documented as of this encounter Care Teams Spot Sprayer Relationship Specialty Start Date End Date No Pcp, Na PCP - General 03/28/22 Kendrick Guzman MD [address] [facility] [place] [address] PCP - Oncology Radiation Oncology 05/13/22 Maryann White MD [address] [place] [address] REFERRING Hematology, Internal Medicine 04/11/22 documented as of this encounter
--- OUTSIDE RECORDS SUMMARY | 2022-11-27 13:39 | XMS REPORT | Encounter Summary ---
Author Author [facility] Organization [facility] Address Unknown Phone Unavailable Care Team Providers Care Customer Service Cashier Name Role Phone No Pcp, Na PCP Unavailable Kendrick Guzman MD [phone] Maryann White MD [phone] Reason for Visit * Reason Onset Date Comments Scheduling 09/13/2022 Encounter Details Date Type Department Care Team Description 09/13/2022 Telephone Otolaryngology: [facility], [id number] [place] [address]. 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 This nurse LVM for patient to call clinic back to schedule. [phone]. Ever Moreira RN documented in this encounter Plan of Treatment Not on file documented as of this encounter Goals Goal Patient Goal Type Associated Problems Recent Progress Patient-Stated? Author [facility] On track( 023 10:31 AM CDT) Yes Kacie Aguilar, PETE Note: Move around without getting an upset stomach documented as of this encounter Visit Diagnoses Not on filedocumented in this encounter Additional Health Concerns Assessment Noted Time A fall risk assessment has been complete d for the patient 09/13/2022 8:00 PM CDT documented as of this encounter Care Teams Customer Service Cashier Relationship Specialty Start Date End Date No Pcp, Na PCP - General 03/28/22 Kendrick Guzman MD [address] [facility] [place] [address] PCP - Oncology Radiation Oncology 05/13/22 Maryann White MD [address] [place], [place] [address] REFERRING MD Hematology, Internal Medicine 04/11/22 documented as of this encounter
--- OUTSIDE RECORDS SUMMARY | 2022-11-27 13:39 | XMS REPORT | Encounter Summary ---
Author Author [facility] Organization [facility] Address Unknown Phone Unavailable Care Team Providers Care Brazer Induction Name Role Phone No Pcp, Na PCP Unavailable Kendrick Guzman MD [phone] Maryann White MD [phone] Reason for Visit * Auth/Cert (Routine) Specialty Diagnoses / Procedures Referred By Contac t Referred To Contact Diagnoses Malignant neoplasm of esophagus, unspecified location (HCC) Malignant neoplasm of colon, unspecified part of colon (HCC) Esophageal cancer (HCC) Malignant neoplasm of esophagus, unspecified location (HCC) [C15.9] Malignant neoplasm of colon, unspecified part of colon (HCC) [C18.9] Procedures NM GSTRCT TOT W/TRISTAN-EN-Y RCNSTJ NM TUBE/NEEDLE CATH JEJUNOSTOMY ANY METHOD NM COLECTOMY PARTIAL W/ANASTOMOSIS NM COLOSTOMY/SKIN LEVEL CECOSTOMY TOTAL GASTRECTOMY, TRISTAN-EN-Y GASTROJEJUNOSTOMY; JEJUNOSTOMY TUBE PLACEMENT. SIGMOID COLECTOMY; POSSIBLE OSTOMY; TUBE/ NEEDLE CATHETER JEJUNOSTOMY FOR ENTERAL ALIMENTATION COLECTOMY WITH ANASTOMOSIS - PARTIAL COLOSTOMY/ SKIN LEVEL CECOSTOMY Referral ID Status Reason Start Date Expiration Date Visits Re quested Visits Authorized [id number] 1 1 Encounter Details Date Type Department Care Team Description 09/20/2022 9:46 AM CDT Anesthesia Event [facility] [address] [facility] [address] [place] [phone] Zohaib Fuentes, [address] [place] [address] Radha Presley PA-C [address] [place] [address] Anesthesia Record Procedure Summary Procedure Name Responsible Anesthesiologist Anesthesia Start Time Anesthesia Stop Time TRACHEOSTOMY PLANNED (Neck) oZhaib Fuentes DO 09/20/22 0946 09/20/22 1102 Events Date Time Event Comment 09/20/2022 0909 In Room 0922 0946 AN Equip Check 0946 Anes Start 0946 An Start Data 0950 An Induction The patient was reevaluated immediately before moderate or deep sedation use and before anesthesia induction. 0954 Anesthesia Ready 1010 Proc Start 1048 An Extubation Replaced the 7 .5 ETT with 8.0 Shiley trach 1100 an stop data 1102 An Stop I completed my SBAR handoff to the receiving nurse. Meds * Agents Name O2 N2O Inspired N2O Sevoflurane Inspired Sevoflurane * Blood No blood administrations on file. Lines, Drains, and Airways Type Details Placement Removal Jejunostomy Tube 09/02/22; 1558; Abdomen, Left Lower Lateral; 16FR (16 Fr red rubber catheter) 09/02/22 1558 by Nnamdi Noel, PETE CVC Triple Lumen 09/13/22; 0800; ICU; Correct Patient, Correct Patient Position, Correct Procedure, Correct Equipment / Implants Available; Hand Hygiene, Cap , Mask, Eye Protection, Sterile Gown, Sterile Gloves, Full Body Sterile Drape; Internal Jugular, Left; Sutured, Chlorhexadine (CHG) impregnated sponge; X-ray 09/13/22 0800 by Jocelyne Nettles, PETE Implantable Port-a-cath Single Lumen 09/02/22 (present on arrival to preop); Subclavian, Left; Yes; Chest X-ray; 09/30/22; 1000 09/02/22 0000 by Kaity Lund RN 09/30/22 1000 by Annette Handy RN Indwelling Urinary Catheter 09/02/22; 0929; Unit (Comment) ([facility] OR); 16 FR; Regular (Two-way); 10/01/22; 1500 09/02/22 0929 by Nnamdi Noel RN 10/01/22 1500 by Carolyn Melendrez RN Wounds (Read Only) 09/02/22; 0934; Surgical incision; Medial, Lower; Abdomen; 10/13/22; 0737 09/02/22 0934 by Nnamdi Noel RN 10/13/22 0737 by Keaton Wright RN Peripheral IV 09/07/22; 1228; R; Upper Arm; 18 G; Inserted by Vascular Access Team, Ultrasound; One; 1.75 inches; Symptomatic (phlebitis, pain, leaking, swelling, infiltration); 09/24/22; 1200 09/07/22 1228 by Krystal Ceja RN 09/24/22 1200 by Fadumo Dover, PETE Nasogastric Tube 09/07/22; 1722; Righ t nostril; 16 FR; X-ray; 44 cm (Inserted by ); 10/18/22; 1800 09/07/22 1722 by Nupur Matos RN 10/18/22 1800 by Clinton Childs RN Wounds (Read Only) 09/12/22; 1800; Skin tear; Anterior, Right; Abdomen; 09/25/22; 0800 09/12/22 1800 by Adriana Espinoza RN 09/25/22 0800 by Lea Fraire, PETE ETT 09/18/22; 0540 (quinn son via procedure documentation); Video laryngoscopy; Single-Lumen; ETT Size: 7.5mm; Blade Size: 3; 1 insertion attempt; ATTESTATION I was present during the entire procedure performed by a resident. Staff name: Zohaib Fuentes DO Date: 09/18/2022 ; 09/20/22; 111109/18/22 0540 by Juve Manzo MD 09/20/22 1112 by Alicia Rabago DO ZZZEndotracheal Tube 09/18/22; 0545; Ora l; 7.5mm; Single-Lumen; Auscultation, ETCO2 Detector, Chest X-Ray; 26 cm; 09/20/22; 1112 09/18/22 0545 by Naty Morales RT 09/20/22 1112 by Alicia Rabago DO Arterial Line 09/18/22; 1030; Femoral, Right; No; Malfunction/replacement ; Yes; 10/17/22; 1930 09/18/22 1030 by Florence Copeland RN 10/17/22 1930 by Racquel Pepper RN Tracheostomy Tube (Read Only) 09/20/22; 1045; 8.0; Julissa Pitts; 10/18/22; 0745 09/20/22 1045 by Jayla Huertas RN 10/18/22 0745 by Clinton Childs RN documented in this encounter Social History [...] Sex Assigned at Male 03/28/2022 2:05 PM 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 Sex: male Procedure Information Anesthesia Start Date/Time: 09/20/22 0946 Procedure: TRACHEOSTOMY PLANNED (Neck) Location: MAIN OR 58 / Main OR/Periop Surgeons: Lit Blas MD Post-Anesthesia Vitals ABP: 110/47 (09/20 1059) Vitals Value Taken Time BP Temp Pulse 102 09/20/22 1112 Respirations SpO2 94 % 09/20/22 1113 O2 Device ABP ART BP Vitals shown include unvalidated device data. Post Anesthesia Evaluation Note Evaluation location: ICU Patient participation: patient intubated, unable to assess; expectation of recovery by ICU physician Level of consciousness: intubated & sedated (trach in place) Pain score: Pain scale: unable to assess secondary to sedation. Pain management: other (unable to assess secondary to sedation) Hydration: normovolemia Temperature: 36.0C - 38.4C Airway patency: adequate (trach in place on vent) Perioperative Events Post-op nausea and vomiting: PONV status: unable to assess. Postoperative Status Cardiovascular status: hemodynamically stable Respiratory status: Respiratory status: on vent for trach. Follow-up needed: none ICU Information VasoactiveDrips:norepinephrine infusion Perioperative Events There were no known notable events for this encounter. Associated attestation - Zohaib Fuentes DO - 09/20/2022 12:04 PM CDT ATTESTATION Post-Anesthesia Evaluation and ICU Transfer Note Attestation: I evaluated the patient and the indicated post-anesthesia care is discharge and transfer to the ICU physician-lead team. Staff name: Zohaib Fuentes DO Date: 09/20/2022 * Anesthesia Preprocedure Evaluation - Zohaib Fuentes DO - 09/20/2022 9:20 AM CDT Anesthesia Pre-Procedure Evaluation Name: Abe Kilgore : 1965 Age: 57 y.o. Sex: male Procedure Info: Procedure Information Date/Time: 09/20/2248 Procedure: TRACHEOSTOMY PLANNED Location: MAIN OR 58 / Main OR/Periop Surgeons: Lit Blas MD Physical Assessment Vital Signs (last filed in past 24 hours): ABP: 83/42 (09/20 857) Temp: 37.7 C (99.8 F) (09/21 399) Pulse: 75 (09/20 699) Respirations: 23 PER MINUTE (09/20 599) SpO2: 94 % (09/20 699) O2 Percent: 40 % (09/20 699) O2 Device: Other (Comment) (09/19 1899) Weight: 99 kg (218 lb 4.1 oz) (09/20 428) Vitals: 09/20/22699 BP: Pulse: 75 Temp: SpO2: 94% O2 Percent: 40 % O2 Device: O2 Liter Flow: Patient History Allergies Allergen Reactions Atorvastatin MUSCLE [...] head/neck radiation Pulmonary Not a current smoker Asthma (infrequent use of albuterol inhaler) well [...] Recently re-intubated 2/2 hypoxic respiratory failure. Cardiovascular Exercise tolerance: >4 METS Beta Rosalind therapy: No Hypertension (well controlled per patient), well controlled DVT (02/2022) No syncope ( lgithheaded with chemotx intermittently, controlled with moving slow with position changes) Currently on Norepi for hypotension GI/Hepatic/Renal GERD, well controlled Esophageal/gastric ca, s/p gastrectomy Neuro/Psych Substance use ( edible medical marijuana for pain, hx of methamphetamine use- none recent, hx of alcohol abuse- sober since 2016), alcohol and methamphetamines Neuropathy (bilateral LE) Chronic benzodiazepine use (gabapentin) Psychiatric history Depression Bipolar disorder Musculoskeletal Back [...] opening: good Airway patency: adequate Pre-existing airway: ETT Dental Findings: Comments: Edentulous - dentures out Cardiovascular Findings: Rhythm: regular Rate: normal Pulmonary Findings: Breath sounds clear to auscultation. Neurological Findings: Alert and oriented x 3 Constitutional findings: No acute distress Well-developed Well-nourished Diagnostic Tests Hematology: Lab Results Component Value Date HGB 7.5 09/20/2022 HCT 23.0 09/20/2022 PLTCT 517 09/20/2022 WBC 18.8 09/20/2022 MCV 92.9 09/20/2022 MCH 30.3 09/20/2022 MCHC 32.5 09/20/2022 MPV 7.5 09/20/2022 RDW 19.0 09/20/2022 General Chemistry: Lab Results Component Value Date NA 137 09/20/2022 K 4.5 09/20/2022 CL 103 09/20/2022 CO2 24 09/20/2022 GAP 10 09/20/2022 BUN 35 09/20/2022 CR 0.79 09/20/2022 GLU 153 09/20/2022 CA 7.4 09/20/2022 ALBUMIN 2.4 09/17/2022 LACTIC 1.5 09/07/2022 OBSCA 1.07 09/06/2022 MG 1.9 09/20/2022 TOTBILI 1.2 09/17/2022 PO4 3.0 09/20/2022 Coagulation: No results found for: PT, PTT, INR PAC RISK ASSESSMENTS: *Bains Activity Status Index (DASI): 50.2 , Calculated METS: 8.91 (score < 25 correlates with increased risk for , RI, and moderate to severe complications, max score 57) *STOP-BANG Score: 4 (total 5-8 high risk for CRIS, 3-4 with HCO3 >28 also high risk. CRIS associated with greater thantwice the odds for respiratory failure, cardiac events, ICU admission, and difficult intubation) Addendum (LT): Discharge Summary from 08/08/[address] [facility]- Patient presenting with SOB, mechanical compression related to constipation, cancer and progression of large hiatal hernia deemed cause of SOB and oxygen desaturation. Symptoms improved with bowel regimen and HFNC. Stable on 3-4 L nasal cannula upon discharge. Anesthesia Plan ASA score: 4 Plan: general and invasive monitoring Special equipment/procedures: Art line Induction method: intravenous NPO status: acceptable Informed Consent Anesthetic plan and risks discussed with spouse and patient. Use of blood products discussed with spouse and patient Blood Consent: consented Plan discussed with: anesthesiologist and resident. PAC Plan Alerts documented in this encounter Plan of Treatment Not on file documented as of this encounter Goals Goal Patient Goal Type Associated Problems Recent Progress Patient-Stated? Author [facility] On track( 023 10:31 AM CDT) Yes Kacie Aguilar, RN Note: Move around without getting an upset stomach documented as of this encounter Visit Diagnoses Not on filedocumented in this encounter Administered Medications Inactive Administered Medications Medication Order MAR Action Action Date Dose Rate Site artificial tears (PF) single dose ophthalmic solution Both Eyes, INTRA-PROCEDURE MED, Starting on Fri09/20/22 at 0951, Until Fri09/20/22 at 1114, Anesthesia Intra-op Given 09/20/2022 9:51 AM CDT 2 drops fentaNYL citrate PF (SUBLIMAZE) injection Intravenous, INTRA-PROCEDURE MED, Starting on Fri09/20/22 at 1020, Until Fri09/20/22 at 1113, Anesthesia Intra-op Given 09/20/2022 10:46 AM CDT 50 mcg documented in this encounter Additional Health Concerns Assessment Noted Time A fall risk assessment has been complete d for the patient 09/20/2022 8:00 PM CDT documented as of this encounter Care Teams Brazer Induction Relationship Specialty Start Date End Date No Pcp, Na PCP - General 03/28/[address] [facility] [place] [address] PCP - Oncology Radiation Oncology 05/13/22 Maryann White MD [address] [place], [place] [phone] REFERRING MD Hematology, Internal Medicine 04/11/22 documented as of this encounter
--- OUTSIDE RECORDS SUMMARY | 2022-11-27 13:39 | XMS REPORT | Encounter Summary ---
Author Author [facility] Organization [facility] Address Unknown Phone Unavailable Care Team Providers Care Burglar Alarm Installer Name Role Phone No Pcp, Na PCP Unavailable Kendrick Guzman MD [phone] Maryann White MD [phone] Reason for Visit * Auth/Cert (Routine) Specialty [...] Expiration Date Visits Re quested Visits Authorized [id number] 1 1 Encounter Details Date Type Department Care Team Description 09/12/2022 9:05 PM CDT Anesthesia Event Intensive Care Unit 28: [facility] [address] [facility] [address] [place] [phone] Nikolay Spring MD [address] [place] [address] Anesthesia Record Procedure Summary Procedure Name Responsible [...] sponge; X-ray 09/13/22 0800 by Jocelyne Nettles, loan documents closer Drain 10/01/22; 165; Clos ed suction (e.g. JOSETTE, Hemovac, Accordion); Left, Lower; Abdomen; 12 FR; #1 10/01/22 165 by Shivani Skaggs, PETE Tracheostomy Tube (Read Only) 10/18/22; 0745; 7.0 (XLT); [place], Cuffed 10/18/22 0745 by Clinton Childs, PETE ETT 09/12/22; 2048 (crea adelaida via procedure documentation); Video laryngoscopy; Single-Lumen; ETT Size: 8mm; GlideScope; Blade Size: 3; 1-Full view of the glottis; 1 insertion attempt; Auscultation, ETCO2 Detector; ATTESTATION I was present during the entire procedure performed by a resident. Staff name: Leatha Pierson DO Date: 09/12/2022 Patient had b/l wheezes on anterior lung euceda with auscultation. Given recruitment breaths with ambu bag after intubation with improvement in SpO2. Increased PEEP on ventilator and ordered a breathing treatment. Given 400 mcg total of phenylephrine to treat hypotension with induction medications.; 09/17/22; 1640 09/12/222048 by Nikolay Spring MD 09/17/221639 by Calista Simms, RT documented in this [...] Sex Assigned at Male 03/28/2022 2:05 PM TECHNICAL AGRONOMIST Gender Identity Male 03/28/2022 2:05 PM TECHNICAL AGRONOMIST Sexual Orientation Not on file documented as of this encounter Functional Status Functional Status Response Date of Assess ment Does the patient have a hearing impairment: No 09/03/2022 Does the patient have a visual impairment: Yes 07/31/2022 documented as of this encounter OR Notes * Anesthesia Procedure Notes - Leatha Pierson DO - 09/12/2022 9:06 PM CDT Associated Order(s): AIRWAY INSERTION Procedure: Airway Placement AIRWAY INSERTION Date/Time: 09/12/2022 8:49 PM Patient location: ICU Urgency: urgent Difficult Airway: No no emergent situation. Verbal consent obtained. Consent given by: relative - obtained by SICU team. Patient identity confirmation: provided demographic data and hospital-assigned identification number Timeout performed Airway Procedure Indication(s) for airway management: CERTIFIED OPHTHALMIC SURGICAL ASSISTANT depression rapid sequence induction Level of sedation [...] intubating stylet Insertion site: oral Blade type: [place] Scope; Laryngoscope/Videolaryngoscope blade size: 3 Cormack-Lehane classification: [...] Refer to nursing documentation for vitals/monitoring data documented in this encounter Plan of Treatment Not on file documented as of this encounter Goals Goal Patient Goal Type Associated Problems Recent Progress Patient-Stated? Author [facility] On track( 023 10:31 AM CDT) Yes Kacie Aguilar, PETE Note: Move around without getting an upset stomach documented as of this encounter Procedures Procedure Name Priority Date/Time Associated Diagnosis Comments ANESTHESIA AIRWAY INSERTION Routine 09/12/2022 8:49 PM CDT documented in this encounter Results * ANESTHESIA ETT (09/12/2022 8:49 PM CDT) [...] performed Airway Procedure Indication(s) for airway management: CERTIFIED OPHTHALMIC SURGICAL ASSISTANT depression rapid sequence induction Level of sedation [...] intubating stylet Insertion site: oral Blade type: [place] Scope; Laryngoscope/Videolaryngoscope blade size: 3 Cormack-Lehane classification: [...] data Leatha Pierson DO ANESTHESIA ORDERABL ES documented in this encounter Visit Diagnoses Not on filedocumented in this encounter Administered Medications Inactive Administered Medications Medication Order MAR Action Action Date Dose Rate Site propofol (DIPRIVAN) injection Intravenous, Starting on Sandra 09/12/22 at 2048, Until Sandra 09/12/22 at 2048, Anesthesia Intra-op Given 09/12/2022 8:49 PM CDT 50 mg rocuronium injection Intravenous, Starting on Sandra 09/12/22 at 2048, Until Sandra 09/12/22 at 2048, Anesthesia Intra-op Given 09/12/2022 8:49 PM CDT 100 mg documented in this encounter Additional Health Concerns Assessment Noted Time A fall risk assessment has been complete d for the patient 09/12/2022 10:00 PM CDT documented as of this encounter Care Teams Burglar Alarm Installer Relationship Specialty Start Date End Date No Pcp, Na PCP - General 03/28/22 Kendrick Guzman MD [address] [facility] [place] [address] PCP - Oncology Radiation Oncology 05/13/22 Maryann White MD [address] [place] [address] REFERRING Hematology, Internal Medicine 04/11/22 documented as of this encounter
--- OUTSIDE RECORDS SUMMARY | 2022-11-27 13:39 | XMS REPORT | Encounter Summary ---
Author Author [facility] Organization [facility] Address Unknown Phone Unavailable Care Team Providers Care Director Of Sustainability Programs Name Role Phone No Pcp, Na PCP Unavailable Kendrick Guzman MD [phone] Maryann White MD [phone] Reason for Visit * Auth/Cert (Routine) Specialty Diagnoses / Procedures Referred By Contjada t Referred To Contact Diagnoses Malignant neoplasm of esophagus, unspecified location (HCC) Malignant neoplasm of colon, unspecified part of colon (HCC) Esophageal cancer (HCC) Malignant neoplasm of esophagus, unspecified location (HCC) [C15.9] Malignant neoplasm of colon, unspecified part of colon (HCC) [C18.9] Procedures IL GSTRCT TOT W/TRISTAN-EN-Y RCNSTJ IL TUBE/NEEDLE CATH JEJUNOSTOMY ANY METHOD IL COLECTOMY PARTIAL W/ANASTOMOSIS IL COLOSTOMY/SKIN LEVEL CECOSTOMY TOTAL GASTRECTOMY, TRISTAN-EN-Y GASTROJEJUNOSTOMY; JEJUNOSTOMY TUBE PLACEMENT. SIGMOID COLECTOMY; POSSIBLE OSTOMY; TUBE/ NEEDLE CATHETER JEJUNOSTOMY FOR ENTERAL ALIMENTATION COLECTOMY WITH ANASTOMOSIS - PARTIAL COLOSTOMY/ SKIN LEVEL CECOSTOMY Referral ID Status Reason Start Date Expiration Date Visits Re quested Visits Authorized [id number] 1 1 Encounter Details Date Type Department Care Team Description 09/18/2022 6:53 AM CDT Anesthesia Event Intensive Care Unit 28: [facility] [address] [facility] [address] [place] [phone] Juve Manzo MD [address] [place], [place] [phone] Anesthesia Record Procedure Summary Procedure Name Responsible [...] sponge; X-ray 09/13/22 0800 by Jocelyne Nettles, blanket winder operator Drain 10/01/22; 1659; Clos ed suction (e.g. JOSETTE, Hemovac, Accordion); Left, Lower; Abdomen; 12 FR; #1 10/01/22 1659 by Shivani Skaggs, PETE Tracheostomy Tube (Read Only) 10/18/22; 0745; 7.0 (XLT); [place], Cuffed 10/18/22 0745 by Clinton Childs, PETE ETT 09/18/22; 0540 (crea adelaida via procedure documentation); Video laryngoscopy; Single-Lumen; ETT Size: 7.5mm; Blade Size: 3; 1 insertion attempt; ATTESTATION I was present during the entire procedure performed by a resident. Staff name: Zohaib Fuentes DO Date: 09/18/2022 ; 09/20/22; 1112 09/18/22 0540 by Juve Manzo MD 09/20/22 111 by Alicia Rabago DO documented in this encounter Social History Tobacco [...] Sex Assigned at Male 03/28/2022 2:05 PM IRONWORKER APPRENTICE SHOP Gender Identity Male 03/28/2022 2:05 PM IRONWORKER APPRENTICE SHOP Sexual Orientation Not on file documented as of this encounter Functional Status Functional Status Response Date of Assess ment Does the patient have a hearing impairment: No 09/03/2022 Does the patient have a visual impairment: Yes 07/31/2022 documented as of this encounter OR Notes * Anesthesia Procedure Notes - Zohaib Fuentes DO - 09/18/2022 6:54 AM CDT Associated Order(s): AIRWAY INSERTION Procedure: Airway Placement AIRWAY INSERTION Date/Time: 09/18/2022 [...] Type Associated Problems Recent Progress Patient-Stated? Author [facility] [place] [facility] On track( 023 10:31 AM CDT) Yes Kacie Aguilar, RN Note: Move around without getting an upset stomach documented as of this encounter Procedures Procedure Name Priority Date/Time Associated Diagnosis Comments ANESTHESIA AIRWAY INSERTION Routine 09/18/2022 5:40 AM CDT documented in this encounter Results * ANESTHESIA ETT (09/18/2022 5:40 AM CDT) [...] data Zohaib Fuentes DO ANESTHESIA ORDERABLE S documented in this encounter Visit Diagnoses * Addendum Note - Zohaib Fuentes DO - 09/18/2022 7:07 AM CDT Addendum created 09/18/22706 by Zohaib Fuentes DO Clinical Note Signed, Diagnosis association updated, Intraprocedure Blocks edited, LDA updated via procedure documentation, SmartForm saved documented in this encounter Administered Medications Inactive Administered Medications Medication Order MAR Action Action Date Dose Rate Site propofol (DIPRIVAN) injection Intravenous, Starting on Fri09/18/22 at 0540, Until Fri09/18/22 at 0540, Anesthesia Intra-op Given 09/18/2022 5:40 AM CDT 100 mg rocuronium injection Intravenous, Starting on Fri09/18/22 at 0540, Until Fri09/18/22 at 0540, Anesthesia Intra-op Given 09/18/2022 5:40 AM CDT 70 mg documented in this encounter Additional Health Concerns Assessment Noted Time A fall risk assessment has been complete d for the patient 09/18/2022 8:00 PM CDT documented as of this encounter Care Teams Director Of Sustainability Programs Relationship Specialty Start Date End Date No Pcp, Na PCP - General 03/28/22 Kendrick Guzman MD [address] [facility] [place] [address] PCP - Oncology Radiation Oncology 05/13/22 Maryann White MD [address] [employer] [place], [place] [address] REFERRING MD Hematology, Internal Medicine 04/11/22 documented as of this encounter
--- OUTSIDE RECORDS SUMMARY | 2022-11-27 13:39 | XMS REPORT | Encounter Summary ---
Author Author [facility] Organization [facility] Address Unknown Phone Unavailable Care Team Providers Care Dramatic Critic Name Role Phone No Pcp, Na PCP Unavailable Kendrick Guzman MD [phone] Maryann White MD [phone] Reason for Visit * Auth/Cert (Routine) Specialty [...] Expiration Date Visits Re quested Visits Authorized [id number] 1 1 Encounter Details Date Type Department Care Team Description 09/07/2022 12:00 PM CDT - 09/07/2022 11:59 PM CDT Hospital Encounter Vascular Access Team: [facility] [address] [facility] [address], [address] [place] [address] Braxton Ferreira MD [address] [place] [address] Discharge Disposition: Home or Self Care Social [...] Sex Assigned at Male 03/28/2022 2:05 PM NEEDLE BAR MOLDER Gender Identity Male 03/28/2022 2:05 PM NEEDLE BAR MOLDER Sexual Orientation Not on file documented [...] Code Departure Means Destination Home or Self Fdc documented in this encounter Plan of Treatment Not on file documented as of this encounter Goals Goal Patient Goal Type Associated Problems Recent Progress Patient-Stated? Author [facility] On track( 023 10:31 AM CDT) Yes Kacie Aguilar, PETE Note: Move around without getting an upset stomach documented as of this encounter Procedures Procedure Name Priority Date/Time Associated Diagnosis Comments CONSULT VASCULAR ACCESS TEAM Routine 09/07/2022 11:54 AM CDT documented in this encounter Visit Diagnoses Not on filedocumented in this encounter Orders Procedures Count Last Ordered Date First Orde red Date CONSULT VASCULAR ACCESS TEAM 1 09/07/2022 documented in this encounter Additional Health Concerns Assessment Noted Time A fall risk assessment has been complete d for the patient 09/07/2022 8:00 PM CDT documented as of this encounter Care Teams Dramatic Critic Relationship Specialty Start Date End Date No Pcp, Na PCP - General 03/28/22 Kendrick Guzman MD [address] [facility] [place] [address] PCP - Oncology Radiation Oncology 05/13/22 Maryann White MD [address] [place] [address] REFERRING Hematology, Internal Medicine 04/11/22 documented as of this encounter
--- OUTSIDE RECORDS SUMMARY | 2022-11-27 13:39 | XMS REPORT | Encounter Summary ---
Author Author [facility] Organization [facility] Address Unknown Phone Unavailable Care Team Providers Care Property Disposal Manager Name Role Phone No Pcp, Na PCP Unavailable Kendrick Guzman MD [phone] Maryann White MD [phone] Reason for Visit * Auth/Cert (Routine) Specialty Diagnoses / Procedures Referred By Contac t Referred To Contact Diagnoses Malignant neoplasm of esophagus, unspecified location (HCC) Malignant neoplasm of colon, unspecified part of colon (HCC) Esophageal cancer (HCC) Malignant neoplasm of esophagus, unspecified location (HCC) [C15.9] Malignant neoplasm of colon, unspecified part of colon (HCC) [C18.9] Procedures MO GSTRCT TOT W/TRISTAN-EN-Y RCNSTJ MO TUBE/NEEDLE CATH JEJUNOSTOMY ANY METHOD MO COLECTOMY PARTIAL W/ANASTOMOSIS MO COLOSTOMY/SKIN LEVEL CECOSTOMY TOTAL GASTRECTOMY, TRISTAN-EN-Y GASTROJEJUNOSTOMY; JEJUNOSTOMY TUBE PLACEMENT. SIGMOID COLECTOMY; POSSIBLE OSTOMY; TUBE/ NEEDLE CATHETER JEJUNOSTOMY FOR ENTERAL ALIMENTATION COLECTOMY WITH ANASTOMOSIS - PARTIAL COLOSTOMY/ SKIN LEVEL CECOSTOMY Referral ID Status Reason Start Date Expiration Date Visits Re quested Visits Authorized [id number] 1 1 Encounter Details Date Type Department Care Team Description 09/06/2022 8:28 PM CDT - 09/06/2022 11:59 PM CDT Hospital Encounter Vascular Access Team: [facility] [address] [facility] [address], [address] [place] [address] Braxton Ferreira MD [address] [place] [address] Discharge Disposition: Home or Self Care Social [...] Sex Assigned at Male 03/28/2022 2:05 PM SENIOR SOFTWARE QA ANALYST Gender Identity Male 03/28/2022 2:05 PM SENIOR SOFTWARE QA ANALYST Sexual Orientation Not on file documented as [...] Code Departure Means Destination Home or Self Retirement documented in this encounter Plan of Treatment Not on file documented as of this encounter Goals Goal Patient Goal Type Associated Problems Recent Progress Patient-Stated? Author [facility] On track( 023 10:31 AM CDT) Yes Kacie Aguilar, PETE Note: Move around without getting an upset stomach documented as of this encounter Procedures Procedure Name Priority Date/Time Associated Diagnosis Comments CONSULT VASCULAR ACCESS TEAM STAT 09/06/2022 7:59 PM CDT documented in this encounter Visit Diagnoses Not on filedocumented in this encounter Orders Procedures Count Last Ordered Date First Orde red Date CONSULT VASCULAR ACCESS TEAM 1 09/06/2022 documented in this encounter Additional Health Concerns Assessment Noted Time A fall risk assessment has been complete d for the patient 09/06/2022 9:00 PM CDT documented as of this encounter Care Teams Property Disposal Manager Relationship Specialty Start Date End Date No Pcp, Na PCP - General 03/28/22 Kendrick Guzman MD [address] [place] [address] PCP - Oncology Radiation Oncology 05/13/22 Maryann White MD [address] [place] [address] REFERRING Hematology, Internal Medicine 04/11/22 documented as of this encounter
--- OUTSIDE RECORDS SUMMARY | 2022-11-27 13:39 | XMS REPORT | Encounter Summary ---
Author Author [facility] Organization [facility] Address Unknown Phone Unavailable Care Team Providers Care Metal Filer Name Role Phone No Pcp, Na PCP Unavailable Kendrick Guzman MD [phone] Maryann White MD [phone] Reason for Visit * Reason Onset Date Comments Scheduling 09/16/2022 Encounter Details Date Type Department Care Team Description 09/16/2022 Telephone Otolaryngology: [facility], [id number] [place] [address]. [address], [address] [place] [address] Ever Moreira RN Scheduling Social [...] Sex Assigned at Male 03/28/2022 2:05 PM GRAPE CUTTER Gender Identity Male 03/28/2022 2:05 PM GRAPE CUTTER Sexual Orientation Not on file documented as of this encounter Functional Status Functional Status Response Date of Assess ment Does the patient have a hearing impairment: No 09/03/2022 Does the patient have a visual impairment: Yes 07/31/2022 documented as of this encounter Miscellaneous Notes * Telephone Encounter - Ever Moreira RN - 09/16/2022 9:13 AM CDT This nurse called and LVM for patient to call clinic back to schedule follow-up appointment. [phone]. Ever Moreira RN documented in this encounter Plan of Treatment Not on file documented as of this encounter Goals Goal Patient Goal Type Associated Problems Recent Progress Patient-Stated? Author [facility] On track( 023 10:31 AM CDT) Yes Kacie Aguilar, PETE Note: Move around without getting an upset stomach documented as of this encounter Visit Diagnoses Not on filedocumented in this encounter Additional Health Concerns Assessment Noted Time A fall risk assessment has been complete d for the patient 09/16/2022 8:00 PM CDT documented as of this encounter Care Teams Metal Filer Relationship Specialty Start Date End Date No Pcp, Na PCP - General 03/28/22 Kendrick Guzman MD [address] [facility] [place] [address] PCP - Oncology Radiation Oncology 05/13/22 Maryann White MD [address] [employer] [place], [place] [id number] REFERRING MD Hematology, Internal Medicine 04/11/22 documented as of this encounter
--- OUTSIDE RECORDS SUMMARY | 2022-11-27 13:39 | XMS REPORT | Encounter Summary ---
Author Author [facility] Organization [facility] Address Unknown Phone Unavailable Care Team Providers Care Search Engine Optimization Consultant Name Role Phone No Pcp, Na PCP Unavailable Kendrick Guzman MD [phone] Maryann White MD [phone] Reason for Visit * Auth/Cert (Routine) Specialty Diagnoses / Procedures Referred By Contjada t Referred To Contact Diagnoses Malignant neoplasm of esophagus, unspecified location (HCC) Malignant neoplasm of colon, unspecified part of colon (HCC) Esophageal cancer (HCC) Malignant neoplasm of esophagus, unspecified location (HCC) [C15.9] Malignant neoplasm of colon, unspecified part of colon (HCC) [C18.9] Procedures DE GSTRCT TOT W/TRISTAN-EN-Y RCNSTJ DE TUBE/NEEDLE CATH JEJUNOSTOMY ANY METHOD DE COLECTOMY PARTIAL W/ANASTOMOSIS DE COLOSTOMY/SKIN LEVEL CECOSTOMY TOTAL GASTRECTOMY, TRISTAN-EN-Y GASTROJEJUNOSTOMY; JEJUNOSTOMY TUBE PLACEMENT. SIGMOID COLECTOMY; POSSIBLE OSTOMY; TUBE/ NEEDLE CATHETER JEJUNOSTOMY FOR ENTERAL ALIMENTATION COLECTOMY WITH ANASTOMOSIS - PARTIAL COLOSTOMY/ SKIN LEVEL CECOSTOMY Referral ID Status Reason Start Date Expiration Date Visits Re quested Visits Authorized [id number] 1 1 Encounter Details Date Type Department Care Team Description 09/07/2022 3:35 AM CDT - 09/07/2022 11:59 AM CDT Hospital Encounter Vascular Access Team: [facility] [address] [facility] [address], [address] [place] [address] Braxton Ferreira MD [address] [place] [address] Discharge Disposition: Home or Self Care Social [...] Sex Assigned at Male 03/28/2022 2:05 PM ROVING TESTER LABORATORY Gender Identity Male 03/28/2022 2:05 PM ROVING TESTER [employer]ORATORY Sexual Orientation Not on file documented as [...] Type Associated Problems Recent Progress Patient-Stated? Author [facility] On track( 023 10:31 AM CDT) Yes Kacie Aguilar, PETE Note: Move around without getting an upset stomach documented as of this encounter Procedures Procedure Name Priority Date/Time Associated Diagnosis Comments CONSULT VASCULAR ACCESS TEAM Routine 09/07/2022 3:21 AM CDT documented in this encounter Visit Diagnoses Not on filedocumented in this encounter Orders Procedures Count Last Ordered Date First Orde red Date CONSULT VASCULAR ACCESS TEAM 1 09/07/2022 documented in this encounter Additional Health Concerns Assessment Noted Time A fall risk assessment has been complete d for the patient 09/07/2022 8:00 PM CDT documented as of this encounter Care Teams Search Engine Optimization Consultant Relationship Specialty Start Date End Date No Pcp, Na PCP - General 03/28/22 Kendrick Guzman MD [address] [facility] [place] [address] PCP - Oncology Radiation Oncology 05/13/22 Maryann White MD [address] [place] [address] REFERRING Hematology, Internal Medicine 04/11/22 documented as of this encounter
--- OUTSIDE RECORDS SUMMARY | 2022-11-27 13:40 | XMS REPORT | Encounter Summary ---
Author Author [facility] Organization [facility] Address Unknown Phone Unavailable Care Team Providers Care Care Director Rn Name Role Phone No Pcp, Na PCP Unavailable Kendrick Guzman MD [phone] Maryann White MD [phone] Encounter Details Date Type Department Care Team Description 08/05/2022 - 08/05/2022 11:59 PM CDT Hospital Encounter Imaging: [facility] [address], [address] [place] [address] Discharge Disposition: Home or Self Care Social History Tobacco Use Types Packs/Day Years Used Date Smoking Tobacco: Never Smokeless Tobacco: Former Chew Quit: 03/2022 Alcohol Use Standard Drinks/Week Comments Not Currently 0 (1 standard drink = 0.6 oz pur e alcohol) Alcohol Use Answer Date Recorded Alcohol Use No Male: 9+ ounces (15+ Standard Drinks) per week T hreshold 0 Female: 4.8+ ounces (8+ Standard Drinks) per wee k Threshold Not on file Sex and Gender Information Value Date Recorded Sex Assigned at Male 03/28/2022 2:05 PM CLIENT APPLICATION SUPPORT ENGINEER Gender Identity Male 03/28/2022 2:05 PM CLIENT APPLICATION SUPPORT ENGINEER Sexual Orientation Not on file COVID-19 Exposure Response Date Recorded In the last 10 days, have yo u been in contact with someone who was confirmed or suspected to have Coronavirus/COVID-19? No / Unsure 07/31/2022 9:32 AM CDT documented as of this encounter Functional Status [...] of acetaminophen in 24 hours. 0 10/29/2022 ARIPiprazole (ABILIFY) 20 mg tablet Take one-half [...] three times daily. 90 tablet 0 10/29/2022 apixaban (ELIQUIS) 5 mg tablet Take one [...] conc = 4 mcg/mL 0 10/29/2022 10/29/2022 metroNIDAZOLE (FLAGYL) 500 mg tabletIndications:ER pre-surgical preparation Please take at the following times: " 1pm: Take 2 tablets of Flagyl (500mg tablets) " 3pm: Take 2 tablets of Flagyl (500mg tablets) " 11pm: Take 2 tablets of Flagyl (500mg tablets) *Please try to take all the antibiotics. Indications: ERAS pre-surgical preparation 6 tablet 0 07/31/2022 08/22/2022 micafungin (MYCAMINE) 100 mg in sodium chloride 0.9% (NS) 100 mL IVPBIndications:intr a-abdominal infection Administer one hundred mg through vein every 24 hours. Indications: intra-abdominal infection 0 10/29/2022 10/30/2022 neomycin (MYCIFRADIN) 500 mg tabletIndications:ER pre-surgical preparation Please take at the following times: " 1pm: Take 2 tablets of Neomycin (500mg tablets) " 3pm: Take 2 tablets of Neomycin (500mg tablets) " 11pm: Take 2 tablets of Neomycin (500mg tablets) *Please try to take all the antibiotics. Indications: ERAS pre-surgical preparation 6 tablet 0 07/31/2022 08/22/2022 PRESURGERY KIT AIndications:ERAS pre-surgical preparation Use as directed. Indications: ERAS pre-surgical preparation 1 kit 0 07/31/2022 08/22/2022 documented as of this encounter Discharge Disposition Disposition Code Departure Means Destination Home or Self Half-Way documented in this encounter Plan of Treatment Not on file documented as of this encounter Procedures Procedure Name Priority Date/Time Associated Diagnosis Comments CT CHEST EXTERNAL IMAGING Routine 08/05/2022 12:00 AM CDT documented in this encounter Results * CT CHEST EXTERNAL IMAGING (08/05/2022 12:00 AM CDT) Narrative Scheduling, Silent - 08/11/2022 8:42 AM CDT This order has been auto finalized and does not contain a result. Radiologist Outpatient RADIOLOGY EXTERNA L ORDERABLES documented in this encounter Visit Diagnoses Not on filedocumented in this encounter Care Teams Care Director Rn Relationship Specialty Start Date End Date No Pcp, Na PCP - General 03/28/22 Kendrick Guzman MD [address] [place] [address] PCP - Oncology Radiation Oncology 05/13/22 Maryann White MD [address] [place], [place] [id number] REFERRING MD Hematology, Internal Medicine 04/11/22 documented as of this encounter
--- OUTSIDE RECORDS SUMMARY | 2022-11-27 13:40 | XMS REPORT | Encounter Summary ---
Author Author [facility] Organization [facility] Address Unknown Phone Unavailable Care Team Providers Care Optician Apprentice Name Role Phone No Pcp, Na PCP Unavailable Kendrick Guzman MD [phone] Maryann White MD [phone] Reason for Visit * Reason Comments New CA Pt * Consult, Test & Treat (Routine) - Closed Specialty Diagnoses / Procedures Referred By Contjada t Referred To Contact Oncology Diagnoses GE junction carcinoma (HCC) Asad Byrd MD [address] [place] [address] Braxton Ferreira MD [address] [place] [address] Referral ID Status Reason Start Date Expiration Date V isits Requested Visits Authorized [id number] Closed Specialty Services Required 04/12/2022 10/27/2022 1 1 Encounter Details Date Type Department Care Team Description 07/31/2022 10:00 AM CDT Office Visit Oncology: [facility] 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) Social History Tobacco Use Types Packs/Day Years Used Date Smoking Tobacco: Never Smokeless Tobacco: Former Chew Quit: 03/2022 Tobacco Cessation:Counseling Given: Not Answered Alcohol Use Standard Drinks/Week Comments Not Currently 0 (1 standard drink = 0.6 oz pur e alcohol) Alcohol Use Answer Date Recorded Alcohol Use No Male: 9+ ounces (15+ Standard Drinks) per week T hreshold 0 Female: 4.8+ ounces (8+ Standard Drinks) per wee k Threshold Not on file Sex and Gender Information Value Date Recorded Sex Assigned at Male 03/28/2022 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 No / Unsure 07/31/2022 9:32 AM CDT documented as of this encounter Last Filed Vital Signs Vital Sign Reading Time Taken Comments Blood Pressure 126/82 07/31/2022 10:49 AM CDT Pulse 61 07/31/2022 10:49 AM CDT Temperature 36.2 C (97.2 F) 07/31/2022 10:49 AM C DT Respiratory Rate 16 07/31/2022 10:49 AM CDT Oxygen Saturation 95% 07/31/2022 10:49 AM CDT Inhaled Oxygen Concentration - - Weight 99.8 kg (220 lb) 07/31/2022 10:49 AM CDT Height 182.9 cm (6') 07/31/2022 10:49 AM CDT Body Mass Index 29.84 07/31/2022 10:49 AM CDT documented in this encounter Functional Status Functional Status Response Date of Assess ment Does the patient have a hearing impairment: No 07/31/2022 Does the patient have a visual impairment: Yes 07/31/2022 documented as of this encounter Progress Notes * Braxton Ferreira MD - 07/31/2022 10:00 AM CDT Images from the original note were not included. Name: Abe Kilgore : 1965 AGE: 56 y.o. DATE OF SERVICE: 07/31/2022 Subjective: Reason for Visit: No chief complaint on file. Abe Kilgore is a 56 y.o. male. Cancer Staging No matching staging information was found for the patient. History of Present Illness Abe Kilgore is a 56 y.o. male with HTN, PE (eliquis) presenting for surgical evaluation of sigmoid colon and GE junction adenocarcinoma. EGD/colonoscopy (01/24/2022) esophageal mass demonstratedjunctional type mucosa with poorly differentiated adenocarcinoma with associated goblet cell/intestinal type metaplasia of the proximal, gastric mass with poorly differentiated adenocarcinoma, Sigmoid colon with moderately differentiated adenocarcinoma. 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 In February, CEA 82.3. 04/24/2022 [facility] EGD showed ulcerated, friable, nodular mass lesion at the distal esophagus extending 35 - 40cm. GE junction was at 40 cm. At least 7 nodes seen around distal esophagus to proximal stomach measuring 7mm to 15mm. EUS stage - T3, N3, Mx. 05/21/2022 started concurrent neoadjuvant carboplatin and paclitaxel with XRT and completed 07/23 neoadjuvant carboplatin and paclitaxel with XRT 06/25/2022. CT 07/04/2022 with partially im proved distal esophageal mucosal mass lesion with partly improved paraesophageal likely metastatic LA. Today, he reports that he is feeling well overall since neoadjuvant chemo/radiation completed. Endorses mild difficulty swallowing but tolerating small meals and protein shakes without difficulty. Maintaining weight. Notes very small volume of blood with BMs when he wipes, attributes this to hemorrh oids. Denies fever, chills, SOA, chest pain, nausea, vomiting, diarrhea, constipation, melena, changes in bowel or bladder. Clinical Course: 01/24/2022 egd and colonoscopy report Path 03/03/2022 CT C 03/25/2022 MRI Brain 03/25/2022 PET [facility] 03/26/2022 EGD with EUS and EUS Flex Sig Dr Hardin Periaortic LN aspirate with evidence of metastatic adenocarcinoma with focal signet ring morphology 03/27/2022 Oncology OV 04/24/2022 [facility] EGD showed ulcerated, friable, nodular mass lesion at the distal esophagus extending 35- 40cm. GE junction was at 40 cm. At least 7 nodes seen around distal esophagus to proximal stomachmeasuring 7mm to 15mm. EUS stage - T3, N3, Mx. 07/04/2022 CT AP with partially improved distal esophageal mucosal mass lesion with partly improved paraesophageal likely metastatic LA. 07/16/2022 oncology follow up Prior Treatment (XRT, Surgery, Chemotherapy): 06/28/2022 Radiation end of tx summary with concurrentcarbo paclitaxel Medical History: Diagnosis Date GERD (gastroesophageal reflux disease) HTN (hypertension) PE (pulmonary thromboembolism) (HCC) 02/2022 Surgical History: Procedure Laterality Date ESOPHAGOGASTRODUODENOSCOPY WITH ENDOSCOPIC ULTRASOUND EXAMINATION - FLEXIBLE N/A 04/24/2022 Performed by Martin Aguayo MD at [facility] ESOPHAGOGASTRODUODENOSCOPY WITH SPECIMEN COLLECTION BY BRUSHING/ WASHING N/A 04/24/2022 Performed by Martin Aguayo MD at [facility] No family history on file. Social History Socioeconomic History Marital status: Tobacco Use Smoking status: Never Smokeless tobacco: Never Substance and Sexual Activity Alcohol use: Not Currently Drug use: Never Review of Systems Constitutional: Negative. Negative for activity change, appetite change, chills, fever and unexpected weight change. HENT: Negative. Eyes: Negative. Respiratory: Negative. Cardiovascular: Negative for chest pain. Gastrointestinal: Positive for blood in stool (on toilet tissue ). Negative for abdominal pain, constipation, diarrhea, nausea and vomiting. Endocrine: Negative. Genitourinary: Negative. Musculoskeletal: Negative. Skin: Negative. Allergic/Immunologic: Negative. Neurological: Negative. Hematological: Negative. Psychiatric/Behavioral: Negative. The remainder of the complete 12-point comprehensive ROS is otherwise entirely negative. Medical History: Diagnosis Date Arthritis Cancer of colon (HCC) Cancer of esophagus (HCC) GERD (gastroesophageal reflux disease) HTN (hypertension) On supplemental oxygen therapy PE (pulmonary thromboembolism) (HCC) 02/2022 Surgical History: Procedure Laterality Date ESOPHAGOGASTRODUODENOSCOPY WITH ENDOSCOPIC ULTRASOUND EXAMINATION - FLEXIBLE N/A 04/24/2022 Performed by Martin Aguayo MD at [facility] ESOPHAGOGASTRODUODENOSCOPY WITH SPECIMEN COLLECTION BY BRUSHING/ WASHING N/A 04/24/2022 Performed by Martin Aguayo MD at [facility] COLONOSCOPY HX CHOLECYSTECTOMY Family History Problem Relation Age of Onset Depression Mother Stroke Mother Arthritis-osteo Mother Arthritis-rheumatoid Mother Stroke Father Social History Socioeconomic History Marital status: Tobacco Use Smoking status: Never Smokeless tobacco: Former Types: Chew Quit date: 03/2022 Substance and Sexual Activity Alcohol use: Not Currently Drug use: Yes Types: Marijuana Objective: apixaban (ELIQUIS) 5 mg tablet Take one tablet by mouth twice daily. cetirizine (ZYRTEC) 10 mg tablet one tablet. gabapentin (NEURONTIN) 300 mg capsule two capsules. lisinopriL (ZESTRIL) 10 mg tablet one tablet. pantoprazole DR (PROTONIX) 40 mg tablet one tablet. There were no vitals filed for this visit. There is no height or weight on file to calculate BMI. Pain Addressed: N/A Patient Evaluated for a Clinical Trial: Patient currently in screening for a treatment clinical trial. Eastern Cooperative Oncology Group performance status is 1, Restricted in physically strenuous activity but ambulatory and able to carry out work of a light or sedentary nature, e.g., light house work, office work. Physical Exam Vitals reviewed. Constitutional: General: He is not in acute distress. Appearance: He is not ill-appearing, toxic-appearing or diaphoretic. HENT: Head: Normocephalic and atraumatic. Nose: Nose normal. Mouth/Throat: Mouth: Mucous membranes are moist. Pharynx: Oropharynx is clear. No oropharyngeal exudate or posterior oropharyngeal erythema. Eyes: General: No scleral icterus. Right eye: No discharge. Left eye: No discharge. Extraocular Movements: Extraocular movements intact. Conjunctiva/sclera: Conjunctivae normal. Pupils: Pupils are equal, round, and reactive to light. Cardiovascular: Rate and Rhythm: Normal rate. Pulses: Normal pulses. Pulmonary: Effort: Pulmonary effort is normal. No respiratory distress. Breath sounds: Normal breath sounds. No stridor. No wheezing. Abdominal: General: Abdomen is flat. Bowel sounds are normal. There is distension (mild). Palpations: Abdomen is soft. There is no mass. Tenderness: There is no abdominal tenderness. There is no guarding or rebound. Hernia: No hernia is present. Comments: Previous lap enedelia port incisions well healed Musculoskeletal: General: No tenderness, deformity or signs of injury. Normal range of motion. Cervical back: Normal range of motion and neck supple. No rigidity. No muscular tenderness. Lymphadenopathy: Cervical: No cervical adenopathy. Skin: General: Skin is warm and dry. Coloration: Skin is not jaundiced or pale. Findings: No erythema or rash. Neurological: General: No focal deficit present. Mental Status: He is alert and oriented to person, place, and time. Mental status is at baseline. Motor: No weakness. Psychiatric: Mood and Affect: Mood normal. Behavior: Behavior normal. Thought Content: Thought content normal. Judgment: Judgment normal. Assessment and Plan: Abe Kilgore is a 56 y.o. male with HTN, PE (eliquis) presenting for surgical evaluation of sigmoid colon and GE junction adenocarcinoma. - Imaging, laps and pathology reviewed and discussed with patient - Tentative plan for exploratory laparotomy with total gastrectomy with viri en y, sigmoidectomy, possible ostomy creation and any other indicated procedures. The RBA discussed including Bleeding, infection, pain, damage to surrounding structures, hernia, anastomotic leak, incomplete resection, recurrence, poor wound healing, need for additional procedures, VT, stroke, - Will discuss at [facility] repeat EGD prior to OR - Patient will need preoperative PAT evaluation, hold eliquis prior to OR if able - RTC postoperatively Discussed with MD Carmelita Pina DO, MPH, NATHANAEL General Surgery Resident, PGY-1 ATTESTATION I personally performed the ashraf portions of the E/M visit, discussed case with resident and concur with resident documentation of history, physical exam, assessment, and treatment plan unless otherwise noted. I had a long discussion with Mr. Porras about the natural history of a gastroesophageal junction adenocarcinoma and its general management, while focusing on surgical intervention. He has a Siewert type II GE junction tumor with extension into the gastric cardia and some extension into the distal es ophagus, that may be amenable to a total gastrectomy, s/p neoadjuvant chemoradiation therapy. He also has a sigmoid colon cancer that needs to be managed via a sigmoid colectomy. I feel it is reasonable to perform both procedures in one operation. The rationale for this approach was discussed with the patient, who seemed to understand the reasoning for the recommendation(s). I answered all questions to the patient's satisfaction. He wishes to proceed with the proposed plan and operation. The risks and benefits of surgery were discussed in detail with the patient. I answered all questions to the patient's satisfaction. A consent form was signed. Staff name: Braxton Ferreira MD Date: 08/04/2022 documented in this encounter Miscellaneous Notes * Patient Instructions - Jayne Addison RN - 07/31/2022 10:00 AM CDT Images from the original note were not included. The [facility] Surgery Instructions Surgery Date: 09/19 (Please be aware that this appointment for your surgery will not be visible in the [email or web address] portal.) Location: Your surgery will be held at [facility] ([address] [place] [address].) Where to park on the day of surgery: Parking Garage (located just north of [address] on [facility]) Where to check in on the day of surgery: In the Admitting office (located on Level 1 of [facility]) Arrival Time: The OR scheduling office must finalize the OR schedule before we can provide a time for your surgery. Please do not call your physicians office about surgery arrival time. Your surgery start time andarrive times will be called out to you the day before your procedure between 2pm-4:30pm. If you have not heard from the hospital regarding your surgery time by 4:30PM the evening before your surgery, please call [phone]. The day of the procedure, if you cannot keep your appointment, or are delayed, please contact the surgery center immediately at [phone]. Illness: If you develop symptoms of illness within 14 days of your procedure, please call [phone]. Ask to be connected to Jayne Addison (Nurse for Dr. Ferreira).. Symptoms of concerns can included: Fever or chills, Cough, Shortness of breath or difficulty breathing, Fatigue, Muscle or body aches, Headache, New loss of taste or smell, Sore throat, Congestion orrunny nose, Nausea or vomiting, Diarrhea. Eating and drinking: You must be on a clear liquid beginning the day before to surgery. Beginning at 11pm the night prior to surgery, please limit your fluid intake to only sips or small amounts (1-2oz) of water and clear liquids. ALL CLEAR LIQUIDS AND WATER must be stopped 2 hours before you need to arrive to the hospital the day of your surgery. (Be aware, you can take a small sip of water with medications the morning of surgery, if necessary.) Bowel Prep: Full bowel prep (Pre-Surgical Kits: A pre-surgical kit will be delivered directly to your home address. There will be instructions along with products you will need to prepare for surgery. Please open this kit, read the instructions upon it's arrival to your home. If you have not received at least 1 .5 week in advance to your surgery, please call the [facility] with [facility] at Phone number [phone] or notify your physician's nurse.) Hygiene: Shower the night before and the morning of your procedure with Hibiclens (wipes will be delivered in your pre-surgical kit). Personal Items: Do not wear makeup, fingernail pashto, lotion, deodorant, or perfume Remove all metal jewelry and piercings. Bring a storage container for your glasses, contacts, hearing aids, dentures, etc. Thing to Bring: Personal identification (ID) Insurance card Medications: You will be given medication instructions by the Pre-Operative Assessment Clinic (PAC). If you haveNOT been scheduled a Pre-Operative Assessment appointment, you will receive a phone call to be triaged by the anesthesia team. Please be sure to speak with the anesthesia team or attend your PAC appointment if setup for you. If you do not, this may result in cancellation or delay of your surge ry. If you did not receive medication instructions, or have questions about any of your current medications, as it relates to the day of your surgery, please call [phone]. Transportation/Visitor Policy: Please be aware of the following: You are to be admitted into the hospital following surgery. A visitor will be allowed to stay the night with you once you have been admitted into a hospital room. When you are ready to be discharged,if no visitor is present, they will call your friend/family to notify them when to pick you up fromthe hospital. For the safety of our patients, the health system has limited visitors due to the recent COVID-19 crisis. A maximum of 2 total visitors are allowed during your hospital admission each day. During the time of your surgery, due to the size of the perioperative waiting room, only 1 visitor is allowed in the designated waiting room. If you have 2 visitors during the time of your surgery, please know your visitors will be asked to find a place to wait in the hospital lobby or cafeteria and will be notified by the nurse liaison team, when you are out of surgery. No visitors are allowed in pre/post patient care areas until a patient is transferred to a patient room. No visitors are allowed for patients with active COVID-19 infections. Any visitors who have a feveror other cold- or flu-like symptoms will not be allowed in The [facility] facilities. We encourage all visitors to wash their hands or use hand teacher of the deaf when entering or exiting patient rooms. Mask wearing, although not required at this time, is still highly encouraged. Thank you for understanding our visitation policies. We will continue to evaluate our recommendations and keep you updated on revisions based on public health guidance. FMLA: If you have any FMLA or Short Term Disability Paperwork needs, you may have these faxed to [phone] to Jayne Addison RN. Be sure your name and birthday are on the forms, along with a return fax number for this office to return them to once completed. Please allow up to 7-10 business days for completion of paperwork. Billing Questions: A member of the business office will verify your medical benefits with your insurance company priorto your surgery. If you have questions about understanding the cost of your care please call the Financial Customer Service at [phone]. ERAS (Enhanced Recovery After Surgery): You have been enrolled in a special program called Enhanced Recover After Surgery. This Program uses interventions that have been shown to reduce complications like blood clots, pneumonia and infection. It also helps to get you home sooner. Ashraf points are to do the presurgical exercises and walking program (which you will ready about below), drink your nutrition shakes before and after surgery asinstructed, get up and walk as much as possible after surgery and follow your hospital nurse's instructions about bathing and gum chewing after surgery. Presurgical Kits: You will be ordered a presurgical kit. This Presurgical Kit will include products designed to prepare you for surgery and assist in your recovery. If pre-operative antibiotics are indicated for your surgery, these will be included within the kit.There is a small fee for antibiotics included in this kit. Your insurance should help cover the cost of these antibiotics, but whatever is not covered by your insurance, will be your responsibility to pay. Payment method for these antibiotics must be on file before the kit will be shipped to your home. If you receive a call from the [facility], it is likely a they need to enter a payment method in your account before they can ship this kit.) If you have not received this kit and it is 1.5 weeks prior to the date of your procedure, please call the [facility] at phone number [phone] to inquire about the status of this kit. PreSurgical Dietary Consultation: You may receive a call from a flight operations coordinator prior to surgery. They may schedule a telephone call with you to discuss pre-surgical nutrition. Be aware, not every patient will receive a call. Before Surgery Walking Program: Your healthcare team would like you to participate in a walking program prior to your upcoming abdominal surgery. This will help to increase your endurance and strength before undergoing surgery. It is recommended that you make time to walk 5 days out of every week. Beginner Program Week 1: Begin with a 15-minute walk 5 minute warm up, 5 minute brisk walk, 5 minute cool down Walk at a light to moderate intensity. You should be able to talk when walking Add an additional 5 minutes or more every week as able to tolerate Week 2: 20 minutes 5 minute warm up, 10 minute walk, 5 minute cool down Week 3: 25 minutes 5 minute warm up, 10 minute walk, 5 minute cool down Week 4:30 minutes 5 minute warm up, 15 minute walk, 5 minute cool down You may break you walks up throughout the day if necessary. Remember to always rest as necessary and you should discontinue walking if you experience increasedpain or dizziness. Where to walk: You can start with your neighborhood, a park, track, mall, living room, or gym. If you have peripheral neuropathy or are unable to walk, a stationary bike may be more appropropriate. Patients undergoing chemotherapy or radiation may have lower tolerance to exercise. A walking program is still recommended however you may want to lower frequency and intensity of the program Your healthcare team would like you to participate in a walking program prior to your upcoming abdominal surgery. This will help to increase your endurance and strength before undergoing surgery. It is recommended that you make time to walk 5 days out of very week. Advanced Program Week 1: Begin with a 30-minute walk 5 minute warm up, 20 minute walk, 5 minute cool down Walk at a brisk or vigorous speed if able Add an additional 10 or more minutes every week as able to tolerate Week 2: 40 minute walk 5 minute warm up, 30 minute walk, 5 minute cool down Week 3: 50 minute walk 5 minute warm up, 40 minute walk, 5 minute cool down Week 4: 60 minute walk 5 minute warm up, 40 minute walk, 5 minute cool down You may break you walks up multiple times throughout the day if needed. Remember to always rest as necessary you should discontinue walking if you experience increased pain or dizziness. Target is 14-17 RPE (rate of perceived exertion) Where to walk: You can start with your neighborhood, a park, track, mall, living room, or gym. Abdominal Surgery Prehab Exercises: Lower Extremity Strengthening Complete each exercise 5 times, then increase your repetitions as tolerated. SIT TO STAND Start seated in a chair. Without using your arms, slowly rise to full standing position. You can use your arms if you are unable to complete this exercise without them. Slowly return to sitting. SIDE KICK Hold onto table, counter or sturdy chair for balance. Keep knee straight, toes pointed forward, move one leg outward. Return to start position. Repeat with other leg. BRIDGING Lie on your back with your knees bent and feet on the bed. Squeeze your buttocks muscles and slowly lift your hips off the bed to create a bridge with your body. Hold for 3 seconds and then lower yourself back to bed. Please refer to the Getting into and out of bed after abdominal surgery handout for furthereducation. Enhanced Recovery After Surgery Education and Ostomy Videos ERAS overview (colorectal only) Click here to be routed to video or visit [email or web address] 2. Home exercises before your surgery: Click here or visit [email or web address] 3. Exercises before your surgery #2: Click here or visit [email or web address] 4. Your epidural catheter after surgery: Click here or visit [email or web address] 5. What is an epidural?: Click here or visit [email or web address] 6. How to get out of bed after your surgery: Click here or visit [email or web address] 7. Activity after your surgery: Click here or visit [email or web address] 8. What is an ostomy: Click here or visit [email or web address] 9. Choosing your ostomy bag: Click Here to be routed to video or visit [email or web address] 10. Emptying your ostomy pouch: Click here or visit [email or web address] 11. Bathing with your stoma: Click here or visit [email or web address] 12. Managing ostomy complications: Click here or visit [email or web address] PLEASE BE AWARE, EVERYTHING AFTER THIS POINT IS EDUCATION FOR AFTER SURGERY CARE: Back Safety: Getting Into and Out of Bed Safety Tip: After you stand up, wait a moment before walking to be sure youre not dizzy. Good posture protects your back when you sit, stand, and walk. It is also important while getting into and out of bed. Follow the steps below to get out of bed. Reverse them to get into bed. Roll Onto Your Side 1. Roll Onto Your Side Bend your knees up and keep them together. Reach your opposite arm across your body towards the direction of the roll. Roll your shoulders and hips at the same time, like a log, to avoid twisting. Raise Your Body 2. Raise Your Body Place hands on the bed in front of you. Bring your legs off the edge of the bed, as you push your upper body up with your arms. Allow the weight of your legs to help you move. Stand Up 3. Stand Up Lean forward from your hip and roll onto the balls of your feet. Flatten your stomach muscles to keep your back from arching. Using your arm and leg muscles, push yourself to a standing position. If you have questions, please call [phone]. Ask to be connected to Jayne Addison (Nurse for ). If your needs are URGENT and its after hours please call [phone] and have the sanitation laborer provider with Surgical Oncology paged. 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
--- OUTSIDE RECORDS SUMMARY | 2022-11-27 13:40 | XMS REPORT | Encounter Summary ---
Author Author [facility] Organization [facility] Address Unknown Phone Unavailable Care Team Providers Care Rubber Flap Cutter Name Role Phone No Pcp, Na PCP Unavailable Kendrick Guzman MD [phone] Maryann White MD [phone] Reason for Visit * Reason Onset Date Comments Hospitalized Patient 08/06/2022 Encounter Details Date Type Department Care Team Description 08/06/2022 Telephone Oncology: [facility] [place] [address] [place] [address] 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 Tavares at [facility]. She requested a call back. I called her back and she explained that patient has been hospitalized at [facility] for increased O2 needs (5L at home and is now on high flow) as well difficulty eating/ passing a BM. She wanted to know if patient could be operated on any sooner.I spoke with Dr. Ortiz regarding situation. We determined that since Dr. Ferreira was currently out of office at this time the best options would be to transfer patient to medicine at and then they can consult surgical oncology when patient arrives. They can manage symptoms and speak with Dr. Ferreira when he is back in office if they feelthis is not an urgent situation. She will speak with the rest of the medical team and patient to det ermine what they would like to do. documented in this encounter Plan of Treatment Not on file documented as of this encounter Visit Diagnoses Not on filedocumented in this encounter Care Teams Rubber Flap Cutter Relationship Specialty Start Date End Date No Pcp, Na PCP - General 03/28/22 Kendrick Guzman MD [address] [facility] [place] [address] PCP - Oncology Radiation Oncology 05/13/22 Maryann White MD [address] [place] [address] REFERRING MD Hematology, Internal Medicine 04/11/22 documented as of this encounter
--- OUTSIDE RECORDS SUMMARY | 2022-11-27 13:40 | XMS REPORT | Encounter Summary ---
Author Author [facility] Organization [facility] Address Unknown Phone Unavailable Care Team Providers Care Supervisor Hand Workers Name Role Phone No Pcp, Na PCP Unavailable Kendrick Guzman MD [phone] Maryann White MD [phone] Encounter Details Date Type Department Care Team Description 07/31/2022 Prep for Case Oncology: [facility] [address] [place] [address]. 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 Indications: ERAS pre-surgical preparation 6 tablet 0 07/31/2022 08/22/2022 metroNIDAZOLE (FLAGYL) 500 mg tabletIndications:ERAS pre-surgical preparation Please take at the following [...] preparation 1 kit 0 07/31/2022 08/22/2022 documented in this encounter Plan of Treatment Not on file documented as of this encounter Visit Diagnoses Diagnosis Malignant neoplasm of esophagus, unspecified location (HCC)- Primary Malignant neoplasm of colon, unspecified part of colon (HCC) documented in this encounter Orders Case Request Count Last Ordered Date First Orde red Date CASE REQUEST FOR ERAS PATIENTS 1 07/31/2022 documented in this encounter Care Teams Supervisor Hand Workers Relationship Specialty Start Date End Date No Pcp, Na PCP - General 03/28/22 Kendrick Guzman MD [address] [place] [address] PCP - Oncology Radiation Oncology 05/13/22 Maryann White MD [address] [place] [address] REFERRING MD Hematology, Internal Medicine 04/11/22 documented as of this encounter
--- OUTSIDE RECORDS SUMMARY | 2022-11-27 13:40 | XMS REPORT | Encounter Summary ---
Author Author [facility] Organization [facility] Address Unknown Phone Unavailable Care Team Providers Care Cooking Teacher Name Role Phone No Pcp, Na PCP Unavailable Kendrick Guzman MD [phone] Maryann White MD [phone] Reason for Visit * Reason Onset Date Comments Appointment Request 08/23/2022 Encounter Details Date Type Department Care Team Description 08/23/2022 Telephone Oncology: [facility] [address] [facility]. 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 * Telephone Encounter - Ian Rodriguez - 08/23/2022 4:17 PM CDT ----- Message from Jayne Addison RN sent at 08/22/2022 10:10 AM CDT ----- Regarding: Srikanth-Clair- post op Please call patient to move post-op appointment to 2-3 weeks after new surgery date of 09/02. Thank you! documented in this encounter Plan of Treatment Not on file documented as of this encounter Visit Diagnoses Not on filedocumented in this encounter Care Teams Cooking Teacher Relationship Specialty Start Date End Date No Pcp, Na PCP - General 03/28/22 Kendrick Guzman MD [address] [facility] [place] [address] PCP - Oncology Radiation Oncology 05/13/22 Maryann White MD [address] [employer] [place] [id number] REFERRING MD Hematology, Internal Medicine 04/11/22 documented as of this encounter
--- OUTSIDE RECORDS SUMMARY | 2022-11-27 13:40 | XMS REPORT | Encounter Summary ---
Author Author [facility] Organization [facility] Address Unknown Phone Unavailable Care Team Providers Care House Sitter Name Role Phone No Pcp, Na PCP Unavailable Kendrick Guzman MD [phone] Maryann White MD [phone] Reason for Visit * Reason Onset Date Comments Care Coordination 08/22/2022 Encounter Details Date Type Department Care Team Description 08/22/2022 Telephone Oncology: [facility] [place] [address] [place] [address] 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 Indications: ERAS pre-surgical preparation 6 tablet 0 08/22/2022 09/02/2022 documented in this encounter Miscellaneous Notes * Telephone Encounter - Jayne Addison RN - 08/22/2022 9:33 AM CDT Called Abe to discuss moving surgery date up as we had a new availability. He does want to moveup to September 02 for his new surgery date. New date confirmed and message sent to surgical scheduling with date change. I also received a message from [facility] that patient would like pre- surgery antibiotics sent to him through the [place]. I confirmed with patient that he would like them sent through [facility]. Order sent. documented in this encounter Plan of Treatment Not on file documented as of this encounter Visit Diagnoses Not on filedocumented in this encounter Discontinued Medications Medication Sig Discontinue Reason Start Date End Da te metroNIDAZOLE (FLAGYL) 500 mg tabletIndications:ERAS pre-surgical preparation Please take at the following times: " 1pm: Take 2 tablets of Flagyl (500mg tablets) " 3pm: Take 2 tablets of Flagyl (500mg tablets) " 11pm: Take 2 tablets of Flagyl (500mg tablets) *Please try to take all the antibiotics. Indications: ERAS pre-surgical preparation Reorder 07/31/2022 08/22/2022 neomycin (MYCIFRADIN) 500 mg tabletIndications:ERAS pre-surgical preparation Please take at the following times: " 1pm: Take 2 tablets of Neomycin (500mg tablets) " 3pm: Take 2 tablets of Neomycin (500mg tablets) " 11pm: Take 2 tablets of Neomycin (500mg tablets) *Please try to take all the antibiotics. Indications: ERAS pre-surgical preparation Reorder 07/31/2022 08/22/2022 documented as of this encounter Care Teams House Sitter Relationship Specialty Start Date End Date No Pcp, Na PCP - General 03/28/22 Kendrick Guzman MD [address] [place] [address] PCP - Oncology Radiation Oncology 05/13/22 Maryann White MD [address] [place] [address] REFERRING Hematology, Internal Medicine 04/11/22 documented as of this encounter
--- OUTSIDE RECORDS SUMMARY | 2022-11-27 13:40 | XMS REPORT | Encounter Summary ---
Author Author [facility] Organization [facility] Address Unknown Phone Unavailable Care Team Providers Care Metal Welder Name Role Phone No Pcp, Na PCP Unavailable Kendrick Guzman MD [phone] Maryann White MD [phone] Encounter Details Date Type Department Care Team Description 09/02/2022 8:27 AM CDT Anest[facility] [address] [facility], [address] [place] [phone] Evelyne Xie MD [id number] [place] [address] Yudith Todd PA-C [address] [place] [address] Anesthesia Record Procedure Summary Procedure Name Responsible Anesthesiologist Anesthesia Start Time Anesthesia Stop Time TOTAL GASTRECTOMY, TRISTAN-EN-Y GASTROJEJUNOSTOMY; JEJUNOSTOMY TUBE PLACEMENT. SIGMOID COLECTOMY (Abdomen) Evelyne Xie MD 09/02/22 0827 09/02/22 1718 Events Date Time Event Comment 09/02/2022 0732 AN Equip Check 0759 0824 Out of Pre Procedure 0825 In Room 0827 Anes Start 0827 An Start Data 0830 An Induction The patient was reevaluated immediately before moderate or deep sedation use and before anesthesia induction. 0834 An Intubation 0835 Anesthesia Ready 0903 Stat Labs Drawn 0928 Proc Start 1100 Stat Labs Drawn 1258 Stat Labs Drawn 1400 Stat Labs Drawn 1508 Stat Labs Drawn 1606 Stat Labs Drawn 1650 An Extubation 1657 Quick Note 1658 an stop data 1718 An Stop I completed my SBAR handoff to the receiving nurse. Meds * Agents Name O2 N2O Inspired Sevoflurane Inspired Sevoflurane * Blood Name Total TRANSFUSE RBC'S 600 mL Lines, Drains, and Airways Type Details Placement Removal Jejunostomy Tube 09/02/22; 1558; Abdomen, Left Lower Lateral; 16FR (16 Fr red rubber catheter) 09/02/22 1558 by Nnamdi Noel RN Implantable Port-a-cath Single Lumen 09/02/22 (present on arrival to preop); Subclavian, Left; Yes; Chest X-ray; 09/30/22; 1000 09/02/22 0000 by Kaity Lund RN 09/30/22 1000 by Annette Handy RN Peripheral IV 09/02/22; 0735; L; Anterior; Hand; 22 G; One; 09/03/22; 0224 09/02/22 0735 by Viky Garcia RN 09/03/22 0224 by Marcella Rodriguez RN Epidural Catheter 09/02/22; 0815 (created via procedure documentation); 09/05/22; 200709/02/22 0815 by Sammie Mon MD 09/05/222007 by Sola Reyes DO ETT 09/02/22; 0834; Ventilated by mask (1); Direct laryngoscopy; Single-Lumen; ETT Size: 7.5mm; Mac; Blade Size: 3; Oral; 1-Full view of the glottis; 1 insertion attempt; Auscultation, ETCO2 Detector; Taped at Gums: 23 centimeters; 09/02/22; 1650 09/02/22 0834 by Elva Esqueda, NAIL EXPERT 09/02/22 1650 by Elva Esqueda CRNA Indwelling Urinary Catheter 09/02/22; 0929; Unit (Comment) ([facility]); 16 FR; Regular (Two-way); 10/01/22; 1500 09/02/22 0929 by Nnamdi Noel RN 10/01/22 1500 by Carolyn Melendrez RN Wounds (Read Only) 09/02/22; 0934; Surgical incision; Medial, Lower; Abdomen; 10/13/22; 0737 09/02/22 0934 by Nnamdi Noel RN 10/13/22 0737 by Keaton Wright RN Arterial Line 09/02/22; 0935 (created via procedure documentation); Radial, Right; 20 G; 09/02/22; 2100 09/02/22 0935 by Evelyne Xie MD 09/02/22 2100 by Petra Edwards RN Drains I/O 09/02/22; 1534; Righ t, Upper; Abdomen; 19 FR; #1; 09/02/22; 1756 09/02/22 1534 by Nnamdi Noel RN 09/02/22 1756 by Petra Edwards RN Drains I/O 09/02/22; 1534; Lowe r, Right; Abdomen; 19 FR; #2; 09/02/22; 1755 09/02/22 1534 by Nnamdi Noel RN 09/02/22 1755 by Petra Edwards RN documented in this encounter Social History [...] Sex Assigned at Male 03/28/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 Sex: male Procedure Information Anesthesia Start Date/Time: 09/02/22826 Procedures: TOTAL GASTRECTOMY, TRISTAN-EN-Y GASTROJEJUNOSTOMY; JEJUNOSTOMY TUBE PLACEMENT. SIGMOID COLECTOMY; POSSIBLE OSTOMY (Abdomen) - 4 hrs CATHETER JEJUNOSTOMY FOR ENTERAL ALIMENTATION (Abdomen) COLECTOMY WITH ANASTOMOSIS - PARTIAL (Abdomen) Location: [facility] / [facility]/Periop Surgeons: Braxton Ferreira MD Post-Anesthesia Vitals BP: 94/79 (09/02 1899) Pulse: 94 (09/02 1899) Respirations: 12 PER MINUTE (09/02 1899) SpO2: 96 % (09/02 1899) SpO2 Pulse: 95 (09/02 1899) O2 Device: Simple mask (09/02 1899) Vitals Value Taken Time BP 94/79 09/02/22 1900 Temp 36.3 C (97.4 F) 09/02/22 1702 Pulse 94 09/02/220 Respirations 12 PER MINUTE 09/02/221899 SpO2 96 % 09/02/221899 O2 Device Simple mask 09/02/221899 ABP ART BP Post Anesthesia Evaluation Note Evaluation location: Pre/Post Patient participation: recovered; patient participated in evaluation Level of consciousness: alert Pain management: adequate Hydration: normovolemia Temperature: 36.0C - 38.4C Airway patency: adequate Regional/Neuraxial: Epidural in place Perioperative Events Post-op nausea and vomiting: no PONV Postoperative Status Cardiovascular status: hemodynamically stable Respiratory status: spontaneous ventilation and supplemental oxygen Follow-up needed: none Additional comments: Post-Anesthesia Evaluation Attestation: I reviewed and agree the indicated post-anesthesia care was provided. I have reviewed lepe portions of the indicated post anesthesia care. I have examined the patient's vitals, physical status, and complications and agree with what is documented. Staff name: Ezekiel Dickerson MD Date: 09/02/2022 Perioperative Events There were no known notable events for this encounter. * Anesthesia Preprocedure Evaluation - Claudia Cervantes MD - 09/02/2022 12:38 PM CDT Anesthesia Pre-Procedure Evaluation Name: Abe Kilgore : 1965 Age: 56 y.o. Sex: male Procedure Info: Procedure Information Date/Time: 09/02/22 0800 Procedures: TOTAL GASTRECTOMY, TIRSTAN-EN-Y GASTROJEJUNOSTOMY; JEJUNOSTOMY TUBE PLACEMENT. SIGMOID COLECTOMY; POSSIBLE OSTOMY - 4 hrs TUBE/ NEEDLE CATHETER JEJUNOSTOMY FOR ENTERAL ALIMENTATION COLECTOMY WITH ANASTOMOSIS - PARTIAL COLOSTOMY/ SKIN LEVEL CECOSTOMY Location: [facility] / [facility]/Periop Surgeons: Braxton Ferreira MD Physical Assessment Vital Signs (last filed in past 24 hours): Vitals: 09/02/22 0820 BP: 96/76 Pulse: 71 Temp: SpO2: (!) 90% O2 Device: High flow nasal cannula O2 Liter Flow: 4 Lpm Patient History Allergies Allergen Reactions Atorvastatin SEE COMMENTS, MUSCLE PAIN and URTICARIA Current Medications Medication Directions apixaban (ELIQUIS) 5 mg tablet Take one tablet by mouth twice daily. cetirizine (ZYRTEC) 10 mg tablet one tablet. gabapentin (NEURONTIN) 300 mg capsule two capsules. lisinopriL (ZESTRIL) 10 mg tablet one tablet. metroNIDAZOLE (FLAGYL) 500 mg tablet Please take at the following times: " 1pm: Take 2 tablets of Flagyl (500mg tablets) " 3pm: Take 2 tablets of Flagyl (500mg tablets) " 11pm: Take 2 tablets of Flagyl (500mg tablets) *Please try to take all the antibiotics. Indications: ERAS pre-surgical preparation neomycin (MYCIFRADIN) 500 mg tablet Please take at the following times: " 1pm: Take 2 tablets of Neomycin (500mg tablets) " 3pm: Take 2 tablets of Neomycin (500mg tablets) " 11pm: Take 2 tablets of Neomycin (500mg tablets) *Please try to take all the antibiotics. Indications: ERAS pre-surgical preparation pantoprazole DR (PROTONIX) 40 mg tablet one tablet. Review of Systems/Medical History Patient summary reviewed [...] cancer and stomach cancer restricting his lungs. Cardiovascular Exercise tolerance: >4 METS Beta Rosalind therapy: No Hypertension (well controlled per patient), well controlled DVT (02/2022) No syncope ( lgithheaded with chemotx intermittently, controlled with moving slow with position changes) On eliquis Patient states that his PCP orders a stress test and echocardiogram every year due to strong familyhistory of heart disease. Patient denies any personal history of heart disease. GI/Hepatic/Renal GERD, well controlled Esophageal/gastric ca Neuro/Psych Substance use ( edible medical marijuana for pain, hx of methamphetamine use- none recent, hx of alcohol abuse- sober since 2017), alcohol, marijuana and methamphetamines Neuropathy (bilateral LE) Chronic benzodiazepine [...] full Mouth opening: good Airway patency: adequate Dental Findings: Upper dentures and lower dentures Comments: Edentulous - dentures out Cardiovascular Findings: Rhythm: regular Rate: normal Pulmonary Findings: Breath sounds clear to auscultation. Neurological Findings: Alert and oriented x 3 Constitutional findings: No acute distress Well-developed Well-nourished Diagnostic Tests Hematology: No results found for: HGB, HCT, PLTCT, WBC, NEUT, ANC, LYMPH, ALC, ABSLYMPHCT, YANIQUE, AMC, EOSA, ABC, BASOPHILS, MCV, MCH, MCHC, MPV, RDW General Chemistry: No results found for: NA, K, CL, CO2, GAP, BUN, CR, GLU, CA, KETONES, ALBUMIN, LACTIC, OBSCA, MG, TOTBILI, TOTBILCB, PO4 Coagulation: No results found for: PT, PTT, INR PAC RISK ASSESSMENTS: *Bains Activity Status Index (DASI): 50.2 , Calculated METS: 8.91 (score < 25 correlates with increased risk for , ND, and moderate to severe complications, max score 57) *STOP-BANG Score: 4 (total 5-8 high risk for CRIS, 3-4 with HCO3 >28 also high risk. CRIS associated with greater thantwice the odds for respiratory failure, cardiac events, ICU admission, and difficult intubation) Addendum (LT): Discharge Summary from 08/08/22 at [facility]- Patient presenting with SOB, mechanical compression related to constipation, cancer and progression of large hiatal hernia deemed cause of SOB and oxygen desaturation. Symptoms improved with bowel regimen and HFNC. Stable on 3-4 L nasal cannula upon discharge. Anesthesia Plan ASA score: 4 Plan: general and epidural for post operative pain Special equipment/procedures: Art line Induction method: intravenous NPO status: acceptable Informed Consent Anesthetic plan and risks discussed with patient. Use of blood products discussed with patient Blood Consent: consented Plan discussed with: anesthesiologist and NAIL EXPERT. Labs: reviewed labs from 07/16/22 (OR)- CBC- Hgb 10.4, CMP-WNL; ordered DOS: T&C MARY: MD in [facility]- echocardiogram and stress; [facility]- discharge summary Consults: none PAC visit completed via telehealth Addendum 09/02/2022 I have seen the patient on the DOS (09/02/2022) and agree with the history, physical and anesthesia plan as above. Risks, benefits and alternatives of general anesthesia including, but not limited to possible awareness of procedure, sore throat, oral/dental injury during airway manipulation, allergic reactions, PONV, aspiration, delayed/prolonged emergence, possible neurologic, cardiac or pulmonary complications, discussed with patient/HCPOA who reports understanding. Patient/HCPOA agrees to proceed with planned anesthetic after risks/benefits/alternatives explained. The anesthetic for this patient will be General , with Epidural for post-operative pain control and with Invasive Monitoringand the ASA score is ASA IV with esophageal/gastric/colon cancer now here for: gastrectomy/RNYGJ. JJ tube placement, poss ostomy, colectomy. All questions have been answered to patient/HCPOA satisfaction. Evelyne Xie MD, MS, CCC/ELL TEACHER 09/02/2022 7:58 AM Surgical Specialist, Department of Anesthesiology [phone] or available by Voalte * Anesthesia Procedure Notes - Evelyne Xie MD - 09/02/2022 9:40 AM CDT Associated Order(s): A-LINE INSERTION Anesthesia Procedure: Arterial Line Placement A-LINE INSERTION [...] Xie MD Authorized by: Evelyne Xie MD * Anesthesia Procedure Notes - Sammie Mon MD - 09/02/2022 8:23 AM CDT Associated Order(s): EPIDURAL BLOCK Anesthesia Procedure: Epidural Block EPIDURAL BLOCK Date/Time: [...] Mon MD Authorized by: Laura Desai MD Associated attestation - Laura Desai MD - 09/02/2022 9:30 AM CDT ATTESTATION I was present during the entire procedure performed by a resident. Staff name: Laura Desai MD Date: 09/02/2022 documented in this encounter Plan of Treatment Not on file documented as of this encounter Procedures Procedure Name Priority Date/Time Associated Diagnosis Comments ANESTHESIA ARTERIAL LINE INSERTION Routine 09/02/2022 9:35 AM CDT ANESTHESIA EPIDURAL BLOCK Routine 09/02/2022 8:15 AM CDT documented in this encounter Results * ANESTHESIA ARTERIAL LINE INSERTION (09/02/2022 9:35 [...] MD Laura Desai MD ANESTHESIA ORDERABLE S documented in this encounter Visit Diagnoses Not on filedocumented in this encounter Administered Medications Inactive Administered Medications Medication Order MAR Action Action Date Dose Rate Site albumin 25% infusion (50 mL) Intravenous, INTRA-PROCEDURE MED(CONT), Starting on Fri09/02/22 at 1214, Until Fri09/02/22 at 1720, Anesthesia Intra-op Given - New Bag 09/02/2022 12:21 PM CDT documented in this encounter Additional Health Concerns Assessment Noted Time A fall risk assessment has been complete d for the patient 09/02/2022 9:47 PM CDT documented as of this encounter Care Teams Metal Welder Relationship Specialty Start Date End Date No Pcp, Na PCP - General 03/28/22 Kendrick Guzman MD [address] [facility] [place] [address] PCP - Oncology Radiation Oncology 05/13/22 Maryann White MD [address] [place] [address] REFERRING Hematology, Internal Medicine 04/11/22 documented as of this encounter
--- OUTSIDE RECORDS SUMMARY | 2022-11-27 13:40 | XMS REPORT | Encounter Summary ---
Author Author [facility] Organization [facility] Address Unknown Phone Unavailable Care Team Providers Care Space Officer Name Role Phone No Pcp, Na PCP Unavailable Kendrick Guzman MD [phone] Maryann White MD [phone] Encounter Details Date Type Department Care Team Description 08/27/2022 10:00 AM CDT PAC Office Visit Pre-anesthesia: [facility] [address], [address] [place] [phone] Braxton Ferreira MD [address] [place] [address] Preop examination (Primary Dx) Anesthesia Record Procedure Summary Procedure Name Responsible [...] to the receiving nurse. Meds * Agents No agents on file. * Blood No blood administrations on file. Lines, Drains, and Airways Type Details Placement Removal Jejunostomy Tube 09/02/22; 1558; Abdomen, Left Lower Lateral; 16FR (16 Fr red rubber catheter) 09/02/22 1558 by Nnamdi Noel, PETE Implantable Port-a-cath Single Lumen 09/02/22 (present on arrival to preop); Subclavian, Left; Yes; Chest X-ray; 09/30/22; 1000 09/02/22 0000 by Kaity Lund RN 09/30/22 1000 by Annette Handy, PETE Peripheral IV 09/02/22; 0735; L; Anterior; Hand; 22 G; One; 09/03/22; 0224 09/02/22 0735 by Viky Garcia RN 09/03/22 0224 by Marcella Rodriguez, PETE Epidural Catheter 09/02/22; 0815 (created via procedure documentation); 09/05/22; 200709/02/22 0815 by Sammie Mon MD 09/05/222007 by Sola Reyes DO ETT 09/02/22; 0834; Ventilated by mask (1); Direct laryngoscopy; Single-Lumen; ETT Size: 7.5mm; Mac; Blade Size: 3; Oral; 1-Full view of the glottis; 1 insertion attempt; Auscultation, ETCO2 Detector; Taped at Gums: 23 centimeters; 09/02/22; 1650 09/02/22 0834 by Elva Esqueda CRNA 09/02/22 1650 by Elva Esqueda CRNA Indwelling Urinary Catheter 09/02/22; 0929; Unit (Comment) ([facility] OR); 16 FR; Regular (Two-way); 10/01/22; 1500 09/02/22 0929 by Nnamdi Noel, PETE 10/01/22 1500 by Carolyn Melendrez RN Wounds [...] Sex Assigned at Male 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 As part of the visit, an accurate medication list was obtained and the patient was given pre-op medication instructions for upcoming surgery on 09/02/[address] Ferreira. Eliquis: Per Dr. Christopher Rogers (Oncologist), approved Eliquis hold for 3 days prior to surgery, with the last dose on 08/29/22 in the evening. The plan above was communicated to the patient who verbalized understanding. Jamie Pena PHARMD documented in this encounter Miscellaneous Notes * Pre-Anesthesia Patient Instructions - Kisha Guajardo RN - 08/27/2022 9:46 AM CDT PREPROCEDURE IN[place] [address] Park in the P5 parking garage located at [address] [place] [address]. If parking in the P5 garage, take the east elevators in the parking garage to the second level and walk to the entrance of the [facility]. Enter through the 1st floor main entrance and check in with Information Desk. If you are a woman between the ages of 10 and 55, and have not had a hysterectomy, you will be asked for a urine sample prior to surgery. Please do not urinate before arriving in the Surgery WaitingRoom. Once there, check in and let the attendant know if you need to provide a sample. You will receive a call with your surgery arrival time between 2:30pm and 4:30pm the last business day before your procedure. If you do not receive a call, please call [phone] before 4:30pm or [phone] after 4:30pm. Eating or drinking before surgery Do not eat or drink anything after 11:00 p.m. the day before your procedure (including gum, mints, candy, or chewing tobacco) OR follow the specific instructions you were given by your Surgeon. You may have WATER ONLY up to 2 hours before arriving at the hospital. Follow the instructions you received in your pre-surgery kit re: nutrition drinks. If you are diabetic, do NOT drink the carbohydrate nutritional drinks that may be included in your kit. Planning transportation for outpatient procedure For your safety, you will need to arrange for a responsible ride/person to accompany you home due to sedation or anesthesia with your procedure. An Uber, taxi or other public contract driver is not considered a responsible person to accompany you home. Bath/Shower Instructions Put on clean clothes after bath or shower. Avoid using lotion and oils. Wash using the antibacterial wipes you received in your pre-surgery kit as directed. Morning of your procedure: [place] your teeth and tongue Do not smoke, vape, chew or user any tobacco products. Do not shave the area where you will have surgery. Remove nail hong konger, makeup and all jewelry (including piercings) before coming to the hospital. Dress in clean, loose, comfortable clothing. Valuables Leave money, credit cards, jewelry, and any other valuables at home. The [facility] is not responsible for the loss or breakage of personal items. What to bring to the hospital ID/Insurance card Fiber Technician card Official documents for legal guardianship Copy of your Living Will, Advanced Directives, and/or Durable Power of Completion Supervisor. If you have these documents, please bring them to the admissions office on the day of your surgery to be scanned into your records. Do not bring medications from home unless instructed by a pharmacist. CPAP/BiPAP machine (including all supplies) Walker, cane, or motorized scooter Cases for glasses/hearing aids/contact lens (bring solutions for contacts) Stimulator remote Notify us at [place]: on the day of your procedure if: You need to cancel your procedure. You are going to be late. Notify your surgeon if: There is a possibility that you are . You become ill with a cough, fever, sore throat, nausea, vomiting or flu-like symptoms. You have any open wounds/sores that are red, painful, draining, or are new since you last saw the doctor. You need to cancel your procedure. Preparing to get your medications at discharge Your surgeon may prescribe you medications to take after your procedure. If you like the convenience of having your medications filled here at , please do the following: Go to pharmacy after your PAC appointment to put a credit card on file. Call pharmacy at [phone] (Friday-Friday 7am-9pm or Friday and Friday 9am-5pm) to put a credit card on file. Bring a credit card or aguirre on the day of your procedure- please leave with a family member rather than bringing it into the preop area. Current Visitor Policy: Visitors must be free of fever and symptoms to be in our facilities. No more than 2 visitors per patient are allowed. Additional guidelines may vary, based on patient care area or patient's condition. Patients in semiprivate rooms may have visitors, but visits should be coordinated so only two totalvisitors are in a room at a time due to space limitations. Children younger than age 12 are allowed to visit inpatients. Thank you for participating in your Preoperative Assessment Clinic visit today. If you have any changes to your health or hospitalizations between now and your surgery, please call us at [phone] for Main instructions. * Pre-Anesthesia Medication Instructions - Jamie Pena, PANCHO - 08/26/2022 9:16 AM CDT YOUR MEDICATION LIST albuterol sulfate (PROAIR HFA) 90 mcg/actuation HFA aerosol inhaler Inhale one puff to two puffs bymouth into the lungs as Needed for Wheezing or Shortness of Breath. apixaban (ELIQUIS) 5 mg tablet Take one tablet by mouth twice daily. cetirizine (ZYRTEC) 10 mg tablet Take one tablet by mouth every morning. gabapentin (NEURONTIN) 300 mg capsule Take two capsules by mouth three times daily. lisinopriL (ZESTRIL) 10 mg tablet Take one tablet by mouth daily. metroNIDAZOLE (FLAGYL) 500 mg tablet Please take [...] preparation pantoprazole DR (PROTONIX) 40 mg tablet Take one tablet by mouth daily. venlafaxine XR (EFFEXOR XR) 150 mg capsule Take one capsule by mouth daily. YOUR MEDICATION INSTRUCTIONS FOR SURGERY Please continue taking your medications as your doctor has told you to UNLESS it is listed to stop below. 14 DAYS BEFORE SURGERY (NOW) Do not start any new vitamins, herbals, or natural supplements before surgery. 7 DAYS BEFORE SURGERY (NOW) DO NOT TAKE the following anti-inflammatory medications such as ibuprofen (Advil, Motrin) and naproxen (Aleve) You may use acetaminophen (Tylenol) BLOOD THINNER instructions: Eliquis - Per Rogers with Dr. White, Eliquis may be held for 3 days prior to surgery. Last dose on 08/29/22 in the evening. - CC DAY BEFORE SURGERY TAKE your medications the day before surgery as usual unless told differently. MORNING OF SURGERY DO NOT take these medications: Ointments/creams/lotions Lisinopril TAKE these medications with a sip (1-2 ounces) of water: Zyrtec Gabapentin Pantoprazole Venlafaxine (Effexor) Use all inhalers, nasal sprays, and eye drops as usual Please contact the clinic pharmacist with any changes to your medication list or medication questions before surgery. E-mail: [email or web address] Before going home from the hospital, please ask your doctor when you should re- start any medicine that was stopped for surgery. documented in this encounter Plan of Treatment Not on file documented as of this encounter Visit Diagnoses Diagnosis Preop examination- Primary Preoperative examination, unspecified documented in this encounter Historical Medications * This list may reflect changes made after this encounter. Medication Sig Dispensed Refills Start Date End Date albuterol sulfate (PROAIR HFA) 90 mcg/actuation HFA aerosol inhaler Inhale one puff to two puffs by mouth into the lungs as Needed for Wheezing or Shortness of Breath. 0 venlafaxine XR (EFFEXOR XR) 150 mg capsule Take one capsule by mouth daily. 0 added in this encounter Additional Health Concerns Assessment Noted Time A fall risk assessment has been complete d for the patient 08/27/2022 10:19 AM CDT documented as of this encounter Care Teams Space Officer Relationship Specialty Start Date End Date No Pcp, Na PCP - General 03/28/22 Kendrick Guzman MD [address] [facility] [place] [address] PCP - Oncology Radiation Oncology 05/13/22 Maryann White MD [address] [place], [place] [address] REFERRING Hematology, Internal Medicine 04/11/22 documented as of this encounter
--- OUTSIDE RECORDS SUMMARY | 2022-11-27 13:40 | XMS REPORT | Encounter Summary ---
Author Author [facility] Organization [facility] Address Unknown Phone Unavailable Care Team Providers Care Stiff Leg Operator Name Role Phone No Pcp, Na PCP Unavailable Kendrick Guzman MD [phone] Maryann White MD [phone] Encounter Details Date Type Department Care Team Description 07/31/2022 Travel Social History Tobacco Use Types Packs/Day Years [...] Sex Assigned at Male 03/28/2022 2:05 PM DOG OR HORSE RACING OFFICIAL Gender Identity Male 03/28/2022 2:05 PM DOG OR HORSE RACING OFFICIAL Sexual Orientation Not on file COVID-19 Exposure [...] Yes 07/31/2022 documented as of this encounter Plan of Treatment Not on file documented as of this encounter Visit Diagnoses Not on filedocumented in this encounter Care Teams Stiff Leg Operator Relationship Specialty Start Date End Date No Pcp, Na PCP - General 2/9/23 Kendrick Guzman MD [address] [facility] [place] [address] PCP - Oncology Radiation Oncology 05/13/22 Maryann White MD [address] [email or web address] [address] REFERRING Hematology, Internal Medicine 04/11/22 documented as of this encounter
--- OUTSIDE RECORDS SUMMARY | 2022-11-27 13:40 | XMS REPORT | Encounter Summary ---
Author Author [facility] Organization [facility] Address Unknown Phone Unavailable Care Team Providers Care Network Security Consultant Name Role Phone No Pcp, Na PCP Unavailable Kendrick Guzman MD [phone] Maryann White MD [phone] Encounter Details Date Type Department Care Team Description 08/04/2022 - 08/04/2022 11:59 PM CDT Hospital Encounter Imaging: [facility] [address] [place] [address] Discharge Disposition: Home or Self [...] Sex Assigned at Male 03/28/2022 2:05 PM ACCESS ASSOC Gender Identity Male 03/28/2022 2:05 PM ACCESS ASSOC Sexual Orientation Not on file COVID-19 Exposure [...] Procedure Name Priority Date/Time Associated Diagnosis Comments GENERAL RAD CHEST EXTERNAL IMAGING Routine 08/04/2022 12:00 AM CDT documented in this encounter Results * GENERAL RAD CHEST EXTERNAL IMAGING (08/04/2022 12:00 AM CDT) Narrative Scheduling, Silent - 08/11/2022 8:42 AM CDT This order has been auto finalized and does not contain a result. Radiologist Outpatient RADIOLOGY EXTERNA L ORDERABLES documented in this encounter Visit Diagnoses Not on filedocumented in this encounter Care Teams Network Security Consultant Relationship Specialty Start Date End Date No Pcp, Na PCP - General 03/28/22 Kendrick Guzman MD [address] [facility] [place] [address] PCP - Oncology Radiation Oncology 05/13/22 Maryann White MD [address] [employer] [place], [place] [address] REFERRING Hematology, Internal Medicine 04/11/22 documented as of this encounter
--- NOTE | 2022-11-27 13:41 | Occupational Therapy Eval ---
OT Evaluation-General/PLF Medical Diagnosis Admission Date Nov 27, 2022 at 12:50 Medical Diagnosis: critical illness myopathy Onset Date: Sep 04, 2022 Therapy Diagnosis Therapy Diagnosis: decreased ADL statuts, weakness Referral Physician: Jose Referral Reason: Evaluation/Treatment Medical History Additional Medical History R foot surgery(1992, 2006, 2016), R knee replacement (2014), HTN, PE Current History 09/02/22 underwent gastrectomy and J tube placement, 09/07 appeared to have aspiration, rapid response called with acute respiratory failure, transferred to ICU and intubated. 09/12 extubated, reintubated. 09/17 extubated, 09/18 reintubated. 09/20 trach placement due to unable to be extubated. 09/24 abdominal drain. 10/01 drain repositioning and additional j-vac placement. 10/20 LLQ fluid collection with JOSETTE drain. 10/21 pigtail drain placed due to pleural effusion. 11/24 trach decannulated. 11/27 transfer to ARU Social History Home: Single Level Current Living Status: Significant Other Entry Into Home: Stairs With Railing Steps Into Home: 3 Steps Inside Home: 0 ADL-Prior Level of Function SCALE: Activities may be completed with or without assistive devices. 5-Jhicoraomu-bwvjenx completes the activity by him/herself with no assistance from a helper. 5-Set-up or Clean-up Assistance-helper sets up or cleans up; patient completes activity. [place] assists only prior to or following the activity. 4-Supervision or Touching Assistance-helper provides verbal cues and/or touching/steadying and/or contact guard assistance as patient completes activity. Assistance may be provided throughout the activity or intermittently. 3-Partial/Moderate Assistance-helper does LESS THAN HALF the effort. [place] lifts, holds or supports trunk or limbs, but provides less than half the effort. 2-Substantial/Maximal Assistance-helper does MORE THAN HALF the effort. [place] lifts or holds trunk or limbs and provides more than half the effort. 6-Vyvvlfnhz-iojryh does ALL the effort. Patient does none of the effort to complete the activity. Or, the assistance of 2 or more helpers is required for the patient to complete the activity. If activity was not attempted, code reason: 7-Patient Refused. 9-Not Applicable-not attempted and the patient did not perform the activity before the current illness, exacerbation or injury. 10-Not Attempted due to Environmental Limitations-(lack of equipment, weather restraints, etc.). 88-Not Attempted due to Medical Conditions or Safety Concerns. ADL PLOF Comments Pt reports IND with ADLs and functional mobility using 4WW, knee scooter, SPC. He has a walk in shower with built in shower chair, hand held shower head, no grab bars. He has a tall toilet. He has an electric scooter that he uses for longer distances and in community. 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 Pt reports slight discomfort with some tasks at feeding tube site (mainly when completing LB ADLS) Mental Status/Objective Patient Orientation: Person, Place, Time, Situation Attachments: Drains, Oxygen (2L), Other-See Comments (J tube) Current Glasses/Contacts: Yes Hearing Aids: No Dentures/Partials: Yes Hand Dominance: Right Upper Extremity ROM WFL, BUE shoulder flexion to approx 160 degrees. Upper Extremity Coordination WFL Upper Extremity Sensation Decreased sensation in "outside" of hands/feet based on position. WFL Upper Extremity Strength BUE shoulder flexion 3+/5, elbow flexion/extension 4/5 ADL-Treatment Eating (QC): 88 Oral Hygiene (QC): 4 Shower/Bathe Self (QC): 3 Upper Body Dressing (QC): 3 (per pt and spouse report) Lower Body Dressing (QC): 3 (per pt and spouse report) On/Off Footwear (QC): 5 Toileting Hygiene (QC): 3 (min A with balance) Other Treatments OT evaluaton complete. OT/PT cotreat due to skill of 2 clinicians required which a power lineman technician could not perform in order to coordinate UE/LEs, decrease fall risk, focus on dynamic standing balance, and due to pt's limitations in strength, activity tolerance, strength, mobility/transfers. OT focused on UE placement, cues for sequencing and safety, ADLs, PT focused on LE placement, gross overall movement, transfers and mobility. Pt completed footwear with set up (boots and R ankle brace), declined dressing as he completed prior to arrival to ARU. Pt completed functional mobility/transfers (please refer to PT evaluatio n for QC scores associated with transfer/mobility). Post tx, ALANIZ present to continue tx, all needs met. Education OT Patient Education: Correct positioning, Energy conservation, Modified ADL techniques, Progress toward Goal/Update tx plan, Purpose of tx/functional activities, Rehab process Teaching Recipient: Patient Teaching Methods: Discussion Response to Teaching: Verbalize Understanding BIMS CAM BIMS Expression of Ideas and Wants: Without Difficulty Understanding Verbal Content: Understands Brief Interview/Mental Status: Yes IRF KENNA BIMS: IRF KENNA BIMS Response (Comments) Value Repitition of Three Words Three 3 Recalls Socks Yes, No Cue Required 2 Recalls Blue Yes, No Cue Required 2 Recalls Bed Yes, No Cue Required 2 Year Correct 3 Month Accurate Within 5 Days 2 Day Correct 1 Total [address] Mental [address] No CAM Mental Status Change/Baseline: 0 Inattention: 0 Disorganized thinkin Altered level of consciousness: 0 OT Molecular Biology Professor Goals Molecular Biology Professor Goals Time Frame: Dec 20, 2022 Eating (QC): 88 Oral Hygiene (QC): 6 Toileting Hygiene (QC): 6 Shower/Bathe Self (QC): 6 Upper Body Dressing (QC): 6 Lower Body Dressing (QC): 6 On/Off Footwear (QC): 6 Additional Goals: 1-Demonstrate ADL Tasks, 2-Verbalize Understanding, 3- ImproveStrength/Victor Manuel 1=Demonstrate adherence to instructed precautions during ADL tasks. 2=Patient will verbalize/demonstrate understanding of assistive devices/modifications for ADL. 3=Patient will improve strength/tolerance for activity to enable patient to perform ADL's. OT Education/Plan Problem List/Assessment Assessment: Decreased Activ Tolerance, Decreased UE Strength, Impaired Funct Balance, Impaired I ADL's, Impaired Self-Care Skills Discharge Recommendations Plan/Recommendations: Continue POC Treatment Plan/Plan of Care Patient would benefit from OT for education, treatment and training to promote independence in ADL's, mobility, safety and/or upper extremity function for ADL's. Plan of Care: ADL Retraining, Functional Mobility, Group Exercise/Act as Ind, UE Funct Exercise/Act Treatment Duration: Dec 20, 2022 Frequency: At least 5 of 7 days/Wk (IRF) Estimated Hrs Per Day: Other (75 mins per day) Agreement: Yes Rehab Potential: Good Time Start Time: 13:30 ([id number] OT eval 15') Stop Time: 14:30 ([id number] Cotreat 30') DATE: Nov 27, 2022 Total Time Billed (hr/min): 45 Billed Treatment Time 1, EVM (15'), FA 2 (30') LETICIA DARNELL OT Nov 27, 2022 13:41
--- OUTSIDE RECORDS SUMMARY | 2022-11-27 13:41 | XMS REPORT | Encounter Summary ---
Author Author [facility] Organization [facility] Address Unknown Phone Unavailable Care Team Providers Care Senior Counsel Name Role Phone No Pcp, Na PCP Unavailable Kendrick Guzman MD [phone] Maryann White MD [phone] Encounter Details Date Type Department Care Team Description 07/04/2022 12:05 AM CDT - 07/04/2022 11:59 PM CDT Hospital Encounter Imaging: [facility] [place] [address] [place] [address] Discharge Disposition: Home or Self Care Social History Tobacco Use Types Packs/Day Years Used Date Smoking Tobacco: Never Smokeless Tobacco: Never Alcohol Use Standard Drinks/Week Comments Not Currently 0 (1 standard drink = 0.6 oz pur e alcohol) Alcohol Use Answer Date Recorded Alcohol Use No Male: 9+ ounces (15+ Standard Drinks) per week T hreshold 0 Female: 4.8+ ounces (8+ Standard Drinks) per wee k Threshold Not on file Sex and Gender Information Value Date Recorded Sex Assigned at Male 03/28/2022 2:05 PM DEMURRAGE CLERK Gender Identity Male 03/28/2022 2:05 PM DEMURRAGE CLERK Sexual Orientation Not on file documented as of this encounter Functional Status Functional Status Response Date of Assess ment Does the patient have a hearing impairment: No 04/11/2022 Does the patient have a visual impairment: Yes 04/11/2022 documented as of this encounter Medications at Time of Discharge Medication Sig Dispensed Refills Start Date End Date ARIPiprazole (ABILIFY) 20 mg tablet Take one-half tablet by mouth daily. 0 05/02/2022 cetirizine (ZYRTEC) 10 mg tablet Take one tablet by mouth every morning. 0 01/16/2022 gabapentin (NEURONTIN) 300 mg capsule Take two capsules by mouth three times daily. 0 01/21/2022 lisinopriL (ZESTRIL) 10 mg tablet Take one tablet by mouth daily. 0 12/27/[address] (PROTONIX) 40 mg tablet Take one tablet by mouth daily. 0 01/24/2022 apixaban (ELIQUIS) 5 mg tablet Take one tablet by mouth twice daily. 0 10/29/2022 documented as of this encounter Discharge Disposition Disposition Code Departure Means Destination Home or Self Mcfp documented in this encounter Plan of Treatment Not on file documented as of this encounter Procedures Procedure Name Priority Date/Time Associated Diagnosis Comments CT ABD/PEL EXTERNAL IMAGING Routine 07/04/2022 12:05 AM CDT documented in this encounter Results * CT ABD/PEL EXTERNAL IMAGING (07/04/2022 12:05 AM CDT) Narrative Scheduling, Silent - 07/17/2022 1:16 PM CDT This order has been auto finalized and does not contain a result. Radiologist Outpatient RADIOLOGY EXTERNA L ORDERABLES documented in this encounter Visit Diagnoses Not on filedocumented in this encounter Additional Health Concerns Assessment Noted Time A fall risk assessment has been complete d for the patient 04/24/2022 9:41 AM DEMURRAGE CLERK documented as of this encounter Care Teams Senior Counsel Relationship Specialty Start Date End Date No Pcp, Na PCP - General 03/28/22 Kendrick Guzman MD [address] [facility] [place] [address] PCP - Oncology Radiation Oncology 05/13/22 Maryann White MD [address] [place] [address] REFERRING MD Hematology, Internal Medicine 04/11/22 documented as of this encounter
--- OUTSIDE RECORDS SUMMARY | 2022-11-27 13:41 | XMS REPORT | Encounter Summary ---
Author Author [facility] Organization [facility] Address Unknown Phone Unavailable Care Team Providers Care Windows Mobile Developer Name Role Phone No Pcp, Na PCP Unavailable Kendrick Guzman MD [phone] Maryann White MD [phone] Reason for Visit * Reason Onset Date Comments Erroneous encounter-disregard 07/26/2022 Encounter Details Date Type Department Care Team Description 06/19/2022 3:40 PM CDT Office Visit Telehealth Oncology: [facility] [address] [place], [place] [phone] Asad Byrd MD [address] [place] [address] ERRONEOUS ENCOUNTER--DISREGAR D (Primary Dx) Social History Tobacco Use Types Packs/Day Years [...] Sex Assigned at Male 03/28/2022 2:05 PM PERSONALIZED LIVING MANAGER NURSE Gender Identity Male 03/28/2022 2:05 PM PERSONALIZED LIVING MANAGER NURSE Sexual Orientation Not on file documented as of this encounter Functional Status Functional Status Response Date of Assess ment Does the patient have a hearing impairment: No 04/11/2022 Does the patient have a visual impairment: Yes 04/11/2022 documented as of this encounter Progress Notes * Asad Byrd MD - 06/19/2022 3:40 PM CDT This encounter was created in error. Please disregard. documented in this encounter Plan of Treatment Not on file documented as of this encounter Visit Diagnoses Diagnosis ERRONEOUS ENCOUNTER--DISREGARD- Primary documented in this encounter Additional Health Concerns Assessment Noted Time A fall risk assessment has been complete d for the patient 04/24/2022 9:41 AM PERSONALIZED LIVING MANAGER NURSE documented as of this encounter Care Teams Windows Mobile Developer Relationship Specialty Start Date End Date No Pcp, Na PCP - General 03/28/22 Kendrick Guzman MD [address] [facility] [place] [address] PCP - Oncology Radiation Oncology 05/13/22 Maryann White MD [address] [place] [address] REFERRING MD Hematology, Internal Medicine 04/11/22 documented as of this encounter
--- OUTSIDE RECORDS SUMMARY | 2022-11-27 13:41 | XMS REPORT | Encounter Summary ---
Author Author [facility] Organization [facility] Address Unknown Phone Unavailable Care Team Providers Care Director Of Archives Name Role Phone No Pcp, Na PCP Unavailable Kendrick Guzman MD [phone] Maryann White MD [phone] Encounter Details Date Type Department Care Team Description 07/04/2022 - 07/04/2022 12:04 AM CDT Hospital Encounter Imaging: [facility] [place] [address] [place] [address] Discharge Disposition: Home or Self [...] Sex Assigned at Male 03/28/2022 2:05 PM DEAF AND HARD OF HEARING TEACHER Gender Identity Male 03/28/2022 2:05 PM DEAF AND HARD OF HEARING TEACHER Sexual Orientation Not on file documented as [...] Code Departure Means Destination Home or Self Prison documented in this encounter Plan of Treatment Not on file documented as of this encounter Procedures Procedure Name Priority Date/Time Associated Diagnosis Comments CT CHEST EXTERNAL IMAGING Routine 07/04/2022 12:00 AM CDT documented in this encounter Results * CT CHEST EXTERNAL IMAGING (07/04/2022 12:00 AM CDT) Narrative Scheduling, Silent - 07/17/2022 1:16 PM CDT This order has been auto finalized and does not contain a result. Radiologist Outpatient RADIOLOGY EXTERNA L ORDERABLES documented in this encounter Visit Diagnoses Not on filedocumented in this encounter Additional Health Concerns Assessment Noted Time A fall risk assessment has been complete d for the patient 04/24/2022 9:41 AM DEAF AND HARD OF HEARING TEACHER documented as of this encounter Care Teams Director Of Archives Relationship Specialty Start Date End Date No Pcp, Na PCP - General 03/28/22 Kendrick Guzman MD [address] [address] PCP - Oncology Radiation Oncology 05/13/22 Maryann White MD [address] [place] [id number] REFERRING MD Hematology, Internal Medicine 04/11/22 documented as of this encounter
--- OUTSIDE RECORDS SUMMARY | 2022-11-27 13:41 | XMS REPORT | Encounter Summary ---
Author Author [facility] Organization [facility] Address Unknown Phone Unavailable Care Team Providers Care Health Tech Name Role Phone No Pcp, Na PCP Unavailable Kendrick Guzman MD [phone] Maryann White MD [phone] Encounter Details Date Type Department Care Team Description 06/20/2022 - 06/20/2022 11:59 PM CDT Hospital Encounter Imaging: [facility] [place] [address], [address] [place] [address] Discharge Disposition: Home or Self [...] Sex Assigned at Male 03/28/2022 2:05 PM DEPUTY CORONER Gender Identity Male 03/28/2022 2:05 PM DEPUTY CORONER Sexual Orientation Not on file documented as [...] Procedure Name Priority Date/Time Associated Diagnosis Comments NM PET/CT EXTERNAL IMAGING Routine 06/20/2022 12:00 AM CDT documented in this encounter Results * NM PET/CT EXTERNAL IMAGING (06/20/2022 12:00 AM CDT) Narrative Scheduling, Silent - 07/17/2022 1:16 PM CDT This order has been auto finalized and does not contain a result. Radiologist Outpatient RADIOLOGY EXTERNA L ORDERABLES documented in this encounter Visit Diagnoses Not on filedocumented in this encounter Additional Health Concerns Assessment Noted Time A fall risk assessment has been complete d for the patient 04/24/2022 9:41 AM DEPUTY CORONER documented as of this encounter Care Teams Health Tech Relationship Specialty Start Date End Date No Pcp, Na PCP - General 03/28/22 Kendrick Guzman MD [address] [address] PCP - Oncology Radiation Oncology 05/13/22 Maryann White MD [address] [employer] [place] [id number] REFERRING MD Hematology, Internal Medicine 04/11/22 documented as of this encounter
--- OUTSIDE RECORDS SUMMARY | 2022-11-27 13:41 | XMS REPORT | Encounter Summary ---
Author Author [facility] Organization [facility] Address Unknown Phone Unavailable Care Team Providers Care Private Detective Name Role Phone No Pcp, Na PCP Unavailable Kendrick Guzman MD [phone] Maryann White MD [phone] Encounter Details Date Type Department Care Team Description 07/29/2022 - 07/29/2022 11:59 PM CDT Hospital Encounter Imaging: [facility] [address], [address] [place] [address] Discharge Disposition: Home or Self [...] Sex Assigned at Male 03/28/2022 2:05 PM HEALTHCARE RECEPTIONIST Gender Identity Male 03/28/2022 2:05 PM HEALTHCARE RECEPTIONIST Sexual Orientation Not on file documented as [...] by mouth daily as needed. 0 07/29/2022 lisinopriL (ZESTRIL) 10 mg tablet Take one tablet by mouth daily. 0 12/27/[address] (PROTONIX) 40 mg tablet Take one tablet by mouth daily. 0 01/24/2022 apixaban (ELIQUIS) 5 mg tablet Take one tablet by mouth twice daily. 0 10/29/2022 documented as of this encounter Discharge Disposition Disposition Code Departure Means Destination Home or Self [place] documented in this encounter Plan of Treatment Not on file documented as of this encounter Procedures Procedure Name Priority Date/Time Associated Diagnosis Comments GENERAL RAD UPPER EXT EXTERNAL IMAGING Routine 07/29/2022 12:00 AM CDT documented in this encounter Results * GENERAL RAD UPPER EXT EXTERNAL IMAGING (07/29/2022 12:00 AM CDT) Narrative Scheduling, Silent - 08/11/2022 8:42 AM CDT This order has been auto finalized and does not contain a result. Radiologist Outpatient RADIOLOGY EXTERNA L ORDERABLES documented in this encounter Visit Diagnoses Not on filedocumented in this encounter Additional Health Concerns Assessment Noted Time A fall risk assessment has been complete d for the patient 04/24/2022 9:41 AM HEALTHCARE RECEPTIONIST documented as of this encounter Care Teams Private Detective Relationship Specialty Start Date End Date No Pcp, Na PCP - General 03/28/22 Kendrick Guzman MD [address] [facility] [address] PCP - Oncology Radiation Oncology 05/13/22 Maryann White MD [address] [place] [address] REFERRING MD Hematology, Internal Medicine 04/11/22 documented as of this encounter
--- OUTSIDE RECORDS SUMMARY | 2022-11-27 13:41 | XMS REPORT | Encounter Summary ---
Author Author [facility] Organization [facility] Address Unknown Phone Unavailable Care Team Providers Care Lumber Tripper Name Role Phone No Pcp, Na PCP Unavailable Kendrick Guzman MD [phone] Maryann White MD [phone] Reason for Visit * Reason Onset Date Comments Appointment 06/19/2022 Encounter Details Date Type Department Care Team Description 06/19/2022 Telephone Oncology: [facility] [address] [place], [place] [phone] Asad Byrd MD [address] [place] [address] Appointment Social History Tobacco Use Types Packs/Day [...] Sex Assigned at Male 03/28/2022 2:05 PM ORTHOPEDIC CODER Gender Identity Male 03/28/2022 2:05 PM ORTHOPEDIC CODER Sexual Orientation Not on file documented as of this encounter Functional Status Functional Status Response Date of Assess ment Does the patient have a hearing impairment: No 04/11/2022 Does the patient have a visual impairment: Yes 04/11/2022 documented as of this encounter Miscellaneous Notes * Telephone Encounter - Magalie Glass RN - 06/19/2022 3:51 PM CDT Called pt to let him know that we will not be r/s his appt and if he wants it r/s then he is to call our office due to no showing 3 appts with our team. documented in this encounter Plan of Treatment Not on file documented as of this encounter Visit Diagnoses Not on filedocumented in this encounter Additional Health Concerns Assessment Noted Time A fall risk assessment has been complete d for the patient 04/24/2022 9:41 AM ORTHOPEDIC CODER documented as of this encounter Care Teams Lumber Tripper Relationship Specialty Start Date End Date No Pcp, Na PCP - General 03/28/22 Kendrick Guzman MD [address] [facility] [place] [address] PCP - Oncology Radiation Oncology 05/13/22 Maryann White MD [address] [place], [place] [id number] REFERRING Hematology, Internal Medicine 04/11/22 documented as of this encounter
--- OUTSIDE RECORDS SUMMARY | 2022-11-27 13:41 | XMS REPORT | Encounter Summary ---
Author Author [facility] Organization [facility] Address Unknown Phone Unavailable Care Team Providers Care Heat Welder [employer] Name Role Phone No Pcp, Na PCP Unavailable Kendrick Guzman MD [phone] Maryann White MD [phone] Reason for Visit * Reason Onset Date Comments Navigation Follow Up 07/19/2022 Encounter Details Date Type Department Care Team Description 07/19/2022 Telephone Oncology: [facility] [place] [address] [facility]. 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 He is being referred back to discuss surgical options. Outside records scanned into chart and imaging via cloud. 06/28/2022 Radiation end of tx summary with concurrent carbo paclitaxel 07/04/2022 CT CAP 07/16/2022 oncology follow up documented in this encounter Plan of Treatment Not on file documented as of this encounter Visit Diagnoses Not on filedocumented in this encounter Additional Health Concerns Assessment Noted Time A fall risk assessment has been complete d for the patient 04/24/2022 9:[address] MECHANICAL ENGINEER documented as of this encounter Care Teams Heat Welder Plastics Relationship Specialty Start Date End Date No Pcp, Na PCP - General 03/28/22 Kendrick Guzman MD [address] [facility] [place] [address] PCP - Oncology Radiation Oncology 05/13/22 Maryann White MD [address] [place], [place] [phone] REFERRING MD Hematology, Internal Medicine 04/11/22 documented as of this encounter
[2022-11-27] MEDS ORDERED: NON-FORMULARY MEDICATION 1 EA EA (Hydroxyzine HCl 25 MG) JT PRN (15:15)
[2022-11-27] MEDS ORDERED: RT-Ipratropium/Albuterol NEB 3 ML VIAL IH PRN (15:15)
[2022-11-27] MEDS ORDERED: ACETAMINOPHEN 500 MG TABLET PEG PRN (15:15)
--- NOTE | 2022-11-27 15:28 | Occupational Ther Daily Note ---
OT Current Status-Daily Note Subjective Took over care from OTR/L at 1430. Co-treat with PT [id number], skills of 2 clinicians required to decrease fall risk, decrease anxiety with mobility, increase activity tolerance and position multiple lines and B UE/LE for safety during functional mobility. Mental Status/Objective Patient Orientation: Person, Place, Time, Situation Attachments: Colostomy/Ileostomy, Oxygen ADL-Treatment Therapy Code Descriptions/Definitions Functional [place] Measure: 0=Not Assessed/NA 4=Minimal Assistance 1=Total Assistance 5=Supervision or Setup 2=Maximal Assistance 6=Modified [place] 3=Moderate Assistance 7=Complete IndependenceSCALE: Activities may be completed with or without assistive devices. 2-Tyzqyaujzt-fjwhjpt completes the activity by him/herself with no assistance from a helper. 5-Set-up or Clean-up Assistance-helper sets up or cleans up; patient completes activity. [place] assists only prior to or following the activity. 4-Supervision or Touching Assistance-helper provides verbal cues and/or touching/steadying and/or contact guard assistance as patient completes activity. Assistance may be provided throughout the activity or intermittently. 3-Partial/Moderate Assistance-helper does LESS THAN HALF the effort. [place] lifts, holds or supports trunk or limbs, but provides less than half the effort. 2-Substantial/Maximal Assistance-helper does MORE THAN HALF the effort. [place] lifts or holds trunk or limbs and provides more than half the effort. 6-Zrjyaabvj-udpqsv does ALL the effort. Patient does none of the effort to complete the activity. Or, the assistance of 2 or more helpers is required for the patient to complete the activity. If activity was not attempted, code reason: 7-Patient Refused. 9-Not Applicable-not attempted and the patient did not perform the activity before the current illness, exacerbation or injury. 10-Not Attempted due to Environmental Limitations-(lack of equipment, weather restraints, etc.). 88-Not Attempted due to Medical Conditions or Safety Concerns. On/Off Footwear: 5 (Set up to don/doff footwear and R ankle brace.) Other Treatment Pt able to complete w/c mobility with SBA due to decrease stamina and increased anxiety. Pt able to propel w/c then min A for turning into doorways. Pt able t o complete steps with PT and ALANIZ monitoring tubing and assisting for safety, see PT notes for assist level. Independent with bed mobility. CGA for sit to stand, CGA to min A for transfers due to fatigue and anxiety. After session, pt lying in bed with call light/phone in reach. present in room. All needs met. OT Dehydrator Operator Goals Dehydrator Operator Goals Time Frame: Dec 20, 2022 Acute change in mental status: 0 Inattention: 0 Disorganized thinkin Altered level of consciousness: 0 Eating (QC): 88 Oral Hygiene (QC): 6 Toileting Hygiene (QC): 6 Shower/Bathe Self (QC): 6 Upper Body Dressing (QC): 6 Lower Body Dressing (QC): 6 On/Off Footwear (QC): 6 Additional Goals: 1-Demonstrate ADL Tasks, 2-Verbalize Understanding, 3- ImproveStrength/Victor Manuel 1=Demonstrate adherence to instructed precautions during ADL tasks. 2=Patient will verbalize/demonstrate understanding of assistive devices/modifications for ADL. 3=Patient will improve strength/tolerance for activity to enable patient to perform ADL's. OT Education/Plan Problem List/Assessment Assessment: Decreased Activ Tolerance, Decreased UE Strength, Impaired Funct Balance, Impaired Self-Care Skills Discharge Recommendations Plan/Recommendations: Continue POC Treatment Plan/Plan of Care Patient would benefit from OT for education, treatment and training to promote independence in ADL's, mobility, safety and/or upper extremity function for ADL's. Plan of Care: ADL Retraining, Functional Mobility, Group Exercise/Act as Ind, UE Funct Exercise/Act Treatment Duration: Dec 20, 2022 Frequency: At least 5 of 7 days/Wk (IRF) Estimated Hrs Per Day: 1.5 hours per day Agreement: Yes Rehab Potential: Good Time Start Time: 14:30 Stop Time: 15:15 DATE: Nov 27, 2022 Total Time Billed (hr/min): 45 Billed Treatment Time 1 visit-FA 3 (45 min) co-treat 45 min PERCY WALL Nov 27, 2022 15:28
[2022-11-27] MEDS: LORazepam 0.5 MG TABLET PEG SCH ×2 (15:40→23:47)
--- NOTE | 2022-11-27 16:09 | ST Dysphagia Evaluation ---
Speech Evaluation-General Medical Diagnosis critical illness myopathy Onset Date: Sep 04, 2022 Therapy Diagnosis Therapy Diagnosis: Dysphagia Precautions Precautions/Isolations: Standard Precautions Referral Referring Physician: Dr. Garcia Reason for Referral: Evaluation/Treatment Medical History Pertinent Medical History: Arthritis, HTN The pt has diagnosis of GE junction and sigmoid colon adenocarcinoma, s/p gastrectomy and J-tube placement 09/02/22. The pt was intubated on 09/07/22 secondary to acute respiratory failure, trach placement was completed 09/20/22. The pt admitted to [facility] in [place] on 10/30/22, with completion of ventilator weaning and was decannulated on 11/24/22. He as been NPO since time of surgery, is tolerating ice chips. Surgeon's office contacted this date to advise re: init iating PO intake. Spoke with PETE Riley at Dr. Ferreira' (, surgeon) office, verbal clearance obtained to initiate PO intake, MBS study also approved if indicated. Office to fax signed orders to [facility]. Social History Current Living Status: Significant Other Speech PLF/Current-Dysphagia Prior Level of Function Driving, working, no dietary restrictions Cognitive Status Patient Orientation: Person, Place Oral Motor Skills Dentition: Natural NPO with ice chips Oral Expression Ability: No Impairment Decannulated 11/24/22, small stoma remains with audible air escape Other Contributing Factors: PEG Tube Voice Voice Phonatory-Based Quality: Breathy Voice Loudness: Normal Face Facial Symmetry: Symmetrical Oral-Facial Assessment Labial Seal Description: Normal Puff Cheeks: Normal Lingual Protrusion: Normal Lingual ROM: Normal Dysphagia Evaluation Consistencies Presented: Thin Liquid Water Pharyngeal Phase: Clears Throat Immediate wet vocal quality after sip of water. Pt was instructed to clear throat, a small droplet of water exited the stoma during throat clearing. Funct. Velo/Pharyngeal Symptom: Wet Voice Dietary Recommendations: NPO Liquid Recommendations: Ice chips Recommend modified barium swallow study to assess pharyngeal function and determine risks of aspiration Dysphagia Evaluation Summary The pt is s/p gastrectomy with prolonged trach placement, recently decannulated. S/s aspiration observed at bedside with water sip, recommend MBS study to further assess swallow function. Speech Short Term Goals Short Term Goals Short Term Goals Complete MBS study Time Frame-ST days Speech Outside Energy Sales Representatives Goals Alf Goals The pt will tolerate small (1/4-1/2 cup) trials of safest liquid level and creamy/pureed solids without s/s aspiration Speech-Plan Patient/Family Goals Patient/Family Goals: Initiate PO intake Treatment Plan Speech Therapy Treatment Plan: Continue Plan of Care Frequency: At least 5 of 7 days/Wk (IRF) Estimated Hrs Per Day: .5 hour per day Rehab Potential: Good Pt/Family Agrees to Plan: Yes Safety Risks/Education Teaching Recipient: Patient, Significant Other Teaching Methods: Discussion Response to Teaching: Verbalize Understanding Education Topics Provided: Discussed status of communication with physician's office, need for further assessment of swallow function Time Speech Therapy Time In: 13:30 Speech Therapy Time Out: 13:45 DATE: Nov 27, 2022 Total Billed Time: 15 Billed Treatment Time 1 DYSEV (15 min) Recommend consult with home health registered nurse when PO intake is initiated MARIA ISABEL TAVAREZ Nov 27, 2022 16:09
--- NOTE | 2022-11-27 16:12 | Physical Therapy Evaluation ---
PT Evaluation-General Medical Diagnosis Admission Date Nov 27, 2022 at 12:50 Medical Diagnosis: critical illness myopathy Onset Date: Sep 04, 2022 Therapy Diagnosis Therapy Diagnosis: Weakness, Decreased functional mobility Precautions Precautions/Isolations: Fall Prevention, Standard Precautions Weight Bear Status Right Lower Extremity: Right Full Weight Bearing Left Lower Extremity: Left Full Weight Bearing Referral Physician: Jose Reason for Referral: Evaluation/Treatment Medical History Pertinent Medical History: HTN Additional Medical History HTN, PE, R ankle surgery (1992, 2006, 2016), R TKA (2014) Current History 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 8-Ibetjryyvi-xjerjjc completes the activity by him/herself with no assistance from a helper. 5-Set-up or Clean-up Assistance-helper sets up or cleans up; patient completes activity. Troy assists only prior to or following the activity. 4-Supervision or Touching Assistance-helper provides verbal cues and/or touching/steadying and/or contact guard assistance as patient completes activity. Assistance may be provided throughout the activity or intermittently. 3-Partial/Moderate Assistance-helper does LESS THAN HALF the effort. Troy lifts, holds or supports trunk or limbs, but provides less than half the effort. 2-Substantial/Maximal Assistance-helper does MORE THAN HALF the effort. Troy lifts or holds trunk or limbs and provides more than half the effort. 2-Zenskgxyq-dgeusy does ALL the effort. Patient does none of the effort to complete the activity. Or, the assistance of 2 or more helpers is required for the patient to complete the activity. If activity was not attempted, code reason: 7-Patient Refused. 9-Not Applicable-not attempted and the patient did not perform the activity before the current illness, exacerbation or injury. 10-Not Attempted due to Environmental Limitations-(lack of equipment, weather restraints, etc.). 88-Not Attempted due to Medical Conditions or Safety Concerns. Bed Mobility: 6 Transfers (B,C,W/C): 6 Gait: 6 Stairs: 6 Wheelchair Mobility: 6 (Electric scooter ) Indoor Mobility (Ambulation): Independent Stairs: Independent Prior Devices Use: Motorized wheelchair, Walker At [facility], pt was Mod I with the 4WW/SPC/knee scooter and driving. Pt utilized an electric scooter for longer distances in the community. PT Evaluation-Current Subjective Pt is agreeable to PT. Denies pain. Pain Numeric Pain Scale: 0-No Pain Location: No Pain Reported Section J - Health Conditions 1. Rarely or not at all 2. Occasionally 3. Frequently 4. Almost constantly 8. Unable to answer Pain Effect on Sleep: 1 Pain Interference with Therapy: 1 Pain Interference w/Day-to-Day: 1 Pt/Family Goals Safely return home and get back to [facility] Objective Patient Orientation: Person, Place, Time, Situation Attachments: Oxygen (2L ), Other-See Comments (J-tube ) ROM/Strength ROM Upper Extremities See OT eval ROM Lower Extremities WFL Strength Upper Extremities See OT eval Strength Lower Extremities B LE MMT = 3+/5 grossly Integumentary/Posture Integumentary See nurses note Bowel Incontinence: Yes Bladder Incontinence: Yes Sensory Vision: Functional Hearing: Functional Hand Dominance: Right Sensation Right Upper Extremit: Intact Sensation Left Upper Extremity: Intact Sensation Right Lower Extremit: Intact Sensation Left Lower Extremity: Intact Transfers Roll Left & Right (QC): 4 (SBA ) Sit to Lying (QC): 4 (SBA ) Lying to Sitting/Side of Bed(Q: 4 (SBA ) Sit to Stand (QC): 4 (CGA ) Chair/Rdx-fd-Suuof Xfer(QC): 4 (CGA ) Toilet Transfer (QC): 4 (CGA ) Car Transfer (QC): 4 (CGA ) Gait Does the Patient Walk?: Yes Mode of Locomotion: Both Anticipated Mode of Locomotion: Both Walk 10 feet (QC): 4 (CGA ) Walk 50 ft with 2 Turns(QC): 88 (Weakness, endurance ) Walk 150 ft (QC): 88 (Weakness, endurance ) Walking 10ft/uneven surface-QC: 4 (CGA ) Gait Assistive Device: FWW Wheelchair Training Does the Pt Use a Wheelchair?: Yes Wheel 50 ft with 2 turns (QC): 4 (SBA ) Wheel 150 ft (QC): 4 (SBA ) Type of Wheelchair: Manual Stairs #of Steps: 4 1 Step (curb) (QC): 3 (Min A ) 4 Steps (QC): 3 (Min A ) 12 Steps (QC): 88 (Weakness, endurance ) Balance Sitting Static: Good Sitting Dynamic: Fair Standing Static: Fair Standing Dynamic: Fair Picking up an Object (QC): 4 (CGA with application performance engineer ) Special Test Comments KU standing balance scale = 2/5 (goal = 4/5) Treatment PT eval completed. PT/OT co-tx from [id number], skills of 2 clinicians required to decrease fall risk, decrease anxiety with mobility, increase activity tolerance and position multiple lines and B UE/LE for safety during functional mobility. PT focusing on bed mobility, transfers, walking, stairs, and w/c mobi lity. OT focusing on ADLs and energy conservation. PT completed bed mobility with SBA. Pt completed functional transfers with CGA. Pt ambulated 30ft x 2 and 16ft with the FWW and CGA (w/c follow). Pt completed 4 steps with B HR and Min A. After treatment session, pt was lying in bed with call light in reach and all needs met. Fiance present Assessment/Needs Pt tolerated PT well, with good effort. Poor endurance and strength, as well as increased anxiety throughout treatment session. Rehab Potential: Good Post Rehab Potential-Barriers: Anxiety, Weakness, Endurance Equipment Needs FWW PT Associate Professor Of Musicology Goals Associate Professor Of Musicology Goals PT Snf Goals Time Frame: Dec 18, 2022 Roll Left to Right (QC): 6 (Pt will be Mod I with functional mobility ) Sit to Lying (QC): 6 (Pt will be Mod I with functional mobility ) Lying-Sitting on Side/Bed(QC): 6 (Pt will be Mod I with functional mobility ) Sit to Stand (QC): 6 (Pt will be Mod I with functional mobility ) Chair/Uln-cw-Teasc Xfer(QC): 6 (Pt will be Mod I with functional mobility ) Toilet/Commode Transfer (QC): 6 (Pt will be Mod I with functional mobility ) Car Transfer (QC): 6 (Pt will be Mod I with functional mobility ) Does the Patient Walk: Yes Walk 10 feet (QC): 6 (Pt will be Mod I with functional mobility ) Walk 10ft-Uneven Surface(QC): 6 (Pt will be Mod I with functional mobility ) Walk 50ft with 2 Turns (QC): 6 (Pt will be Mod I with functional mobility ) Walk 150 ft (QC): 6 (Pt will be Mod I with functional mobility ) Does the Pt use WC or Scooter?: Yes Wheel 50 feet with 2 turns (QC: 6 (Pt will be Mod I with functional mobility ) Type: Manual Wheel 150 feet: 6 (Pt will be Mod I with functional mobility ) Type: Manual 1 Step (curb) (QC): 6 (Pt will be Mod I with functional mobility ) 4 Steps (QC): 6 (Pt will be Mod I with functional mobility ) 12 Steps (QC): 6 (Pt will be Mod I with functional mobility ) Picking up an Object (QC): 6 (Pt will be Mod I with functional mobility ) KU standing balance goal = 4/5 PT Plan Problem List Problem List: Activity Tolerance, Functional Strength, Safety, Balance, Gait, Transfer, Bed Mobility, ROM Treatment/Plan Treatment Plan: Continue Plan of Care Treatment Plan: Bed Mobility, Education, Functional Activity Victor Manuel, Functional Strength, Group Therapy, Gait, Safety, Therapeutic Exercise, Transfers Treatment Duration: Dec 18, 2022 Frequency: At least 5 of 7 days/Wk (IRF) Estimated Hrs Per Day: Other (75 min/day ) Patient and/or Family Agrees t: Yes Safety Risks/Education Patient Education: Gait Training, Transfer Techniques, Steps, Correct Positioning, W/C Management, Safety Issues Teaching Recipient: Patient Teaching Methods: Demonstration, Discussion Response to Teaching: Verbalize Understanding, Return Demonstration, Reinforcement Needed Discharge Recommendations Therapy Discharge Recommendati: Home & Family, Post Acute PT Equpiment Recommendations-D/C: Front Wheeled Walker Discharge Status/Home Program Cont per POC Barriers to Progress Anxiety, Weakness, Endurance Target Placement Home with fiance Time Time In: 1345 Time Out: 1515 DATE: Nov 27, 2022 Total Billed Treatment Time: 90 Total Billed Treatment 90 min total from [id number]; 75 min co-tx from [id number] 1 visit EVM GT x 2 FA x 3 YASMINE VALDERRAMA PT Nov 27, 2022 16:12
[2022-11-27] MEDS: LOPERAMIDE 2 MG CAPSULE PEG SCH ×2 (18:26→23:47)
[2022-11-27 20:00] VITALS: BP 109/66
[2022-11-27] MEDS: DOCUSATE SODIUM 100 MG CAPSULE PO SCH (20:08)
[2022-11-27] MEDS: SENNA W/DOCUSATE TABLET PO SCH (20:08)
[2022-11-27] MEDS ORDERED: NON-FORMULARY MEDICATION 1 EA EA (Cetirizine HCl 10 MG) SCH (21:00)
[2022-11-27] MEDS ORDERED: VENLAFAXINE HCL 37.5 MG SCH (21:00)
[2022-11-27] MEDS ORDERED: NON-FORMULARY MEDICATION 1 EA EA (Melatonin 5 MG) SCH (21:00)
[2022-11-27] MEDS ORDERED: NON-FORMULARY MEDICATION 1 EA EA (Ascorbate Calcium (Vitamin C) 500 MG) SCH (21:00)
[2022-11-27] MEDS: CHLORHEXIDINE 0.12% MM SCH (21:24)
[2022-11-27] MEDS: MOUTHWASH MM SCH (21:24)
[2022-11-27] MEDS: MELATONIN 10 MG TABLET PEG SCH (21:25)
[2022-11-27] MEDS: GABAPENTIN 300 MG CAPSULE PEG SCH (21:25)
[2022-11-27] MEDS: LORATADINE 10 MG TABLET PEG SCH (21:25)
[2022-11-27] MEDS: VENlafaxine XR 37.5 MG (EFFEXOR XR) CAP PO SCH (21:25)
[2022-11-27] MEDS: FERROUS SULFATE ORAL LIQUID 44 MG/ML PEG SCH (21:25)
[2022-11-27] MEDS: PROPRANOLOL 20 MG TABLET PEG SCH (21:26)
[2022-11-27] MEDS: MAGNESIUM OXIDE 400 MG TABLET PEG SCH (21:26)
[2022-11-27 22:13] VITALS: BP 103/59
[2022-11-27] MEDS: LIDOCAINE PATCH REMOVAL TP SCH (22:25)
[2022-11-28] MEDS: LOPERAMIDE 2 MG CAPSULE PEG SCH ×3 (05:28→18:01)
[2022-11-28] MEDS: hydrOXYzine 25 MG CAPSULE JT PRN ×2 (05:28→13:28)
[2022-11-28] MEDS: PANTOPRAZOLE 2 MG/ML LIQUID 200 ML (PROTONIX) PEG SCH ×3 (05:29)
[2022-11-28 06:34] LABS: BASOPHILS # (AUTO) 0.1 10^3/uL (0.0-0.1); BASOPHILS % (AUTO) 1 % (0-10); EOSINOPHILS # (AUTO) 0.4 10^3/uL (0.0-0.3); EOSINOPHILS % (AUTO) 3 % (0-10); HEMATOCRIT 33 % (40-54); HEMOGLOBIN 9.9 g/dL (13.3-17.7); LYMPHOCYTES % (AUTO) 7 % (12-44); MEAN CORPUSCULAR HEMOGLOBIN 27 pg (25-34); MEAN CORPUSCULAR HGB CONC 30 g/dL (32-36); MEAN CORPUSCULAR VOLUME 89 fL (80-99); MEAN PLATELET VOLUME 8.3 fL (9.0-12.2); MONOCYTES % (AUTO) 7 % (0-12); NEUTROPHILS # (AUTO) 12.4 10^3/uL (1.8-7.8); NEUTROPHILS % (AUTO) 83 % (42-75); PLATELET COUNT 467 10^3/uL (130-400)
[2022-11-28 06:47] LABS: ALBUMIN 3.7 GM/DL (3.2-4.5); POTASSIUM 4.2 MMOL/L (3.6-5.0)
[2022-11-28 06:49] LABS: CALCIUM 9.8 MG/DL (8.5-10.1)
[2022-11-28 06:50] LABS: TOTAL PROTEIN 8.8 GM/DL (6.4-8.2)
[2022-11-28 06:52] LABS: BILIRUBIN,TOTAL 0.4 MG/DL (0.1-1.0)
[2022-11-28 06:53] LABS: CREATININE SERUM 0.63 MG/DL (0.60-1.30)
[2022-11-28 07:27] LABS: ANISOCYTOSIS MODERATE; BAND NEUTROPHILS 0 %; BASOPHILS % (MANUAL) 0 %; EOSINOPHILS % (MANUAL) 1 %; LYMPHOCYTES % (MANUAL) 6 %; MONOCYTES % (MANUAL) 8 %; NEUTROPHILS % (MANUAL) 85 %
[2022-11-28 08:00] VITALS: BP 104/69
[2022-11-28] MEDS: FOLIC ACID 1 MG TAB PEG SCH (08:42)
[2022-11-28] MEDS: LORazepam 0.5 MG TABLET PEG SCH ×2 (08:42→16:05)
[2022-11-28] MEDS: GABAPENTIN 300 MG CAPSULE PEG SCH ×2 (08:42→21:08)
[2022-11-28] MEDS: PROPRANOLOL 20 MG TABLET PEG SCH ×2 (08:42→21:08)
[2022-11-28] MEDS: POTASSIUM BICARB 20 MEQ effervescent TABLET PEG SCH (08:42)
[2022-11-28] MEDS: ENOXAPARIN 40 MG/0.4 ML SYRINGE SQ SCH (08:42)
[2022-11-28] MEDS: MAGNESIUM OXIDE 400 MG TABLET PEG SCH ×2 (08:42→21:08)
[2022-11-28] MEDS: FERROUS SULFATE ORAL LIQUID 44 MG/ML PEG SCH ×2 (08:42→21:07)
[2022-11-28] MEDS: DOCUSATE SODIUM 100 MG CAPSULE PO SCH ×2 (08:43→19:59)
[2022-11-28] MEDS: SENNA W/DOCUSATE TABLET PO SCH ×2 (08:43→20:00)
[2022-11-28] MEDS: LIDOCAINE 4% PATCH TOP SCH (08:43)
[2022-11-28] MEDS ORDERED: NON-FORMULARY MEDICATION 1 EA EA (Lansoprazole 30 MG) SCH (09:00)
[2022-11-28] MEDS ORDERED: LIDOCAINE TP SCH (09:00)
[2022-11-28] MEDS: CHLORHEXIDINE 0.12% MM SCH ×3 (09:01→21:38)
[2022-11-28] MEDS: MOUTHWASH MM SCH ×3 (09:01→21:38)
--- NOTE | 2022-11-28 11:58 | Physical Therapy Daily Note ---
PT Daily Note-Current Subjective Pt is agreeable to PT. Denies pain Pain Numeric Pain Scale: 0-No Pain Location: No Pain Reported Section J - Health Conditions 1. Rarely or not at all 2. Occasionally 3. Frequently 4. Almost constantly 8. Unable to answer Pain Effect on Sleep: 1 Pain Interference with Therapy: 1 Pain Interference w/Day-to-Day: 1 Mental Status Attachments: Oxygen (2L), Other-See Comments (J-Tube ) Transfers SCALE: Activities may be completed with or without assistive devices. 9-Dujakylkwe-huacwjh completes the activity by him/herself with no assistance from a helper. 5-Set-up or Clean-up Assistance-helper sets up or cleans up; patient completes activity. Minter assists only prior to or following the activity. 4-Supervision or Touching Assistance-helper provides verbal cues and/or touching/steadying and/or contact guard assistance as patient completes activity. Assistance may be provided throughout the activity or intermittently. 3-Partial/Moderate Assistance-helper does LESS THAN HALF the effort. Minter lifts, holds or supports trunk or limbs, but provides less than half the effort. 2-Substantial/Maximal Assistance-helper does MORE THAN HALF the effort. Minter lifts or holds trunk or limbs and provides more than half the effort. 9-Upsvjymar-tbidwx does ALL the effort. Patient does none of the effort to complete the activity. Or, the assistance of 2 or more helpers is required for the patient to complete the activity. If activity was not attempted, code reason: 7-Patient Refused. 9-Not Applicable-not attempted and the patient did not perform the activity before the current illness, exacerbation or injury. 10-Not Attempted due to Environmental Limitations-(lack of equipment, weather restraints, etc.). 88-Not Attempted due to Medical Conditions or Safety Concerns. Sit to Stand (QC): 4 Chair/Zbk-zl-Odubq Xfer(QC): 4 Weight Bearing Right Lower Extremity: Right Full Weight Bearing Left Lower Extremity: Left Full Weight Bearing Gait Training Does the Patient Walk?: Yes Walk 10 feet (QC): 4 Gait Assistive Device: FWW Wheelchair Training Does the Pt Use a Wheelchair?: Yes Wheel 50 ft with 2 turns (QC): 4 Treatments PT/OT co-tx from [id number], skills of 2 clinicians required to decrease fall risk, increase functional mobility and increase safety awareness throughout session. PT focusing on transfers, ambulation, and w/c mobility, while OT focusing on functional mobility, UE placement and assisting with positioning during ambulation. Pt completed functional functional transfers with SBA. Pt ambulated 14ft and 30ft x 2 with the FWW and CGA. Pt required extensive rest breaks in between bouts of walking, secondary to increased anxiety. Pt completed w/c mobility x 75ft with SBA. After treatment session, pt was sitting up in the recliner with call light in reach and all needs met. Assessment Current Status: Good Progress Pt tolerated PT well with good effort PT Detention Goals Motor Coach Supervisor Goals PT Detention Goals Time Frame: Dec 18, 2022 Roll Left & Right (QC): 6 (Pt will be Mod I with functional mobility ) Sit to Lying (QC): 6 (Pt will be Mod I with functional mobility ) Lying-Sitting on Side/Bed(QC): 6 (Pt will be Mod I with functional mobility ) Sit to Stand (QC): 6 (Pt will be Mod I with functional mobility ) Chair/Kyy-kh-Zimlq Xfer(QC): 6 (Pt will be Mod I with functional mobility ) Toilet Transfer (QC): 6 (Pt will be Mod I with functional mobility ) Car Transfer (QC): 6 (Pt will be Mod I with functional mobility ) Does the Patient Walk: Yes Walk 10 feet (QC): 6 (Pt will be Mod I with functional mobility ) Walk 50ft with 2 Turns (QC): 6 (Pt will be Mod I with functional mobility ) Walk 150 ft (QC): 6 (Pt will be Mod I with functional mobility ) Walking 10ft on Uneven Surface: 6 (Pt will be Mod I with functional mobility ) 1 Step (curb) (QC): 6 (Pt will be Mod I with functional mobility ) 4 Steps (QC): 6 (Pt will be Mod I with functional mobility ) 12 Steps (QC): 6 (Pt will be Mod I with functional mobility ) Picking up an Object (QC): 6 (Pt will be Mod I with functional mobility ) Does the Pt use WC or Scooter?: Yes Wheel 50 feet with 2 turns (QC: 6 (Pt will be Mod I with functional mobility ) Type: Manual Wheel 150 feet: 6 (Pt will be Mod I with functional mobility ) Type: Manual PT Plan Problem List Problem List: Activity Tolerance, Functional Strength, Safety, Balance, Gait, Transfer, Bed Mobility, ROM Treatment/Plan Treatment Plan: Continue Plan of Care Treatment Plan: Bed Mobility, Education, Functional Activity Victor Manuel, Functional Strength, Group Therapy, Gait, Safety, Therapeutic Exercise, Transfers Treatment Duration: Dec 18, 2022 Frequency: At least 5 of 7 days/Wk (IRF) Estimated Hrs Per Day: Other (75 min/day ) Patient and/or Family Agrees t: Yes Safety Risks/Education Patient Education: Gait Training, Transfer Techniques, Correct Positioning, W/C Management, Safety Issues Teaching Recipient: Patient Teaching Methods: Demonstration, Discussion Response to Teaching: Verbalize Understanding, Return Demonstration, Reinforcement Needed Discharge Recommendations Therapy Discharge Recommendati: Home & Family, Post Acute PT Equpiment Recommendations-D/C: Front Wheeled Walker Discharge Status/Home Program Cont per POC Barriers to Progress Anxiety, weakness, endurance Target Placement Home Time Time In: 1115 Time Out: 1145 DATE: Nov 28, 2022 Total Billed Treatment Time: 30 Total Billed Treatment 30 min co-tx from [id number] 1 visit GT x 1 FA x 1 YASMINE VALDERRAMA PT Nov 28, 2022 11:58
--- NOTE | 2022-11-28 12:31 | Individualized Plan of Care ---
Individualized Plan of Care Rehab Nursing IPOC Order Admission Date Nov 27, 2022 at 12:50 Current Orders Orders Admission Order(Inpt,Obs,Sdc) (11/27/22 11:37) Vital Signs: Per Unit Policy ( 08,16,00 (11/27/22 11:37) Juni Allan 09,21 (11/27/22 11:37) Sequential Compression Device [id number] (11/27/22 11:37) Car Scrubber-Inpt Rehab Con (11/27/22 11:37) Rehab Nursing Orders-Ipoc (11/27/22 11:37) Physical Therapy Rehab Orders (11/27/22 11:37) Occupational Therapy Rehab Ord (11/27/22 11:37) Speech Therapy Rehab Orders (11/27/22 11:37) Cbc And Automated Diff (11/28/22 06:00) Comprehensive Metabolic Panel (11/28/22 06:00) Precautions (Aru) (11/27/22 11:37) Weekly Weight WEEK (11/27/22 11:37) Rehab-Intensity Of Therapy (11/27/22 11:37) Initiate Admission Nursing Pro .admission (11/27/22 11:37) Alprazolam Tablet (Alprazolam Tablet) (11/27/22 11:45) Calcium Carbonate Chew Tablet (Calcium C (11/27/22 11:45) Diphenhydramine Tablet (Diphenhydramine (11/27/22 11:45) Docusate Sodium Capsule (Docusate Sodium (11/27/22 21:00) Docusate Sodium Capsule (Docusate Sodium (11/27/22 11:45) Bisacodyl Suppository (Bisacodyl Supposi (11/27/22 11:45) Lactulose Oral Solution (Enulose Oral So (11/27/22 11:45) Na Phos/Na Biphos Adult Enema (Na Phos/N (11/27/22 11:45) Guaifenesin/Codeine Syrup (Guaifenesin/C (11/27/22 11:45) Loperamide Capsule (Loperamide Capsule) (11/27/22 11:45) Melatonin Tablet (Melatonin Tablet) (11/27/22 11:45) Polyethylene Glycol Powder (Polyethylen (11/27/22 21:00) Ondansetron Oral Dissolve Tab (Ondanset (11/27/22 11:45) Senna W/Docusate Tablet (Senna W/Docusat (11/27/22 21:00) Acetaminophen Tablet (Acetaminophen Ta (11/27/22 11:45) Initiate Admission Nursing Pro .admission (11/27/22 11:37) Admission Arrival Bed Request (11/27/22 13:12) Acetaminophen Tablet (Acetaminophen Ta (11/27/22 15:15) Chlorhexidine 0.12% Mouthwash (Chlorhexi (11/27/22 21:00) Enoxaparin Injection (Enoxaparin Injecti (11/28/22 09:00) Ferrous Sulfate Oral Liquid (Ferrous Sul (11/27/22 21:00) Folic Acid Tablet (Folic Acid Tablet) (11/28/22 09:00) Gabapentin Capsule (Gabapentin Capsule) (11/27/22 21:00) Ipratropium/Albuterol Inh Soln (Ipratrop (11/27/22 15:15) Loperamide Capsule (Loperamide Capsule) (11/27/22 18:00) Lorazepam Tablet (Lorazepam Tablet) (11/27/22 16:00) Magnesium Oxide Tablet (Magnesium Oxide (11/27/22 21:00) Midodrine Tablet (Midodrine Tablet) (11/27/22 15:15) Potassium Bicarb/Cit Acid Tab (Potassium (11/28/22 09:00) Propranolol Tablet (Propranolol Tablet (11/27/22 21:00) (Nf) Ascorbate Calcium (Vitamin C) (11/27/22 21:00) (Nf) Cetirizine Hcl (11/27/22 21:00) (Nf) Hydroxyzine Hcl (11/27/22 15:15) (Nf) Lansoprazole (11/28/22 09:00) (Nf) Lidocaine (Salonpas) (11/28/22 09:00) (Nf) Melatonin (11/27/22 21:00) (Nf) Venlafaxine Hcl (Venlafaxine Hcl Er (11/27/22 21:00) Loratadine Tablet (Loratadine Tablet) (11/27/22 21:00) Ascorbic Acid Tablet (Ascorbic Acid Tabl (11/27/22 21:00) Hydroxyzine Oral (Hydroxyzine Oral) (11/27/22 15:45) Melatonin Tablet (Melatonin Tablet) (11/27/22 21:00) Venlafaxine Xr Capsule (Effexor Xr Capsu (11/27/22 21:00) Lidocaine 4% Patch (Salonpas 4% Patch) (11/28/22 09:00) Patch Removal (Patch Removal) (11/27/22 21:00) Water, Sterile For Irrigation (Sterile W (11/28/22 07:00) Tube Feeding (Diet) (11/27/22 15:31) Feeding Tube Connector Cleanin Q8H (11/27/22 15:31) Tube Feeding Assessment Q6H (11/27/22 15:31) Manual Differential (11/28/22 06:20) Code/Resuscitation (11/28/22 07:49) Modified Barium Swallow (11/28/22 14:00) Patient Visit (11/27/22 ) Pt Eval Moderate Complexity (11/27/22 ) Gait Training, Ea 15 Min (11/27/22 ) Functional Activities, Ea 15 (11/27/22 ) Patient Visit (11/27/22 ) Dysphagia Evaluation Std (11/27/22 ) Nursing Communication (Order) (11/28/22 13:43) Patient Visit (11/28/22 ) Gait Training, Ea 15 Min (11/28/22 ) Functional Activities, Ea 15 (11/28/22 ) Patient Visit (11/28/22 ) Functional Activities, Ea 15 (11/28/22 ) Pu4: Pureed Diet (11/28/22 Dinner) Rehab Nursing Orders: Ongoing Assess. of Cognitive Status, Ongoing Assess. of Function Status, Bladder Management, Bladder Scan, Bladder Training, Bowel Management, Bowel Training, Disease Management & Educaiton, DVT Prophylaxis, Fall Prevention, Fluid/Electrolyte/Nutrition Mgmt, Infection Prevention, Medication Management & Education, Management of Risks & Complications, Management of Skin Intergrity, Nutrition Management, Pain Management, Patien t/Family Support, Safety Management, Swallow Precautions, Wound Management Intensity of Therapy to be met Patient to be seen: Min.3h per day/5 of 7d PT IPOC Problem List: Activity Tolerance, Functional Strength, Safety, Balance, Gait, Transfer, Bed Mobility, ROM Treatment Plan: Continue Plan of Care Bed Mobility, Education, Functional Activity Victor Manuel, Functional Strength, Group Therapy, Gait, Safety, Therapeutic Exercise, Transfers Treatment Duration: Dec 18, 2022 Frequency: At least 5 of 7 days/Wk (IRF) Estimated Hrs Per Day: Other (75 min/day ) OT IPOC Problems: Decreased Activ Tolerance, Decreased UE Strength, Impaired Funct Balance, Impaired Self-Care Skills OT Treatment, Training and Edu: Yes Plan of Care: ADL Retraining, Functional Mobility, Group Exercise/Act as Ind, UE Funct Exercise/Act Treatment Duration: Dec 20, 2022 Frequency: At least 5 of 7 days/Wk (IRF) Estimated Hrs Per Day: Other (75 mins per day) ST IPOC Speech Therapy Treatment Plan: Continue Plan of Care Treatment Duration: Nov 28, 2022 Frequency: At least 5 of 7 days/Wk (IRF) Estimated Hrs Per Day: .5 hour per day Car Scrubber/Case Mgmt Car Scrubber/Case Managemen: Discharge Planning Dietitian/Affiliate Marketing Manager Dietitian/Affiliate Marketing Manager to monitor nutritional status and make changes and/or recommendations as needed and work with speech pathology on dietary upgrades as the occur. Physician IPOC Medical Issues being managed closely and that require the 24 hour availability of a physician: Recent catastrophic clinical decompensation resulting in vent management and trach placement along with PEG tube feed for feeding with overwhelming anxiety with PTSD will require close monitoring since high risk for decompensation Medical Issues: Bowel/Bladder Function, DVT Prophylaxis, Falls Precautions, Fluid/Electrolyte/Nutrition Balance, Infection Protection, Pain Management, Swallowing Precautions, Voice Protection, Weight Bearing Precautions, Wound Care Brief Synthesis of Preadmission Screen, Post-Admission Evaluation, and Therapy Evaluations: PT and OT will focus on regaining function with use of assistive devices in order to regain independence and stamina while ambulating and increasing in dependence in ADLs in order to return home Medical Prognosis: Good Anticipated Length of Stay: 10 days LIAM IQBAL DO Nov 28, 2022 12:31
--- NOTE | 2022-11-28 12:31 | PM&R Progress Note ---
Subjective HPI/CC On Admission Date Seen by Provider: Nov 28, 2022 Time Seen by Provider: 12:30 Subjective/Events-last exam 11/28/2022: Patient doing well Overwhelming anxiety is an issue No major concerns otherwise Labs reviewed Tolerating tube feedings Lungs remain clear Review of Systems General: Fatigue, Malaise Anxiety Objective Exam Vital Signs Vital Signs Date Time Temp Pulse Resp B/P (MAP) Pulse Ox O2 Delivery O2 Flow Rate FiO2 11/28/22 21:51 Nasal Cannula 2.00 11/28/22 21:00 37.1 68 20 91/60 (70) 97 Capillary Refill : General Appearance: WD/WN, Anxious, Chronically ill, Mild Distress, Thin HEENT: PERRL/EOMI, Normal ENT Inspection, Pharynx Normal Neck: Full Range of Motion, Normal Inspection, Non Tender, Supple, Carotid Bruit Respiratory: Chest Non Tender, Lungs Clear, No Accessory Muscle Use, No Respiratory Distress, Decreased Breath Sounds Cardiovascular: No Edema, No Gallop, No JVD, No Murmur, Normal Peripheral Pulses, Tachycardia Gastrointestinal: Normal Bowel Sounds, No Organomegaly, No Pulsatile Mass, Non Tender, Soft Back: Normal Inspection, No CVA Tenderness, No Vertebral Tenderness Extremity: Normal Capillary Refill, Normal Inspection, Normal Range of Motion, Non Tender, No Calf Tenderness, No Pedal Edema Neurologic/Psychiatric: Alert, Oriented x3, mountain or glacier guide II-XII Norm as Tested, Abnormal Gait, Depressed Affect, Motor Weakness (Generalized 3/5) Skin: Normal Color, Warm/Dry Lymphatic: No Adenopathy Results/Procedures Lab Laboratory Tests 11/28/22 06:20 Patient resulted labs reviewed. FIM Transfers Therapy Code Descriptions/Definitions Functional [place] Measure: 0=Not Assessed/NA 4=Minimal Assistance 1=Total Assistance 5=Supervision or Setup 2=Maximal Assistance 6=Modified [place] 3=Moderate Assistance 7=Complete IndependenceSCALE: Activities may be completed with or without assistive devices. 7-Lxpmyppbjh-sntcjuz completes the activity by him/herself with no assistance from a helper. 5-Set-up or Clean-up Assistance-helper sets up or cleans up; patient completes activity. [place] assists only prior to or following the activity. 4-Supervision or Touching Assistance-helper provides verbal cues and/or touching/steadying and/or contact guard assistance as patient completes activity. Assistance may be provided throughout the activity or intermittently. 3-Partial/Moderate Assistance-helper does LESS THAN HALF the effort. [place] lifts, holds or supports trunk or limbs, but provides less than half the effort. 2-Substantial/Maximal Assistance-helper does MORE THAN HALF the effort. [place] lifts or holds trunk or limbs and provides more than half the effort. 3-Oxgwjmlbc-wbctav does ALL the effort. Patient does none of the effort to complete the activity. Or, the assistance of 2 or more helpers is required for the patient to complete the activity. If activity was not attempted, code reason: 7-Patient Refused. 9-Not Applicable-not attempted and the patient did not perform the activity before the current illness, exacerbation or injury. 10-Not Attempted due to Environmental Limitations-(lack of equipment, weather restraints, etc.). 88-Not Attempted due to Medical Conditions or Safety Concerns. Roll Left to Right (QC): 4 (SBA ) Sit to Lying (QC): 4 (SBA ) Sit to Stand (QC): 4 Chair/Tht-wm-Wwdre Xfer(QC): 4 Car Transfer (QC): 4 (CGA ) Gait Training Does the Patient Walk?: Yes Walk 10 feet (QC): 4 Walk 50 ft with 2 Turns(QC): 88 (Weakness, endurance ) Walk 150 ft (QC): 88 (Weakness, endurance ) Walking 10ft/uneven surface-QC: 4 (CGA ) Gait Assistive Device: FWW Wheelchair Training Does the Pt Use a Wheelchair?: Yes Wheel 50 ft with 2 turns (QC): 4 Wheel 150 ft (QC): 4 (SBA ) Type of Wheelchair: Manual Stair Training #of Steps: 4 1 Step (curb) (QC): 3 (Min A ) 4 Steps (QC): 3 (Min A ) 12 Steps (QC): 88 (Weakness, endurance ) Balance Picking up an Object (QC): 4 (CGA with passenger service agent ) ADL-Treatment Eating (QC): 88 Oral Hygiene (QC): 4 Shower/Bathe Self (QC): 3 Upper Body Dressing (QC): 3 (per pt and spouse report) Lower Body Dressing (QC): 3 (per pt and spouse report) On/Off Footwear (QC): 5 Toileting Hygiene (QC): 3 (min A with balance) Assessment/Plan Assessment and Plan Assess & Plan/Chief Complaint Assessment: Critical illness myopathy Recent ARDS Recent vent dependent Decannulated trach Former smoker Colon cancer Gastrectomy with J-tube placement Recent adrenal insufficiency Acute blood loss anemia requiring transfusions PTSD Anxiety Overwhelming type Depression Hypokalemia Labile blood pressure Tachycardia Plan: Supportive care Monitor closely PT and OT Supportive care 11/28/2022: Supportive care Modified barium swallow Anxiety treatment (1) Critical illness myopathy LIAM IQBAL DO Nov 28, 2022 12:31
--- NOTE | 2022-11-28 12:48 | Occupational Ther Daily Note ---
OT Current Status-Daily Note Subjective Pt agreeable to OT tx, states high anxiety throughout tx. With therapeutic listening/communication, pt indicates his anxiety lessens as staff talk with him, keeping doors open (including bathroom), and staff sitting in chair instead of standing. Mental Status/Objective Patient Orientation: Normal For Age Attachments: Oxygen (2L), Other-See Comments (J tube) ADL-Treatment Therapy Code Descriptions/Definitions Functional [place] Measure: 0=Not Assessed/NA 4=Minimal Assistance 1=Total Assistance 5=Supervision or Setup 2=Maximal Assistance 6=Modified [place] 3=Moderate Assistance 7=Complete IndependenceSCALE: Activities may be completed with or without assistive devices. 5-Kejzlrlpax-vzecgpb completes the activity by him/herself with no assistance from a helper. 5-Set-up or Clean-up Assistance-helper sets up or cleans up; patient completes activity. [place] assists only prior to or following the activity. 4-Supervision or Touching Assistance-helper provides verbal cues and/or touching/steadying and/or contact guard assistance as patient completes activity. Assistance may be provided throughout the activity or intermittently. 3-Partial/Moderate Assistance-helper does LESS THAN HALF the effort. [place] lifts, holds or supports trunk or limbs, but provides less than half the effort. 2-Substantial/Maximal Assistance-helper does MORE THAN HALF the effort. [place] lifts or holds trunk or limbs and provides more than half the effort. 6-Cmrjnnbqu-nuovah does ALL the effort. Patient does none of the effort to complete the activity. Or, the assistance of 2 or more helpers is required for the patient to complete the activity. If activity was not attempted, code reason: 7-Patient Refused. 9-Not Applicable-not attempted and the patient did not perform the activity bef ore the current illness, exacerbation or injury. 10-Not Attempted due to Environmental Limitations-(lack of equipment, weather r estraints, etc.). 88-Not Attempted due to Medical Conditions or Safety Concerns. On/Off Footwear: 5 Toileting Hygiene (QC): 4 (CGA) Toilet Transfer (QC): 4 (CGA) Other Treatment [id number] OT Tx: Pt in bed, agreeable to OT Tx. Pt transferred supine to sit EOB, SBA. CGA sit to stand from EOB, then CGA using FWW to transfer to toilet. Pt states high anxiety, requesting OT to remain in bathroom with him and keep bathroom door open. Pt stood with CGA, transferring to w/c. Pt doffed gripper socks and donned R ankle brace and b/l boots with set up assistance. [id number] [place] with PT due to skill of 2 clinicians required which a rehab trainer could not perform in order to coordinate UE/LEs, decrease fall risk, and due to pt's limitations in strength, activity tolerance, anxiety, transfers/mobility. OT focused on UE placement, cues for sequencing and safety and ADLs, PT focused on LE placement, gross overall movement, transfers and mobility. Pt performed functional mobility using FWW x3 (14', 30'x2), CGA. Pt propelled w/c back to his room, then transferred to recliner using FWW, CGA. Post tx, pt in recliner, call light in reach and all needs met. Education OT Patient Education: Correct positioning, Energy conservation, Modified ADL techniques, Progress toward Goal/Update tx plan, Purpose of tx/functional activities, Rehab process Teaching Recipient: Patient Teaching Methods: Discussion Response to Teaching: Verbalize Understanding OT Fpc Goals Fpc Goals Time Frame: Dec 20, 2022 Acute change in mental status: 0 Inattention: 0 Disorganized thinkin Altered level of consciousness: 0 Eating (QC): 88 Oral Hygiene (QC): 6 Toileting Hygiene (QC): 6 Shower/Bathe Self (QC): 6 Upper Body Dressing (QC): 6 Lower Body Dressing (QC): 6 On/Off Footwear (QC): 6 Additional Goals: 1-Demonstrate ADL Tasks, 2-Verbalize Understanding, 3- ImproveStrength/[place] 1=Demonstrate adherence to instructed precautions during ADL tasks. 2=Patient will verbalize/demonstrate understanding of assistive devices/modifications for ADL. 3=Patient will improve strength/tolerance for activity to enable patient to perform ADL's. OT Education/Plan Problem List/Assessment Assessment: Decreased Activ Tolerance, Decreased UE Strength, Impaired Funct Balance, Impaired I ADL's, Impaired Self-Care Skills Discharge Recommendations Plan/Recommendations: Continue POC Treatment Plan/Plan of Care Patient would benefit from OT for education, treatment and training to promote independence in ADL's, mobility, safety and/or upper extremity function for ADL's. Plan of Care: ADL Retraining, Functional Mobility, Group Exercise/Act as Ind, UE Funct Exercise/Act Treatment Duration: Dec 20, 2022 Frequency: At least 5 of 7 days/Wk (IRF) Estimated Hrs Per Day: Other (75 mins per day) Agreement: Yes Rehab Potential: Good Time Start Time: 10:30 Stop Time: 11:45 DATE: Nov 28, 2022 Total Time Billed (hr/min): 75 Billed Treatment Time [place] x30' 1, ADL 3 (45'), FA 2 (30') LETICIA DARNELL OT Nov 28, 2022 12:48
--- NOTE | 2022-11-28 14:03 | Physical Therapy Daily Note ---
PT Daily Note-Current Subjective Pt is agreeable to PT. Pt denies pain. Pain Numeric Pain Scale: 0-No Pain Location: No Pain Reported Section J - Health Conditions 1. Rarely or not at all 2. Occasionally 3. Frequently 4. Almost constantly 8. Unable to answer Pain Effect on Sleep: 1 Pain Interference with Therapy: 1 Pain Interference w/Day-to-Day: 1 Mental Status Attachments: Oxygen (2L ), Other-See Comments (J-Tube ) Transfers SCALE: Activities may be completed with or without assistive devices. 2-Lwcgtxiqxo-tbcxopr completes the activity by him/herself with no assistance from a helper. 5-Set-up or Clean-up Assistance-helper sets up or cleans up; patient completes activity. [place] assists only prior to or following the activity. 4-Supervision or Touching Assistance-helper provides verbal cues and/or touching/steadying and/or contact guard assistance as patient completes activity. Assistance may be provided throughout the activity or intermittently. 3-Partial/Moderate Assistance-helper does LESS THAN HALF the effort. [place] lifts, holds or supports trunk or limbs, but provides less than half the effort. 2-Substantial/Maximal Assistance-helper does MORE THAN HALF the effort. [place] lifts or holds trunk or limbs and provides more than half the effort. 3-Xmivgfsjf-jcclox does ALL the effort. Patient does none of the effort to complete the activity. Or, the assistance of 2 or more helpers is required for the patient to complete the activity. If activity was not attempted, code reason: 7-Patient Refused. 9-Not Applicable-not attempted and the patient did not perform the activity before the current illness, exacerbation or injury. 10-Not Attempted due to Environmental Limitations-(lack of equipment, weather restraints, etc.). 88-Not Attempted due to Medical Conditions or Safety Concerns. Sit to Stand (QC): 4 Chair/Jxq-xs-Hrtan Xfer(QC): 4 Toilet Transfer (QC): 4 Weight Bearing Right Lower Extremity: Right Full Weight Bearing Left Lower Extremity: Left Full Weight Bearing Gait Training Distance: 15ft Walk 10 feet (QC): 4 Gait Persons Needed: 1 Gait Assistive Device: FWW Wheelchair Training Does the Pt Use a Wheelchair?: Yes Wheel 50 ft with 2 turns (QC): 4 Treatments Pt completed functional transfers, including a toilet transfer, with SBA/CGA. Pt ambulated 15ft with the FWW and CGA, from recliner to bathroom. Pt required extensive time for BM, secondary to increased anxiety. RN administered anxiety meds. Pt completed w/c mobility x 80ft and 40ft with SBA. After treatment sessi on, pt was left with x-ray techs for a swallow study. All needs met. Assessment Current Status: Good Progress Pt demo very high anxiety with all functional mobility PT [employer] [place] [place] Operator Goals [place] Operator Goals PT Group Home Goals Time Frame: Dec 18, 2022 Roll Left & Right (QC): 6 (Pt will be Mod I with functional mobility ) Sit to Lying (QC): 6 (Pt will be Mod I with functional mobility ) Lying-Sitting on Side/Bed(QC): 6 (Pt will be Mod I with functional mobility ) Sit to Stand (QC): 6 (Pt will be Mod I with functional mobility ) Chair/Knv-zw-Vrymf Xfer(QC): 6 (Pt will be Mod I with functional mobility ) Toilet Transfer (QC): 6 (Pt will be Mod I with functional mobility ) Car Transfer (QC): 6 (Pt will be Mod I with functional mobility ) Does the Patient Walk: Yes Walk 10 feet (QC): 6 (Pt will be Mod I with functional mobility ) Walk 50ft with 2 Turns (QC): 6 (Pt will be Mod I with functional mobility ) Walk 150 ft (QC): 6 (Pt will be Mod I with functional mobility ) Walking 10ft on Uneven Surface: 6 (Pt will be Mod I with functional mobility ) 1 Step (curb) (QC): 6 (Pt will be Mod I with functional mobility ) 4 Steps (QC): 6 (Pt will be Mod I with functional mobility ) 12 Steps (QC): 6 (Pt will be Mod I with functional mobility ) Picking up an Object (QC): 6 (Pt will be Mod I with functional mobility ) Does the Pt use WC or Scooter?: Yes Wheel 50 feet with 2 turns (QC: 6 (Pt will be Mod I with functional mobility ) Type: Manual Wheel 150 feet: 6 (Pt will be Mod I with functional mobility ) Type: Manual PT Plan Problem List Problem List: Activity Tolerance, Functional Strength, Safety, Balance, Gait, Transfer, Bed Mobility Treatment/Plan Treatment Plan: Continue Plan of Care Treatment Plan: Bed Mobility, Education, Functional Activity [place], Functional Strength, Group Therapy, Gait, Safety, Therapeutic Exercise, Transfers Treatment Duration: Dec 18, 2022 Frequency: At least 5 of 7 days/Wk (IRF) Estimated Hrs Per Day: Other (75 min/day ) Patient and/or Family Agrees t: Yes Safety Risks/Education Patient Education: Gait Training, Transfer Techniques, Correct Positioning, W/C Management, Safety Issues Teaching Recipient: Patient Teaching Methods: Demonstration, Discussion Response to Teaching: Reinforcement Needed Discharge Recommendations Therapy Discharge Recommendati: Home & Family, Post Acute PT Equpiment Recommendations-D/C: Front Wheeled Walker Discharge Status/Home Program Cont per POC Barriers to Progress Anxiety, weakness, endurance Target Placement Home Time Time In: 1300 Time Out: 1345 DATE: Nov 28, 2022 Total Billed Treatment Time: 45 Total Billed Treatment 45 min 1 visit FA x 3 YASMINE VALDERRAMA PT Nov 28, 2022 14:03
--- NOTE | 2022-11-28 15:19 | ST Mod Barium Swallow ---
Speech Evaluation-General Medical Diagnosis critical illness myopathy Onset Date: Sep 04, 2022 Therapy Diagnosis Therapy Diagnosis: Dysphagia, gastrectomy Precautions Precautions: Fall Precautions/Isolations: Standard Precautions Referral Referring Physician: Dr. Garcia Assess swallow safety for initiation of PO intake Medical History Pertinent Medical History: Arthritis, HTN Current History The pt has diagnosis of GE junction and sigmoid colon adenocarcinoma, s/p gastrectomy and J-tube placement 09/02/22. The pt was intubated on 09/07/22 secondary to acute respiratory failure, trach placement was completed 09/20/22. The pt admitted to [facility] in [place] on 10/30/22, with completion of ventilator weaning. The pt was decannulated on 11/24/22. He as been NPO since time of surgery,is tolerating ice chips. Surgeon's office contacted this date to advise re: initiating PO intake. Spoke with PETE Riley at Dr. Ferreira' (MD, surgeon) office, verbal clearance obtained to initiate PO intake, MBS study also approved if indicated. Office to fax signed orders to [facility]. Bedside swallow evaluation concerning for safety of thin liquids, with appearance of aspiration of thin water. Reviewed History: Yes Social History Current Living Status: Significant Other Speech Mod Barium Swallow Oral Motor Skills Dentition Comments: Edntulous for examination Lingual Protrusion: Normal Lingual ROM: Normal Lingual Strength: Normal Velum: Normal Volitional Dry Swallow: Yes Can Clear Throat Volitionally: Yes Textures-Lateral View Lateral View Food Presentation: Thin Liquid via Cup, Pureed Solids Oral Phase Labial Closure: No Impairment (WFL) Bolus Formation Pooling L/R: No Impairment (WFL) Bolus Formation Placement: No Impairment (WFL) A/P Lingual Propulsion: Minimal Impairment Lingual Movement: No Impairment (WFL) Oral Phase Residue: Minimal Impairment Lingual stasis which entered the valleculae after the swallow Pharyngeal Phase Swallow Response: No Impairment (WFL) Base of Tongue: Mild Impairment Epiglottic Movement: No Impairment (WFL) Laryngeal Elevation: Minimal Impairment Vallecular Residue: Mild Pharyngeal Wall Residue: No Impairment (WFL) Piriform Sinus Residue: Mild Laryngeal Penetration: Mild Penetration of thin liquids Aspiration Observations: None Other Pharyngeal Observations: Thin liquids: pharyngeal swallow was intiated once the bolus head entered the valleculae. For larger boluses, penetration to the upper 2/3 of the larygneal vestibule occurred during the swallow as the bolus head reached the pharynx prior to full excursion of the epiglottis. Material remained above the vocal folds, and mostly cleared with swallow completion. Trace stasis remained in the vestibule after the swallow. Instructed throat clear and re-swallow was effective in clearing penetrated stasis. Small sips of liquid resulted in improved control of the bolus with full airway closure prior to bolus moving past the valleculae. Mild valleculae and trace pyriform sinus remained after the swallow.Pudding and applesauce boluses were WFL, with no penetration and or pharyngeal stasis following the swallow. Summary/Impressions Recommend 1/4-1/2 cup serving of pureed solids 2x/day Thin liquids by small sip from cup No liquids 30 minutes before or after food intake Slow rate Speech Short Term Goals Short Term Goals Short Term Goals Complete MBS study Time Frame-ST days Speech Custodial Goals Custodial Goals The pt will tolerate small (1/4-1/2 cup) trials of safest liquid level and creamy/pureed solids without s/s aspiration Speech-Plan Patient/Family Goals Patient/Family Goals: Begin PO intake Treatment Plan Speech Therapy Treatment Plan: Continue Plan of Care Frequency: At least 5 of 7 days/Wk (IRF) Estimated Hrs Per Day: .5 hour per day Rehab Potential: Good Safety Risks/Education Teaching Recipient: Patient, Significant Other Teaching Methods: Discussion Response to Teaching: Verbalize Understanding Education Topics Provided: [facility] study results and recommendations Discharge Recommendations Home & Family Time Speech Therapy Time In: 13:45 Speech Therapy Time Out: 14:25 DATE: Nov 28, 2022 Total Billed Time: 40 Billed Treatment Time 1 MOD (40 min) MARIA ISABEL TAVAREZ Nov 28, 2022 15:19
--- NOTE | 2022-11-28 16:18 | Diagnostic Imaging Report ---
EXAMINATION: Modified barium swallow. INDICATION: Dysphagia. FINDINGS: This study was performed in the presence of the speech pathologist, Ivory. There are no prior exams available for comparison. The patient was given barium in different substances to swallow including thin barium, pudding, and applesauce. The patient did experience penetration with the larger volumes swallow of the thin barium but no penetration with the smaller volume of thin liquid. There was no aspiration or penetration with the applesauce or pudding consistency either. IMPRESSION: The swallowing mechanism is compromised as the patient did show penetration with the larger volume of thin liquid. Dictated by: Dictated on workstation # [id number]
[2022-11-28 21:00] VITALS: BP 91/60
[2022-11-28] MEDS: MELATONIN 10 MG TABLET PEG SCH (21:07)
[2022-11-28] MEDS: VENlafaxine XR 37.5 MG (EFFEXOR XR) CAP PO SCH (21:07)
[2022-11-28] MEDS: LORATADINE 10 MG TABLET PEG SCH (21:08)
[2022-11-28] MEDS: LIDOCAINE PATCH REMOVAL TP SCH (21:37)
[2022-11-28] MEDS: MIDODRINE 10 MG TABLET PO PRN (22:28)
[2022-11-29] MEDS: LORazepam 0.5 MG TABLET PEG SCH ×4 (00:28→23:29)
[2022-11-29] MEDS: LOPERAMIDE 2 MG CAPSULE PEG SCH ×5 (00:35→20:57)
--- NOTE | 2022-11-29 05:17 | PM&R Progress Note ---
Subjective HPI/CC On Admission Date Seen by Provider: Nov 29, 2022 Time Seen by Provider: 12:00 Subjective/Events-last exam 11/29/2022: Patient is doing well Was able to eat a little bit today Slow recovery Adding Effexor 150 mg in the morning 11/28/2022: Patient doing well Overwhelming anxiety is an issue No major concerns otherwise Labs reviewed Tolerating tube feedings Lungs remain clear Review of Systems General: Fatigue, Malaise Anxiety Objective Exam Vital Signs Vital Signs Date Time Temp Pulse Resp B/P (MAP) Pulse Ox O2 Delivery O2 Flow Rate FiO2 11/29/22 21:32 Nasal Cannula 2.00 11/29/22 20:00 36.4 105 24 105/61 (76) 92 Capillary Refill : General Appearance: WD/WN, Anxious, Chronically ill, Mild Distress, Thin HEENT: PERRL/EOMI, Normal ENT Inspection, Pharynx Normal Neck: Full Range of Motion, Normal Inspection, Non Tender, Supple, Carotid Bruit Respiratory: Chest Non Tender, Lungs Clear, No Accessory Muscle Use, No Respiratory Distress, Decreased Breath Sounds Cardiovascular: No Edema, No Gallop, No JVD, No Murmur, Normal Peripheral Pulses, Tachycardia Gastrointestinal: Normal Bowel Sounds, No Organomegaly, No Pulsatile Mass, Non Tender, Soft Back: Normal Inspection, No CVA Tenderness, No Vertebral Tenderness Extremity: Normal Capillary Refill, Normal Inspection, Normal Range of Motion, Non Tender, No Calf Tenderness, No Pedal Edema Neurologic/Psychiatric: Alert, Oriented x3, farm crew leader II-XII Norm as Tested, Abnormal Gait, Depressed Affect, Motor Weakness (Generalized 3/5) Skin: Normal Color, Warm/Dry Lymphatic: No Adenopathy Results/Procedures Lab Patient resulted labs reviewed. FIM Transfers Therapy Code Descriptions/Definitions Functional [place] Measure: 0=Not Assessed/NA 4=Minimal Assistance 1=Total Assistance 5=Supervision or Setup 2=Maximal Assistance 6=Modified [place] 3=Moderate Assistance 7=Complete IndependenceSCALE: Activities may be completed with or without assistive devices. 1-Vtlruuqqot-sforznn completes the activity by him/herself with no assistance from a helper. 5-Set-up or Clean-up Assistance-helper sets up or cleans up; patient completes activity. [place] assists only prior to or following the activity. 4-Supervision or Touching Assistance-helper provides verbal cues and/or touching/steadying and/or contact guard assistance as patient completes activity . Assistance may be provided throughout the activity or intermittently. 3-Partial/Moderate Assistance-helper does LESS THAN HALF the effort. [place] lifts, holds or supports trunk or limbs, but provides less than half the effort. 2-Substantial/Maximal Assistance-helper does MORE THAN HALF the effort. [place] lifts or holds trunk or limbs and provides more than half the effort. 2-Hvvszquma-wkpyqq does ALL the effort. Patient does none of the effort to complete the activity. Or, the assistance of 2 or more helpers is required for the patient to complete the activity. If activity was not attempted, code reason: 7-Patient Refused. 9-Not Applicable-not attempted and the patient did not perform the activity before the current illness, exacerbation or injury. 10-Not Attempted due to Environmental Limitations-(lack of equipment, weather restraints, etc.). 88-Not Attempted due to Medical Conditions or Safety Concerns. Roll Left to Right (QC): 4 (SBA ) Sit to Lying (QC): 4 (SBA ) Sit to Stand (QC): 4 Chair/Jpv-td-Crksc Xfer(QC): 4 Car Transfer (QC): 4 (CGA ) Gait Training Does the Patient Walk?: Yes Distance: 15ft Walk 10 feet (QC): 4 Walk 50 ft with 2 Turns(QC): 88 (Weakness, endurance ) Walk 150 ft (QC): 88 (Weakness, endurance ) Walking 10ft/uneven surface-QC: 4 (CGA ) Gait Persons Needed: 1 Gait Assistive Device: FWW Wheelchair Training Does the Pt Use a Wheelchair?: Yes Wheel 50 ft with 2 turns (QC): 4 Wheel 150 ft (QC): 4 (SBA ) Type of Wheelchair: Manual Stair Training #of Steps: 4 1 Step (curb) (QC): 3 (Min A ) 4 Steps (QC): 3 (Min A ) 12 Steps (QC): 88 (Weakness, endurance ) Balance Picking up an Object (QC): 4 (CGA with portuguese tutor ) ADL-Treatment Eating (QC): 88 Oral Hygiene (QC): 4 Shower/Bathe Self (QC): 3 Upper Body Dressing (QC): 3 (per pt and spouse report) Lower Body Dressing (QC): 3 (per pt and spouse report) On/Off Footwear (QC): 5 Toileting Hygiene (QC): 4 (CGA) Toilet Transfer (QC): 4 (CGA) Assessment/Plan Assessment and Plan Assess & Plan/Chief Complaint Assessment: Critical illness myopathy Recent ARDS Recent vent dependent Decannulated trach Former smoker Colon cancer Gastrectomy with J-tube placement Recent adrenal insufficiency Acute blood loss anemia requiring transfusions PTSD Anxiety Overwhelming type Depression Hypokalemia Labile blood pressure Tachycardia Plan: Supportive care Monitor closely PT and OT Supportive care 11/28/2022: Supportive care Modified barium swallow Anxiety treatment 11/29/2022: Add Effexor 150 Supportive care (1) Critical illness myopathy LIAM IQBAL DO Nov 29, 2022 05:17
[2022-11-29] MEDS: PANTOPRAZOLE 2 MG/ML LIQUID 200 ML (PROTONIX) PEG SCH ×3 (06:58)
[2022-11-29 08:00] VITALS: BP 98/60
[2022-11-29] MEDS: GABAPENTIN 300 MG CAPSULE PEG SCH ×2 (09:07→20:57)
[2022-11-29] MEDS: FOLIC ACID 1 MG TAB PEG SCH (09:07)
[2022-11-29] MEDS: MAGNESIUM OXIDE 400 MG TABLET PEG SCH ×2 (09:07→20:57)
[2022-11-29] MEDS: PROPRANOLOL 20 MG TABLET PEG SCH ×3 (09:08→20:56)
[2022-11-29] MEDS: POTASSIUM BICARB 20 MEQ effervescent TABLET PEG SCH (09:08)
[2022-11-29] MEDS: ENOXAPARIN 40 MG/0.4 ML SYRINGE SQ SCH (09:08)
[2022-11-29] MEDS: LIDOCAINE 4% PATCH TOP SCH (09:08)
[2022-11-29] MEDS: CHLORHEXIDINE 0.12% MM SCH ×2 (09:09→20:57)
[2022-11-29] MEDS: MOUTHWASH MM SCH ×2 (09:09→20:57)
[2022-11-29] MEDS: FERROUS SULFATE ORAL LIQUID 44 MG/ML PEG SCH ×2 (09:09→20:57)
[2022-11-29] MEDS: SENNA W/DOCUSATE TABLET PO SCH ×2 (09:31→20:54)
[2022-11-29] MEDS: DOCUSATE SODIUM 100 MG CAPSULE PO SCH ×2 (09:31→20:53)
[2022-11-29] MEDS: hydrOXYzine 25 MG CAPSULE JT PRN (11:26)
--- NOTE | 2022-11-29 12:40 | Occupational Ther Daily Note ---
OT Current Status-Daily Note Subjective Pt agreeable to OT tx but states he has a lot of anxiety throughout tx Mental Status/Objective Patient Orientation: Person, Place, Time, Situation Attachments: Oxygen (2L) ADL-Treatment Therapy Code Descriptions/Definitions Functional [place] Measure: 0=Not Assessed/NA 4=Minimal Assistance 1=Total Assistance 5=Supervision or Setup 2=Maximal Assistance 6=Modified [place] 3=Moderate Assistance 7=Complete IndependenceSCALE: Activities may be completed with or without assistive devices. 8-Enzxiqtkbi-cvuzgjh completes the activity by him/herself with no assistance from a helper. 5-Set-up or Clean-up Assistance-helper sets up or cleans up; patient completes activity. [place] assists only prior to or following the activity. 4-Supervision or Touching Assistance-helper provides verbal cues and/or touching/steadying and/or contact guard assistance as patient completes activity. Assistance may be provided throughout the activity or intermittently. 3-Partial/Moderate Assistance-helper does LESS THAN HALF the effort. [place] lifts, holds or supports trunk or limbs, but provides less than half the effort. 2-Substantial/Maximal Assistance-helper does MORE THAN HALF the effort. [place] lifts or holds trunk or limbs and provides more than half the effort. 7-Byoidiwpg-dtzkeo does ALL the effort. Patient does none of the effort to complete the activity. Or, the assistance of 2 or more helpers is required for the patient to complete the activity. If activity was not attempted, code reason: 7-Patient Refused. 9-Not Applicable-not attempted and the patient did not perform the activity before the current illness, exacerbation or injury. 10-Not Attempted due to Environmental Limitations-(lack of equipment, weather restraints, etc.). 88-Not Attempted due to Medical Conditions or Safety Concerns. Shower/Bathe Self (QC): 4 (VCS for anxiety, 100% seated) Upper Body Dressing (QC): 4 (VCS for anxiety) Lower Body Dressing (QC): 3 (Min A with pants due to anxiety/fatigue. Pt able to complete brief with CGA) extensive rest breaks required due to anxiety. Other Treatment Pt in chair, very anxious throughout tx. OT played country music, encouraged slow deep breaths, and kept bathroom door open to help decrease anxiety. Pt's fiance present during tx to help with anxiety as well. Pt stood from recliner, CGA, transferred to [place], [facility]. Pt doffed clothes, completed shower, then donned clothes, frequent RBs required. Pt used FWW to transfer to EOB, then supine. Post tx, pt in bed, call light in reach and all needs met. Education OT Patient Education: Correct positioning, Energy conservation, Modified ADL techniques, Progress toward Goal/Update tx plan, Purpose of tx/functional activities, Rehab process Teaching Recipient: Patient Teaching Methods: Discussion Response to Teaching: Verbalize Understanding OT Esthetician Permanent Makeup Artist Goals Esthetician Permanent Makeup Artist Goals Time Frame: Dec 20, 2022 Acute change in mental status: 0 Inattention: 0 Disorganized thinkin Altered level of consciousness: 0 Eating (QC): 88 Oral Hygiene (QC): 6 Toileting Hygiene (QC): 6 Shower/Bathe Self (QC): 6 Upper Body Dressing (QC): 6 Lower Body Dressing (QC): 6 On/Off Footwear (QC): 6 Additional Goals: 1-Demonstrate ADL Tasks, 2-Verbalize Understanding, 3- ImproveStrength/Victor Manuel 1=Demonstrate adherence to instructed precautions during ADL tasks. 2=Patient will verbalize/demonstrate understanding of assistive devices/modifications for ADL. 3=Patient will improve strength/tolerance for activity to enable patient to perform ADL's. OT Education/Plan Problem List/Assessment Assessment: Decreased Activ Tolerance, Decreased UE Strength, Impaired Funct Balance, Impaired I ADL's, Impaired Self-Care Skills Discharge Recommendations Plan/Recommendations: Continue POC Treatment Plan/Plan of Care Patient would benefit from OT for education, treatment and training to promote independence in ADL's, mobility, safety and/or upper extremity function for ADL's. Plan of Care: ADL Retraining, Functional Mobility, Group Exercise/Act as Ind, UE Funct Exercise/Act Treatment Duration: Dec 20, 2022 Frequency: At least 5 of 7 days/Wk (IRF) Estimated Hrs Per Day: Other (75 mins per day) Agreement: Yes Rehab Potential: Good Time Start Time: 10:50 Stop Time: 12:20 DATE: Nov 29, 2022 Total Time Billed (hr/min): 90 Billed Treatment Time 1, ADL 6 LETICIA DARNELL OT Nov 29, 2022 12:40
[2022-11-29] MEDS: VENlafaxine XR 75 MG (EFFEXOR XR) CAP PO SCH (13:00)
--- NOTE | 2022-11-29 13:53 | Speech Therapy Daily Note ---
Speech Daily Progress Note Subjective Date Seen by Provider: Nov 29, 2022 Time Seen by Provider: 10:10 The pt was seen for first trial of PO solids. He had good participation in session. Objective The pt consumed pureed chicken, peas, and pears provided in 2 Tbsp amounts per item. Strategies for eating were discussed and provided in writing: small bites, extended oral manipulation/mastication, slow rate. The pt required mod cues throughout to slow rate and increase time of oral manipulation per bolus. Swallow strategies for liquid were also provided: small sips, no straws, intermittent throat clearing. Food and drink choices were discussed, current recommendation per CARPENTER [employer]M/accounting representative discussion for protein, vegetable and low sugar fruit for each meal. Water only at this time, will introduce additional liquids as treatment progresses. Assessment Assessment Current Status: Good Progress Good tolerance of PO trial observed Treatment Plan Continue Plan of Care Speech Short Term Goals Short Term Goals Short Term Goals Complete MBS study Time Frame-ST days Speech Tool Machine Shop Supervisor Goals Tool Machine Shop Supervisor Goals The pt will tolerate small (1/4-1/2 cup) trials of safest liquid level and creamy/pureed solids without s/s aspiration Speech-Plan Patient/Family Goals Patient/Family Goals: Continue PO intake Treatment Plan Speech Therapy Treatment Plan: Continue Plan of Care Treatment Duration: Nov 28, 2022 Frequency: At least 5 of 7 days/Wk (IRF) Estimated Hrs Per Day: .5 hour per day Rehab Potential: Good Pt/Family Agrees to Plan: Yes Safety Risks/Education Teaching Recipient: Patient, Significant Other Teaching Methods: Demonstration, Discussion Response to Teaching: Verbalize Understanding, Return Demonstration Education Topics Provided: Swallow strategies, diet recommendations Discharge Recommendations Home & Family Time Speech Therapy Time In: 10:10 Speech Therapy Time Out: 10:50 DATE: Nov 29, 2022 Total Billed Time: 40 Billed Treatment Time 1 DYST (40 min) MARIA ISABEL TAVAREZ Nov 29, 2022 13:53
--- NOTE | 2022-11-29 14:34 | Physical Therapy Daily Note ---
PT Daily Note-Current Subjective Pt is agreeable to PT, but requested to stay in bed and complete supine exercises, secondary to fatigue and anxiety. Pt denies pain. Pain Numeric Pain Scale: 0-No Pain Location: No Pain Reported Section J - Health Conditions 1. Rarely or not at all 2. Occasionally 3. Frequently 4. Almost constantly 8. Unable to answer Pain Effect on Sleep: 1 Pain Interference with Therapy: 1 Pain Interference w/Day-to-Day: 1 Transfers SCALE: Activities may be completed with or without assistive devices. 1-Nujfsgcspe-jfbcknh completes the activity by him/herself with no assistance from a helper. 5-Set-up or Clean-up Assistance-helper sets up or cleans up; patient completes activity. [place] assists only prior to or following the activity. 4-Supervision or Touching Assistance-helper provides verbal cues and/or touching/steadying and/or contact guard assistance as patient completes activity. Assistance may be provided throughout the activity or intermittently. 3-Partial/Moderate Assistance-helper does LESS THAN HALF the effort. [place] lifts, holds or supports trunk or limbs, but provides less than half the effort. 2-Substantial/Maximal Assistance-helper does MORE THAN HALF the effort. [place] lifts or holds trunk or limbs and provides more than half the effort. 0-Dcynkkkbc-wgvsfm does ALL the effort. Patient does none of the effort to complete the activity. Or, the assistance of 2 or more helpers is required for the patient to complete the activity. If activity was not attempted, code reason: 7-Patient Refused. 9-Not Applicable-not attempted and the patient did not perform the activity before the current illness, exacerbation or injury. 10-Not Attempted due to Environmental Limitations-(lack of equipment, weather restraints, etc.). 88-Not Attempted due to Medical Conditions or Safety Concerns. Weight Bearing Right Lower Extremity: Right Full Weight Bearing Left Lower Extremity: Left Full Weight Bearing Treatments Pt and fiance edu on supine and seated HEP, with handouts provided. Pt completed supine B LE Ther Ex x 15 reps each: PF/DF, QS, GS, heel slides, SAQ, hip abd/add, and SLR. Pt required rest breaks between each exercise. After treatment session, pt was lying in bed with call light in reach, SO present, and all needs met. Pt will require a FWW at d/c. The pt has a mobility limitation that significantly impairs his ability to participate in one or more mobility-related activities of daily living in the home. The pt is able to safely use the FWW and the functional mobility deficit can be sufficiently resolved with use of the FWW. Assessment Current Status: Fair Progress Anxiety cont to limit the pt PT Rayon Coner Goals Rayon Coner Goals PT Rayon Coner Goals Time Frame: Dec 18, 2022 Roll Left & Right (QC): 6 (Pt will be Mod I with functional mobility ) Sit to Lying (QC): 6 (Pt will be Mod I with functional mobility ) Lying-Sitting on Side/Bed(QC): 6 (Pt will be Mod I with functional mobility ) Sit to Stand (QC): 6 (Pt will be Mod I with functional mobility ) Chair/Xjt-xb-Sweld Xfer(QC): 6 (Pt will be Mod I with functional mobility ) Toilet Transfer (QC): 6 (Pt will be Mod I with functional mobility ) Car Transfer (QC): 6 (Pt will be Mod I with functional mobility ) Does the Patient Walk: Yes Walk 10 feet (QC): 6 (Pt will be Mod I with functional mobility ) Walk 50ft with 2 Turns (QC): 6 (Pt will be Mod I with functional mobility ) Walk 150 ft (QC): 6 (Pt will be Mod I with functional mobility ) Walking 10ft on Uneven Surface: 6 (Pt will be Mod I with functional mobility ) 1 Step (curb) (QC): 6 (Pt will be Mod I with functional mobility ) 4 Steps (QC): 6 (Pt will be Mod I with functional mobility ) 12 Steps (QC): 6 (Pt will be Mod I with functional mobility ) Picking up an Object (QC): 6 (Pt will be Mod I with functional mobility ) Does the Pt use WC or Scooter?: Yes Wheel 50 feet with 2 turns (QC: 6 (Pt will be Mod I with functional mobility ) Type: Manual Wheel 150 feet: 6 (Pt will be Mod I with functional mobility ) Type: Manual PT Plan Problem List Problem List: Activity Tolerance, Functional Strength, Safety, Balance, Gait, Transfer, Bed Mobility, ROM Treatment/Plan Treatment Plan: Continue Plan of Care Treatment Plan: Bed Mobility, Education, Functional Activity Victor Manuel, Functional Strength, Group Therapy, Gait, Safety, Therapeutic Exercise, Transfers Treatment Duration: Dec 18, 2022 Frequency: At least 5 of 7 days/Wk (IRF) Estimated Hrs Per Day: Other (75 min/day ) Patient and/or Family Agrees t: Yes Safety Risks/Education Patient Education: Issued Written HEP, Correct Positioning, Safety Issues Teaching Recipient: Patient, Significant Other Teaching Methods: Demonstration Response to Teaching: Verbalize Understanding, Return Demonstration, Reinforcement Needed Discharge Recommendations Therapy Discharge Recommendati: Home & Family, Post Acute PT Equpiment Recommendations-D/C: Front Wheeled Walker Discharge Status/Home Program Cont per POC Barriers to Progress Anxiety, weakness, endurance Target Placement Home with SO Time Time In: 1300 Time Out: 1330 DATE: Nov 29, 2022 Total Billed Treatment Time: 30 Total Billed Treatment 30 min 1 visit EX x 2 YASMINE VALDERRAMA PT Nov 29, 2022 14:34
[2022-11-29] MEDS ORDERED: MIRT-68 PO (15:04)
[2022-11-29] MEDS ORDERED: VENL150C98 PO (15:04)
[2022-11-29] MEDS ORDERED: CLN.1T PO (15:04)
[2022-11-29] MEDS ORDERED: RT-ALBUINH INH (15:04)
[2022-11-29] MEDS ORDERED: PANT40TA52 PO (15:04)
--- NOTE | 2022-11-29 15:05 | Speech Therapy Daily Note ---
Speech Daily Progress Note Subjective Date Seen by Provider: Nov 29, 2022 Time Seen by Provider: 14:05 Swallow treatment completed. The pt continues to report high anxiety, no other complaints. A.M. PO intake appears to have been well tolerated. Objective The pt consumed 100% pureed meat, vegetable, mac and cheese, and applesauce, for total of approximately 1/2 cup of food. He required intermittent cues to increase time of oral manipulation, and demonstrated self cueing to decrease rate of eating. Nsg reported administration of crushed meds with applesauce orally with no difficulty noted. Continued discussion of food textures, need for oral breakdown of foods, and food restrictions with fair-good understanding observed. Assessment Assessment Current Status: Good Progress The pt is tolerating PO trials at this time. Treatment Plan Continue Plan of Care Pt will continue with BID PO intake over the weekend, scheduled at 1000 and 1400. Speech Short Term Goals Short Term Goals Short Term Goals Complete MBS study Time Frame-ST days Speech Biodiesel Production Associate Goals Senior Care Goals The pt will tolerate small (1/4-1/2 cup) trials of safest liquid level and cr eamy/pureed solids without s/s aspiration Speech-Plan Treatment Plan Speech Therapy Treatment Plan: Continue Plan of Care Treatment Duration: Nov 28, 2022 Frequency: At least 5 of 7 days/Wk (IRF) Estimated Hrs Per Day: .5 hour per day Rehab Potential: Good Safety Risks/Education Teaching Recipient: Patient, Significant Other Teaching Methods: Discussion Response to Teaching: Verbalize Understanding Education Topics Provided: Eating strategies, diet recommendations for gastrectomy Discharge Recommendations Home & Family Time Speech Therapy Time In: 14:05 Speech Therapy Time Out: 14:25 DATE: Nov 29, 2022 Total Billed Time: 20 Billed Treatment Time 1 DYST (20 min) MARIA ISABEL TAVAREZ Nov 29, 2022 15:05
[2022-11-29 20:00] VITALS: BP 105/61
[2022-11-29] MEDS: MELATONIN 10 MG TABLET PEG SCH (20:56)
[2022-11-29] MEDS: LORATADINE 10 MG TABLET PEG SCH (20:57)
[2022-11-29] MEDS: LIDOCAINE PATCH REMOVAL TP SCH (21:05)
[2022-11-30] MEDS: VENlafaxine XR 75 MG (EFFEXOR XR) CAP PO SCH (06:00)
[2022-11-30] MEDS: LOPERAMIDE 2 MG CAPSULE PEG SCH ×5 (06:00→21:04)
[2022-11-30] MEDS: PANTOPRAZOLE 2 MG/ML LIQUID 200 ML (PROTONIX) PEG SCH ×3 (06:01)
[2022-11-30 07:30] VITALS: BP 105/65
[2022-11-30] MEDS: DOCUSATE SODIUM 100 MG CAPSULE PO SCH ×2 (09:14→19:31)
[2022-11-30] MEDS: SENNA W/DOCUSATE TABLET PO SCH ×2 (09:15→19:31)
[2022-11-30] MEDS: LORazepam 0.5 MG TABLET PEG SCH ×3 (09:18→23:34)
[2022-11-30] MEDS: CHLORHEXIDINE 0.12% MM SCH ×2 (09:18→20:56)
[2022-11-30] MEDS: LIDOCAINE 4% PATCH TOP SCH (09:18)
[2022-11-30] MEDS: MAGNESIUM OXIDE 400 MG TABLET PEG SCH ×2 (09:18→20:50)
[2022-11-30] MEDS: PROPRANOLOL 20 MG TABLET PEG SCH ×2 (09:18→20:49)
[2022-11-30] MEDS: GABAPENTIN 300 MG CAPSULE PEG SCH ×2 (09:18→20:49)
[2022-11-30] MEDS: POTASSIUM BICARB 20 MEQ effervescent TABLET PEG SCH (09:18)
[2022-11-30] MEDS: ENOXAPARIN 40 MG/0.4 ML SYRINGE SQ SCH (09:18)
[2022-11-30] MEDS: FOLIC ACID 1 MG TAB PEG SCH (09:18)
[2022-11-30] MEDS: MOUTHWASH MM SCH ×2 (09:18→20:56)
[2022-11-30] MEDS: FERROUS SULFATE ORAL LIQUID 44 MG/ML PEG SCH ×2 (09:24→20:56)
--- NOTE | 2022-11-30 11:06 | PM&R Progress Note ---
Subjective HPI/CC On Admission Date Seen by Provider: Nov 30, 2022 Time Seen by Provider: 11:00 Subjective/Events-last exam 11/30/2022: Doing better Less anxiousness Eating more very slowly No falls 11/29/2022: Patient is doing well Was able to eat a little bit today Slow recovery Adding Effexor 150 mg in the morning 11/28/2022: Patient doing well Overwhelming anxiety is an issue No major concerns otherwise Labs reviewed Tolerating tube feedings Lungs remain clear Review of Systems General: Fatigue, Malaise Anxiety Objective Exam Vital Signs Vital Signs Date Time Temp Pulse Resp B/P (MAP) Pulse Ox O2 Delivery O2 Flow Rate FiO2 11/30/22 09:00 Room Air 11/30/22 07:30 36.5 75 17 105/65 (78) 93 11/29/22 21:32 2.00 Capillary Refill : General Appearance: WD/WN, Anxious, Chronically ill, Mild Distress, Thin HEENT: PERRL/EOMI, Normal ENT Inspection, Pharynx Normal Neck: Full Range of Motion, Normal Inspection, Non Tender, Supple, Carotid Bruit Respiratory: Chest Non Tender, Lungs Clear, No Accessory Muscle Use, No Respiratory Distress, Decreased Breath Sounds Cardiovascular: No Edema, No Gallop, No JVD, No Murmur, Normal Peripheral Pulses, Tachycardia Gastrointestinal: Normal Bowel Sounds, No Organomegaly, No Pulsatile Mass, Non Tender, Soft Back: Normal Inspection, No CVA Tenderness, No Vertebral Tenderness Extremity: Normal Capillary Refill, Normal Inspection, Normal Range of Motion, Non Tender, No Calf Tenderness, No Pedal Edema Neurologic/Psychiatric: Alert, Oriented x3, culinary arts instructor II-XII Norm as Tested, Abnormal Gait, Depressed Affect, Motor Weakness (Generalized 3/5) Skin: Normal Color, Warm/Dry Lymphatic: No Adenopathy Results/Procedures Lab Patient resulted labs reviewed. FIM Transfers Therapy Code Descriptions/Definitions Functional [place] Measure: 0=Not Assessed/NA 4=Minimal Assistance 1=Total Assistance 5=Supervision or Setup 2=Maximal Assistance 6=Modified [place] 3=Moderate Assistance 7=Complete IndependenceSCALE: Activities may be completed with or without assistive devices. 0-Ojfmjhlawv-msgpaoj completes the activity by him/herself with no assistance from a helper. 5-Set-up or Clean-up Assistance-helper sets up or cleans up; patient completes activity. [place] assists only prior to or following the activity. 4-Supervision or Touching Assistance-helper provides verbal cues and/or touching/steadying and/or contact guard assistance as patient completes activity. Assistance may be provided throughout the activity or intermittently. 3-Partial/Moderate Assistance-helper does LESS THAN HALF the effort. [place] lifts, holds or supports trunk or limbs, but provides less than half the effort. 2-Substantial/Maximal Assistance-helper does MORE THAN HALF the effort. [place] lifts or holds trunk or limbs and provides more than half the effort. 8-Djqgpyfrp-yypmss does ALL the effort. Patient does none of the effort to complete the activity. Or, the assistance of 2 or more helpers is required for the patient to complete the activity. If activity was not attempted, code reason: 7-Patient Refused. 9-Not Applicable-not attempted and the patient did not perform the activity before the current illness, exacerbation or injury. 10-Not Attempted due to Environmental Limitations-(lack of equipment, weather restraints, etc.). 88-Not Attempted due to Medical Conditions or Safety Concerns. Roll Left to Right (QC): 4 (SBA ) Sit to Lying (QC): 4 (SBA ) Sit to Stand (QC): 4 Chair/Wch-nu-Zpmay Xfer(QC): 4 Car Transfer (QC): 4 (CGA ) Gait Training Does the Patient Walk?: Yes Distance: 15ft Walk 10 feet (QC): 4 Walk 50 ft with 2 Turns(QC): 88 (Weakness, endurance ) Walk 150 ft (QC): 88 (Weakness, endurance ) Walking 10ft/uneven surface-QC: 4 (CGA ) Gait Persons Needed: 1 Gait Assistive Device: FWW Wheelchair Training Does the Pt Use a Wheelchair?: Yes Wheel 50 ft with 2 turns (QC): 4 Wheel 150 ft (QC): 4 (SBA ) Type of Wheelchair: Manual Stair Training #of Steps: 4 1 Step (curb) (QC): 3 (Min A ) 4 Steps (QC): 3 (Min A ) 12 Steps (QC): 88 (Weakness, endurance ) Balance Picking up an Object (QC): 4 (CGA with erp implementation consultant ) ADL-Treatment Eating (QC): 88 Oral Hygiene (QC): 4 Shower/Bathe Self (QC): 4 (VCS for anxiety, 100% seated) Upper Body Dressing (QC): 4 (VCS for anxiety) Lower Body Dressing (QC): 3 (Min A with pants due to anxiety/fatigue. Pt able to complete brief with CGA) On/Off Footwear (QC): 5 Toileting Hygiene (QC): 4 (CGA) Toilet Transfer (QC): 4 (CGA) Assessment/Plan Assessment and Plan Assess & Plan/Chief Complaint Assessment: Critical illness myopathy Recent ARDS Recent vent dependent Decannulated trach Former smoker Colon cancer Gastrectomy with J-tube placement Recent adrenal insufficiency Acute blood loss anemia requiring transfusions PTSD Anxiety Overwhelming type Depression Hypokalemia Labile blood pressure Tachycardia Plan: Supportive care Monitor closely PT and OT Supportive care 11/28/2022: Supportive care Modified barium swallow Anxiety treatment 11/29/2022: Add Effexor 150 Supportive care 11/30/2022: Continue treatment Improved overall (1) Critical illness myopathy LIAM IQBAL DO Nov 30, 2022 11:06
[2022-11-30 20:07] VITALS: BP 107/65
[2022-11-30] MEDS: MELATONIN 10 MG TABLET PEG SCH (20:49)
[2022-11-30] MEDS: LORATADINE 10 MG TABLET PEG SCH (20:50)
[2022-11-30] MEDS: LIDOCAINE PATCH REMOVAL TP SCH (20:56)
[2022-12-01] MEDS: VENlafaxine XR 75 MG (EFFEXOR XR) CAP PO SCH (06:24)
[2022-12-01] MEDS: PANTOPRAZOLE 2 MG/ML LIQUID 200 ML (PROTONIX) PEG SCH ×3 (06:26)
[2022-12-01] MEDS: DOCUSATE SODIUM 100 MG CAPSULE PO SCH ×2 (07:27→19:38)
[2022-12-01] MEDS: SENNA W/DOCUSATE TABLET PO SCH ×2 (07:27→19:38)
[2022-12-01] MEDS: LOPERAMIDE 2 MG CAPSULE PEG SCH ×4 (07:28→20:10)
[2022-12-01 08:00] VITALS: BP 106/61
[2022-12-01] MEDS: LORazepam 0.5 MG TABLET PEG SCH ×2 (08:42→20:03)
[2022-12-01] MEDS: FOLIC ACID 1 MG TAB PEG SCH (08:42)
[2022-12-01] MEDS: CHLORHEXIDINE 0.12% MM SCH ×2 (08:42→20:07)
[2022-12-01] MEDS: FERROUS SULFATE ORAL LIQUID 44 MG/ML PEG SCH ×2 (08:42→20:07)
[2022-12-01] MEDS: ENOXAPARIN 40 MG/0.4 ML SYRINGE SQ SCH (08:42)
[2022-12-01] MEDS: MOUTHWASH MM SCH ×2 (08:42→20:07)
[2022-12-01] MEDS: PROPRANOLOL 20 MG TABLET PEG SCH ×2 (08:42→19:53)
[2022-12-01] MEDS: GABAPENTIN 300 MG CAPSULE PEG SCH ×2 (08:42→20:03)
[2022-12-01] MEDS: LIDOCAINE 4% PATCH TOP SCH (08:43)
[2022-12-01] MEDS: MAGNESIUM OXIDE 400 MG TABLET PEG SCH ×2 (08:43→20:03)
[2022-12-01] MEDS: POTASSIUM BICARB 20 MEQ effervescent TABLET PEG SCH (08:48)
--- NOTE | 2022-12-01 15:26 | PM&R Progress Note ---
Subjective HPI/CC On Admission Date Seen by Provider: Dec 01, 2022 Time Seen by Provider: 15:30 Subjective/Events-last exam 12/01/2022: Doing well Overwhelming anxiety was topic of discussion Changing Ativan to TID instead of A5ievfc will help Checking labs in am 11/30/2022: Doing better Less anxiousness Eating more very slowly No falls 11/29/2022: Patient is doing well Was able to eat a little bit today Slow recovery Adding Effexor 150 mg in the morning 11/28/2022: Patient doing well Overwhelming anxiety is an issue No major concerns otherwise Labs reviewed Tolerating tube feedings Lungs remain clear Review of Systems General: Fatigue, Malaise Anxiety Objective Exam Vital Signs Vital Signs Date Time Temp Pulse Resp B/P (MAP) Pulse Ox O2 Delivery O2 Flow Rate FiO2 12/01/22 20:26 Room Air 12/01/22 19:51 35.6 83 20 96/57 (70) 93 11/29/22 21:32 2.00 Capillary Refill : General Appearance: WD/WN, Anxious, Chronically ill, Mild Distress, Thin HEENT: PERRL/EOMI, Normal ENT Inspection, Pharynx Normal Neck: Full Range of Motion, Normal Inspection, Non Tender, Supple, Carotid Bruit Respiratory: Chest Non Tender, Lungs Clear, No Accessory Muscle Use, No Respiratory Distress, Decreased Breath Sounds Cardiovascular: No Edema, No Gallop, No JVD, No Murmur, Normal Peripheral Pulses, Tachycardia Gastrointestinal: Normal Bowel Sounds, No Organomegaly, No Pulsatile Mass, Non Tender, Soft Back: Normal Inspection, No CVA Tenderness, No Vertebral Tenderness Extremity: Normal Capillary Refill, Normal Inspection, Normal Range of Motion, Non Tender, No Calf Tenderness, No Pedal Edema Neurologic/Psychiatric: Alert, Oriented x3, mental health orderly II-XII Norm as Tested, Abnormal Gait, Depressed Affect, Motor Weakness (Generalized 3/5) Skin: Normal Color, Warm/Dry Lymphatic: No Adenopathy Results/Procedures Lab Patient resulted labs reviewed. FIM Transfers Therapy Code Descriptions/Definitions Functional [place] Measure: 0=Not Assessed/NA 4=Minimal Assistance 1=Total Assistance 5=Supervision or Setup 2=Maximal Assistance 6=Modified [place] 3=Moderate Assistance 7=Complete IndependenceSCALE: Activities may be completed with or without assistive devices. 4-Huaeutuwgc-japapbe completes the activity by him/herself with no assistance from a helper. 5-Set-up or Clean-up Assistance-helper sets up or cleans up; patient completes activity. [place] assists only prior to or following the activity. 4-Supervision or Touching Assistance-helper provides verbal cues and/or touching/steadying and/or contact guard assistance as patient completes activity. Assistance may be provided throughout the activity or intermittently. 3-Partial/Moderate Assistance-helper does LESS THAN HALF the effort. [place] lifts, holds or supports trunk or limbs, but provides less than half the effort. 2-Substantial/Maximal Assistance-helper does MORE THAN HALF the effort. [place] lifts or holds trunk or limbs and provides more than half the effort. 1-Eekulmwhe-oyjuvh does ALL the effort. Patient does none of the effort to complete the activity. Or, the assistance of 2 or more helpers is required for the patient to complete the activity. If activity was not attempted, code reason: 7-Patient Refused. 9-Not Applicable-not attempted and the patient did not perform the activity before the current illness, exacerbation or injury. 10-Not Attempted due to Environmental Limitations-(lack of equipment, weather restraints, etc.). 88-Not Attempted due to Medical Conditions or Safety Concerns. Roll Left to Right (QC): 4 (SBA ) Sit to Lying (QC): 4 (SBA ) Sit to Stand (QC): 4 Chair/Xbp-yj-Hlrfj Xfer(QC): 4 Car Transfer (QC): 4 (CGA ) Gait Training Does the Patient Walk?: Yes Distance: 15ft Walk 10 feet (QC): 4 Walk 50 ft with 2 Turns(QC): 88 (Weakness, endurance ) Walk 150 ft (QC): 88 (Weakness, endurance ) Walking 10ft/uneven surface-QC: 4 (CGA ) Gait Persons Needed: 1 Gait Assistive Device: FWW Wheelchair Training Does the Pt Use a Wheelchair?: Yes Wheel 50 ft with 2 turns (QC): 4 Wheel 150 ft (QC): 4 (SBA ) Type of Wheelchair: Manual Stair Training #of Steps: 4 1 Step (curb) (QC): 3 (Min A ) 4 Steps (QC): 3 (Min A ) 12 Steps (QC): 88 (Weakness, endurance ) Balance Picking up an Object (QC): 4 (CGA with rough and trueing machine operator ) ADL-Treatment Eating (QC): 88 Oral Hygiene (QC): 4 Shower/Bathe Self (QC): 4 (VCS for anxiety, 100% seated) Upper Body Dressing (QC): 4 (VCS for anxiety) Lower Body Dressing (QC): 3 (Min A with pants due to anxiety/fatigue. Pt able to complete brief with CGA) On/Off Footwear (QC): 5 Toileting Hygiene (QC): 4 (CGA) Toilet Transfer (QC): 4 (CGA) Assessment/Plan Assessment and Plan Assess & Plan/Chief Complaint Assessment: Critical illness myopathy Recent ARDS Recent vent dependent Decannulated trach Former smoker Colon cancer Gastrectomy with J-tube placement Recent adrenal insufficiency Acute blood loss anemia requiring transfusions PTSD Anxiety Overwhelming type Depression Hypokalemia Labile blood pressure Tachycardia Plan: Supportive care Monitor closely PT and OT Supportive care 11/28/2022: Supportive care Modified barium swallow Anxiety treatment 11/29/2022: Add Effexor 150 Supportive care 11/30/2022: Continue treatment Improved overall 12/01/2022: Check labs in am Ativan change from Q8hrs to TID (1) Critical illness myopathy LIAM IQBAL DO Dec 01, 2022 15:26
[2022-12-01 19:51] VITALS: BP 96/57
[2022-12-01] MEDS: LORATADINE 10 MG TABLET PEG SCH (20:03)
[2022-12-01] MEDS: MELATONIN 10 MG TABLET PEG SCH (20:03)
[2022-12-01] MEDS: LIDOCAINE PATCH REMOVAL TP SCH (20:09)
--- NOTE | 2022-12-02 05:13 | PM&R Progress Note ---
Subjective HPI/CC On Admission Date Seen by Provider: Dec 02, 2022 Time Seen by Provider: 11:00 Subjective/Events-last exam 12/02/2022: Much improved Ativan TID working a lot better NO falls No pain reported 12/01/2022: Doing well Overwhelming anxiety was topic of discussion Changing Ativan to TID instead of Q1mqjue will help Checking labs in am 11/30/2022: Doing better Less anxiousness Eating more very slowly No falls 11/29/2022: Patient is doing well Was able to eat a little bit today Slow recovery Adding Effexor 150 mg in the morning 11/28/2022: Patient doing well Overwhelming anxiety is an issue No major concerns otherwise Labs reviewed Tolerating tube feedings Lungs remain clear Review of Systems General: Fatigue, Malaise Anxiety Objective Exam Vital Signs Vital Signs Date Time Temp Pulse Resp B/P (MAP) Pulse Ox O2 Delivery O2 Flow Rate FiO2 12/02/22 21:13 36.8 95 20 93/60 (71) 92 Room Air 12/02/22 20:20 2.00 Capillary Refill : General Appearance: WD/WN, Anxious, Chronically ill, Mild Distress, Thin HEENT: PERRL/EOMI, Normal ENT Inspection, Pharynx Normal Neck: Full Range of Motion, Normal Inspection, Non Tender, Supple, Carotid Bruit Respiratory: Chest Non Tender, Lungs Clear, No Accessory Muscle Use, No Respiratory Distress, Decreased Breath Sounds Cardiovascular: No Edema, No Gallop, No JVD, No Murmur, Normal Peripheral Pulses, Tachycardia Gastrointestinal: Normal Bowel Sounds, No Organomegaly, No Pulsatile Mass, Non Tender, Soft Back: Normal Inspection, No CVA Tenderness, No Vertebral Tenderness Extremity: Normal Capillary Refill, Normal Inspection, Normal Range of Motion, Non Tender, No Calf Tenderness, No Pedal Edema Neurologic/Psychiatric: Alert, Oriented x3, truss puller helper II-XII Norm as Tested, Abnormal Gait, Depressed Affect, Motor Weakness (Generalized 3/5) Skin: Normal Color, Warm/Dry Lymphatic: No Adenopathy Results/Procedures Lab Laboratory Tests 12/02/22 05:37 Patient resulted labs reviewed. FIM Transfers Therapy Code Descriptions/Definitions Functional [place] Measure: 0=Not Assessed/NA 4=Minimal Assistance 1=Total Assistance 5=Supervision or Setup 2=Maximal Assistance 6=Modified [place] 3=Moderate Assistance 7=Complete IndependenceSCALE: Activities may be completed with or without assistive devices. 0-Qsmriqtenq-atiptpe completes the activity by him/herself with no assistance from a helper. 5-Set-up or Clean-up Assistance-helper sets up or cleans up; patient completes activity. [place] assists only prior to or following the activity. 4-Supervision or Touching Assistance-helper provides verbal cues and/or touching/steadying and/or contact guard assistance as patient completes activity. Assistance may be provided throughout the activity or intermittently. 3-Partial/Moderate Assistance-helper does LESS THAN HALF the effort. [place] lifts, holds or supports trunk or limbs, but provides less than half the effort. 2-Substantial/Maximal Assistance-helper does MORE THAN HALF the effort. [place] lifts or holds trunk or limbs and provides more than half the effort. 5-Nwqpvhdko-iqslpg does ALL the effort. Patient does none of the effort to complete the activity. Or, the assistance of 2 or more helpers is required for the patient to complete the activity. If activity was not attempted, code reason: 7-Patient Refused. 9-Not Applicable-not attempted and the patient did not perform the activity before the current illness, exacerbation or injury. 10-Not Attempted due to Environmental Limitations-(lack of equipment, weather restraints, etc.). 88-Not Attempted due to Medical Conditions or Safety Concerns. Roll Left to Right (QC): 4 (SBA ) Sit to Lying (QC): 4 (SBA ) Sit to Stand (QC): 4 Chair/Mpr-ay-Mrbfg Xfer(QC): 4 Car Transfer (QC): 4 (CGA ) Gait Training Does the Patient Walk?: Yes Distance: 15ft Walk 10 feet (QC): 4 Walk 50 ft with 2 Turns(QC): 88 (Weakness, endurance ) Walk 150 ft (QC): 88 (Weakness, endurance ) Walking 10ft/uneven surface-QC: 4 (CGA ) Gait Persons Needed: 1 Gait Assistive Device: FWW Wheelchair Training Does the Pt Use a Wheelchair?: Yes Wheel 50 ft with 2 turns (QC): 4 Wheel 150 ft (QC): 4 (SBA ) Type of Wheelchair: Manual Stair Training #of Steps: 4 1 Step (curb) (QC): 3 (Min A ) 4 Steps (QC): 3 (Min A ) 12 Steps (QC): 88 (Weakness, endurance ) Balance Picking up an Object (QC): 4 (CGA with mainframe systems administrator ) ADL-Treatment Eating (QC): 88 Oral Hygiene (QC): 4 Shower/Bathe Self (QC): 4 (VCS for anxiety, 100% seated) Upper Body Dressing (QC): 4 (VCS for anxiety) Lower Body Dressing (QC): 3 (Min A with pants due to anxiety/fatigue. Pt able to complete brief with CGA) On/Off Footwear (QC): 5 Toileting Hygiene (QC): 4 (CGA) Toilet Transfer (QC): 4 (CGA) Assessment/Plan Assessment and Plan Assess & Plan/Chief Complaint Assessment: Critical illness myopathy Recent ARDS Recent vent dependent Decannulated trach Former smoker Colon cancer Gastrectomy with J-tube placement Recent adrenal insufficiency Acute blood loss anemia requiring transfusions PTSD Anxiety Overwhelming type Depression Hypokalemia Labile blood pressure Tachycardia Plan: Supportive care Monitor closely PT and OT Supportive care 11/28/2022: Supportive care Modified barium swallow Anxiety treatment 11/29/2022: Add Effexor 150 Supportive care 11/30/2022: Continue treatment Improved overall 12/01/2022: Check labs in am Ativan change from Q8hrs to TID 12/02/2022: Improved overall Weaned O2 (1) Critical illness myopathy LIAM IQBAL DO Dec 02, 2022 05:13
[2022-12-02 06:01] LABS: BASOPHILS # (AUTO) 0.1 10^3/uL (0.0-0.1); BASOPHILS % (AUTO) 1 % (0-10); EOSINOPHILS # (AUTO) 0.3 10^3/uL (0.0-0.3); EOSINOPHILS % (AUTO) 4 % (0-10); HEMATOCRIT 30 % (40-54); HEMOGLOBIN 9.3 g/dL (13.3-17.7); LYMPHOCYTES # (AUTO) 0.6 10^3/uL (1.0-4.0); LYMPHOCYTES % (AUTO) 8 % (12-44); MEAN CORPUSCULAR HEMOGLOBIN 27 pg (25-34); MEAN CORPUSCULAR HGB CONC 31 g/dL (32-36); MEAN CORPUSCULAR VOLUME 87 fL (80-99); MEAN PLATELET VOLUME 8.4 fL (9.0-12.2); MONOCYTES # (AUTO) 0.7 10^3/uL (0.0-1.0); MONOCYTES % (AUTO) 8 % (0-12); NEUTROPHILS # (AUTO) 6.7 10^3/uL (1.8-7.8); NEUTROPHILS % (AUTO) 79 % (42-75); PLATELET COUNT 366 10^3/uL (130-400); WHITE BLOOD COUNT 8.5 10^3/uL (4.3-11.0)
[2022-12-02 06:30] LABS: ALBUMIN 3.2 GM/DL (3.2-4.5); BILIRUBIN,TOTAL 0.3 MG/DL (0.1-1.0); CALCIUM 9.3 MG/DL (8.5-10.1); CREATININE SERUM 0.58 MG/DL (0.60-1.30); TOTAL PROTEIN 7.6 GM/DL (6.4-8.2)
[2022-12-02] MEDS: VENlafaxine XR 75 MG (EFFEXOR XR) CAP PO SCH (06:31)
[2022-12-02] MEDS: LOPERAMIDE 2 MG CAPSULE PEG SCH ×4 (06:31→22:17)
[2022-12-02] MEDS: PANTOPRAZOLE 2 MG/ML LIQUID 200 ML (PROTONIX) PEG SCH ×3 (06:34)
[2022-12-02 08:00] VITALS: BP 106/64
[2022-12-02] MEDS: POTASSIUM BICARB 20 MEQ effervescent TABLET PEG SCH (08:03)
[2022-12-02] MEDS: LORazepam 0.5 MG TABLET PEG SCH ×3 (08:03→21:53)
[2022-12-02] MEDS: FOLIC ACID 1 MG TAB PEG SCH (08:03)
[2022-12-02] MEDS: LIDOCAINE 4% PATCH TOP SCH (08:04)
[2022-12-02] MEDS: MAGNESIUM OXIDE 400 MG TABLET PEG SCH ×2 (08:05→21:53)
[2022-12-02] MEDS: GABAPENTIN 300 MG CAPSULE PEG SCH ×2 (08:05→21:53)
[2022-12-02] MEDS: FERROUS SULFATE ORAL LIQUID 44 MG/ML PEG SCH ×2 (08:05→22:15)
[2022-12-02] MEDS: ENOXAPARIN 40 MG/0.4 ML SYRINGE SQ SCH (08:05)
[2022-12-02] MEDS: PROPRANOLOL 20 MG TABLET PEG SCH ×2 (08:06→22:15)
--- NOTE | 2022-12-02 08:23 | Physical Therapy Daily Note ---
PT Daily Note-Current Subjective Pt is agreeable to PT, but reports his anxiety is high. RN administered meds. Pt denies pain, but reports having abdominal discomfort. Pain Numeric Pain Scale: 0-No Pain Location: No Pain Reported Section J - Health Conditions 1. Rarely or not at all 2. Occasionally 3. Frequently 4. Almost constantly 8. Unable to answer Pain Effect on Sleep: 1 Pain Interference with Therapy: 1 Pain Interference w/Day-to-Day: 1 Mental Status Attachments: Oxygen (2L ), Other-See Comments (J-Tube ) Transfers SCALE: Activities may be completed with or without assistive devices. 5-Phxvfbxiqz-ajzcbba completes the activity by him/herself with no assistance from a helper. 5-Set-up or Clean-up Assistance-helper sets up or cleans up; patient completes activity. [place] assists only prior to or following the activity. 4-Supervision or Touching Assistance-helper provides verbal cues and/or touching/steadying and/or contact guard assistance as patient completes activity. Assistance may be provided throughout the activity or intermittently. 3-Partial/Moderate Assistance-helper does LESS THAN HALF the effort. [place] lifts, holds or supports trunk or limbs, but provides less than half the effort. 2-Substantial/Maximal Assistance-helper does MORE THAN HALF the effort. [place] lifts or holds trunk or limbs and provides more than half the effort. 9-Gmgcycrem-ucqqjd does ALL the effort. Patient does none of the effort to complete the activity. Or, the assistance of 2 or more helpers is required for the patient to complete the activity. If activity was not attempted, code reason: 7-Patient Refused. 9-Not Applicable-not attempted and the patient did not perform the activity before the current illness, exacerbation or injury. 10-Not Attempted due to Environmental Limitations-(lack of equipment, weather restraints, etc.). 88-Not Attempted due to Medical Conditions or Safety Concerns. Sit to Lying (QC): 4 Lying to Sitting/Side of Bed(Q: 4 Sit to Stand (QC): 4 Weight Bearing Right Lower Extremity: Right Full Weight Bearing Left Lower Extremity: Left Full Weight Bearing Gait Training Does the Patient Walk?: Yes Distance: 50ft x 3 Walk 10 feet (QC): 4 Walk 50 ft with 2 Turns(QC): 4 Walk 150 ft (QC): 88 (Anxiety ) Gait Persons Needed: 1 Gait Assistive Device: FWW Wheelchair Training Does the Pt Use a Wheelchair?: Yes Wheel 50 ft with 2 turns (QC): 4 Wheel 150 ft (QC): 4 Type of Wheelchair: Manual Treatments Pt completed bed mobility with SBA. Pt completed functional transfers with SBA. Pt ambulated 50ft x 3 with the FWW and CGA (w/c follow, as the pt gets anxious and requests to sit after 50ft). Pt completed seated B LE Ther Ex x 15 reps each with the red Tband. Pt completed w/c mobility x 150ft with SBA/Mod I. After treatment session, pt was lying in bed with call light in reach and all needs met. Assessment Current Status: Fair Progress Increased anxiety limits pts progress PT Intermediate Goals Transformer Tester Goals PT Intermediate Goals Time Frame: Dec 18, 2022 Roll Left & Right (QC): 6 (Pt will be Mod I with functional mobility ) Sit to Lying (QC): 6 (Pt will be Mod I with functional mobility ) Lying-Sitting on Side/Bed(QC): 6 (Pt will be Mod I with functional mobility ) Sit to Stand (QC): 6 (Pt will be Mod I with functional mobility ) Chair/Fbp-uy-Gpdqs Xfer(QC): 6 (Pt will be Mod I with functional mobility ) Toilet Transfer (QC): 6 (Pt will be Mod I with functional mobility ) Car Transfer (QC): 6 (Pt will be Mod I with functional mobility ) Does the Patient Walk: Yes Walk 10 feet (QC): 6 (Pt will be Mod I with functional mobility ) Walk 50ft with 2 Turns (QC): 6 (Pt will be Mod I with functional mobility ) Walk 150 ft (QC): 6 (Pt will be Mod I with functional mobility ) Walking 10ft on Uneven Surface: 6 (Pt will be Mod I with functional mobility ) 1 Step (curb) (QC): 6 (Pt will be Mod I with functional mobility ) 4 Steps (QC): 6 (Pt will be Mod I with functional mobility ) 12 Steps (QC): 6 (Pt will be Mod I with functional mobility ) Picking up an Object (QC): 6 (Pt will be Mod I with functional mobility ) Does the Pt use WC or Scooter?: Yes Wheel 50 feet with 2 turns (QC: 6 (Pt will be Mod I with functional mobility ) Type: Manual Wheel 150 feet: 6 (Pt will be Mod I with functional mobility ) Type: Manual PT Plan Problem List Problem List: Activity Tolerance, Functional Strength, Safety, Balance, Gait, Transfer, Bed Mobility Treatment/Plan Treatment Plan: Continue Plan of Care Treatment Plan: Bed Mobility, Education, Functional Activity Victor Manuel, Functional Strength, Group Therapy, Gait, Safety, Therapeutic Exercise, Transfers Treatment Duration: Dec 18, 2022 Frequency: At least 5 of 7 days/Wk (IRF) Estimated Hrs Per Day: Other (75 min/day ) Patient and/or Family Agrees t: Yes Safety Risks/Education Patient Education: Gait Training, Transfer Techniques, Correct Positioning, W/C Management, Safety Issues Teaching Recipient: Patient Teaching Methods: Demonstration, Discussion Response to Teaching: Reinforcement Needed Discharge Recommendations Therapy Discharge Recommendati: Home & Family, Post Acute PT Equpiment Recommendations-D/C: Front Wheeled Walker Discharge Status/Home Program Cont per POC Barriers to Progress Anxiety Target Placement Home with SO Time Time In: 800 Time Out: 900 DATE: Dec 02, 2022 Total Billed Treatment Time: 60 Total Billed Treatment 60 min 1 visit EX x 1 FA x 1 GT x 2 YASMINE VALDERRAMA PT Dec 02, 2022 08:23
[2022-12-02] MEDS: SENNA W/DOCUSATE TABLET PO SCH ×2 (09:39→22:16)
[2022-12-02] MEDS: CHLORHEXIDINE 0.12% MM SCH ×2 (09:39→22:15)
[2022-12-02] MEDS: MOUTHWASH MM SCH ×2 (09:39→22:15)
[2022-12-02] MEDS: DOCUSATE SODIUM 100 MG CAPSULE PO SCH ×2 (09:39→22:15)
--- NOTE | 2022-12-02 11:38 | Occupational Ther Daily Note ---
OT Current Status-Daily Note Subjective Pt in bed, states he isn't feeling super well today, has slight pain at abdomen. Pain Numeric Pain Scale: 8 Location Body Site: Abdomen Pain Description: Stabbing Mental Status/Objective Patient Orientation: Normal For Age Attachments: Drains, Other-See Comments (J tube) ADL-Treatment Therapy Code Descriptions/Definitions Functional [place] Measure: 0=Not Assessed/NA 4=Minimal Assistance 1=Total Assistance 5=Supervision or Setup 2=Maximal Assistance 6=Modified [place] 3=Moderate Assistance 7=Complete IndependenceSCALE: Activities may be completed with or without assistive devices. 2-Egeujqrjdp-qlxtwoh completes the activity by him/herself with no assistance from a helper. 5-Set-up or Clean-up Assistance-helper sets up or cleans up; patient completes activity. [place] assists only prior to or following the activity. 4-Supervision or Touching Assistance-helper provides verbal cues and/or touching/steadying and/or contact guard assistance as patient completes activity. Assistance may be provided throughout the activity or intermittently. 3-Partial/Moderate Assistance-helper does LESS THAN HALF the effort. [place] lifts, holds or supports trunk or limbs, but provides less than half the effort. 2-Substantial/Maximal Assistance-helper does MORE THAN HALF the effort. [place] lifts or holds trunk or limbs and provides more than half the effort. 8-Pkgcfudbm-zmyxns does ALL the effort. Patient does none of the effort to complete the activity. Or, the assistance of 2 or more helpers is required for the patient to complete the activity. If activity was not attempted, code reason: 7-Patient Refused. 9-Not Applicable-not attempted and the patient did not perform the activity before the current illness, exacerbation or injury. 10-Not Attempted due to Environmental Limitations-(lack of equipment, weather restraints, etc.). 88-Not Attempted due to Medical Conditions or Safety Concerns. Other Treatment Pt in bed, agreeable to OT tx. Pt reports not feeling well and tired. Pt declines showering/ADLs at this time. OT tx focused on increasing BUE strength and activity tolerance. Pt completed UE reaching task, placing/removing 1" pegs from foam pegboard, BUEs. Pt able to complete x100 pegs, with rest breaks as needed. Post tx, pt in bed, call light in reach and all needs met. Education OT Patient Education: Correct positioning, Energy conservation, Modified ADL techniques, Progress toward Goal/Update tx plan, Purpose of tx/functional activities, Rehab process Teaching Recipient: Patient Teaching Methods: Discussion Response to Teaching: Verbalize Understanding OT Fdc Goals [place]hthal[place] Operator Goals Time Frame: Dec 20, 2022 Acute change in mental status: 0 Inattention: 0 Disorganized thinkin Altered level of consciousness: 0 Eating (QC): 88 Oral Hygiene (QC): 6 Toileting Hygiene (QC): 6 Shower/Bathe Self (QC): 6 Upper Body Dressing (QC): 6 Lower Body Dressing (QC): 6 On/Off Footwear (QC): 6 Additional Goals: 1-Demonstrate ADL Tasks, 2-Verbalize Understanding, 3- ImproveStrength/[place] 1=Demonstrate adherence to instructed precautions during ADL tasks. 2=Patient will verbalize/demonstrate understanding of assistive devices/modifications for ADL. 3=Patient will improve strength/tolerance for activity to enable patient to perform ADL's. OT Education/Plan Problem List/Assessment Assessment: Decreased Activ Tolerance, Decreased UE Strength, Impaired Funct Balance, Impaired I ADL's, Impaired Self-Care Skills Discharge Recommendations Plan/Recommendations: Continue POC Treatment Plan/Plan of Care Patient would benefit from OT for education, treatment and training to promote independence in ADL's, mobility, safety and/or upper extremity function for ADL's. Plan of Care: ADL Retraining, Functional Mobility, Group Exercise/Act as Ind, UE Funct Exercise/Act Treatment Duration: Dec 20, 2022 Frequency: At least 5 of 7 days/Wk (IRF) Estimated Hrs Per Day: Other (75 mins per day) Agreement: Yes Rehab Potential: Good Time Start Time: 11:15 Stop Time: 12:00 DATE: Dec 02, 2022 Total Time Billed (hr/min): 45 Billed Treatment Time 1, FA 3 LETICIA DARNELL OT Dec 02, 2022 11:38
--- NOTE | 2022-12-02 11:45 | Speech Therapy Daily Note ---
Speech Daily Progress Note Subjective Date Seen by Provider: Dec 02, 2022 Time Seen by Provider: 10:05 The pt was awake and alert. He reported PO intake went well over the weekend. Objective The pt utilized small bites and oral manipulation of bolus with min cues needed. Slow eating rate was at mod assist, the pt benefitted from strategy of laying utensil down after each bite to slow rate. Spoke with RD, discussed current tolerance of PO intake. Swallow strengthening exercises were targeted at end of meal for improved airway closure, 10 reps completed. Assessment Assessment Current Status: Good Progress Tolerate PO intake well Treatment Plan Continue Plan of Care Plan to increase food serving amount per meal from 1/4c pureed solids to 1/2 cup pureed solids, BID, per discussion with RD. Speech Short Term Goals Short Term Goals Short Term Goals Complete MBS study Time Frame-ST days Speech Manager Of Change Goals Fdc Goals The pt will tolerate small (1/4-1/2 cup) trials of safest liquid level and creamy/pureed solids without s/s aspiration Speech-Plan Treatment Plan Speech Therapy Treatment Plan: Continue Plan of Care Treatment Duration: Nov 28, 2022 Frequency: At least 5 of 7 days/Wk (IRF) Estimated Hrs Per Day: .5 hour per day Rehab Potential: Good Safety Risks/Education Teaching Recipient: Patient Teaching Methods: Discussion Response to Teaching: Verbalize Understanding Time Speech Therapy Time In: 10:05 Speech Therapy Time Out: 10:25 DATE: Dec 02, 2022 Total Billed Time: 20 Billed Treatment Time 1 DYST (20 min) MARIA ISABEL TAVAREZ Dec 02, 2022 11:45
--- NOTE | 2022-12-02 13:55 | Occupational Ther Daily Note ---
OT Current Status-Daily Note Subjective Pt in bed, agreeable to OT Tx. Pt states he feels a little better this afternoon. ADL-Treatment Therapy Code Descriptions/Definitions Functional [place] Measure: 0=Not Assessed/NA 4=Minimal Assistance 1=Total Assistance 5=Supervision or Setup 2=Maximal Assistance 6=Modified [place] 3=Moderate Assistance 7=Complete IndependenceSCALE: Activities may be completed with or without assistive devices. 6-Phffbzjwkd-smuegdd completes the activity by him/herself with no assistance from a helper. 5-Set-up or Clean-up Assistance-helper sets up or cleans up; patient completes activity. [place] assists only prior to or following the activity. 4-Supervision or Touching Assistance-helper provides verbal cues and/or touching/steadying and/or contact guard assistance as patient completes activity. Assistance may be provided throughout the activity or intermittently. 3-Partial/Moderate Assistance-helper does LESS THAN HALF the effort. [place] lifts, holds or supports trunk or limbs, but provides less than half the effort. 2-Substantial/Maximal Assistance-helper does MORE THAN HALF the effort. [place] lifts or holds trunk or limbs and provides more than half the effort. 1-Likmdjuqu-smjpep does ALL the effort. Patient does none of the effort to complete the activity. Or, the assistance of 2 or more helpers is required for the patient to complete the activity. If activity was not attempted, code reason: 7-Patient Refused. 9-Not Applicable-not attempted and the patient did not perform the activity before the current illness, exacerbation or injury. 10-Not Attempted due to Environmental Limitations-(lack of equipment, weather restraints, etc.). 88-Not Attempted due to Medical Conditions or Safety Concerns. Other Treatment Pt in bed, agreeable to OT Tx with focus on UE strengthening and increasing activity tolerance. Pt provided with written HEP with theraband exercises, able to complete 5/5 exercises, 10 reps each after demonstration. Pt took rest breaks between exercises. Post tx, pt in bed, call light in reach and all needs met. Education OT Patient Education: Correct positioning, Energy conservation, Modified ADL techniques, Progress toward Goal/Update tx plan, Purpose of tx/functional activities, Rehab process Teaching Recipient: Patient Teaching Methods: Discussion Response to Teaching: Verbalize Understanding OT Snf Goals Education Department Chair Goals Time Frame: Dec 20, 2022 Acute change in mental status: 0 Inattention: 0 Disorganized thinkin Altered level of consciousness: 0 Eating (QC): 88 Oral Hygiene (QC): 6 Toileting Hygiene (QC): 6 Shower/Bathe Self (QC): 6 Upper Body Dressing (QC): 6 Lower Body Dressing (QC): 6 On/Off Footwear (QC): 6 Additional Goals: 1-Demonstrate ADL Tasks, 2-Verbalize Understanding, 3- ImproveStrength/[place] 1=Demonstrate adherence to instructed precautions during ADL tasks. 2=Patient will verbalize/demonstrate understanding of assistive devices/modifications for ADL. 3=Patient will improve strength/tolerance for activity to enable patient to perform ADL's. OT Education/Plan Problem List/Assessment Assessment: Decreased Activ Tolerance, Decreased UE Strength, Impaired Funct Balance, Impaired I ADL's, Impaired Self-Care Skills Discharge Recommendations Plan/Recommendations: Continue POC Treatment Plan/Plan of Care Patient would benefit from OT for education, treatment and training to promote independence in ADL's, mobility, safety and/or upper extremity function for ADL's. Plan of Care: ADL Retraining, Functional Mobility, Group Exercise/Act as Ind, UE Funct Exercise/Act Treatment Duration: Dec 20, 2022 Frequency: At least 5 of 7 days/Wk (IRF) Estimated Hrs Per Day: Other (75 mins per day) Agreement: Yes Rehab Potential: Good Time Start Time: 13:30 Stop Time: 14:00 DATE: Dec 02, 2022 Total Time Billed (hr/min): 30 Billed Treatment Time 1, EX 2 LETICIA DARNELL OT Dec 02, 2022 13:55
[2022-12-02] MEDS: hydrOXYzine 25 MG CAPSULE JT PRN (14:34)
--- NOTE | 2022-12-02 14:43 | Speech Therapy Daily Note ---
Speech Daily Progress Note Subjective Date Seen by Provider: Dec 02, 2022 Time Seen by Provider: 14:00 The pt had no new complaints. He had c/o "sharp" pain in abdomen in a.m., reported no pain at this time. Objective The pt consumed approximately 1/2 cup of pureed food (chicken, peas, berries). He was able to utilize all strategies independently, with only occasional reminders needed. The pt completed swallow exercise x10 reps with good accuracy. At end of PO intake, the pt reported that the serving amount was comfortable for him. Assessment Assessment Current Status: Good Progress Treatment Plan Continue Plan of Care Continue 1/2 cup pureed solids BID Speech Short Term Goals Short Term Goals Short Term Goals Complete MBS study Time Frame-ST days Speech Day [place] Goals Residential Goals The pt will tolerate small (1/4-1/2 cup) trials of safest liquid level and creamy/pureed solids without s/s aspiration Speech-Plan Treatment Plan Speech Therapy Treatment Plan: Continue Plan of Care Treatment Duration: Nov 28, 2022 Frequency: At least 5 of 7 days/Wk (IRF) Estimated Hrs Per Day: .5 hour per day Rehab Potential: Good Time Speech Therapy Time In: 14:00 Speech Therapy Time Out: 14:25 DATE: Dec 02, 2022 Total Billed Time: 25 Billed Treatment Time 1 DYST (25 min) MARIA ISABEL TAVAREZ Dec 02, 2022 14:43
--- NOTE | 2022-12-02 14:54 | Physical Therapy Daily Note ---
PT Daily Note-Current Subjective Pt is agreeable to PT. Denies pain. Pain Numeric Pain Scale: 0-No Pain Location: No Pain Reported Section J - Health Conditions 1. Rarely or not at all 2. Occasionally 3. Frequently 4. Almost constantly 8. Unable to answer Pain Effect on Sleep: 1 Pain Interference with Therapy: 1 Pain Interference w/Day-to-Day: 1 Transfers SCALE: Activities may be completed with or without assistive devices. 7-Afoyddpimf-yaicmyh completes the activity by him/herself with no assistance from a helper. 5-Set-up or Clean-up Assistance-helper sets up or cleans up; patient completes activity. [place] assists only prior to or following the activity. 4-Supervision or Touching Assistance-helper provides verbal cues and/or touching/steadying and/or contact guard assistance as patient completes ac tivity. Assistance may be provided throughout the activity or intermittently. 3-Partial/Moderate Assistance-helper does LESS THAN HALF the effort. [place] lifts, holds or supports trunk or limbs, but provides less than half the effort. 2-Substantial/Maximal Assistance-helper does MORE THAN HALF the effort. [place] lifts or holds trunk or limbs and provides more than half the effort. 7-Vzbkkwbyu-dspvlf does ALL the effort. Patient does none of the effort to complete the activity. Or, the assistance of 2 or more helpers is required for the patient to complete the activity. If activity was not attempted, code reason: 7-Patient Refused. 9-Not Applicable-not attempted and the patient did not perform the activity before the current illness, exacerbation or injury. 10-Not Attempted due to Environmental Limitations-(lack of equipment, weather restraints, etc.). 88-Not Attempted due to Medical Conditions or Safety Concerns. Weight Bearing Right Lower Extremity: Right Full Weight Bearing Left Lower Extremity: Left Full Weight Bearing Treatments Pt completed supine B LE Ther Ex x 15 reps each. After treatment session, pt was lying in bed with call light in reach and all needs met. Assessment Current Status: Fair Progress Pt tolerated PT well with good effort PT Detention Goals Pattern Filer Goals PT Detention Goals Time Frame: Dec 18, 2022 Roll Left & Right (QC): 6 (Pt will be Mod I with functional mobility ) Sit to Lying (QC): 6 (Pt will be Mod I with functional mobility ) Lying-Sitting on Side/Bed(QC): 6 (Pt will be Mod I with functional mobility ) Sit to Stand (QC): 6 (Pt will be Mod I with functional mobility ) Chair/Hov-bs-Iddry Xfer(QC): 6 (Pt will be Mod I with functional mobility ) Toilet Transfer (QC): 6 (Pt will be Mod I with functional mobility ) Car Transfer (QC): 6 (Pt will be Mod I with functional mobility ) Does the Patient Walk: Yes Walk 10 feet (QC): 6 (Pt will be Mod I with functional mobility ) Walk 50ft with 2 Turns (QC): 6 (Pt will be Mod I with functional mobility ) Walk 150 ft (QC): 6 (Pt will be Mod I with functional mobility ) Walking 10ft on Uneven Surface: 6 (Pt will be Mod I with functional mobility ) 1 Step (curb) (QC): 6 (Pt will be Mod I with functional mobility ) 4 Steps (QC): 6 (Pt will be Mod I with functional mobility ) 12 Steps (QC): 6 (Pt will be Mod I with functional mobility ) Picking up an Object (QC): 6 (Pt will be Mod I with functional mobility ) Does the Pt use WC or Scooter?: Yes Wheel 50 feet with 2 turns (QC: 6 (Pt will be Mod I with functional mobility ) Type: Manual Wheel 150 feet: 6 (Pt will be Mod I with functional mobility ) Type: Manual PT Plan Problem List Problem List: Activity Tolerance, Functional Strength, Safety, Balance, Gait, Transfer, Bed Mobility, ROM Treatment/Plan Treatment Plan: Continue Plan of Care Treatment Plan: Bed Mobility, Education, Functional Activity Victor Manuel, Functional Strength, Group Therapy, Gait, Safety, Therapeutic Exercise, Transfers Treatment Duration: Dec 18, 2022 Frequency: At least 5 of 7 days/Wk (IRF) Estimated Hrs Per Day: Other (75 min/day ) Patient and/or Family Agrees t: Yes Safety Risks/Education Patient Education: Correct Positioning, Safety Issues Teaching Recipient: Patient Teaching Methods: Demonstration, Discussion Response to Teaching: Verbalize Understanding, Return Demonstration, Reinforcement Needed Discharge Recommendations Therapy Discharge Recommendati: Home & Family, Post Acute PT Equpiment Recommendations-D/C: Front Wheeled Walker Discharge Status/Home Program Cont per POC Barriers to Progress Anxiety, weakness, endurance Target Placement Home with SO Time Time In: 1445 Time Out: 1500 DATE: Dec 02, 2022 Total Billed Treatment Time: 15 Total Billed Treatment 15 min 1 visit EX x 1 YASMINE VALDERRAMA PT Dec 02, 2022 14:54
[2022-12-02 21:13] VITALS: BP 93/60
[2022-12-02] MEDS: MIDODRINE 10 MG TABLET PO PRN (21:53)
[2022-12-02] MEDS: MELATONIN 10 MG TABLET PEG SCH (21:53)
[2022-12-02] MEDS: LORATADINE 10 MG TABLET PEG SCH (21:54)
[2022-12-02] MEDS: LIDOCAINE PATCH REMOVAL TP SCH (22:16)
[2022-12-03] MEDS: LOPERAMIDE 2 MG CAPSULE PEG SCH ×5 (06:37→20:39)
[2022-12-03] MEDS: PANTOPRAZOLE 2 MG/ML LIQUID 200 ML (PROTONIX) PEG SCH ×3 (06:37)
[2022-12-03] MEDS: VENlafaxine XR 75 MG (EFFEXOR XR) CAP PO SCH (06:47)
[2022-12-03 08:00] VITALS: BP 100/63
[2022-12-03] MEDS: FOLIC ACID 1 MG TAB PEG SCH (08:12)
[2022-12-03] MEDS: LORazepam 0.5 MG TABLET PEG SCH ×3 (08:12→20:23)
[2022-12-03] MEDS: GABAPENTIN 300 MG CAPSULE PEG SCH ×2 (08:12→20:23)
[2022-12-03] MEDS: MAGNESIUM OXIDE 400 MG TABLET PEG SCH ×2 (08:12→20:23)
[2022-12-03] MEDS: PROPRANOLOL 20 MG TABLET PEG SCH ×2 (08:13→20:23)
[2022-12-03] MEDS: DOCUSATE SODIUM 100 MG CAPSULE PO SCH ×2 (08:15→19:59)
[2022-12-03] MEDS: SENNA W/DOCUSATE TABLET PO SCH ×2 (08:16→19:59)
--- NOTE | 2022-12-03 08:51 | Occupational Ther Daily Note ---
OT Current Status-Daily Note Subjective Pt agreeable to OT Tx, denies pain but reports high anxiety during tx. ADL-Treatment Therapy Code Descriptions/Definitions Functional [place] Measure: 0=Not Assessed/NA 4=Minimal Assistance 1=Total Assistance 5=Supervision or Setup 2=Maximal Assistance 6=Modified [place] 3=Moderate Assistance 7=Complete IndependenceSCALE: Activities may be completed with or without assistive devices. 0-Lxtgdebbwl-uuukwuv completes the activity by him/herself with no assistance from a helper. 5-Set-up or Clean-up Assistance-helper sets up or cleans up; patient completes activity. [place] assists only prior to or following the activity. 4-Supervision or Touching Assistance-helper provides verbal cues and/or touching/steadying and/or contact guard assistance as patient completes activity. Assistance may be provided throughout the activity or intermittently. 3-Partial/Moderate Assistance-helper does LESS THAN HALF the effort. [place] lifts, holds or supports trunk or limbs, but provides less than half the effort. 2-Substantial/Maximal Assistance-helper does MORE THAN HALF the effort. [place] lifts or holds trunk or limbs and provides more than half the effort. 0-Mmlsafubo-iqnnbb does ALL the effort. Patient does none of the effort to complete the activity. Or, the assistance of 2 or more helpers is required for the patient to complete the activity. If activity was not attempted, code reason: 7-Patient Refused. 9-Not Applicable-not attempted and the patient did not perform the activity before the current illness, exacerbation or injury. 10-Not Attempted due to Environmental Limitations-(lack of equipment, weather restraints, etc.). 88-Not Attempted due to Medical Conditions or Safety Concerns. On/Off Footwear: 5 Toileting Hygiene (QC): 4 Toilet Transfer (QC): 4 Other Treatment [id number] OT Tx. Pt donned footwear at bed level, set up assist. Pt transferred supine to sit EOB, IND, then transferred into bathroom and onto toilet, SBA using FWW. Pt completed toileting, reports high anxiety at this time. [id number] OT/PT cotreat due to skill of 2 clinicians required which a cardiac rehab nurse could not perform in order to coordinate UE/LEs, decrease fall risk, and due to pt's limitations in strength, activity tolerance, mobility/transfers and anxiety. OT focused on UE placement, cues for sequencing/safety and breathing techniques, PT focused on LE placement, gross overall movement, transfers and mobility. Pt transferred from toilet to w/c using FWW, SBA. Pt taken into hallways via w/c, performed functional mobility 50'x2. Pt requests to rest at 50' each time due to anxiety and shallow breathing. Pt educated on various breathing techniques to decrease anxiety (pursed lip breathing, box breathing, mindfulness breathing, and breathing while having a hand on his stomach to feel each breath). Pt able to slow his breathing down with step by step cues ("breathe in the calm, breathe out the tension" with mindfulness breathing). Pt declined any more walking at this time stating he is done. Post tx, pt in w/c with PT performing w/c mobility, all needs met. Education OT Patient Education: Correct positioning, Energy conservation, Modified ADL techniques, Progress toward Goal/Update tx plan, Purpose of tx/functional activities, Rehab process Teaching Recipient: Patient Teaching Methods: Discussion Response to Teaching: Verbalize Understanding OT Intermediate Goals Intermediate Goals Time Frame: Dec 20, 2022 Acute change in mental status: 0 Inattention: 0 Disorganized thinkin Altered level of consciousness: 0 Eating (QC): 88 Oral Hygiene (QC): 6 Toileting Hygiene (QC): 6 Shower/Bathe Self (QC): 6 Upper Body Dressing (QC): 6 Lower Body Dressing (QC): 6 On/Off Footwear (QC): 6 Additional Goals: 1-Demonstrate ADL Tasks, 2-Verbalize Understanding, 3-ImproveStrength/[place] 1=Demonstrate adherence to instructed precautions during ADL tasks. 2=Patient will verbalize/demonstrate understanding of assistive devices/modifications for ADL. 3=Patient will improve strength/tolerance for activity to enable patient to per form ADL's. OT Education/Plan Problem List/Assessment Assessment: Decreased Activ Tolerance, Decreased UE Strength, Impaired Funct Balance, Impaired I ADL's, Impaired Self-Care Skills Discharge Recommendations Plan/Recommendations: Continue POC Treatment Plan/Plan of Care Patient would benefit from OT for education, treatment and training to promote independence in ADL's, mobility, safety and/or upper extremity function for ADL's. Plan of Care: ADL Retraining, Functional Mobility, Group Exercise/Act as Ind, UE Funct Exercise/Act Treatment Duration: Dec 20, 2022 Frequency: At least 5 of 7 days/Wk (IRF) Estimated Hrs Per Day: Other (75 mins per day) Agreement: Yes Rehab Potential: Good Time Start Time: 07:30 Stop Time: 08:45 DATE: Dec 03, 2022 Total Time Billed (hr/min): 75 Billed Treatment Time [id number] OT tx x30', [id number] cotreat with PT 45' 1, ADL 2 (30'), FA 3 (45') LETICIA DARNELL OT Dec 03, 2022 08:51
[2022-12-03] MEDS: ENOXAPARIN 40 MG/0.4 ML SYRINGE SQ SCH (09:34)
[2022-12-03] MEDS: CHLORHEXIDINE 0.12% MM SCH ×2 (09:35→19:58)
[2022-12-03] MEDS: MOUTHWASH MM SCH ×2 (09:35→19:58)
[2022-12-03] MEDS: LIDOCAINE 4% PATCH TOP SCH (09:35)
[2022-12-03] MEDS: POTASSIUM BICARB 20 MEQ effervescent TABLET PEG SCH (09:41)
--- NOTE | 2022-12-03 10:29 | PM&R Progress Note ---
Subjective HPI/CC On Admission Date Seen by Provider: Dec 03, 2022 Time Seen by Provider: 10:30 Subjective/Events-last exam 12/03/2022: Patient doing a lot better Eating more Reviewed meds and labs [facility] 12/02/2022: Much improved Ativan TID working a lot better NO falls No pain reported 12/01/2022: Doing well Overwhelming anxiety was topic of discussion Changing Ativan to TID instead of [id number] will help Checking labs in am 11/30/2022: Doing better Less anxiousness Eating more very slowly No falls 11/29/2022: Patient is doing well Was able to eat a little bit today Slow recovery Adding Effexor 150 mg in the morning 11/28/2022: Patient doing well Overwhelming anxiety is an issue No major concerns otherwise Labs reviewed Tolerating tube feedings Lungs remain clear Review of Systems General: Fatigue, Malaise Anxiety Objective Exam Vital Signs Vital Signs Date Time Temp Pulse Resp B/P (MAP) Pulse Ox O2 Delivery O2 Flow Rate FiO2 12/03/22 09:00 Room Air 12/03/22 08:00 36.0 76 16 100/63 (75) 92 12/02/22 20:20 2.00 Capillary Refill : General Appearance: WD/WN, Anxious, Chronically ill, Mild Distress, Thin HEENT: PERRL/EOMI, Normal ENT Inspection, Pharynx Normal Neck: Full Range of Motion, Normal Inspection, Non Tender, Supple, Carotid Bruit Respiratory: Chest Non Tender, Lungs Clear, No Accessory Muscle Use, No Respiratory Distress, Decreased Breath Sounds Cardiovascular: No Edema, No Gallop, No JVD, No Murmur, Normal Peripheral Pulses, Tachycardia Gastrointestinal: Normal Bowel Sounds, No Organomegaly, No Pulsatile Mass, Non Tender, Soft Back: Normal Inspection, No CVA Tenderness, No Vertebral Tenderness Extremity: Normal Capillary Refill, Normal Inspection, Normal Range of Motion, Non Tender, No Calf Tenderness, No Pedal Edema Neurologic/Psychiatric: Alert, Oriented x3, building rental superintendent II-XII Norm as Tested, Abnormal Gait, Depressed Affect, Motor Weakness (Generalized 3/5) Skin: Normal Color, Warm/Dry Lymphatic: No Adenopathy Results/Procedures Lab Patient resulted labs reviewed. FIM Transfers Therapy Code Descriptions/Definitions Functional [place] Measure: 0=Not Assessed/NA 4=Minimal Assistance 1=Total Assistance 5=Supervision or Setup 2=Maximal Assistance 6=Modified [place] 3=Moderate Assistance 7=Complete IndependenceSCALE: Activities may be completed with or without assistive devices. 7-Bwtsbagzrm-ihftxiu completes the activity by him/herself with no assistance from a helper. 5-Set-up or Clean-up Assistance-helper sets up or cleans up; patient completes activity. [place] assists only prior to or following the activity. 4-Supervision or Touching Assistance-helper provides verbal cues and/or touching/steadying and/or contact guard assistance as patient completes activity. Assistance may be provided throughout the activity or intermittently. 3-Partial/Moderate Assistance-helper does LESS THAN HALF the effort. [place] lifts, holds or supports trunk or limbs, but provides less than half the effort. 2-Substantial/Maximal Assistance-helper does MORE THAN HALF the effort. [place] lifts or holds trunk or limbs and provides more than half the effort. 6-Xvctimksg-nfsadg does ALL the effort. Patient does none of the effort to complete the activity. Or, the assistance of 2 or more helpers is required for the patient to complete the activity. If activity was not attempted, code reason: 7-Patient Refused. 9-Not Applicable-not attempted and the patient did not perform the activity before the current illness, exacerbation or injury. 10-Not Attempted due to Environmental Limitations-(lack of equipment, weather restraints, etc.). 88-Not Attempted due to Medical Conditions or Safety Concerns. Roll Left to Right (QC): 4 (SBA ) Sit to Lying (QC): 4 Sit to Stand (QC): 4 Chair/Clc-vy-Vfvqm Xfer(QC): 4 Car Transfer (QC): 4 (CGA ) Gait Training Does the Patient Walk?: Yes Distance: 50ft x 3 Walk 10 feet (QC): 4 Walk 50 ft with 2 Turns(QC): 4 Walk 150 ft (QC): 88 (Anxiety ) Walking 10ft/uneven surface-QC: 4 (CGA ) Gait Persons Needed: 1 Gait Assistive Device: FWW Wheelchair Training Does the Pt Use a Wheelchair?: Yes Wheel 50 ft with 2 turns (QC): 4 Wheel 150 ft (QC): 4 Type of Wheelchair: Manual Stair Training #of Steps: 4 1 Step (curb) (QC): 3 (Min A ) 4 Steps (QC): 3 (Min A ) 12 Steps (QC): 88 (Weakness, endurance ) Balance Picking up an Object (QC): 4 (CGA with fisher lobster ) ADL-Treatment Eating (QC): 88 Oral Hygiene (QC): 4 Shower/Bathe Self (QC): 4 (VCS for anxiety, 100% seated) Upper Body Dressing (QC): 4 (VCS for anxiety) Lower Body Dressing (QC): 3 (Min A with pants due to anxiety/fatigue. Pt able to complete brief with CGA) On/Off Footwear (QC): 5 Toileting Hygiene (QC): 4 Toilet Transfer (QC): 4 Assessment/Plan Assessment and Plan Assess & Plan/Chief Complaint Assessment: Critical illness myopathy Recent ARDS Recent vent dependent Decannulated trach Former smoker Colon cancer Gastrectomy with J-tube placement Recent adrenal insufficiency Acute blood loss anemia requiring transfusions PTSD Anxiety Overwhelming type Depression Hypokalemia Labile blood pressure Tachycardia Plan: Supportive care Monitor closely PT and OT Supportive care 11/28/2022: Supportive care Modified barium swallow Anxiety treatment 11/29/2022: Add Effexor 150 Supportive care 11/30/2022: Continue treatment Improved overall 12/01/2022: Check labs in am Ativan change from Q8hrs to TID 12/02/2022: Improved overall Weaned O2 12/03/2022: Supportive care (1) Critical illness myopathy LIAM IQBAL DO Dec 03, 2022 10:29
[2022-12-03] MEDS: FERROUS SULFATE ORAL LIQUID 44 MG/ML PEG SCH ×2 (10:33→20:22)
--- NOTE | 2022-12-03 10:46 | Physical Therapy Daily Note ---
PT Daily Note-Current Subjective Pt is agreeable to PT. Denies pain, but reports increased anxiety. Pain Numeric Pain Scale: 0-No Pain Location: No Pain Reported Section J - Health Conditions 1. Rarely or not at all 2. Occasionally 3. Frequently 4. Almost constantly 8. Unable to answer Pain Effect on Sleep: 1 Pain Interference with Therapy: 1 Pain Interference w/Day-to-Day: 1 Transfers SCALE: Activities may be completed with or without assistive devices. 7-Rdpydpxnhh-qupejav completes the activity by him/herself with no assistance from a helper. 5-Set-up or Clean-up Assistance-helper sets up or cleans up; patient completes activity. [place] assists only prior to or following the activity. 4-Supervision or Touching Assistance-helper provides verbal cues and/or touching/steadying and/or contact guard assistance as patient completes activity. Assistance may be provided throughout the activity or intermittently. 3-Partial/Moderate Assistance-helper does LESS THAN HALF the effort. [place] lifts, holds or supports trunk or limbs, but provides less than half the effort. 2-Substantial/Maximal Assistance-helper does MORE THAN HALF the effort. [place] lifts or holds trunk or limbs and provides more than half the effort. 1-Ykkpaakgv-xmygod does ALL the effort. Patient does none of the effort to complete the activity. Or, the assistance of 2 or more helpers is required for the patient to complete the activity. If activity was not attempted, code reason: 7-Patient Refused. 9-Not Applicable-not attempted and the patient did not perform the activity before the current illness, exacerbation or injury. 10-Not Attempted due to Environmental Limitations-(lack of equipment, weather restraints, etc.). 88-Not Attempted due to Medical Conditions or Safety Concerns. Sit to Lying (QC): 4 Sit to Stand (QC): 4 Chair/Xlm-ic-Wreyx Xfer(QC): 4 Weight Bearing Right Lower Extremity: Right Full Weight Bearing Left Lower Extremity: Left Full Weight Bearing Gait Training Does the Patient Walk?: Yes Distance: 50ft x 2 Walk 10 feet (QC): 4 Walk 50 ft with 2 Turns(QC): 4 Walk 150 ft (QC): 88 Gait Persons Needed: 1 Gait Assistive Device: FWW Wheelchair Training Does the Pt Use a Wheelchair?: Yes Wheel 50 ft with 2 turns (QC): 4 Wheel 150 ft (QC): 88 Type of Wheelchair: Manual Treatments PT/OT co-tx from [id number], due to skill of 2 clinicians required which a clinical rehabilitation specialist could not perform in order to coordinate UE/LEs, decrease fall risk, and due to pt's limitations in strength, activity tolerance, mobility/transfers and anxiety. PT focused on LE placement, gross overall movement, transfers and mobility. OT focused on UE placement, cues for sequencing/safety and breathing techniques. Pt completed functional transfers with SBA. Pt ambulated 50ft x 2 with the FWW and CGA. Pt requests to rest at 50ft each time due to anxiety and shallow breathing. Pt educated on various breathing techniques to decrease anxiety (pursed lip breathing, box breathing, mindfulness breathing, and breathing while having a hand on his stomach to feel each breath). Pt able to slow his breathing down with step by step cues ("breathe in the calm, breathe out the tension" with mindfulness breathing). Pt declined any more walking at this time, stating he is done. Pt completed w/c mobility x 100ft, 60ft, and 75ft with SBA. Pt completed seated B LE Ther Ex x 15 reps each with the red Tband. Pt completed sit to supine with SBA. Pt required increased encouragement and time t o complete tasks throughout treatment session. After treatment, pt was lying in bed with call light in reach and all needs met. Assessment Current Status: Fair Progress Pts anxiety has limited his progression PT Guest Services Associate Goals Snf Goals PT Snf Goals Time Frame: Dec 18, 2022 Roll Left & Right (QC): 6 (Pt will be Mod I with functional mobility ) Sit to Lying (QC): 6 (Pt will be Mod I with functional mobility ) Lying-Sitting on Side/Bed(QC): 6 (Pt will be Mod I with functional mobility ) Sit to Stand (QC): 6 (Pt will be Mod I with functional mobility ) Chair/Kft-xk-Ubdio Xfer(QC): 6 (Pt will be Mod I with functional mobility ) Toilet Transfer (QC): 6 (Pt will be Mod I with functional mobility ) Car Transfer (QC): 6 (Pt will be Mod I with functional mobility ) Does the Patient Walk: Yes Walk 10 feet (QC): 6 (Pt will be Mod I with functional mobility ) Walk 50ft with 2 Turns (QC): 6 (Pt will be Mod I with functional mobility ) Walk 150 ft (QC): 6 (Pt will be Mod I with functional mobility ) Walking 10ft on Uneven Surface: 6 (Pt will be Mod I with functional mobility ) 1 Step (curb) (QC): 6 (Pt will be Mod I with functional mobility ) 4 Steps (QC): 6 (Pt will be Mod I with functional mobility ) 12 Steps (QC): 6 (Pt will be Mod I with functional mobility ) Picking up an Object (QC): 6 (Pt will be Mod I with functional mobility ) Does the Pt use WC or Scooter?: Yes Wheel 50 feet with 2 turns (QC: 6 (Pt will be Mod I with functional mobility ) Type: Manual Wheel 150 feet: 6 (Pt will be Mod I with functional mobility ) Type: Manual PT Plan Problem List Problem List: Activity Tolerance, Functional Strength, Safety, Balance, Gait, Transfer, Bed Mobility, ROM Treatment/Plan Treatment Plan: Continue Plan of Care Treatment Plan: Bed Mobility, Education, Functional Activity Victor Manuel, Functional Strength, Group Therapy, Gait, Safety, Therapeutic Exercise, Transfers Treatment Duration: Dec 18, 2022 Frequency: At least 5 of 7 days/Wk (IRF) Estimated Hrs Per Day: Other (75 min/day ) Patient and/or Family Agrees t: Yes Safety Risks/Education Patient Education: Gait Training, Transfer Techniques, Correct Positioning, W/C Management, Safety Issues Teaching Recipient: Patient Teaching Methods: Demonstration, Discussion Response to Teaching: Reinforcement Needed Discharge Recommendations Therapy Discharge Recommendati: Home & Family, Post Acute PT Equpiment Recommendations-D/C: Front Wheeled Walker Discharge Status/Home Program Cont per POC Barriers to Progress Anxiety, weakness, endurance Target Placement Home with SO Time Time In: 800 Time Out: 915 DATE: Dec 03, 2022 Total Billed Treatment Time: 75 Total Billed Treatment 75 min total from [id number]; 45 min co-tx from [id number] 1 visit EX x 1 GT x 2 FA x 2 YASMINE VALDERRAMA PT Dec 03, 2022 10:46
--- NOTE | 2022-12-03 10:49 | Speech Therapy Daily Note ---
Speech Daily Progress Note Subjective Date Seen by Provider: Dec 03, 2022 Time Seen by Provider: 10:05 The pt was motivated to eat morning PO intake, reported low anxiety during meals. Objective The pt consumed 100% of servings, (1/2 portions of pureed pork, carrots and mixed berries). He caught himself when he forgot strategy use (fast rate, large bites) and was able to self-modify eating behavior. Assessment Assessment Current Status: Good Progress Tolerating PO intake well at this time. Treatment Plan Continue Plan of Care Discussed status with RD. Plan to increase PO meals to 3x/day with 1 serving yogurt and 1 sugar-free supplement served individually between meals. Meals to be served in current portion size. RD to initiate calorie count with planned diet changes. Speech Short Term Goals Short Term Goals Short Term Goals Complete MBS study Time Frame-ST days Speech Mcfp Goals Mcfp Goals The pt will tolerate small (1/4-1/2 cup) trials of safest liquid level and creamy/pureed solids without s/s aspiration Speech-Plan Treatment Plan Speech Therapy Treatment Plan: Continue Plan of Care Treatment Duration: Nov 28, 2022 Frequency: At least 5 of 7 days/Wk (IRF) Estimated Hrs Per Day: .5 hour per day Rehab Potential: Good Safety Risks/Education Teaching Recipient: Patient Teaching Methods: Discussion Response to Teaching: Return Demonstration, Reinforcement Needed Education Topics Provided: Eating strategies Time Speech Therapy Time In: 10:05 Speech Therapy Time Out: 10:25 DATE: Dec 03, 2022 Total Billed Time: 20 Billed Treatment Time 1 DYST (20 min) MARIA ISABEL TAVAREZ Dec 03, 2022 10:48
--- NOTE | 2022-12-03 11:06 | Speech Therapy Daily Note ---
Speech Daily Progress Note Subjective Date Seen by Provider: Dec 03, 2022 Assessment Assessment Current Status: Good Progress Treatment Plan Continue Plan of Care Speech Short Term Goals Short Term Goals Short Term Goals Complete MBS study Time Frame-ST days Speech Reimbursement Consultant Goals [facility] Goals The pt will tolerate small (1/4-1/2 cup) trials of safest liquid level and creamy/pureed solids without s/s aspiration Speech-Plan Treatment Plan Speech Therapy Treatment Plan: Continue Plan of Care Treatment Duration: Nov 28, 2022 Frequency: At least 5 of 7 days/Wk (IRF) Estimated Hrs Per Day: .5 hour per day Rehab Potential: MARIA ISABEL Porras Dec 03, 2022 11:06
[2022-12-03] MEDS ORDERED: CETI10TA17 PO (12:11)
[2022-12-03] MEDS ORDERED: PROP20TA5 PO (12:12)
[2022-12-03] MEDS ORDERED: MELA10TA2 PO (12:12)
[2022-12-03] MEDS ORDERED: LORA-404 PO (12:12)
[2022-12-03] MEDS ORDERED: CLN.1T PO (12:12)
[2022-12-03] MEDS ORDERED: FOLI1TAB33 PEG (12:12)
[2022-12-03] MEDS ORDERED: ASCO500T17 PO (12:12)
[2022-12-03] MEDS ORDERED: PANT40TA52 PO (12:12)
[2022-12-03] MEDS ORDERED: FERR-74 PO (12:12)
[2022-12-03] MEDS ORDERED: POTA20TA28 PO (12:12)
[2022-12-03] MEDS ORDERED: GABA300C PO (12:12)
[2022-12-03] MEDS ORDERED: VENL150C98 PO (12:12)
[2022-12-03] MEDS ORDERED: NFCHLORHGL MM (12:12)
[2022-12-03] MEDS ORDERED: RT-ALBUINH INH (12:12)
[2022-12-03] MEDS ORDERED: MIRT-68 PO (12:12)
[2022-12-03] MEDS ORDERED: HYDR-700 PO (12:12)
--- NOTE | 2022-12-03 12:12 | D/C HH Face to Face Order ---
D/C HH Face to Face Orders Reconcile Patient Problems Problems Reviewed?: Yes Instructions for Patient HH Patient Instructions/FollowUp: Debility resp failure Physician to follow Patient: [place] Discharge Diet for Home: Soft Diet Patient Problems: Dysphagia Resp failure Patient Data-Allergies,Ht & Wt Patient Allergies: Coded Allergies: atorvastatin (Verified Adverse Reaction, Unknown, 11/28/22) Home Health Need/Face to Face Date of Face to Face: Dec 03, 2022 Clinical Findings: Generalized weakness and fatigue, Instability, Muscle weakness I have seen Pt cmsv-vt-eljg: Yes Discharged To: Home Diagnosis/Conditions: Debility Patient is Homebound due to: Muscle weakness, Shortness of breath/distress Homebound Status Due to the above stated illness, injury or surgical procedure (medical condition or diagnosis) and associated clinical findings, the patient is homebound because of his/her inability to leave home except with aid of a supportive device and/or person AND leaving the home requires a considerable and taxing effort or is medically contraindicated. Pt req the following assistanc: Walker Home Health Nursing Orders Home Health Services Order: Nursing Services, Customs Patrol Officer-Evaluate & Treat, Physical Therapy-Evaluate & Treat [facility] I certify that this patient is under my care and that I, a nurse practitioner or a physician; a water quality assistant working with me, had a face to face encounter that - meets the physician face to face encounter requirements with this patient as dated. LIAM IQBAL DO Dec 03, 2022 12:12
--- NOTE | 2022-12-03 13:06 | Progress Note ---
LIAN LEON 12/03/22 1306: Progress Note 57 year old male, recovering from recent ARDS, critical illness myopathy, recent ventilator, with a history of colon cancer and a gastrectomy with a J-tube. He has a history of anxiety, controlled with ativan TID. His ADLs are 3-5 and he notes improvement, especially now that he is able to eat. His labs and vitals have been stable, except for a slight downward trend on Hgb and Hct (9.9 and 33 to 9.3 and 30) and slightly elevated liver enzymes. KIMBERLEY IQBAL DO 12/03/222031: Supervisory-Addendum Brief Verification & Attestation Participated in pt care: history, MDM, physical Personally performed: exam, history, MDM, supervision of care Care discussed with: Medical Student Procedures: n/a Results interpretation: Verified all documentation Verification and Attestation of Medical Student E/M Service A medical student performed and documented this service in my presence. I reviewed and verified all information documented by the medical student and made modifications to such information, when appropriate. I personally performed the physical exam and medical decision making. Kimberley Iqbal, Dec 03, 2022,20:32 LIAN LEON Dec 03, 2022 13:06 KIMBERLEY IQBAL DO Dec 03, 2022 20:32
[2022-12-03] MEDS ORDERED: CATHETER FLUSH 10 ML SYR IVP PRN (15:15)
--- NOTE | 2022-12-03 15:52 | Speech Therapy Daily Note ---
Speech Daily Progress Note Subjective Date Seen by Provider: Dec 03, 2022 Time Seen by Provider: 15:10 The pt had no new complaints. Continues to report anxiety. Objective Thin liquids were targeted for assessment of safety of swallow. The pt was able to tolerate small sips and uncontrolled sip size without s/s penetration. The pt was given Glucerna diet supplement. The pt consumed 1/2 serving with good oral control, timely swallow initiation, and no s/s penetration or aspiration. Assessment Assessment Current Status: Good Progress Treatment Plan Continue Plan of Care Pt may have liquids on request with low sugar content: milk, tea, coffee, low- sugar liquid supplements. Speech Short Term Goals Short Term Goals Short Term Goals Complete MBS study Time Frame-ST days Speech [facility] Goals Medical Billing Coordinator Goals The pt will tolerate small (1/4-1/2 cup) trials of safest liquid level and creamy/pureed solids without s/s aspiration Speech-Plan Treatment Plan Speech Therapy Treatment Plan: Continue Plan of Care Treatment Duration: Nov 28, 2022 Frequency: At least 5 of 7 days/Wk (IRF) Estimated Hrs Per Day: .5 hour per day Rehab Potential: Good Pt/Family Agrees to Plan: Yes Discharge Recommendations Home & Family Time Speech Therapy Time In: 15:10 Speech Therapy Time Out: 15:25 DATE: Dec 03, 2022 Total Billed Time: 15 Billed Treatment Time 1 MARIA ISABEL HARP Dec 03, 2022 15:52
[2022-12-03] MEDS: LIDOCAINE PATCH REMOVAL TP SCH (19:59)
[2022-12-03 20:00] VITALS: BP 114/61
[2022-12-03] MEDS: MELATONIN 10 MG TABLET PEG SCH (20:23)
[2022-12-03] MEDS: CATHETER FLUSH 10 ML SYR IVP SCH (20:23)
[2022-12-03] MEDS: LORATADINE 10 MG TABLET PEG SCH (20:23)
--- NOTE | 2022-12-04 05:16 | PM&R Progress Note ---
Subjective HPI/CC On Admission Date Seen by Provider: Dec 04, 2022 Time Seen by Provider: 12:30 Subjective/Events-last exam 12/04/2022: Doing better No falls Pain controlled DC is planned for 12/03/2022: Patient doing a lot better Eating more Reviewed meds and labs [facility] 12/02/2022: Much improved Ativan TID working a lot better NO falls No pain reported 12/01/2022: Doing well Overwhelming anxiety was topic of discussion Changing Ativan to TID instead of V3prbub will help Checking labs in am 11/30/2022: Doing better Less anxiousness Eating more very slowly No falls 11/29/2022: Patient is doing well Was able to eat a little bit today Slow recovery Adding Effexor 150 mg in the morning 11/28/2022: Patient doing well Overwhelming anxiety is an issue No major concerns otherwise Labs reviewed Tolerating tube feedings Lungs remain clear Review of Systems General: Fatigue, Malaise Anxiety Objective Exam Vital Signs Vital Signs Date Time Temp Pulse Resp B/P (MAP) Pulse Ox O2 Delivery O2 Flow Rate FiO2 12/04/22 19:49 36.9 100 20 100/64 (76) 94 Room Air 12/04/22 07:29 0.00 Capillary Refill : General Appearance: WD/WN, Anxious, Chronically ill, Mild Distress, Thin HEENT: PERRL/EOMI, Normal ENT Inspection, Pharynx Normal Neck: Full Range of Motion, Normal Inspection, Non Tender, Supple, Carotid Bruit Respiratory: Chest Non Tender, Lungs Clear, No Accessory Muscle Use, No Respiratory Distress, Decreased Breath Sounds Cardiovascular: No Edema, No Gallop, No JVD, No Murmur, Normal Peripheral Pulses, Tachycardia Gastrointestinal: Normal Bowel Sounds, No Organomegaly, No Pulsatile Mass, Non Tender, Soft Back: Normal Inspection, No CVA Tenderness, No Vertebral Tenderness Extremity: Normal Capillary Refill, Normal Inspection, Normal Range of Motion, Non Tender, No Calf Tenderness, No Pedal Edema Neurologic/Psychiatric: Alert, Oriented x3, collator hand II-XII Norm as Tested, Abnormal Gait, Depressed Affect, Motor Weakness (Generalized 3/5) Skin: Normal Color, Warm/Dry Lymphatic: No Adenopathy Results/Procedures Lab Patient resulted labs reviewed. FIM Transfers Therapy Code Descriptions/Definitions Functional [place] Measure: 0=Not Assessed/NA 4=Minimal Assistance 1=Total Assistance 5=Supervision or Setup 2=Maximal Assistance 6=Modified [place] 3=Moderate Assistance 7=Complete IndependenceSCALE: Activities may be completed with or without assistive devices. 7-Qtppdewzuu-kuwwxmi completes the activity by him/herself with no assistance from a helper. 5-Set-up or Clean-up Assistance-helper sets up or cleans up; patient completes activity. [place] assists only prior to or following the activity. 4-Supervision or Touching Assistance-helper provides verbal cues and/or touching/steadying and/or contact guard assistance as patient completes activity. Assistance may be provided throughout the activity or intermittently. 3-Partial/Moderate Assistance-helper does LESS THAN HALF the effort. [place] lifts, holds or supports trunk or limbs, but provides less than half the effort. 2-Substantial/Maximal Assistance-helper does MORE THAN HALF the effort. [place] lifts or holds trunk or limbs and provides more than half the effort. 0-Whpongdav-jbosmr does ALL the effort. Patient does none of the effort to complete the activity. Or, the assistance of 2 or more helpers is required for the patient to complete the activity. If activity was not attempted, code reason: 7-Patient Refused. 9-Not Applicable-not attempted and the patient did not perform the activity before the current illness, exacerbation or injury. 10-Not Attempted due to Environmental Limitations-(lack of equipment, weather restraints, etc.). 88-Not Attempted due to Medical Conditions or Safety Concerns. Roll Left to Right (QC): 4 (SBA ) Sit to Lying (QC): 4 Sit to Stand (QC): 4 Chair/Szw-sb-Vkmgs Xfer(QC): 4 Car Transfer (QC): 4 (CGA ) Gait Training Does the Patient Walk?: Yes Distance: 50ft x 2 Walk 10 feet (QC): 4 Walk 50 ft with 2 Turns(QC): 4 Walk 150 ft (QC): 88 Walking 10ft/uneven surface-QC: 4 (CGA ) Gait Persons Needed: 1 Gait Assistive Device: FWW Wheelchair Training Does the Pt Use a Wheelchair?: Yes Wheel 50 ft with 2 turns (QC): 4 Wheel 150 ft (QC): 88 Type of Wheelchair: Manual Stair Training #of Steps: 4 1 Step (curb) (QC): 3 (Min A ) 4 Steps (QC): 3 (Min A ) 12 Steps (QC): 88 (Weakness, endurance ) Balance Picking up an Object (QC): 4 (CGA with table tender sludge ) ADL-Treatment Eating (QC): 88 Oral Hygiene (QC): 4 Shower/Bathe Self (QC): 4 (VCS for anxiety, 100% seated) Upper Body Dressing (QC): 4 (VCS for anxiety) Lower Body Dressing (QC): 3 (Min A with pants due to anxiety/fatigue. Pt able to complete brief with CGA) On/Off Footwear (QC): 5 Toileting Hygiene (QC): 4 Toilet Transfer (QC): 4 Assessment/Plan Assessment and Plan Assess & Plan/Chief Complaint Assessment: Critical illness myopathy Recent ARDS Recent vent dependent Decannulated trach Former smoker Colon cancer Gastrectomy with J-tube placement Recent adrenal insufficiency Acute blood loss anemia requiring transfusions PTSD Anxiety Overwhelming type Depression Hypokalemia Labile blood pressure Tachycardia Plan: Supportive care Monitor closely PT and OT Supportive care 11/28/2022: Supportive care Modified barium swallow Anxiety treatment 11/29/2022: Add Effexor 150 Supportive care 11/30/2022: Continue treatment Improved overall 12/01/2022: Check labs in am Ativan change from Q8hrs to TID 12/02/2022: Improved overall Weaned O2 12/03/2022: Supportive care 12/04/2022: Monitor closely DC soon (1) Critical illness myopathy LIAM IQBAL DO Dec 04, 2022 05:16
[2022-12-04] MEDS: VENlafaxine XR 75 MG (EFFEXOR XR) CAP PO SCH (06:25)
[2022-12-04] MEDS: LOPERAMIDE 2 MG CAPSULE PEG SCH ×4 (06:25→23:50)
[2022-12-04] MEDS: PANTOPRAZOLE 2 MG/ML LIQUID 200 ML (PROTONIX) PEG SCH ×3 (06:26)
[2022-12-04] MEDS: CATHETER FLUSH 10 ML SYR IVP SCH ×3 (06:26→20:59)
[2022-12-04 08:00] VITALS: BP 102/63
[2022-12-04 09:10] VITALS: BP 105/68
[2022-12-04] MEDS: PROPRANOLOL 20 MG TABLET PEG SCH ×2 (09:12→20:56)
[2022-12-04] MEDS: GABAPENTIN 300 MG CAPSULE PEG SCH ×2 (09:12→20:57)
[2022-12-04] MEDS: MAGNESIUM OXIDE 400 MG TABLET PEG SCH ×2 (09:12→20:56)
[2022-12-04] MEDS: LORazepam 0.5 MG TABLET PEG SCH ×3 (09:12→20:55)
[2022-12-04] MEDS: FERROUS SULFATE ORAL LIQUID 44 MG/ML PEG SCH ×2 (09:13→20:58)
[2022-12-04] MEDS: POTASSIUM BICARB 20 MEQ effervescent TABLET PEG SCH (09:13)
[2022-12-04] MEDS: ENOXAPARIN 40 MG/0.4 ML SYRINGE SQ SCH (09:13)
[2022-12-04] MEDS: FOLIC ACID 1 MG TAB PEG SCH (09:13)
[2022-12-04] MEDS: LIDOCAINE 4% PATCH TOP SCH (09:14)
[2022-12-04] MEDS: MOUTHWASH MM SCH ×2 (09:14→19:54)
[2022-12-04] MEDS: CHLORHEXIDINE 0.12% MM SCH ×2 (09:14→19:54)
--- NOTE | 2022-12-04 09:24 | Physical Therapy Daily Note ---
PT Daily Note-Current Subjective Pt is agreeable to PT. Denies pain Pain Numeric Pain Scale: 0-No Pain Location: No Pain Reported Section J - Health Conditions 1. Rarely or not at all 2. Occasionally 3. Frequently 4. Almost constantly 8. Unable to answer Pain Effect on Sleep: 1 Pain Interference with Therapy: 1 Pain Interference w/Day-to-Day: 1 Mental Status Attachments: Oxygen (2L), Other-See Comments (J-Tube ) Transfers SCALE: Activities may be completed with or without assistive devices. 8-Txhvmqzics-vhvdtnf completes the activity by him/herself with no assistance from a helper. 5-Set-up or Clean-up Assistance-helper sets up or cleans up; patient completes activity. [place] assists only prior to or following the activity. 4-Supervision or Touching Assistance-helper provides verbal cues and/or touching/steadying and/or contact guard assistance as patient completes activity. Assistance may be provided throughout the activity or intermittently. 3-Partial/Moderate Assistance-helper does LESS THAN HALF the effort. [place] lifts, holds or supports trunk or limbs, but provides less than half the effort. 2-Substantial/Maximal Assistance-helper does MORE THAN HALF the effort. [place] lifts or holds trunk or limbs and provides more than half the effort. 4-Rgrkwskhk-cbxyvz does ALL the effort. Patient does none of the effort to complete the activity. Or, the assistance of 2 or more helpers is required for the patient to complete the activity. If activity was not attempted, code reason: 7-Patient Refused. 9-Not Applicable-not attempted and the patient did not perform the activity before the current illness, exacerbation or injury. 10-Not Attempted due to Environmental Limitations-(lack of equipment, weather restraints, etc.). 88-Not Attempted due to Medical Conditions or Safety Concerns. Sit to Lying (QC): 4 Lying to Sitting/Side of Bed(Q: 4 Sit to Stand (QC): 4 Chair/Ypz-ea-Uuwwf Xfer(QC): 4 Weight Bearing Right Lower Extremity: Right Full Weight Bearing Left Lower Extremity: Left Full Weight Bearing Gait Training Does the Patient Walk?: Yes Walk 10 feet (QC): 4 Walk 50 ft with 2 Turns(QC): 4 Walk 150 ft (QC): 88 Gait Assistive Device: Walker 4 Wheeled Wheelchair Training Does the Pt Use a Wheelchair?: Yes Wheel 50 ft with 2 turns (QC): 4 Wheel 150 ft (QC): 4 Type of Wheelchair: Manual Treatments PT/OT co-tx from [id number], due to skill of 2 clinicians required which a rehabilitation program manager could not perform in order to coordinate UE/LEs, decrease fall risk, and due to pt's limitations in strength, activity tolerance, mobility/transfers and anxiety. PT focused on LE placement, gross overall movement, transfers and mobility. OT focused on UE placement, cues for sequencing/safety and breathing/relaxation techniques. Pt completed bed mobility with SBA/Mod I. Pt completed functional transfers with SBA. Pt ambulated 90ft and 70ft with the 4WW and CGA. Cont pt edu on various breathing/relaxation techniques to decrease anxiety. Pt completed w/c mobility x 300ft around facility and outside with SBA. Pt completed supine B LE Ther Ex x 15 reps each. Pt demo improved ability to control anxiety on this date, but cont to require extended time to complete tasks, as well as extended rest breaks to slow breathing. After treatment, pt was lying in bed with call light in reach and all needs met. RN present. Assessment Current Status: Good Progress Pt demo improved tolerance to PT on this date. PT Property Site Manager Goals Detention Goals PT Detention Goals Time Frame: Dec 18, 2022 Roll Left & Right (QC): 6 (Pt will be Mod I with functional mobility ) Sit to Lying (QC): 6 (Pt will be Mod I with functional mobility ) Lying-Sitting on Side/Bed(QC): 6 (Pt will be Mod I with functional mobility ) Sit to Stand (QC): 6 (Pt will be Mod I with functional mobility ) Chair/Mgs-rn-Unvbz Xfer(QC): 6 (Pt will be Mod I with functional mobility ) Toilet Transfer (QC): 6 (Pt will be Mod I with functional mobility ) Car Transfer (QC): 6 (Pt will be Mod I with functional mobility ) Does the Patient Walk: Yes Walk 10 feet (QC): 6 (Pt will be Mod I with functional mobility ) Walk 50ft with 2 Turns (QC): 6 (Pt will be Mod I with functional mobility ) Walk 150 ft (QC): 6 (Pt will be Mod I with functional mobility ) Walking 10ft on Uneven Surface: 6 (Pt will be Mod I with functional mobility ) 1 Step (curb) (QC): 6 (Pt will be Mod I with functional mobility ) 4 Steps (QC): 6 (Pt will be Mod I with functional mobility ) 12 Steps (QC): 6 (Pt will be Mod I with functional mobility ) Picking up an Object (QC): 6 (Pt will be Mod I with functional mobility ) Does the Pt use WC or Scooter?: Yes Wheel 50 feet with 2 turns (QC: 6 (Pt will be Mod I with functional mobility ) Type: Manual Wheel 150 feet: 6 (Pt will be Mod I with functional mobility ) Type: Manual PT Plan Problem List Problem List: Activity Tolerance, Functional Strength, Safety, Balance, Gait, Transfer, Bed Mobility Treatment/Plan Treatment Plan: Continue Plan of Care Treatment Plan: Bed Mobility, Education, Functional Activity Victor Manuel, Functional Strength, Group Therapy, Gait, Safety, Therapeutic Exercise, Transfers Treatment Duration: Dec 18, 2022 Frequency: At least 5 of 7 days/Wk (IRF) Estimated Hrs Per Day: Other (75 min/day ) Patient and/or Family Agrees t: Yes Safety Risks/Education Patient Education: Gait Training, Transfer Techniques, Correct Positioning, W/C Management, Safety Issues Teaching Recipient: Patient Teaching Methods: Demonstration, Discussion Response to Teaching: Verbalize Understanding, Return Demonstration, Reinforcement Needed Discharge Recommendations Therapy Discharge Recommendati: Home & Family, Post Acute PT Equpiment Recommendations-D/C: None (Pt utilized his 4WW on this date, and demo good safety awareness) Discharge Status/Home Program Cont per POC Barriers to Progress Anxiety, weakness, endurance Target Placement Home with SO Time Time In: 800 Time Out: 915 DATE: Dec 04, 2022 Total Billed Treatment Time: 75 Total Billed Treatment 75 min total from 9301-9597; 45 min co-tx from [id number] 1 visit EX x 1 GT X 2 FA x 2 YASMINE VALDERRAMA PT Dec 04, 2022 09:24
[2022-12-04] MEDS: DOCUSATE SODIUM 100 MG CAPSULE PO SCH ×2 (09:53→19:53)
[2022-12-04] MEDS: SENNA W/DOCUSATE TABLET PO SCH ×2 (09:53→19:53)
--- NOTE | 2022-12-04 10:23 | Occupational Ther Daily Note ---
OT Current Status-Daily Note Subjective Pt agreeable to OT Tx, states he would like to shower tomorrow, ADL-Treatment Therapy Code Descriptions/Definitions Functional [place] Measure: 0=Not Assessed/NA 4=Minimal Assistance 1=Total Assistance 5=Supervision or Setup 2=Maximal Assistance 6=Modified [place] 3=Moderate Assistance 7=Complete IndependenceSCALE: Activities may be completed with or without assistive devices. 2-Ytoavpijsl-gfwuuhz completes the activity by him/herself with no assistance from a helper. 5-Set-up or Clean-up Assistance-helper sets up or cleans up; patient completes activity. [place] assists only prior to or following the activity. 4-Supervision or Touching Assistance-helper provides verbal cues and/or touch ing/steadying and/or contact guard assistance as patient completes activity. Assistance may be provided throughout the activity or intermittently. 3-Partial/Moderate Assistance-helper does LESS THAN HALF the effort. [place] lifts, holds or supports trunk or limbs, but provides less than half the effort. 2-Substantial/Maximal Assistance-helper does MORE THAN HALF the effort. [place] lifts or holds trunk or limbs and provides more than half the effort. 8-Lvoppqnzl-zilpdp does ALL the effort. Patient does none of the effort to complete the activity. Or, the assistance of 2 or more helpers is required for the patient to complete the activity. If activity was not attempted, code reason: 7-Patient Refused. 9-Not Applicable-not attempted and the patient did not perform the activity before the current illness, exacerbation or injury. 10-Not Attempted due to Environmental Limitations-(lack of equipment, weather restraints, etc.). 88-Not Attempted due to Medical Conditions or Safety Concerns. Other Treatment [id number]: OT provided education on various techniques to decrease anxiety and control his breathing. OT educated pt on purpose/benefit of guided imagery, and pt completed guided imagery video. After education, pt indicated he felt like this technique did help him have less anxiety and feel more in control. [id number]: OT/PT cotreat due to skill of 2 clinicians required which a rehabilitation center manager could not perform in order to coordinate UE/LEs, decrease fall risk, and due to pt's limitations in strength, activity tolerance, mobility/transfers and anxiety. OT focused on UE placement, cues for sequencing/safety and breat jad/relaxation techniques, PT focused on LE placement, gross overall movement, transfers and mobility. Pt transferred supine to EOB SBA-IND. he completed functional transfers with SBA. Pt performed functional mobility 90', 70' with 4WW and CGA. Continued education on various breathing and relaxation techniques to control/decrease anxiety. Post tx, pt in w/c with PT, all needs met. Education OT Patient Education: Correct positioning, Energy conservation, Modified ADL techniques, Progress toward Goal/Update tx plan, Purpose of tx/functional activities, Rehab process Teaching Recipient: Patient Teaching Methods: Discussion Response to Teaching: Verbalize Understanding BIMS CAM BIMS Expression of Ideas and Wants: Without Difficulty Understanding Verbal Content: Understands Brief Interview/Mental Status: Yes IRF KENNA BIMS: IRF KENNA BIMS Response (Comments) Value Repitition of Three Words Three 3 Recalls Socks Yes, No Cue Required 2 Recalls Blue Yes, No Cue Required 2 Recalls Bed Yes, No Cue Required 2 Year Correct 3 Month Accurate Within 5 Days 2 Day Correct 1 Total 15 Patient Normally Able to Recal: Current Session, Location of own room, Staff Names and faces, That he/she in a hsp Should Staff Asses. 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 2=Patient will verbalize/demonstrate understanding of assistive devices/modifications for ADL. 3=Patient will improve strength/tolerance for activity to enable patient to perform ADL's. OT Education/Plan Problem List/Assessment Assessment: Decreased Activ Tolerance, Decreased UE Strength, Impaired Funct Balance, Impaired I ADL's, Impaired Self-Care Skills Discharge Recommendations Plan/Recommendations: Continue POC Treatment Plan/Plan of Care Patient would benefit from OT for education, treatment and training to promote independence in ADL's, mobility, safety and/or upper extremity function for ADL's. Plan of Care: ADL Retraining, Functional Mobility, Group Exercise/Act as Ind, UE Funct Exercise/Act Treatment Duration: Dec 20, 2022 Frequency: At least 5 of 7 days/Wk (IRF) Estimated Hrs Per Day: Other (75 mins per day) Agreement: Yes Rehab Potential: Good Time Start Time: 07:30 Stop Time: 08:45 DATE: Dec 04, 2022 Total Time Billed (hr/min): 75 Billed Treatment Time coreat x45' 1, FA 5 LETICIA DARNELL OT Dec 04, 2022 10:23
[2022-12-04 12:55] VITALS: BP 107/67
--- NOTE | 2022-12-04 13:49 | Speech Therapy Daily Note ---
Speech Daily Progress Note Subjective Date Seen by Provider: Dec 04, 2022 Time Seen by Provider: 09:15 The pt was seen for swallow treatment. No new complaints. Objective The pt safely consumed food portions for a.m. and p.m. meal. Pacing was moderately fast for intake. Discussed need to increase fluid intake through the day, the pt was given 2 oz cranberry juice diluted with 6 oz water for taste. Straw was trialed, with no s/s penetration or aspiration, okay for use of straws. Encouraged the pt to consume 4-6 cups of fluids throughout the day. Calorie count has been initiated by spoon maker. The pt is consuming 100% of all food trays (3x/day) and snacks (2x/day). Assessment Assessment Current Status: Good Progress Treatment Plan Continue Plan of Care Speech Short Term Goals Short Term Goals Short Term Goals Complete MBS study Time Frame-ST days Speech Kitchen Cleaner Goals Kitchen Cleaner Goals The pt will tolerate small (1/4-1/2 cup) trials of safest liquid level and creamy/pureed solids without s/s aspiration Speech-Plan Treatment Plan Speech Therapy Treatment Plan: Continue Plan of Care Treatment Duration: Nov 28, 2022 Frequency: At least 5 of 7 days/Wk (IRF) Estimated Hrs Per Day: .5 hour per day Rehab Potential: Good Pt/Family Agrees to Plan: Yes Safety Risks/Education Teaching Recipient: Patient Education Topics Provided: Increase intake of liquids Time Speech Therapy Time In: 09:15 Speech Therapy Time Out: 09:35 DATE: Dec 04, 2022 Total Billed Time: 20 Billed Treatment Time 1 DYST (20 min) MARIA ISABEL TAVAREZ Dec 04, 2022 13:49
--- NOTE | 2022-12-04 13:57 | Progress Note ---
LIAN LEON 12/04/22 1357: Progress Note 57 year old male, recovering from recent ARDS, critical illness myopathy, recent ventilator, with a history of colon cancer and a gastrectomy with a J-tube. He has a history of anxiety, controlled with ativan TID. On admission, he was not able to eat and required minimal assistance for ADLs. He is now able to eat pureed foods and can complete transfers with just supervision. He will not be able to eat solid foods due to his lack of teeth and surgical history. KIMBERLEY IQBAL DO 12/05/22 0427: Supervisory-Addendum Brief Verification & Attestation Participated in pt care: history, MDM, physical Personally performed: exam, history, MDM, supervision of care Care discussed with: Medical Student Procedures: n/a Results interpretation: Verified all documentation Verification and Attestation of Medical Student E/M Service A medical student performed and documented this service in my presence. I revi ewed and verified all information documented by the medical student and made modifications to such information, when appropriate. I personally performed the physical exam and medical decision making. Kimberley Iqbal, Dec 05, 2022,04:27 LIAN LEON Dec 04, 2022 13:57 KIMBERLEY IQBAL DO Dec 05, 2022 04:27
--- NOTE | 2022-12-04 14:00 | Speech Therapy Daily Note ---
Speech Daily Progress Note Subjective Date Seen by Provider: Dec 04, 2022 Time Seen by Provider: 13:00 No new complaints. Objective The pt consumed 100% of pureed solids with moderately fast eating rate. He appears to be tolerating PO intake well at this time. Eating at home after discharge was discussed, and strategies for achieving caloric and protein needs. The pt verbalized understanding information. Assessment Assessment Current Status: Good Progress Treatment Plan Continue Plan of Care Speech Short Term Goals Short Term Goals Short Term Goals Complete MBS study Time Frame-ST days Speech Digital Producer Goals Digital Producer Goals The pt will tolerate small (1/4-1/2 cup) trials of safest liquid level and creamy/pureed solids without s/s aspiration Speech-Plan Treatment Plan Speech Therapy Treatment Plan: Continue Plan of Care Treatment Duration: Nov 28, 2022 Frequency: At least 5 of 7 days/Wk (IRF) Estimated Hrs Per Day: .5 hour per day Rehab Potential: Good Safety Risks/Education Teaching Recipient: Patient Response to Teaching: Verbalize Understanding Education Topics Provided: PO intake needs after discharge Time Speech Therapy Time In: 13:00 Speech Therapy Time Out: 13:15 DATE: Dec 04, 2022 Total Billed Time: 15 Billed Treatment Time 1 MARIA ISABEL HARP Dec 04, 2022 14:00
[2022-12-04 19:49] VITALS: BP 100/64
[2022-12-04] MEDS: MELATONIN 10 MG TABLET PEG SCH (20:55)
[2022-12-04] MEDS: LORATADINE 10 MG TABLET PEG SCH (20:56)
[2022-12-04] MEDS: LIDOCAINE PATCH REMOVAL TP SCH (21:02)
[2022-12-05] MEDS: LOPERAMIDE 2 MG CAPSULE PEG SCH ×4 (06:06→22:35)
[2022-12-05] MEDS: VENlafaxine XR 75 MG (EFFEXOR XR) CAP PO SCH (06:06)
[2022-12-05] MEDS: PANTOPRAZOLE 2 MG/ML LIQUID 200 ML (PROTONIX) PEG SCH ×3 (06:07)
[2022-12-05] MEDS: CATHETER FLUSH 10 ML SYR IVP SCH ×3 (06:08→20:13)
[2022-12-05] MEDS: ENOXAPARIN 40 MG/0.4 ML SYRINGE SQ SCH (07:53)
[2022-12-05] MEDS: GABAPENTIN 300 MG CAPSULE PEG SCH ×2 (07:54→20:01)
[2022-12-05] MEDS: POTASSIUM BICARB 20 MEQ effervescent TABLET PEG SCH (07:54)
[2022-12-05] MEDS: MAGNESIUM OXIDE 400 MG TABLET PEG SCH ×2 (07:54→20:01)
[2022-12-05] MEDS: PROPRANOLOL 20 MG TABLET PEG SCH ×2 (07:54→20:00)
[2022-12-05] MEDS: FOLIC ACID 1 MG TAB PEG SCH (07:55)
[2022-12-05] MEDS: LORazepam 0.5 MG TABLET PEG SCH ×3 (07:55→20:02)
[2022-12-05] MEDS: MOUTHWASH MM SCH ×2 (07:56→20:13)
[2022-12-05] MEDS: SENNA W/DOCUSATE TABLET PO SCH ×2 (07:56→20:13)
[2022-12-05] MEDS: CHLORHEXIDINE 0.12% MM SCH ×2 (07:56→20:13)
[2022-12-05] MEDS: LIDOCAINE 4% PATCH TOP SCH (07:56)
[2022-12-05] MEDS: DOCUSATE SODIUM 100 MG CAPSULE PO SCH ×2 (07:56→20:13)
[2022-12-05] MEDS: FERROUS SULFATE ORAL LIQUID 44 MG/ML PEG SCH ×2 (07:59→20:05)
[2022-12-05 08:00] VITALS: BP 101/58
--- NOTE | 2022-12-05 08:08 | Physical Therapy Daily Note ---
PT Daily Note-Current Subjective Pt is agreeable to PT. Pt denies pain. Pain Numeric Pain Scale: 0-No Pain Location: No Pain Reported Section J - Health Conditions 1. Rarely or not at all 2. Occasionally 3. Frequently 4. Almost constantly 8. Unable to answer Pain Effect on Sleep: 1 Pain Interference with Therapy: 1 Pain Interference w/Day-to-Day: 1 Mental Status Attachments: Oxygen (2L ), Other-See Comments (J-Tube ) Transfers SCALE: Activities may be completed with or without assistive devices. 1-Ffopgykmie-yuksodf completes the activity by him/herself with no assistance from a helper. 5-Set-up or Clean-up Assistance-helper sets up or cleans up; patient completes activity. Rena Lara assists only prior to or following the activity. 4-Supervision or Touching Assistance-helper provides verbal cues and/or touching/steadying and/or contact guard assistance as patient completes activity. Assistance may be provided throughout the activity or intermittently. 3-Partial/Moderate Assistance-helper does LESS THAN HALF the effort. Rena Lara lifts, holds or supports trunk or limbs, but provides less than half the effort. 2-Substantial/Maximal Assistance-helper does MORE THAN HALF the effort. Rena Lara lifts or holds trunk or limbs and provides more than half the effort. 2-Widsavzjn-rudnjf does ALL the effort. Patient does none of the effort to complete the activity. Or, the assistance of 2 or more helpers is required for the patient to complete the activity. If activity was not attempted, code reason: 7-Patient Refused. 9-Not Applicable-not attempted and the patient did not perform the activity before the current illness, exacerbation or injury. 10-Not Attempted due to Environmental Limitations-(lack of equipment, weather restraints, etc.). 88-Not Attempted due to Medical Conditions or Safety Concerns. Lying to Sitting/Side of Bed(Q: 4 Sit to Stand (QC): 4 Chair/Jic-ne-Parlh Xfer(QC): 4 Weight Bearing Right Lower Extremity: Right Full Weight Bearing Left Lower Extremity: Left Full Weight Bearing Gait Training Does the Patient Walk?: Yes Walk 10 feet (QC): 4 Walk 50 ft with 2 Turns(QC): 4 Gait Assistive Device: Walker 4 Wheeled Wheelchair Training Does the Pt Use a Wheelchair?: Yes Wheel 50 ft with 2 turns (QC): 4 Type of Wheelchair: Manual Treatments Pt completed supine to sit with SBA/Mod I. Pt completed functional transfers with SBA/Mod I. Pt ambulated 94ft and 90ft with the 4WW and CGA. Pt completed w/c mobility x 100ft and 65ft with SBA/Mod I. Pt completed seated B LE Ther Ex x 15 reps each with the red Tband. Pt completed seated B UE balloon toss. After treatment session, pt was sitting up in the w/c with call light in reach and all needs met. Assessment Current Status: Good Progress Pt tolerated PT well, with good effort PT Commercial Singer Goals Commercial Singer Goals PT [facility] Goals Time Frame: Dec 18, 2022 Roll Left & Right (QC): 6 (Pt will be Mod I with functional mobility ) Sit to Lying (QC): 6 (Pt will be Mod I with functional mobility ) Lying-Sitting on Side/Bed(QC): 6 (Pt will be Mod I with functional mobility ) Sit to Stand (QC): 6 (Pt will be Mod I with functional mobility ) Chair/Vec-rn-Opdyq Xfer(QC): 6 (Pt will be Mod I with functional mobility ) Toilet Transfer (QC): 6 (Pt will be Mod I with functional mobility ) Car Transfer (QC): 6 (Pt will be Mod I with functional mobility ) Does the Patient Walk: Yes Walk 10 feet (QC): 6 (Pt will be Mod I with functional mobility ) Walk 50ft with 2 Turns (QC): 6 (Pt will be Mod I with functional mobility ) Walk 150 ft (QC): 6 (Pt will be Mod I with functional mobility ) Walking 10ft on Uneven Surface: 6 (Pt will be Mod I with functional mobility ) 1 Step (curb) (QC): 6 (Pt will be Mod I with functional mobility ) 4 Steps (QC): 6 (Pt will be Mod I with functional mobility ) 12 Steps (QC): 6 (Pt will be Mod I with functional mobility ) Picking up an Object (QC): 6 (Pt will be Mod I with functional mobility ) Does the Pt use WC or Scooter?: Yes Wheel 50 feet with 2 turns (QC: 6 (Pt will be Mod I with functional mobility ) Type: Manual Wheel 150 feet: 6 (Pt will be Mod I with functional mobility ) Type: Manual PT Plan Problem List Problem List: Activity Tolerance, Functional Strength, Safety, Balance, Gait, Transfer, Bed Mobility, ROM Treatment/Plan Treatment Plan: Continue Plan of Care Treatment Plan: Bed Mobility, Education, Functional Activity Victor Manuel, Functional Strength, Group Therapy, Gait, Safety, Therapeutic Exercise, Transfers Treatment Duration: Dec 18, 2022 Frequency: At least 5 of 7 days/Wk (IRF) Estimated Hrs Per Day: Other (75 min/day ) Patient and/or Family Agrees t: Yes Safety Risks/Education Patient Education: Gait Training, Transfer Techniques, Correct Positioning, W/C Management, Safety Issues Teaching Recipient: Patient Teaching Methods: Demonstration, Discussion Response to Teaching: Verbalize Understanding, Return Demonstration, R einforcement Needed Discharge Recommendations Therapy Discharge Recommendati: Home & Family, Post Acute PT Equpiment Recommendations-D/C: None Discharge Status/Home Program Cont per POC Barriers to Progress Anxiety, weakness, endurance Target Placement Home with SO Time Time In: 800 Time Out: 915 DATE: Dec 05, 2022 Total Billed Treatment Time: 75 Total Billed Treatment 75 min 1 visit FA x 1 EX x 2 GT x 2 YASMINE VALDERRAMA PT Dec 05, 2022 08:08
--- NOTE | 2022-12-05 10:10 | PM&R Progress Note ---
Subjective HPI/CC On Admission Date Seen by Provider: Dec 05, 2022 Time Seen by Provider: 11:00 Subjective/Events-last exam 12/05/2022: Patient doing well Taking a shower Discharge planned for Friday12/04/2022: Doing better No falls Pain controlled DC is planned for 12/03/2022: Patient doing a lot better Eating more Reviewed meds and labs [facility] 12/02/2022: Much improved Ativan TID working a lot better NO falls No pain reported 12/01/2022: Doing well Overwhelming anxiety was topic of discussion Changing Ativan to TID instead of L1bzpbv will help Checking labs in am 11/30/2022: Doing better Less anxiousness Eating more very slowly No falls 11/29/2022: Patient is doing well Was able to eat a little bit today Slow recovery Adding Effexor 150 mg in the morning 11/28/2022: Patient doing well Overwhelming anxiety is an issue No major concerns otherwise Labs reviewed Tolerating tube feedings Lungs remain clear Review of Systems General: Fatigue, Malaise Anxiety Objective Exam Vital Signs Vital Signs Date Time Temp Pulse Resp B/P (MAP) Pulse Ox O2 Delivery O2 Flow Rate FiO2 12/06/22 00:07 Room Air 12/05/22 20:18 36.7 88 20 109/68 (82) 94 12/04/22 07:29 0.00 Capillary Refill : General Appearance: WD/WN, Anxious, Chronically ill, Mild Distress, Thin HEENT: PERRL/EOMI, Normal ENT Inspection, Pharynx Normal Neck: Full Range of Motion, Normal Inspection, Non Tender, Supple, Carotid Bruit Respiratory: Chest Non Tender, Lungs Clear, No Accessory Muscle Use, No Respiratory Distress, Decreased Breath Sounds Cardiovascular: No Edema, No Gallop, No JVD, No Murmur, Normal Peripheral Pulses, Tachycardia Gastrointestinal: Normal Bowel Sounds, No Organomegaly, No Pulsatile Mass, Non Tender, Soft Back: Normal Inspection, No CVA Tenderness, No Vertebral Tenderness Extremity: Normal Capillary Refill, Normal Inspection, Normal Range of Motion, Non Tender, No Calf Tenderness, No Pedal Edema Neurologic/Psychiatric: Alert, Oriented x3, drywall sprayer II-XII Norm as Tested, Abnormal Gait, Depressed Affect, Motor Weakness (Generalized 3/5) Skin: Normal Color, Warm/Dry Lymphatic: No Adenopathy Results/Procedures Lab Patient resulted labs reviewed. FIM Transfers Therapy Code Descriptions/Definitions Functional [place] Measure: 0=Not Assessed/NA 4=Minimal Assistance 1=Total Assistance 5=Supervision or Setup 2=Maximal Assistance 6=Modified [place] 3=Moderate Assistance 7=Complete IndependenceSCALE: Activities may be completed with or without assistive devices. 5-Sstodvcmvh-whdgniv completes the activity by him/herself with no assistance from a helper. 5-Set-up or Clean-up Assistance-helper sets up or cleans up; patient completes activity. [place] assists only prior to or following the activity. 4-Supervision or Touching Assistance-helper provides verbal cues and/or to uching/steadying and/or contact guard assistance as patient completes activity. Assistance may be provided throughout the activity or intermittently. 3-Partial/Moderate Assistance-helper does LESS THAN HALF the effort. [place] lifts, holds or supports trunk or limbs, but provides less than half the effort. 2-Substantial/Maximal Assistance-helper does MORE THAN HALF the effort. [place] lifts or holds trunk or limbs and provides more than half the effort. 3-Tqrustwcq-ivbfre does ALL the effort. Patient does none of the effort to complete the activity. Or, the assistance of 2 or more helpers is required for the patient to complete the activity. If activity was not attempted, code reason: 7-Patient Refused. 9-Not Applicable-not attempted and the patient did not perform the activity before the current illness, exacerbation or injury. 10-Not Attempted due to Environmental Limitations-(lack of equipment, weather restraints, etc.). 88-Not Attempted due to Medical Conditions or Safety Concerns. Roll Left to Right (QC): 4 (SBA ) Sit to Lying (QC): 4 Sit to Stand (QC): 4 Chair/Mgt-hu-Jyqvd Xfer(QC): 4 Car Transfer (QC): 4 (CGA ) Gait Training Does the Patient Walk?: Yes Distance: 50ft x 2 Walk 10 feet (QC): 4 Walk 50 ft with 2 Turns(QC): 4 Walk 150 ft (QC): 88 Walking 10ft/uneven surface-QC: 4 (CGA ) Gait Persons Needed: 1 Gait Assistive Device: Walker 4 Wheeled Wheelchair Training Does the Pt Use a Wheelchair?: Yes Wheel 50 ft with 2 turns (QC): 4 Wheel 150 ft (QC): 4 Type of Wheelchair: Manual Stair Training #of Steps: 4 1 Step (curb) (QC): 3 (Min A ) 4 Steps (QC): 3 (Min A ) 12 Steps (QC): 88 (Weakness, endurance ) Balance Picking up an Object (QC): 4 (CGA with aluminum welder ) ADL-Treatment Eating (QC): 88 Oral Hygiene (QC): 4 Shower/Bathe Self (QC): 4 (VCS for anxiety, 100% seated) Upper Body Dressing (QC): 4 (VCS for anxiety) Lower Body Dressing (QC): 3 (Min A with pants due to anxiety/fatigue. Pt able to complete brief with CGA) On/Off Footwear (QC): 5 Toileting Hygiene (QC): 4 Toilet Transfer (QC): 4 Assessment/Plan Assessment and Plan Assess & Plan/Chief Complaint Assessment: Critical illness myopathy Recent ARDS Recent vent dependent Decannulated trach Former smoker Colon cancer Gastrectomy with J-tube placement Recent adrenal insufficiency Acute blood loss anemia requiring transfusions PTSD Anxiety Overwhelming type Depression Hypokalemia Labile blood pressure Tachycardia Plan: Supportive care Monitor closely PT and OT Supportive care 11/28/2022: Supportive care Modified barium swallow Anxiety treatment 11/29/2022: Add Effexor 150 Supportive care 11/30/2022: Continue treatment Improved overall 12/01/2022: Check labs in am Ativan change from Q8hrs to TID 12/02/2022: Improved overall Weaned O2 12/03/2022: Supportive care 12/04/2022: Monitor closely DC soon 12/05/2022: Supportive care Discharge Friday (1) Critical illness myopathy LIAM IQBAL DO Dec 05, 2022 10:10
--- NOTE | 2022-12-05 10:27 | Speech Therapy Daily Note ---
Speech Daily Progress Note Subjective Date Seen by Provider: Dec 05, 2022 Time Seen by Provider: 09:15 The pt continues to report high anxiety, otherwise no new complaints. Objective Food consumption was 100%. The pt adhered to strategy use with fair-good compliance without cueing provided. No s/s dysphagia noted during meal. Assessment Assessment Current Status: Good Progress Treatment Plan Continue Plan of Care Coordinate with RD, determine calorie count and potential for nocturnal TF. Speech Short Term Goals Short Term Goals Short Term Goals Complete MBS study Time Frame-ST days Speech General Dentist/Owner Goals Retirement Goals The pt will tolerate small (1/4-1/2 cup) trials of safest liquid level and creamy/pureed solids without s/s aspiration Speech-Plan Treatment Plan Speech Therapy Treatment Plan: Continue Plan of Care Treatment Duration: Nov 28, 2022 Frequency: At least 5 of 7 days/Wk (IRF) Estimated Hrs Per Day: .5 hour per day Rehab Potential: Good Discharge Recommendations Home & Family Time Speech Therapy Time In: 09:00 Speech Therapy Time Out: 09:15 DATE: Dec 05, 2022 Total Billed Time: 15 Billed Treatment Time 1 DYST (15 min) MARIA ISABEL TAVAREZ Dec 05, 2022 10:27
--- NOTE | 2022-12-05 10:39 | Progress Note ---
LIAN LEON 12/05/22 1039: Progress Note 57 year old male, recovering from recent ARDS, critical illness myopathy, recent ventilator, with a history of colon cancer and a gastrectomy with a J-tube. He has a history of anxiety, controlled with ativan TID. On admission, he was not able to eat and required minimal assistance for ADLs. He is now able to eat pureed foods and can complete transfers with just supervision. He will not be able to eat solid foods due to his lack of teeth and surgical history. Today, he is continuing to increase the amount of food he is able to eat. Reports that he has more energy. KIMBERLEY IQBAL DO 12/05/222050: Supervisory-Addendum Brief Verification & Attestation Participated in pt care: history, MDM, physical Personally performed: exam, history, MDM, supervision of care Care discussed with: Medical Student Procedures: n/a Results interpretation: Verified all documentation Verification and Attestation of Medical Student E/M Service A medical student performed and documented this service in my presence. I reviewed and verified all information documented by the medical student and made modifications to such information, when appropriate. I personally performed the physical exam and medical decision making. Kimberley Iqbal, Dec 05, 2022,20:51 LIAN LEON Dec 05, 2022 10:39 KIMBERLEY IQBAL DO Dec 05, 2022 20:51
--- NOTE | 2022-12-05 11:07 | Occupational Ther Daily Note ---
OT Current Status-Daily Note Subjective Pt agreeable to OT Tx. He feels like he has a better handle on his anxiety during shower today. ADL-Treatment Therapy Code Descriptions/Definitions Functional [place] Measure: 0=Not Assessed/NA 4=Minimal Assistance 1=Total Assistance 5=Supervision or Setup 2=Maximal Assistance 6=Modified [place] 3=Moderate Assistance 7=Complete IndependenceSCALE: Activities may be completed with or without assistive devices. 3-Hdewbdehti-wlitvzm completes the activity by him/herself with no assistance from a helper. 5-Set-up or Clean-up Assistance-helper sets up or cleans up; patient completes activity. [place] assists only prior to or following the activity. 4-Supervision or Touching Assistance-helper provides verbal cues and/or touching/steadying and/or contact guard assistance as patient completes activity. Assistance may be provided throughout the activity or intermittently. 3-Partial/Moderate Assistance-helper does LESS THAN HALF the effort. [place] lifts, holds or supports trunk or limbs, but provides less than half the effort. 2-Substantial/Maximal Assistance-helper does MORE THAN HALF the effort. [place] lifts or holds trunk or limbs and provides more than half the effort. 2-Tymthlntl-wrirws does ALL the effort. Patient does none of the effort to complete the activity. Or, the assistance of 2 or more helpers is required for the patient to complete the activity. If activity was not attempted, code reason: 7-Patient Refused. 9-Not Applicable-not attempted and the patient did not perform the activity before the current illness, exacerbation or injury. 10-Not Attempted due to Environmental Limitations-(lack of equipment, weather restraints, etc.). 88-Not Attempted due to Medical Conditions or Safety Concerns. Eating (QC): 88 Oral Hygiene (QC): 6 Shower/Bathe Self (QC): 5 (set up to cover port, and abdominal lines) Upper Body Dressing (QC): 5 Lower Body Dressing (QC): 5 On/Off Footwear: 5 Toileting Hygiene (QC): 6 Toilet Transfer (QC): 6 Other Treatment Pt in w/c, agreeable to OT tx. Pt able to complete grooming tasks seated independently. Pt stood from /, IND, then used GBs to transfer into shower and onto [place], IND. Pt completed shower after set up. Pt took increased time with ADLs, taking rest breaks as needed. Pt reports when he attempts to complete tasks too quickly, he feels more anxious. After shower, pt donned clothes after set up assistance. Pt used FWW to transfer from SC to EOB and supine, IND. Pt did not require PRN O2 during tx. Post tx, pt in bed, call light in reach and all needs met. BIMS CAM BIMS Expression of Ideas and Wants: Without Difficulty Understanding Verbal Content: Understands Brief Interview/Mental Status: Yes IRF KENNA BIMS: IRF KENNA BIMS Response (Comments) Value Repitition of Three Words Three 3 Recalls Socks Yes, No Cue Required 2 Recalls Blue Yes, No Cue Required 2 Recalls Bed Yes, No Cue Required 2 Year Correct 3 Month Accurate Within 5 Days 2 Day Correct 1 Total 15 Should Staff Asses. Mental St.: No CAM Mental Status Change/Baseline: 0 Inattention: 0 Disorganized thinkin Altered level of consciousness: 0 OT Group Home Goals Group Home Goals Time Frame: Dec 20, 2022 Acute change in mental status: 0 Inattention: 0 Disorganized thinkin Altered level of consciousness: 0 Eating (QC): 88 Oral Hygiene (QC): 6 Toileting Hygiene (QC): 6 Shower/Bathe Self (QC): 6 Upper Body Dressing (QC): 6 Lower Body Dressing (QC): 6 On/Off Footwear (QC): 6 Additional Goals: 1-Demonstrate ADL Tasks, 2-Verbalize Understanding, 3- ImproveStrength/Victor Manuel 1=Demonstrate adherence to instructed precautions during ADL tasks. 2=Patient will verbalize/demonstrate understanding of assistive devices/modifications for ADL. 3=Patient will improve strength/tolerance for activity to enable patient to perform ADL's. OT Education/Plan Problem List/Assessment Assessment: Decreased Activ Tolerance, Decreased UE Strength, Impaired I ADL's Discharge Recommendations Plan/Recommendations: Continue POC Treatment Plan/Plan of Care Patient would benefit from OT for education, treatment and training to promote independence in ADL's, mobility, safety and/or upper extremity function for ADL's. Plan of Care: ADL Retraining, Functional Mobility, Group Exercise/Act as Ind, UE Funct Exercise/Act Treatment Duration: Dec 20, 2022 Frequency: At least 5 of 7 days/Wk (IRF) Estimated Hrs Per Day: Other (75 mins per day) Agreement: Yes Rehab Potential: Good Time Start Time: 09:45 Stop Time: 11:00 DATE: Dec 05, 2022 Total Time Billed (hr/min): 75 Billed Treatment Time 1, ADL 5 LETICIA DARNELL OT Dec 05, 2022 11:07
--- NOTE | 2022-12-05 16:07 | Speech Therapy Daily Note ---
Speech Daily Progress Note Subjective Date Seen by Provider: Dec 05, 2022 Time Seen by Provider: 15:45 Pt had no new complaints. New orders completed for nocturnal tube feeding, with no TF during the day as the pt is maintaining approximately 700 calories PO. With nightly TF, the pt should maintain 2000 calories/day. Objective The pt consumed one serving yogurt. Eating rate has increased, however the pt is tolerating without adverse effects. Discussed new TF schedule, emphasized need to increase liquid intake through the day. Assessment Assessment Current Status: Good Progress Treatment Plan Continue Plan of Care Speech Short Term Goals Short Term Goals Short Term Goals Complete MBS study Time Frame-ST days Speech Environmental Services Aide Goals Environmental Services Aide Goals The pt will tolerate small (1/4-1/2 cup) trials of safest liquid level and creamy/pureed solids without s/s aspiration Speech-Plan Treatment Plan Speech Therapy Treatment Plan: Continue Plan of Care Treatment Duration: Nov 28, 2022 Frequency: At least 5 of 7 days/Wk (IRF) Estimated Hrs Per Day: .5 hour per day Rehab Potential: Good Safety Risks/Education Teaching Recipient: Patient Teaching Methods: Discussion Time Speech Therapy Time In: 15:45 Speech Therapy Time Out: 16:00 DATE: Dec 05, 2022 Total Billed Time: 15 Billed Treatment Time 1 DYST (15 min) MARIA ISABEL TAVAREZ Dec 05, 2022 16:07
[2022-12-05] MEDS: LORATADINE 10 MG TABLET PEG SCH (20:01)
[2022-12-05] MEDS: MELATONIN 10 MG TABLET PEG SCH (20:01)
[2022-12-05] MEDS: LIDOCAINE PATCH REMOVAL TP SCH (20:13)
[2022-12-05 20:18] VITALS: BP 109/68
--- NOTE | 2022-12-06 04:54 | PM&R Progress Note ---
Subjective HPI/CC On Admission Date Seen by Provider: Dec 06, 2022 Time Seen by Provider: 12:30 Subjective/Events-last exam 12/06/2022: Doing well Less anxiety DC tomorrow Pain not reported 12/05/2022: Patient doing well Taking a shower Discharge planned for Friday12/04/2022: Doing better No falls Pain controlled DC is planned for 12/03/2022: Patient doing a lot better Eating more Reviewed meds and labs [facility] 12/02/2022: Much improved Ativan TID working a lot better NO falls No pain reported 12/01/2022: Doing well Overwhelming anxiety was topic of discussion Changing Ativan to TID instead of T9tushi will help Checking labs in am 11/30/2022: Doing better Less anxiousness Eating more very slowly No falls 11/29/2022: Patient is doing well Was able to eat a little bit today Slow recovery Adding Effexor 150 mg in the morning 11/28/2022: Patient doing well Overwhelming anxiety is an issue No major concerns otherwise Labs reviewed Tolerating tube feedings Lungs remain clear Review of Systems General: Fatigue, Malaise Anxiety Objective Exam Vital Signs Vital Signs Date Time Temp Pulse Resp B/P (MAP) Pulse Ox O2 Delivery O2 Flow Rate FiO2 12/06/22 09:01 Room Air 12/06/22 08:00 36.1 80 20 102/62 (75) 94 12/04/22 07:29 0.00 Capillary Refill : General Appearance: WD/WN, Anxious, Chronically ill, Mild Distress, Thin HEENT: PERRL/EOMI, Normal ENT Inspection, Pharynx Normal Neck: Full Range of Motion, Normal Inspection, Non Tender, Supple, Carotid Bruit Respiratory: Chest Non Tender, Lungs Clear, No Accessory Muscle Use, No Respiratory Distress, Decreased Breath Sounds Cardiovascular: No Edema, No Gallop, No JVD, No Murmur, Normal Peripheral Pulses, Tachycardia Gastrointestinal: Normal Bowel Sounds, No Organomegaly, No Pulsatile Mass, Non Tender, Soft Back: Normal Inspection, No CVA Tenderness, No Vertebral Tenderness Extremity: Normal Capillary Refill, Normal Inspection, Normal Range of Motion, Non Tender, No Calf Tenderness, No Pedal Edema Neurologic/Psychiatric: Alert, Oriented x3, 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 FIM Transfers Therapy Code Descriptions/Definitions Functional [place] Measure: 0=Not Assessed/NA 4=Minimal Assistance 1=Total Assistance 5=Supervision or Setup 2=Maximal Assistance 6=Modified [place] 3=Moderate Assistance 7=Complete IndependenceSCALE: Activities may be completed with or without assistive devices. 6-Wqdvtiigpq-znezlmn completes the activity by him/herself with no assistance from a helper. 5-Set-up or Clean-up Assistance-helper sets up or cleans up; patient completes activity. [place] assists only prior to or following the activity. 4-Supervision or Touching Assistance-helper provides verbal cues and/or touching/steadying and/or contact guard assistance as patient completes activity. Assistance may be provided throughout the activity or intermittently. 3-Partial/Moderate Assistance-helper does LESS THAN HALF the effort. [place] lifts, holds or supports trunk or limbs, but provides less than half the effort. 2-Substantial/Maximal Assistance-helper does MORE THAN HALF the effort. [place] lifts or holds trunk or limbs and provides more than half the effort. 6-Smjashqzm-vzetvu does ALL the effort. Patient does none of the effort to complete the activity. Or, the assistance of 2 or more helpers is required for the patient to complete the activity. If activity was not attempted, code reason: 7-Patient Refused. 9-Not Applicable-not attempted and the patient did not perform the activity before the current illness, exacerbation or injury. 10-Not Attempted due to Environmental Limitations-(lack of equipment, weather restraints, etc.). 88-Not Attempted due to Medical Conditions or Safety Concerns. Roll Left to Right (QC): 4 (SBA ) Sit to Stand (QC): 4 Chair/Hpp-ja-Gudzc Xfer(QC): 4 Car Transfer (QC): 4 (CGA ) Gait Training Does the Patient Walk?: Yes Distance: 50ft x 2 Walk 10 feet (QC): 4 Walk 50 ft with 2 Turns(QC): 4 Walk 150 ft (QC): 88 Walking 10ft/uneven surface-QC: 4 (CGA ) Gait Persons Needed: 1 Gait Assistive Device: Walker 4 Wheeled Wheelchair Training Does the Pt Use a Wheelchair?: Yes Wheel 50 ft with 2 turns (QC): 4 Wheel 150 ft (QC): 4 Type of Wheelchair: Manual Stair Training #of Steps: 4 1 Step (curb) (QC): 3 (Min A ) 4 Steps (QC): 3 (Min A ) 12 Steps (QC): 88 (Weakness, endurance ) Balance Picking up an Object (QC): 4 (CGA with meeting/event planner ) ADL-Treatment Eating (QC): 88 Oral Hygiene (QC): 6 Shower/Bathe Self (QC): 5 (set up to cover port, and abdominal lines) Upper Body Dressing (QC): 5 Lower Body Dressing (QC): 5 On/Off Footwear (QC): 5 Toileting Hygiene (QC): 6 Toilet Transfer (QC): 6 Assessment/Plan Assessment and Plan Assess & Plan/Chief Complaint Assessment: Critical illness myopathy Recent ARDS Recent vent dependent Decannulated trach Former smoker Colon cancer Gastrectomy with J-tube placement Recent adrenal insufficiency Acute blood loss anemia requiring transfusions PTSD Anxiety Overwhelming type Depression Hypokalemia Labile blood pressure Tachycardia Plan: Supportive care Monitor closely PT and OT Supportive care 11/28/2022: Supportive care Modified barium swallow Anxiety treatment 11/29/2022: Add Effexor 150 Supportive care 11/30/2022: Continue treatment Improved overall 12/01/2022: Check labs in am Ativan change from Q8hrs to TID 12/02/2022: Improved overall Weaned O2 12/03/2022: Supportive care 12/04/2022: Monitor closely DC soon 12/05/2022: Supportive care Discharge Friday12/06/2022: Monitor closely DC tomorrow (1) Critical illness myopathy LIAM IQBAL DO Dec 06, 2022 04:54
[2022-12-06] MEDS: LOPERAMIDE 2 MG CAPSULE PEG SCH ×4 (06:03→22:01)
[2022-12-06] MEDS: VENlafaxine XR 75 MG (EFFEXOR XR) CAP PO SCH (06:03)
[2022-12-06] MEDS: PANTOPRAZOLE 2 MG/ML LIQUID 200 ML (PROTONIX) PEG SCH ×3 (06:04)
[2022-12-06] MEDS: CATHETER FLUSH 10 ML SYR IVP SCH ×3 (06:04→21:48)
[2022-12-06] MEDS: DOCUSATE SODIUM 100 MG CAPSULE PO SCH ×2 (07:47→19:39)
[2022-12-06] MEDS: SENNA W/DOCUSATE TABLET PO SCH ×2 (07:47→19:39)
[2022-12-06 08:00] VITALS: BP 102/62
--- NOTE | 2022-12-06 09:50 | Progress Note ---
LIAN LEON 12/06/22 0950: Progress Note Abe is a 57 year old male who has completed his hospital stay while recovering from recent ARDS, critical illness myopathy, recent ventilator, with a history of colon cancer and a gastrectomy with a J-tube. He has a history of anxiety, controlled with ativan TID. On admission, he was not able to eat and required minimal assistance for ADLs. He is now able to eat pureed foods and is completely independent when doing ADLs. He can do transfers with just supervised assistance, which he will have at home. He will not be able to eat solid foods due to his lack of teeth and surgical history. He is continuing to increase the amount of food he is able to eat and now only requires night time tube feeding to meet his daily caloric intake. He is ready for discharge tomorrow. KIMBERLEY IQBAL DO 12/06/22 1809: Supervisory-Addendum Brief Verification & Attestation Participated in pt care: history, MDM, physical Personally performed: exam, history, MDM, supervision of care Care discussed with: Medical Student Procedures: n/a Results interpretation: Verified all documentation Verification and Attestation of Medical Student E/M Service A medical student performed and documented this service in my presence. I reviewed and verified all information documented by the medical student and made modifications to such information, when appropriate. I personally performed the physical exam and medical decision making. Kimberley Iqbal, Dec 06, 2022,18:09 LIAN LEON Dec 06, 2022 09:50 KIMBERLEY IQBAL DO Dec 06, 2022 18:09
--- NOTE | 2022-12-06 10:08 | Speech Therapy Daily Note ---
Speech Daily Progress Note Subjective Date Seen by Provider: Dec 06, 2022 Time Seen by Provider: 09:15 The pt reported high anxiety this date, continues to be motivated for PO intake. Objective The pt consumed 100% of breakfast meal of pureed eggs and sausage with added gravy, with pureed fruit. Eating rate continues to increase, discussed need to slow rate to establish habit of slower eating for long-term need to use s trategy. The pt tolerated food intake well, and reports no issues to date. Assessment Assessment Current Status: Good Progress Treatment Plan Continue Plan of Care Planned discharge to home 12/07/22. Education will be provided this date with patient and SO. Speech Short Term Goals Short Term Goals Short Term Goals Complete MBS study Time Frame-ST days Speech Fdc Goals Baseball Glove Shaper Goals The pt will tolerate small (1/4-1/2 cup) trials of safest liquid level and creamy/pureed solids without s/s aspiration Speech-Plan Treatment Plan Speech Therapy Treatment Plan: Continue Plan of Care Treatment Duration: Nov 28, 2022 Frequency: At least 5 of 7 days/Wk (IRF) Estimated Hrs Per Day: .5 hour per day Rehab Potential: Good Time Speech Therapy Time In: 09:15 Speech Therapy Time Out: 09:35 DATE: Dec 06, 2022 Total Billed Time: 20 Billed Treatment Time 1 DYST (20 min) MARIA ISABEL TAVAREZ Dec 06, 2022 10:08
--- NOTE | 2022-12-06 10:15 | Physical Therapy Daily Note ---
PT Daily Note-Current Subjective Pt is agreeable to PT. Denies pain. Pain Numeric Pain Scale: 0-No Pain Location: No Pain Reported Section J - Health Conditions 1. Rarely or not at all 2. Occasionally 3. Frequently 4. Almost constantly 8. Unable to answer Pain Effect on Sleep: 1 Pain Interference with Therapy: 1 Pain Interference w/Day-to-Day: 1 Mental Status Attachments: Oxygen (2L ), Other-See Comments (J-Tube ) Transfers SCALE: Activities may be completed with or without assistive devices. 6-Dshmkazgwx-syzfknn completes the activity by him/herself with no assistance from a helper. 5-Set-up or Clean-up Assistance-helper sets up or cleans up; patient completes activity. [place] assists only prior to or following the activity. 4-Supervision or Touching Assistance-helper provides verbal cues and/or touching/steadying and/or contact guard assistance as patient completes activity. Assistance may be provided throughout the activity or intermittently. 3-Partial/Moderate Assistance-helper does LESS THAN HALF the effort. [place] lifts, holds or supports trunk or limbs, but provides less than half the effort. 2-Substantial/Maximal Assistance-helper does MORE THAN HALF the effort. [place] lifts or holds trunk or limbs and provides more than half the effort. 7-Lywyavcll-utbtnd does ALL the effort. Patient does none of the effort to complete the activity. Or, the assistance of 2 or more helpers is required for the patient to complete the activity. If activity was not attempted, code reason: 7-Patient Refused. 9-Not Applicable-not attempted and the patient did not perform the activity before the current illness, exacerbation or injury. 10-Not Attempted due to Environmental Limitations-(lack of equipment, weather restraints, etc.). 88-Not Attempted due to Medical Conditions or Safety Concerns. Roll Left & Right (QC): 6 Sit to Lying (QC): 6 Lying to Sitting/Side of Bed(Q: 6 Sit to Stand (QC): 6 Chair/Hix-hf-Ocosv Xfer(QC): 6 Toilet Transfer (QC): 6 Car Transfer (QC): 6 Weight Bearing Right Lower Extremity: Right Full Weight Bearing Left Lower Extremity: Left Full Weight Bearing Gait Training Does the Patient Walk?: Yes Distance: 50ft x 2 Walk 10 feet (QC): 4 Walk 50 ft with 2 Turns(QC): 4 Walk 150 ft (QC): 88 (Anxiety ) Walking 10ft/uneven surface-QC: 4 Gait Persons Needed: 1 Gait Assistive Device: Walker 4 Wheeled Wheelchair Training Does the Pt Use a Wheelchair?: Yes Wheel 50 ft with 2 turns (QC): 6 Wheel 150 ft (QC): 6 Type of Wheelchair: Manual Stair Training Stair Training: Handrails/: 2 handrails #of Steps: 4 1 Step (curb) (QC): 4 4 Steps (QC): 4 12 Steps (QC): 88 (Anxiety ) Stairs: Pattern: Step to Balance Picking up an Object (QC): 4 Special Test Comments [facility] standing balance scale = 4/5 Treatments QCs and family training completed on this date. PT/OT co-tx from [id number] (75 min), due to skill of 2 clinicians required which a rehabilitation program coordinator could not perform in order to coordinate UE/LEs, decrease fall risk, and due to pt's limitations in strength, activity tolerance, mobility/transfers and anxiety. PT focused on LE placement, gross overall movement, transfers and mobility. OT focused on UE placement, cues for sequencing/safety and breathing/relaxation techniques. QCs and family training completed on this date. Pt is Mod I with bed mobility, transfers, and w/c mobility. Pt ambulated 50ft x with the 4WW and CGA. Pt is unable to walk further, due to anxiety. Pt completed w/c mobility x 150ft with Mod I. Pt completed 4 steps with B HR and CGA. Pt demo improved ability to control anxiety on this date, but cont to require extended time to complete tasks, as well as extended rest breaks to slow breathing. Pt and SO edu about going home, HEP, and safety. Pt and SO deny questions or concerns. After treatme nt, pt was lying in bed with call light in reach and all needs met. SO present. Assessment Current Status: Good Progress Pt tolerated PT well, with good effort PT Correction Goals Commercial Relief Driver Goals PT Correction Goals Time Frame: Dec 18, 2022 Roll Left & Right (QC): 6 (Pt will be Mod I with functional mobility ) Sit to Lying (QC): 6 (Pt will be Mod I with functional mobility ) Lying-Sitting on Side/Bed(QC): 6 (Pt will be Mod I with functional mobility ) Sit to Stand (QC): 6 (Pt will be Mod I with functional mobility ) Chair/Sgc-oa-Efnub Xfer(QC): 6 (Pt will be Mod I with functional mobility ) Toilet Transfer (QC): 6 (Pt will be Mod I with functional mobility ) Car Transfer (QC): 6 (Pt will be Mod I with functional mobility ) Does the Patient Walk: Yes Walk 10 feet (QC): 6 (Pt will be Mod I with functional mobility ) Walk 50ft with 2 Turns (QC): 6 (Pt will be Mod I with functional mobility ) Walk 150 ft (QC): 6 (Pt will be Mod I with functional mobility ) Walking 10ft on Uneven Surface: 6 (Pt will be Mod I with functional mobility ) 1 Step (curb) (QC): 6 (Pt will be Mod I with functional mobility ) 4 Steps (QC): 6 (Pt will be Mod I with functional mobility ) 12 Steps (QC): 6 (Pt will be Mod I with functional mobility ) Picking up an Object (QC): 6 (Pt will be Mod I with functional mobility ) Does the Pt use WC or Scooter?: Yes Wheel 50 feet with 2 turns (QC: 6 (Pt will be Mod I with functional mobility ) Type: Manual Wheel 150 feet: 6 (Pt will be Mod I with functional mobility ) Type: Manual PT Plan Problem List Problem List: Activity Tolerance, Functional Strength, Safety, Balance, Gait, Transfer, Bed Mobility, ROM Treatment/Plan Treatment Plan: Continue Plan of Care Treatment Plan: Bed Mobility, Education, Functional Activity Victor Manuel, Functional Strength, Group Therapy, Gait, Safety, Therapeutic Exercise, Transfers Treatment Duration: Dec 18, 2022 Frequency: At least 5 of 7 days/Wk (IRF) Estimated Hrs Per Day: Other (75 min/day ) Patient and/or Family Agrees t: Yes Safety Risks/Education Patient Education: Gait Training, Transfer Techniques, Steps, Correct Positioning, W/C Management, Safety Issues Teaching Recipient: Patient, Significant Other Teaching Methods: Demonstration, Discussion Response to Teaching: Verbalize Understanding, Return Demonstration, Reinforcement Needed Discharge Recommendations Therapy Discharge Recommendati: Home & Family, Post Acute PT Equpiment Recommendations-D/C: None Discharge Status/Home Program Cont per POC Barriers to Progress Anxiety, weakness, endurance Target Placement Home with SO Time Time In: 1015 Time Out: 1130 DATE: Dec 06, 2022 Total Billed Treatment Time: 75 Total Billed Treatment 75 min co-tx from [id number] 1 visit FA x 5 YASMINE VALDERRAMA PT Dec 06, 2022 10:15
[2022-12-06] MEDS: FERROUS SULFATE ORAL LIQUID 44 MG/ML PEG SCH ×2 (10:34→20:53)
[2022-12-06] MEDS: LORazepam 0.5 MG TABLET PEG SCH ×3 (10:34→20:53)
[2022-12-06] MEDS: FOLIC ACID 1 MG TAB PEG SCH (10:34)
[2022-12-06] MEDS: ENOXAPARIN 40 MG/0.4 ML SYRINGE SQ SCH (10:34)
[2022-12-06] MEDS: GABAPENTIN 300 MG CAPSULE PEG SCH ×2 (10:34→20:53)
[2022-12-06] MEDS: POTASSIUM BICARB 20 MEQ effervescent TABLET PEG SCH (10:34)
[2022-12-06] MEDS: MOUTHWASH MM SCH ×2 (10:34→21:22)
[2022-12-06] MEDS: CHLORHEXIDINE 0.12% MM SCH ×2 (10:34→21:22)
[2022-12-06] MEDS: MAGNESIUM OXIDE 400 MG TABLET PEG SCH ×2 (10:35→20:53)
[2022-12-06] MEDS: PROPRANOLOL 20 MG TABLET PEG SCH ×2 (10:35→20:53)
[2022-12-06] MEDS: LIDOCAINE 4% PATCH TOP SCH (10:35)
--- NOTE | 2022-12-06 11:28 | Occupational Ther Daily Note ---
OT Current Status-Daily Note Subjective Pt agreeable to OT Tx. Mental Status/Objective Patient Orientation: Listless Attachments: Oxygen (2L O2 NC PRN) ADL-Treatment Therapy Code Descriptions/Definitions Functional [place] Measure: 0=Not Assessed/NA 4=Minimal Assistance 1=Total Assistance 5=Supervision or Setup 2=Maximal Assistance 6=Modified [place] 3=Moderate Assistance 7=Complete IndependenceSCALE: Activities may be completed with or without assistive devices. 7-Yohukxavnn-cyrjthy completes the activity by him/herself with no assistance from a helper. 5-Set-up or Clean-up Assistance-helper sets up or cleans up; patient completes activity. [place]ora assists only prior to or following the activity. 4-Supervision or Touching Assistance-helper provides verbal cues and/or touching/steadying and/or contact guard assistance as patient completes activity. Assistance may be provided throughout the activity or intermittently. 3-Partial/Moderate Assistance-helper does LESS THAN HALF the effort. Nora lifts, holds or supports trunk or limbs, but provides less than half the effort. 2-Substantial/Maximal Assistance-helper does MORE THAN HALF the effort. Nora lifts or holds trunk or limbs and provides more than half the effort. 0-Qratrjofr-fnibeu does ALL the effort. Patient does none of the effort to c omplete the activity. Or, the assistance of 2 or more helpers is required for the patient to complete the activity. If activity was not attempted, code reason: 7-Patient Refused. 9-Not Applicable-not attempted and the patient did not perform the activity before the current illness, exacerbation or injury. 10-Not Attempted due to Environmental Limitations-(lack of equipment, weather restraints, etc.). 88-Not Attempted due to Medical Conditions or Safety Concerns. Other Treatment OT/PT cotreat due to skill of 2 clinicians required which a animal rehabilitator could not perform in order to coordinate UE/LEs, decrease fall risk, family education and due to pt's limitations in strength, activity tolerance, and anxiety with activity. OT focused on UE placement, cues for sequencing and safety and ADLs, PT focused on LE placement, gross overall movement, transfers/mobility. Pt's fiance present for family education. Pt and spouse educated on pt's current level of function with ADLs, then pt completed functional mobility and transfers including car transfer, mobility using 4WW, car transfer, bed mobility, steps (CGA 4 steps) and w/c mobility. Pt took seated rest breaks as needed, using 2L PRN O2 for anxiety. Pt returned to bed post tx, call light in reach and all needs met. Education OT Patient Education: Correct positioning, Energy conservation, Modified ADL techniques, Progress toward Goal/Update tx plan, Purpose of tx/functional activities, Rehab process Teaching Recipient: Patient Teaching Methods: Discussion Response to Teaching: Verbalize Understanding OT Level Vial Curvature Gauger Goals Care Home Goals Time Frame: Dec 20, 2022 Acute change in mental status: 0 Inattention: 0 Disorganized thinkin Altered level of consciousness: 0 Eating (QC): 88 Oral Hygiene (QC): 6 Toileting Hygiene (QC): 6 Shower/Bathe Self (QC): 6 Upper Body Dressing (QC): 6 Lower Body Dressing (QC): 6 On/Off Footwear (QC): 6 Additional Goals: 1-Demonstrate ADL Tasks, 2-Verbalize Understanding, 3-ImproveStrength/Victor Manuel 1=Demonstrate adherence to instructed precautions during ADL tasks. 2=Patient will verbalize/demonstrate understanding of assistive devices/modifications for ADL. 3=Patient will improve strength/tolerance for activity to enable patient to perform ADL's. OT Education/Plan Problem List/Assessment Assessment: Decreased Activ Tolerance, Decreased UE Strength, Impaired I ADL's Discharge Recommendations Plan/Recommendations: Continue POC Treatment Plan/Plan of Care Patient would benefit from OT for education, treatment and training to promote independence in ADL's, mobility, safety and/or upper extremity function for ADL's. Plan of Care: ADL Retraining, Functional Mobility, Group Exercise/Act as Ind, UE Funct Exercise/Act Treatment Duration: Dec 20, 2022 Frequency: At least 5 of 7 days/Wk (IRF) Estimated Hrs Per Day: Other (75 mins per day) Agreement: Yes Rehab Potential: Good Time Start Time: 10:15 Stop Time: 11:30 DATE: Dec 06, 2022 Total Time Billed (hr/min): 75 Billed Treatment Time cotreat x75' 1, FA 5 LETICIA DARNELL OT Dec 06, 2022 11:28
--- NOTE | 2022-12-06 13:43 | Speech Therapy Daily Note ---
Speech Daily Progress Note Subjective Date Seen by Provider: Dec 06, 2022 Time Seen by Provider: 11:30 The pt and fiancee were provided with education regarding eating, strategies, and tube-feed schedule for home, with anticipated discharge of 12/06/22. Objective Information was provided in discussion and writing re: eating strategies, meal timing, and tube feed scheduling. The pt is adhering to eating strategies with f air-good compliance. Meal schedule for 3 small meals and 3 small snacks was provided, as well as instructions for determining nocturnal tube-feeding needs. Suggestions for meals and snacks were also provided. All questions were answered with best knowledge of DESIGN TRANSFERRER. Assessment Assessment Current Status: Good Progress Treatment Plan Continue Plan of Care Speech Short Term Goals Short Term Goals Short Term Goals Complete MBS study Time Frame-ST days Speech Medical Device Sales Representative Goals Halfway Goals The pt will tolerate small (1/4-1/2 cup) trials of safest liquid level and creamy/pureed solids without s/s aspiration Speech-Plan Treatment Plan Speech Therapy Treatment Plan: Continue Plan of Care Treatment Duration: Nov 28, 2022 Frequency: At least 5 of 7 days/Wk (IRF) Estimated Hrs Per Day: .5 hour per day Rehab Potential: Good Time Speech Therapy Time In: 11:30 Speech Therapy Time Out: 12:00 DATE: Dec 06, 2022 Total Billed Time: 30 Billed Treatment Time 1 DYST (30 min) MARIA ISABEL TAVAREZ Dec 06, 2022 13:43
[2022-12-06 20:00] VITALS: BP 109/67
[2022-12-06] MEDS: LORATADINE 10 MG TABLET PEG SCH (20:53)
[2022-12-06] MEDS: MELATONIN 10 MG TABLET PEG SCH (20:53)
[2022-12-06] MEDS: LIDOCAINE PATCH REMOVAL TP SCH (21:22)
[2022-12-07] MEDS: VENlafaxine XR 75 MG (EFFEXOR XR) CAP PO SCH (06:52)
[2022-12-07] MEDS: CATHETER FLUSH 10 ML SYR IVP SCH (06:52)
[2022-12-07] MEDS: LOPERAMIDE 2 MG CAPSULE PEG SCH (06:52)
[2022-12-07] MEDS: PANTOPRAZOLE 2 MG/ML LIQUID 200 ML (PROTONIX) PEG SCH ×3 (06:52)
[2022-12-07 08:09] VITALS: BP 107/71
[2022-12-07 08:26] VITALS: BP 107/71
[2022-12-07] MEDS: MAGNESIUM OXIDE 400 MG TABLET PEG SCH (08:39)
[2022-12-07] MEDS: GABAPENTIN 300 MG CAPSULE PEG SCH (08:39)
[2022-12-07] MEDS: FOLIC ACID 1 MG TAB PEG SCH (08:39)
[2022-12-07] MEDS: LORazepam 0.5 MG TABLET PEG SCH (08:39)
[2022-12-07] MEDS: PROPRANOLOL 20 MG TABLET PEG SCH (08:39)
[2022-12-07] MEDS: FERROUS SULFATE ORAL LIQUID 44 MG/ML PEG SCH (08:39)
[2022-12-07] MEDS: POTASSIUM BICARB 20 MEQ effervescent TABLET PEG SCH (08:39)
[2022-12-07] MEDS: LIDOCAINE 4% PATCH TOP SCH (08:40)
[2022-12-07] MEDS: ENOXAPARIN 40 MG/0.4 ML SYRINGE SQ SCH (08:40)
[2022-12-07] MEDS: MOUTHWASH MM SCH (10:11)
[2022-12-07] MEDS: CHLORHEXIDINE 0.12% MM SCH (10:11)
[2022-12-07] MEDS: DOCUSATE SODIUM 100 MG CAPSULE PO SCH (10:11)
[2022-12-07] MEDS: SENNA W/DOCUSATE TABLET PO SCH (10:12)
--- NOTE | 2022-12-07 10:17 | Discharge Summary ---
Diagnosis/Chief Complaint Date of Admission Nov 27, 2022 at 12:50 Date of Discharge Discharge Date: Dec 07, 2022 Discharge Diagnosis Assessment: Critical illness myopathy Recent ARDS Recent vent dependent Decannulated trach Former smoker Colon cancer Gastrectomy with J-tube placement Recent adrenal insufficiency Acute blood loss anemia requiring transfusions PTSD Anxiety Overwhelming type Depression Hypokalemia Labile blood pressure Tachycardia Plan: Supportive care Monitor closely PT and OT Supportive care 11/28/2022: Supportive care Modified barium swallow Anxiety treatment 11/29/2022: Add Effexor 150 Supportive care 11/30/2022: Continue treatment Improved overall 12/01/2022: Check labs in am Ativan change from Q8hrs to TID 12/02/2022: Improved overall Weaned O2 12/03/2022: Supportive care 12/04/2022: Monitor closely DC soon 12/05/2022: Supportive care Discharge Friday12/06/2022: Monitor closely DC tomorrow (1) Critical illness myopathy Discharge Summary Discharge Physical Examination Allergies: Coded Allergies: atorvastatin (Verified Adverse Reaction, Unknown, 11/28/22) Vitals & I&Os Vital Signs Date Time Temp Pulse Resp B/P (MAP) Pulse Ox O2 Delivery O2 Flow Rate FiO2 12/07/22 09:00 Room Air 12/07/22 08:26 36.1 86 16 107/71 (83) 98 12/07/22 07:37 0.00 General Appearance: Alert, Oriented X3, Cooperative Respiratory: Clear to Auscultation Cardiovascular: Regular Rate Psych/Mental Status: Mental Status NL Hospital Course Was the Problem List Reviewed?: Yes Uneventful course after he was admitted from [place] after resp failure and trach which was decannulated and PEG tube which was utilized for TF. ST worked with him extensively and ultimately was able to eat and drink with less tube feeding dependency. PT OT worked with him extensively and he dramatically improved and was able to ambulate with AD and increased his independence. He was deemed stable. Labs (last 24 hrs) Laboratory Tests 11/28/22 06:20: White Blood Count 15.0H, Red Blood Count 3.73L, Hemoglobin 9.9L, Hematocrit 33L, Mean Corpuscular Volume 89, Mean Corpuscular Hemoglobin 27, Mean Corpuscular Hemoglobin Concent 30L, Red Cell Distribution Width 18.6H, Platelet Count 467H, Mean Platelet Volume 8.3L, Immature Granulocyte % (Auto) 0, Neutrophils (%) (Auto) 83H, Lymphocytes (%) (Auto) 7L, Monocytes (%) (Auto) 7, Eosinophils (%) (Auto) 3, Basophils (%) (Auto) 1, Neutrophils # (Auto) 12.4H, Lymphocytes # (Auto) 1.0, Monocytes # (Auto) 1.0, Eosinophils # (Auto) 0.4H, Basophils # (Auto) 0.1, Immature Granulocyte # (Auto) 0.1, Neutrophils % (Manual) 85, Lymphocytes % (Manual) 6, Monocytes % (Manual) 8, Eosinophils % (Manual) 1, Basophils % (Manual) 0, Band Neutrophils 0, Anisocytosis MODERATE, Blood Morphology Comment , Sodium Level 133L, Potassium Level 4.2, Chloride Level 95L, Carbon Dioxide Level 25, Anion Gap 13, Blood Urea Nitrogen 21H, Creatinine 0.63, Estimat Glomerular Filtration Rate 110, BUN/Creatinine Ratio 33, Glucose Level 98, Calcium Level 9.8, Corrected Calcium 10.0, Total Bilirubin 0.4, Aspartate Amino Transf (AST/SGOT) 68H, Alanine Aminotransferase (ALT/SGPT) 92H, Alkaline Phosphatase 125, Total Protein 8.8H, Albumin 3.7 12/02/22 05:37: White Blood Count 8.5, Red Blood Count 3.42L, Hemoglobin 9.3L, Hematocrit 30L, Mean Corpuscular Volume 87, Mean Corpuscular Hemoglobin 27, Mean Corpuscular Hemoglobin Concent 31L, Red Cell Distribution Width 18.3H, Platelet Count 366, Mean Platelet Volume 8.4L, Immature Granulocyte % (Auto) 1, Neutrophils (%) (Auto) 79H, Lymphocytes (%) (Auto) 8L, Monocytes (%) (Auto) 8, Eosinophils (%) (Auto) 4, Basophils (%) (Auto) 1, Neutrophils # (Auto) 6.7, Lymphocytes # (Auto) 0.6L, Monocytes # (Auto) 0.7, Eosinophils # (Auto) 0.3, Basophils # (Auto) 0.1, Immature Granulocyte # (Auto) 0.0, Sodium Level 135, Potassium Level 4.0, Chloride Level 98, Carbon Dioxide Level 27, Anion Gap 10, Blood Urea Nitrogen 12, Creatinine 0.58L, Estimat Glomerular Filtration Rate 113, BUN/Creatinine Ratio 21, Glucose Level 83, Calcium Level 9.3, Corrected Calcium 9.9, Total Bilirubin 0.3, Aspartate Amino Transf (AST/SGOT) 58H, Alanine Aminotransferase (ALT/SGPT) 86H, Alkaline Phosphatase 116, Total Protein 7.6, Albumin 3.2 Pending Labs Laboratory Tests 11/28/22 06:20: White Blood Count 15.0, Red Blood Count 3.73, Hemoglobin 9.9, Hematocrit 33, Mean Corpuscular Volume 89, Mean Corpuscular Hemoglobin 27, Mean Corpuscular Hemoglobin Concent 30, Red Cell Distribution Width 18.6, Platelet Count 467, Mean Platelet Volume 8.3, Immature Granulocyte % (Auto) 0, Neutrophils (%) (Auto) 83, Lymphocytes (%) (Auto) 7, Monocytes (%) (Auto) 7, Eosinophils (%) (Auto) 3, Basophils (%) (Auto) 1, Neutrophils # (Auto) 12.4, Lymphocytes # (Auto) 1.0, Monocytes # (Auto) 1.0, Eosinophils # (Auto) 0.4, Basophils # (Auto) 0.1, Immature Granulocyte # (Auto) 0.1, Neutrophils % (Manual) 85, Lymphocytes % (Manual) 6, Monocytes % (Manual) 8, Eosinophils % (Manual) 1, Basophils % (Manual) 0, Band Neutrophils 0, Anisocytosis MODERATE, Blood Morphology Comment , Sodium Level 133, Potassium Level 4.2, Chloride Level 95, Carbon Dioxide Level 25, Anion Gap 13, Blood Urea Nitrogen 21, Creatinine 0.63, Estimat Glomerular Filtration Rate 110, BUN/Creatinine Ratio 33, Glucose Level 98, Calcium Level 9.8, Corrected Calcium 10.0, Total Bilirubin 0.4, Aspartate Amino Transf (AST/SGOT) 68, Alanine Aminotransferase (ALT/SGPT) 92, Alkaline Phosphatase 125, Total Protein 8.8, Albumin 3.7 12/02/22 05:37: White Blood Count 8.5, Red Blood Count 3.42, Hemoglobin 9.3, Hematocrit 30, Mean Corpuscular Volume 87, Mean Corpuscular Hemoglobin 27, Mean Corpuscular Hemoglobin Concent 31, Red Cell Distribution Width 18.3, Platelet Count 366, Mean Platelet Volume 8.4, Immature Granulocyte % (Auto) 1, Neutrophils (%) (Auto) 79, Lymphocytes (%) (Auto) 8, Monocytes (%) (Auto) 8, Eosinophils (%) (Auto) 4, Basophils (%) (Auto) 1, Neutrophils # (Auto) 6.7, Lymphocytes # (Auto) 0.6, Monocytes # (Auto) 0.7, Eosinophils # (Auto) 0.3, Basophils # (Auto) 0.1, Immature Granulocyte # (Auto) 0.0, Sodium Level 135, Potassium Level 4.0, Chloride Level 98, Carbon Dioxide Level 27, Anion Gap 10, Blood Urea Nitrogen 12, Creatinine 0.58, Estimat Glomerular Filtration Rate 113, BUN/Creatinine R atio 21, Glucose Level 83, Calcium Level 9.3, Corrected Calcium 9.9, Total Bilirubin 0.3, Aspartate Amino Transf (AST/SGOT) 58, Alanine Aminotransferase (ALT/SGPT) 86, Alkaline Phosphatase 116, Total Protein 7.6, Albumin 3.2 Discharge Home Medications: Active Scripts Active Ativan (Lorazepam) 0.5 Mg Tablet 0.5 Mg PO TID Melatonin 10 Mg Tablet 5 Mg PO HS Vitamin C (Ascorbic Acid) 500 Mg Tablet 500 Mg PO BID Folic Acid 1 Mg Tablet 1 Mg PEG DAILY Chlorhexidine Gluconate 0.12 % Mouthwash 10 Ml MM BID Effer-K 20 Meq Tablet Eff (Potassium Bicarbonate/Cit AC) 20 Meq Tablet.eff 20 Meq PO DAILY Propranolol HCl 20 Mg Tablet 20 Mg PO Q12H Ferrous Sulfate 325 Mg (65 Mg Iron) Tablet 325 Mg PO DAILY Ventolin Hfa (Albuterol Sulfate) 1 Puff Puff 2 Puff INH Q4H PRN Venlafaxine HCl ER (Venlafaxine HCl) 150 Mg Cap.er.24h 150 Mg PO DAILY Mirtazapine 15 Mg Tablet 7.5-15 Mg PO HS Clonidine HCl 0.1 Mg Tablet 0.1 Mg PO HS Pantoprazole Sodium 40 Mg Tablet.dr 40 Mg PO DAILY Hydroxyzine HCl 25 Mg Tablet 25 Mg PO Q8H PRN Neurontin (Gabapentin) 300 Mg Capsule 600 Mg PO TID TAKES 2 (300MG) TABS Cetirizine HCl 10 Mg Tablet 10 Mg PO HS Reported Tylenol Extra Strength (Acetaminophen) 500 Mg Tablet 1,000 Mg Q8H PRN Instructions to patient/family Please see electronic discharge instructions given to patient. Diagnosis/Problems Diagnosis/Problems (1) Critical illness myopathy LIAM IQBAL DO Dec 07, 2022 10:17
--- NOTE | 2022-12-09 08:23 | Therapy Team Discharge Summary ---
Therapy Discharge Summary Discharge Recommendations Date of Discharge Dec 07, 2022 at 10:15 Physical Therapy Patient admitted to ARU 11/27/22 for diagnosis of critical illness myopathy. At the time of D/C patient had progressed to (I) with all bed mobility and transfers using a 4WW. He was able to ambulate up to 50' CGA with a 4WW, but unable to walk further due to limitations from anxiety. He was (I) with w/c mobility using a manual w/c for distances of 150'. He was able to negotiate a curb step and 4 steps CGA, but unable to complete 12 steps due to limitations from anxiety. He was CGA to pick an object up off of the floor. He was discharged home with his significant other following family training and will have home health services. P.T. recommends mental health services after D/C to continue to address patient's anxiety. Roll Left to Right (QC): 6 Sit to Lying (QC): 6 Lying to Sitting/Side of Bed(Q: 6 Sit to Stand (QC): 6 Chair/Shc-gw-Nnnio Xfer(QC): 6 Toilet Transfer (QC): 6 Car Transfer (QC): 6 Does the Patient Walk: Yes Mode of Locomotion: Both Anticipated Mode of Locomotion: Both Walk 10 feet (QC): 4 Walk 50 ft with 2 Turns(QC): 4 Walk 150 ft (QC): 88 (Anxiety ) Walking 10ft on uneven surface: 4 Gait Assistive Device: Walker 4 Wheeled Does the Pt Use a Wheelchair: Yes Wheel 50 ft with 2 turns (QC): 6 Wheel 150 ft (QC): 6 Type of Wheelchair: Manual #of Steps: 4 1 Step (curb) (QC): 4 4 Steps (QC): 4 12 Steps (QC): 88 (Anxiety ) Balance Sitting Static: Good Balance Sitting Dynamic: Fair Balance-Standing Static: Fair Picking up an Object (QC): 4 Occupational Therapy Decreased Activ Tolerance, Decreased UE Strength, Impaired I ADL's Eating (QC): 88 Oral Hygiene (QC): 6 Shower/Bathe Self (QC): 5 (set up to cover port, and abdominal lines) Upper Body Dressing (QC): 5 Lower Body Dressing (QC): 5 On/Off Footwear (QC): 5 Toileting Hygiene (QC): 6 PT Retirement Goals Gardener Florist Goals PT Retirement Goals Time Frame: Dec 18, 2022 Roll Left to Right (QC): 6 (Pt will be Mod I with functional mobility ) Sit to Lying (QC): 6 (Pt will be Mod I with functional mobility ) Lying-Sitting on Side/Bed(QC): 6 (Pt will be Mod I with functional mobility ) Sit to Stand (QC): 6 (Pt will be Mod I with functional mobility ) Chair/Xru-yx-Oduhl Xfer(QC): 6 (Pt will be Mod I with functional mobility ) Toilet/Commode Transfer (QC): 6 (Pt will be Mod I with functional mobility ) Car Transfer (QC): 6 (Pt will be Mod I with functional mobility ) Does the Patient Walk: Yes Walk 10 feet (QC): 6 (Pt will be Mod I with functional mobility ) Walk 10ft-Uneven Surface(QC): 6 (Pt will be Mod I with functional mobility ) Walk 50ft with 2 Turns (QC): 6 (Pt will be Mod I with functional mobility ) Walk 150 ft (QC): 6 (Pt will be Mod I with functional mobility ) Does the Pt use WC or Scooter?: Yes Wheel 50 feet with 2 turns (QC: 6 (Pt will be Mod I with functional mobility ) Type: Manual Wheel 150 feet: 6 (Pt will be Mod I with functional mobility ) Type: Manual 1 Step (curb) (QC): 6 (Pt will be Mod I with functional mobility ) 4 Steps (QC): 6 (Pt will be Mod I with functional mobility ) 12 Steps (QC): 6 (Pt will be Mod I with functional mobility ) Picking up an Object (QC): 6 (Pt will be Mod I with functional mobility ) OT Gardener Florist Goals Retirement Goals Time Frame: Dec 20, 2022 Acute change in mental status: 0 Inattention: 0 Disorganized thinkin Altered level of consciousness: 0 Eating (QC): 88 Oral Hygiene (QC): 6 Toileting Hygiene (QC): 6 Shower/Bathe Self (QC): 6 Upper Body Dressing (QC): 6 Lower Body Dressing (QC): 6 On/Off Footwear (QC): 6 Additional Goals: 1-Demonstrate ADL Tasks, 2-Verbalize Understanding, 3- ImproveStrength/Victor Manuel 1=Demonstrate adherence to instructed precautions during ADL tasks. 2=Patient will verbalize/demonstrate understanding of assistive devices/modifications for ADL. 3=Patient will improve strength/tolerance for activity to enable patient to perform ADL's. Speech Retirement Goals Retirement Goals The pt will tolerate small (1/4-1/2 cup) trials of safest liquid level and creamy/pureed solids without s/s aspiration Antonia Hassan PT Dec 09, 2022 08:23
--- NOTE | 2022-12-09 09:11 | Therapy Team Discharge Summary ---
Therapy Discharge Summary Discharge Recommendations Date of Discharge Dec 07, 2022 at 10:15 Physical Therapy Roll Left to Right (QC): 6 Sit to Lying (QC): 6 Lying to Sitting/Side of Bed(Q: 6 Sit to Stand (QC): 6 Chair/Aew-jz-Wzhig Xfer(QC): 6 Toilet Transfer (QC): 6 Car Transfer (QC): 6 Does the Patient Walk: Yes Mode of Locomotion: Both Anticipated Mode of Locomotion: Both Walk 10 feet (QC): 4 Walk 50 ft with 2 Turns(QC): 4 Walk 150 ft (QC): 88 (Anxiety ) Walking 10ft on uneven surface: 4 Gait Assistive Device: Walker 4 Wheeled Does the Pt Use a Wheelchair: Yes Wheel 50 ft with 2 turns (QC): 6 Wheel 150 ft (QC): 6 Type of Wheelchair: Manual #of Steps: 4 1 Step (curb) (QC): 4 4 Steps (QC): 4 12 Steps (QC): 88 (Anxiety ) Balance Sitting Static: Good Balance Sitting Dynamic: Fair Balance-Standing Static: Fair Picking up an Object (QC): 4 Occupational Therapy Decreased Activ Tolerance, Decreased UE Strength, Impaired I ADL's Eating (QC): 88 Oral Hygiene (QC): 6 Shower/Bathe Self (QC): 5 (set up to cover port, and abdominal lines) Upper Body Dressing (QC): 5 Lower Body Dressing (QC): 5 On/Off Footwear (QC): 5 Toileting Hygiene (QC): 6 Speech-Language Pathology Pt admitted s/p gastrectomy with NPO status. Physician clearance for initiation of PO from the pt's surgeon. MBS study was completed, which showed min pe netration of thin liquids, otherwise WFL. PO trials were initiated of pureed solids and thin liquids in controlled amounts. At time of discharge, the pt was tolerated 3 small meals (total of 1 cup of food or less) and 2 snacks per day. Discharge instructions were provided in writing for continued PO intake schedule and nocturnal TF to bring 24 hour calorie intake to approximately 2000 mamadou/day. Both the pt and fiancee were provided with education, all questions answered. Discharge instruction included 3 small meals per day, 3 snacks, with emphasis on protein intake and increasing liquid intake throughout the day. PT Cloth Printer Helper Goals Cloth Printer Helper Goals PT Half-Way Goals Time Frame: Dec 18, 2022 Roll Left to Right (QC): 6 (Pt will be Mod I with functional mobility ) Sit to Lying (QC): 6 (Pt will be Mod I with functional mobility ) Lying-Sitting on Side/Bed(QC): 6 (Pt will be Mod I with functional mobility ) Sit to Stand (QC): 6 (Pt will be Mod I with functional mobility ) Chair/Qav-em-Wxede Xfer(QC): 6 (Pt will be Mod I with functional mobility ) Toilet/Commode Transfer (QC): 6 (Pt will be Mod I with functional mobility ) Car Transfer (QC): 6 (Pt will be Mod I with functional mobility ) Does the Patient Walk: Yes Walk 10 feet (QC): 6 (Pt will be Mod I with functional mobility ) Walk 10ft-Uneven Surface(QC): 6 (Pt will be Mod I with functional mobility ) Walk 50ft with 2 Turns (QC): 6 (Pt will be Mod I with functional mobility ) Walk 150 ft (QC): 6 (Pt will be Mod I with functional mobility ) Does the Pt use WC or Scooter?: Yes Wheel 50 feet with 2 turns (QC: 6 (Pt will be Mod I with functional mobility ) Type: Manual Wheel 150 feet: 6 (Pt will be Mod I with functional mobility ) Type: Manual 1 Step (curb) (QC): 6 (Pt will be Mod I with functional mobility ) 4 Steps (QC): 6 (Pt will be Mod I with functional mobility ) 12 Steps (QC): 6 (Pt will be Mod I with functional mobility ) Picking up an Object (QC): 6 (Pt will be Mod I with functional mobility ) OT Cloth Printer Helper Goals Half-Way Goals Time Frame: Dec 20, 2022 Acute change in mental status: 0 Inattention: 0 Disorganized thinkin Altered level of consciousness: 0 Eating (QC): 88 Oral Hygiene (QC): 6 Toileting Hygiene (QC): 6 Shower/Bathe Self (QC): 6 Upper Body Dressing (QC): 6 Lower Body Dressing (QC): 6 On/Off Footwear (QC): 6 Additional Goals: 1-Demonstrate ADL Tasks, 2-Verbalize Understanding, 3- ImproveStrength/Victor Manuel 1=Demonstrate adherence to instructed precautions during ADL tasks. 2=Patient will verbalize/demonstrate understanding of assistive devices/modifications for ADL. 3=Patient will improve strength/tolerance for activity to enable patient to perform ADL's. Speech Cloth Printer Helper Goals Cloth Printer Helper Goals The pt will tolerate small (1/4-1/2 cup) trials of safest liquid level and creamy/pureed solids without s/s aspiration MARIA ISABEL TAVAREZ Dec 09, 2022 09:11
--- NOTE | 2022-12-09 09:35 | Therapy Team Discharge Summary ---
Therapy Discharge Summary Discharge Recommendations Date of Discharge Dec 07, 2022 at 10:15 Physical Therapy Roll Left to Right (QC): 6 Sit to Lying (QC): 6 Lying to Sitting/Side of Bed(Q: 6 Sit to Stand (QC): 6 Chair/Kog-yh-Jstvd Xfer(QC): 6 Toilet Transfer (QC): 6 Car Transfer (QC): 6 Does the Patient Walk: Yes Mode of Locomotion: Both Anticipated Mode of Locomotion: Both Walk 10 feet (QC): 4 Walk 50 ft with 2 Turns(QC): 4 Walk 150 ft (QC): 88 (Anxiety ) Walking 10ft on uneven surface: 4 Gait Assistive Device: Walker 4 Wheeled Does the Pt Use a Wheelchair: Yes Wheel 50 ft with 2 turns (QC): 6 Wheel 150 ft (QC): 6 Type of Wheelchair: Manual #of Steps: 4 1 Step (curb) (QC): 4 4 Steps (QC): 4 12 Steps (QC): 88 (Anxiety ) Balance Sitting Static: Good Balance Sitting Dynamic: Fair Balance-Standing Static: Fair Picking up an Object (QC): 4 Occupational Therapy Pt admitted to ARU with critical illness myopathy. At [facility], pt was independent with ADLS and functional mobility. Upon initial evaluation, pt required supervision with oral care, partial assistance with showering, UBD, LBD,and toileting, and set up with footwear. OT tx focused on increasing BUE strength and activity tolerance, and increasing safety and independence with ADLS and functional mobility. Pt made good progress towards goals, attaining LTGS for oral care and toileting. Pt discharged home with family support, d/c from OT. Decreased Activ Tolerance, Decreased UE Strength, Impaired I ADL's Eating (QC): 88 Oral Hygiene (QC): 6 Shower/Bathe Self (QC): 5 (set up to cover port, and abdominal lines) Upper Body Dressing (QC): 5 Lower Body Dressing (QC): 5 On/Off Footwear (QC): 5 Toileting Hygiene (QC): 6 PT Cell Operator Goals Mcc Goals PT Mcc Goals Time Frame: Dec 18, 2022 Roll Left to Right (QC): 6 (Pt will be Mod I with functional mobility ) Sit to Lying (QC): 6 (Pt will be Mod I with functional mobility ) Lying-Sitting on Side/Bed(QC): 6 (Pt will be Mod I with functional mobility ) Sit to Stand (QC): 6 (Pt will be Mod I with functional mobility ) Chair/Zpy-za-Mgnnv Xfer(QC): 6 (Pt will be Mod I with functional mobility ) Toilet/Commode Transfer (QC): 6 (Pt will be Mod I with functional mobility ) Car Transfer (QC): 6 (Pt will be Mod I with functional mobility ) Does the Patient Walk: Yes Walk 10 feet (QC): 6 (Pt will be Mod I with functional mobility ) Walk 10ft-Uneven Surface(QC): 6 (Pt will be Mod I with functional mobility ) Walk 50ft with 2 Turns (QC): 6 (Pt will be Mod I with functional mobility ) Walk 150 ft (QC): 6 (Pt will be Mod I with functional mobility ) Does the Pt use WC or Scooter?: Yes Wheel 50 feet with 2 turns (QC: 6 (Pt will be Mod I with functional mobility ) Type: Manual Wheel 150 feet: 6 (Pt will be Mod I with functional mobility ) Type: Manual 1 Step (curb) (QC): 6 (Pt will be Mod I with functional mobility ) 4 Steps (QC): 6 (Pt will be Mod I with functional mobility ) 12 Steps (QC): 6 (Pt will be Mod I with functional mobility ) Picking up an Object (QC): 6 (Pt will be Mod I with functional mobility ) OT Mcc Goals Cell Operator Goals Time Frame: Dec 20, 2022 Acute change in mental status: 0 Inattention: 0 Disorganized thinkin Altered level of consciousness: 0 Eating (QC): 88 Oral Hygiene (QC): 6 (et) Toileting Hygiene (QC): 6 (met) Shower/Bathe Self (QC): 6 (not met, set up) Upper Body Dressing (QC): 6 (not met, set up) Lower Body Dressing (QC): 6 (not met, set up) On/Off Footwear (QC): 6 (not met, set up) Additional Goals: 1-Demonstrate ADL Tasks, 2-Verbalize Understanding, 3- ImproveStrength/Victor Manuel 1=Demonstrate adherence to instructed precautions during ADL tasks. 2=Patient will verbalize/demonstrate understanding of assistive devices/modifications for ADL. 3=Patient will improve strength/tolerance for activity to enable patient to perform ADL's. Speech Cell Operator Goals Cell Operator Goals The pt will tolerate small (1/4-1/2 cup) trials of safest liquid level and creamy/pureed solids without s/s aspiration LETICIA DARNELL OT Dec 09, 2022 09:35
== END 2022-12-07 10:15 | disposition home health service (06) | DRG 92 ==
PROVIDERS: ADMIT Internal Medicine; ATTEND Internal Medicine
DX: G72.81 Critical illness myopathy (principal); D62 Acute posthemorrhagic anemia; E27.40 Unspecified adrenocortical insufficiency; F43.10 Post-traumatic stress disorder, unspecified; F41.9 Anxiety disorder, unspecified; F32.A Depression, unspecified; E87.6 Hypokalemia; R09.89 Other specified symptoms and signs involving the circulatory and respiratory systems; R13.10 Dysphagia, unspecified; Z93.4 Other artificial openings of gastrointestinal tract status; Z85.038 Personal history of other malignant neoplasm of large intestine; Z87.891 Personal history of nicotine dependence; Z79.899 Other long term (current) drug therapy
CPT/HCPCS: 36415; 74230; 80053; 85007; 85025; 85027; 94760